=== PATIENT | female | born 1995 | race Two or more races ===

== ENCOUNTER 2023-09-14 15:17 | Outpatient (OUT) | payer OTHER, SELFPAY ==
[2023-09-14 16:24] LABS: HCG Quantitative 949 mIU/mL
== END 2023-09-14 15:18 | disposition home or self-care (01) ==
LOC: LAB 15:21
PROVIDERS: Visit Provider Obstetrics & Gynecology
DX: N92.6 Irregular menstruation, unspecified (principal)
CPT/HCPCS: 36415; 84702

== ENCOUNTER 2023-09-16 13:16 | Outpatient (OUT) | payer OTHER, SELFPAY ==
--- OUTSIDE RECORDS SUMMARY | 2023-09-16 13:39 | XMS_ITS | CCD ---
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 [address] [place] [address] Sodium [Moles/Vol] 136 mmol/L Normal 135-145 [facility] Comment on above: Performed By: #### 2 037779, [id number], [id number] ####[facility] [address] [place] [address] Urea nitrogen [Mass/Vol] 8 mg/dL Normal 5-21 [facility] Comment on above: Performed By: #### 2 238234, [id number], 8558018 ####[facility] [address] [place] [address] BhCG Quanton 09-07-2023 Beta hCG Qnt 311 mIU/mL High 1-3 [facility] Comment on above: Result Comment: 'F N ON < 1 - 3' ' 0.2 - 1 WEEK = 5 TO 50' ' 1 - 2 WEEKS = 50 - 500' ' 2 - 3 WEEKS = 100 - 5000' ' 3 - 4 WEEKS = 500 - 82990' ' 4 - 5 WEEKS = 1000 - 25948' ' 5 - 6 WEEKS = 47123 - 187672' ' 6 - 8 WEEKS = 21488 - 660775' ' 8 - 12 WEEKS = 93606 - 015602' Performed By: #### 2 185417, 3847414, 7000191, 5169155, 29384304, 8315606, 6206996 #### [facility] [address] [place] [address] CBC w/ Auto Diffon 4 Basophil Absolute 0.0 E9/L Normal 0.0-0.2 [facility] Comment on above: Performed By: #### 2 430235, [id number], 8894498 ####[address] [address] Basophils/100 WBC (Bld) 0.5 % Normal 0.0-2.0 [facility] Comment on above: Performed By: #### 2 299826, 66494937, 0561958 ####[address] [address] Eos Absolute 0.0 E9/L Normal 0.0-0.5 [facility] Comment on above: Performed By: #### 2 695689, 02774188, 0114923 ####[address] [address] Eosinophils/100 WBC (Bld) 0.5 % Normal 0.0-8.0 [facility] Comment on above: Performed By: #### 2 231111, 19829358, 4097169 ####[address] [address] Erythrocyte distribution width (RBC) [Ratio] 13.0 % Normal 10.9-14.2 [facility] Comment on above: Performed By: #### 2 202252, 20116275, 4130802 ####[address] [address] Hematocrit (Bld) [Volume fraction] 37.0 % Normal 34.0-46.0 [facility] Comment on above: Performed By: #### 2 006178, [id number], 1038358 ####[address] [address] Hemoglobin (Bld) [Mass/Vol] 12.1 g/dL Normal 12.0-16.0 [facility] Comment on above: Performed By: #### 2 575472, 75435570, 0994227 ####[address] [address] Lymph Absolute 2.1 E9/L Normal 1.0-4.0 [facility] Comment on above: Performed By: #### 2 730766, 80089592, 8178233 ####[address] [address] Lymphocytes/100 WBC (Bld) 24.8 % Normal 14.0-50.0 [facility] Comment on above: Performed By: #### 2 533855, 09723202, 4032406 ####[address] [address] MCH (RBC) [Entitic mass] 29.7 pg Normal 27.0-34.0 [facility] Comment on above: Performed By: #### 2 815778, 14303824, 6738949 ####[address] [address] MCHC (RBC) [Mass/Vol] 32.7 g/dL Normal 31.4-36.0 [facility] Comment on above: Performed By: #### 2 482928, 35500951, 6510860 ####[address] [address] MCV (RBC) [Entitic vol] 90.8 fL Normal 80.0-100.0 [facility] Comment on above: Performed By: #### 2 803349, 96939226, 4660359 ####[address] [address] [place] Absolute 0.5 E9/L Normal 0.2-1.0 [facility] Comment on above: Performed By: #### 2 587371, 67942352, 7178366 ####[address] [address] Monocytes/100 WBC (Bld) 6.0 % Normal 4.0-14.0 [facility] Comment on above: Performed By: #### 2 553364, 99583389, 3199553 ####[address] [place] [address] Neutro Absolute 5.9 E9/L Normal 2.0-7.5 [facility] Comment on above: Performed By: #### 2 993211, 67015696, 3887873 ####[facility] [address] [place] [address] Neutro Auto 68.2 % Normal 36.0-75.0 [facility] Comment on above: Performed By: #### 2 875517, 33363495, 6271212 ####[address] [address] Platelet 313.0 E9/L Normal 150.0-500.0 [facility] Comment on above: Performed By: #### 2 019620, 32303102, 0927005 ####[address] [address] Platelet mean volume (Bld) [Entitic vol] 8.1 fL Normal 6.4-10.8 [facility] Comment on above: Performed By: #### 2 650394, 40740576, 8495911 ####[address] [address] RBC 4.1 E12/L Low 4.3-5.9 [facility] Comment on above: Performed By: #### 2 662691, 80792804, 5743149 ####[address] [address] WBC 8.7 E9/L Normal 4.0-11.0 [facility] Comment on above: Performed By: #### 2 985067, 99888211, 1516477 ####[address] [address] CHEMISTRYOrdered By: SYSTEM SYSTEM on 09-07-2023 Anion gap [Moles/Vol] 9 mmol/L Normal 6 - 16 mEq/L R emisol Chem Calcium [Mass/Vol] 9.5 mg/dL Normal 8.9 - 11. 1 mg/dL Remisol Chem Chloride [Moles/Vol] 104 mmol/L Normal 101 - 1 11 mmol/L Remisol Chem CO2 [Moles/Vol] 27 mmol/L Normal 21 - 31 mmol/L Rem[facility] Chem Creatinine [Mass/Vol] 0.6 mg/dL Normal 0.5 - 1.3 mg/dL Remisol Chem eGFR 126 mL/min/1.73 m2 Normal >=59mL/mi n/1 .73 m2 Rem[facility] Chem Glucose [Mass/Vol] 73 mg/dL Normal 55 - 199 mg/dL Rem[facility] Chem HCG.beta subunit Qn 311 m[IU]/mL High 1 - 3 mIU/mL R emisol Chem Comment on above: Result Comment: 'F N ON < 1 - 3' ' 0.2 - 1 WEEK = 5 TO 50' ' 1 - 2 WEEKS = 50 - 500' ' 2 - 3 WEEKS = 100 - 5000' ' 3 - 4 WEEKS = 500 - [address]' ' 4 - 5 WEEKS = 1000 - [address]' ' 5 - 6 WEEKS = [address] - 655618' ' 6 - 8 WEEKS = [address] - 614571' ' 8 - 12 WEEKS = [address] - 369424' Potassium [Moles/Vol] 3.7 mmol/L Normal 3.5 - 5.3 mmol/L Remisol Chem Sodium [Moles/Vol] 136 mmol/L Normal 135 - 145 mmol/L [facility] Chem Urea nitrogen [Mass/Vol] 8 mg/dL Normal 5 - 21 mg/dL Remisol Chem Urea nitrogen/Creatinine [Mass ratio] 13 mg/mg Normal 10 - 20 Remisol Chem Consent for Treatmenton 08-19 Consent for Treatment [id number] #1.00TIFF Normal [facility] Discharge Instructionson Discharge Instructions [id number]#1.00TIFF Normal [facility] ED Clinical Summaryon 2023 ED Clinical Summary [address] [address] ED Clinical Summary Person Information Name: SHAHIDA [place]/[facility] Age: 28 Years : 1995 Sex: Female Language: Guyanese PCP: Liane IRVIN CNP Marital Status: Single Visit Id: Visit Reason: Abdominal pain - ; ABDOMINAL PAIN - Speciality: Acuity: 3 Enc Type: Emergency Med Service: Emergency Arrival: 09/07/2023 12:48:07 Discharge: 09/07/2023 15:56:27 LOS: 000 03:08 Checkin: 09/07/2023 12:48:07 Checkout: 09/07/2023 15:56:27 Dispo Type: Inpt Rehab Fac EVENTS: Event Name Event Status Request Date/Time Start Date/Time Complete Date/Time Arrive Complete 09/07/2023 12:48:07 09/07/2023 12:48:07 09/07/2023 12:48:07 Document Home Meds Request 09/07/2023 12:48:07 Triage Complete 09/07/2023 12:48:07 09/07/2023 13:01:56 09/07/2023 13:01:56 Pending Labs Complete 09/07/2023 13:04:12 09/07/2023 13:55:58 Blood Collect Request 09/07/2023 13:04:12 Lab Complete 09/07/2023 13:04:12 09/07/2023 13:55:58 Urine Collect Complete 09/07/2023 13:04:12 09/07/2023 13:34:22 Bed Assign Complete 09/07/2023 13:14:36 09/07/2023 13:14:36 09/07/2023 13:14:36 Dr Exam Complete 09/07/2023 13:14:36 09/07/2023 13:22:54 09/07/2023 13:22:54 RN Exam Complete 09/07/2023 13:14:36 09/07/2023 15:55:35 09/07/2023 15:55:35 Registration Complete 09/07/2023 13:22:54 09/07/2023 13:24:25 09/07/2023 13:24:25 Dr Exam Complete 09/07/2023 13:23:44 09/07/2023 13:23:44 09/07/2023 13:23:44 Reg Complete Request 09/07/2023 13:24:25 Reg Bed Request Complete 09/07/2023 13:24:26 09/07/2023 13:24:26 09/07/2023 13:24:26 Pending Labs Inlab 09/07/2023 13:26:15 09/07/2023 13:26:15 Lab Inlab 09/07/2023 13:26:15 09/07/2023 13:26:15 Pending Labs Complete 09/07/2023 13:27:58 09/07/2023 13:27:58 09/07/2023 13:46:49 Lab Complete 09/07/2023 13:27:58 09/07/2023 13:27:58 09/07/2023 13:46:49 Pending Labs Complete 09/07/2023 13:35:25 09/07/2023 13:35:25 09/07/2023 13:35:26 Discharge Complete 09/07/2023 15:33:52 09/07/2023 15:56:56 09/07/2023 15:56:56 Transfer Complete 09/07/2023 15:56:56 09/07/2023 15:56:56 09/07/2023 15:56:56 ADDRESS: [address] [facility] [id number] PHYS DOC NOTES: MEDICAL INFORMATION: Prescriptions Given: Medications to Continue with No Changes Other Medications acetaminophen (acetaminophen 325 mg Tab) 3 Tablets By Mouth every 6 hours. acetaminophen-oxycod one (Percocet 5 mg-325 mg oral tablet) 1 Tablets By Mouth every 6 hours. Refills: 0. PATIENT EDUCATION INFORMATION: Instructions: Abdominal Pain, Adult Follow up: With: Address: When: Liane IRVIN [address], [place] [id number] Business (1) In 3 days 09/10/2023 DIAGNOSIS: Abdominal pain Normal [facility] ED Note-Physicianon 09-07-19 ED Note-Physician Basic Information Time Seen: Wallace Doll PA-C 09/07/2023 13:22 Chief Complaint patient c/o abdominal cramping that started today. denies vaginal bleeding- 3 wks . 1 past . sent over [facility]- been there since tuesday. denies vomiting History of Present Illness 28-year-old female comes to the ED for evaluation of abdominal pain. The patient is earlier today she developed some right-sided abdominal pain. She took Tylenol, and upon arrival here her pain is completely resolved. She states she went to get checked out because recent positive home test. Estimates she is 3 weeks . No fever, chills, nausea, vomiting. No diarrhea constipation. No urinary complaints. No vaginal discharge or bleeding. Review of Systems A 10 point review of systems is negative except as noted above. Medical and Surgical History: Reviewed and noted Social history: Lives at home Tobacco: Denies Physical Exam Vitals & Measurements T: 36.7 ?C(Oral) HR: 79(Monitored) RR: 18 BP: 116/51 SpO2: 97% HT: 155 cm WT: 72.5 kg BMI: 30.18 Nurses notes and vital signs reviewed and patient is not hypoxic. General: The patient appears well, resting comfortably. Skin: Warm, dry. Head: Atraumatic. Neck: No JVD. Eye: Normal conjunctiva. Ears, Nose, Mouth, and Throat: Moist mucous membranes. Cardiovascular: Strong distal pulses. Chest wall: Respiratory: Respirations are nonlabored. Back: Normal range of motion. Musculoskeletal: Normal ROM with no gross deformity. Gastrointestinal: Soft and nontender. Midline scar from previous trauma Urological: Neurological: Awake and alert. No focal deficits. Follows commands. Psychiatric: Cooperative. Medical Decision Making Patient presents abdominal pain. She has been pain-free throughout her ED stay. No fever, chills, nausea or vomiting. Quantitative hCG is only 300. Ultrasound likely be nondiagnostic, given her lack of pain currently, she is safe for discharge home with outpatient follow-up. Patient was encouraged to return to the ED if symptoms worsen or change. [ ] The patient is and presents with abdominal pain or vaginal bleeding. A trans-abdominal or trans-vaginal ultrasound was performed and the location is documented. [SATISFIES MIPS PERFORMANCE] [X ] The patient is pregant and presents with abdominal pain or vaginal bleeding. A trans-abdominal or trans-vaginal ultrasound was NOT performed because the patient has no pain vaginal discharge or bleeding [ ] The patient is pregant and presents with abdominal pain or vaginal bleeding. A trans-abdominal or trans-vaginal ultrasound was NOT performed, no reason documented. [DOES NOT SATISFY MIPS PERFORMANCE] Assessment/Plan Abdominal pain (R10.9: Unspecified abdominal pain) Disposition Plan Patient Discharge Condition Disposition: Discharged home Condition: Improved and stable Counseled: Patient and/or family were counseled to workup, results, treatment plan and follow-up recommendations Discharge Prescription List Prescriptions No active prescription medications Follow-up With When Contact Information Liane IRVIN In 3 days 09/10/2023 EST [address] [place] [address] [facility] (1) Additional Instructions: Patient Education Abdominal Pain, Adult Attestation I performed a substantive part of the MDM during the patient?s E/M visit. I personally made or approved the documented management plan and acknowledge its risk of complications. (Independent Interpretation) My (EKG/X-Ray/US/CT) interpretation as above. (Discussion) Management/test interpretation discussed with APC. This report was transcribed using voice recognition software. Every effort was made to ensure accuracy, however, inadvertently computerized ice seller mistakes may be present. Appropriate healthcare PPE was used in evaluating this patient. Problem List/Past Medical History Ongoing Bipolar 1 disorder, mixed BMI 24.0-24.9, adult Chronic hepatitis C Drug addiction in remission Nicotine addiction Historical feet Seizures Procedure/Surgical History Betamethasone (12/15/2020), Foot repair. 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 Exercise type: Walking., 02/22/2019 Home/Environment Lives with Mother., 11/08/2011 Nutrition/Health - Low Risk, 11/08/2011 Other Caffeine-none, 02/22/2019 Sexual Sexually active: Yes., 11/08/2011 Substance Abuse - Denies Substance Abuse, 10/27/2020 Past, Cocaine, Heroin, Methamphetamines, IV drug use: Yes. Drug use interferes with work/ho (more content not included)... Normal [facility] Comment on above: Result Comment: Elec tronically Signed By: Wallace Doll PA-C\.br\Date and Time Signed: 09/07/23 16:08 EST\.br\Electronically Co-Signed By: Ba Duque DO\.br\Date and Time Co-Signed: 09/07/23 17:48 EST ED Patient Education Noteon 09-07-2023 ED Patient Education Note Gastroenterology Abdominal Pain, Adult Pain in the abdomen (abdominal pain) can be caused by many things. Often, abdominal pain is not serious and it gets better with no treatment or by being treated at home. However, sometimes abdominal pain is serious. Your health care provider will ask questions about your medical history and do a physical exam to try to determine the cause of your abdominal pain. Follow these instructions at home: Medicines ? Take vpfs-vae-jxyeiga and prescription medicines only as told by your health care provider. ? Do not take a laxative unless told by your health care provider. General instructions ? Watch your condition for any changes. ? Drink enough fluid to keep your urine pale yellow. ? Keep all follow-up visits as told by your health care provider. This is important. Contact a health care provider if: ? Your abdominal pain changes or gets worse. ? You are not hungry or you lose weight without trying. ? You are constipated or have diarrhea for more than 2?3 days. ? You have pain when you urinate or have a bowel movement. ? Your abdominal pain wakes you up at night. ? Your pain gets worse with meals, after eating, or with certain foods. ? You are vomiting and cannot keep anything down. ? You have a fever. ? You have blood in your urine. Get help right away if: ? Your pain does not go away as soon as your health care provider told you to expect. ? You cannot stop vomiting. ? Your pain is only in areas of the abdomen, such as the right side or the left lower portion of the abdomen. Pain on the right side could be caused by appendicitis. ? You have bloody or black stools, or stools that look like tar. ? You have severe pain, cramping, or bloating in your abdomen. ? You have signs of dehydration, such as: ? Dark urine, very little urine, or no urine. ? Cracked lips. ? Dry mouth. ? Sunken eyes. ? Sleepiness. ? Weakness. ? You have trouble breathing or chest pain. Summary ? Often, abdominal pain is not serious and it gets better with no treatment or by being treated at home. However, sometimes abdominal pain is serious. ? Watch your condition for any changes. ? Take gula-vzj-kxgntps and prescription medicines only as told by your health care provider. ? Contact a health care provider if your abdominal pain changes or gets worse. ? Get help right away if you have severe pain, cramping, or bloating in your abdomen. This information is not intended to replace advice given to you by your health care provider. Make sure you discuss any questions you have with your health care provider. Document Revised: 08/22/2020 Document Reviewed: 11/12/2019 [employer] Patient Education ? 2022 [place]. [facility] ED Patient Summaryon 024 ED Patient Summary [address] [address] Patient Discharge Instructions Person Information Name: SHAHIDA [place] Age: 28 Years Arrival Date: 09/07/2023 12:48:07 Discharge Diagnosis: Abdominal pain Primary Care Physician: Liane IRVIN CNP Provider Information Primary Provider: Ba Duque DO Advanced Door Clamper:Wallace Doll PA-C The exam and treatment you received in the Emergency Department were for an urgent problem and are not intended as complete care. It is important that you follow up with a doctor, nurse practitioner, or physician?s post production assistant for ongoing care. If your symptoms become worse or you do not improve as expected and you are unable to reach your usual health care provider, you should return to the Emergency Department. We are available 24 hours a day. SHAHIDA [place] has been given the following list of patient education materials, prescriptions and follow-up instructions: Follow-up Instructions: With: Address: When: Liane IRVIN [address] [place] [address] Business (1) In 3 days 09/10/2023 In the event that this physician does not participate in your insurance network, please consult with your insurance company to find a nearby participating provider. Patient Education Materials: Abdominal Pain, Adult A MESSAGE TO ALL PATIENTS REGARDING OPIOIDS PRESCRIPTION OPIOIDS: WHAT YOU NEED TO KNOW Prescription opioids can be used to help relieve iizxjhpg-sg-bvutlh pain and are often prescribed following a surgery or injury, or for certain health conditions. These medications can be an important part of the treatment but also come with serious risks. It is important to work with your healthcare provider to make sure you are getting the safest, most effective care. WHAT ARE THE RISKS AND SIDE EFFECTS OF OPIOID USE? Prescription opioids carry serious risks of addiction and overdose, especially with prolonged use. An opioid overdose, often marked by slowed breathing, can cause sudden . The use of prescription opioids can have a number of side effects as well, even when taken as directed: ? Tolerance?meaning you might need to take more of the medication for the same pain relief ? Physical dependence?meaning you have symptoms of withdrawal when a medication is stopped ? Increased sensitivity to pain ? Constipation ? Nausea, vomiting, and dry mouth ? Sleepiness and dizziness ? Confusion ? Depression ? Low levels of testosterone that can result in lower sex drive, energy, and strength ? Itching and sweating RISKS ARE GREATER WITH: ? History of drug misuse, substance use disorder, or overdose ? Mental health conditions (such as depression or anxiety) ? Sleep apnea ? Older age (65 years and older) ? Avoid alcohol while taking prescription opioids. Also, unless specifically advised by your health care provider, medications to avoid include: ? Benzodiazepines (such as Xanax or Valium) ? Muscle relaxants (such as Soma or Flexeril) ? Hypnotics (such as Ambien or Lunesta) ? Other prescription opioids KNOW YOUR OPTIONS Talk to your health care provider about ways to manage your pain that don?t involve prescription opioids. Some of these options may actually work better and have fewer risks and side effects. Options may include: ? Pain relievers such as acetaminophen, ibuprofen, and naproxen ? Some medication that are also used for depression or seizures ? Physical therapy and exercise ? Cognitive behavioral therapy, a psychological, goal-directed approach, in which patients learn how to modify physical, behavioral, and emotional triggers of pain and stress. IF YOU ARE PRESCRIBED OPIOIDS FOR PAIN: ? Never take opioids in greater amounts or more often than prescribed. ? Follow up with your primary health care provider. o Work together to create a plan on how to manage your pain. o Talk about ways to help manage your pain that don?t involve prescription opioids. o Talk about any and all concerns and side effects. ? Help prevent misuse and abuse o Never sell or share prescription opioids. o Never use another person?s prescription opioids. ? Store prescription opioids in a secure place and out of reach of others (this may include visitors, children, friends, and family). ? Safely dispose of unused prescription opioids: Find your community drug take-back program or your pharmacy mail-back program, or flush them down the toilet, following guidance from the Food and Drug Administration (www.fda.gov/Drugs/R esourcesForYou). ? Visit www.cdc.gov/drugover dose to learn about the risks of opioids abuse and overdose. ? If you believe you may be struggling with addiction, tell your health customer care agent and ask for guidance or call [facility]?S National Helpline at 0-423-427-YGTV. h Source: [place] Department o (more content not included)... Normal [facility] HEMATOLOGYOrdered By: SYSTEM SYSTEM on 09-07-2023 Basophil Absolute 0.0 E9/L Normal 0.0 - 0.2 E9/L Remisol Heme Basophils/100 WBC (Bld) 0.5 % Normal 0.0 - 2.0 % Remisol Heme Eos Absolute 0.0 E9/L Normal 0.0 - 0.5 E9/L Remisol Heme Eosinophils/100 WBC (Bld) 0.5 % Normal 0.0 - 8.0 % Remisol Heme Erythrocyte distribution width (RBC) [Ratio] 13.0 % Normal 10.9 - 14.2 % Remisol Heme Hematocrit (Bld) [Volume fraction] 37.0 % Normal 34.0 - 46.0 % Remisol Heme Hemoglobin (Bld) [Mass/Vol] 12.1 g/dL Normal 12.0 - 16.0 gm/dL Remisol Heme Lymph Absolute 2.1 E9/L Normal 1.0 - 4.0 E9/L Remisol Heme Lymphocytes/100 WBC (Bld) 24.8 % Normal 14.0 - 50.0 % Remisol Heme MCH (RBC) [Entitic mass] 29.7 pg Normal 27.0 - 34.0 pg Remisol Heme MCHC (RBC) [Mass/Vol] 32.7 g/dL Normal 31.4 - 36.0 gm/dL Remisol Heme MCV (RBC) [Entitic vol] 90.8 fL Normal 80.0 - 100.0 fL Remisol Heme [place] Absolute 0.5 E9/L Normal 0.2 - 1.0 E9/L Remisol Heme Monocytes/100 WBC (Bld) 6.0 % Normal 4.0 - 14.0 % Remisol Heme Neutro Absolute 5.9 E9/L Normal 2.0 - 7.5 E9/L Remisol Heme Neutro Auto 68.2 % Normal 36.0 - 75.0 % Remisol Heme Platelet 313.0 E9/L Normal 150.0 - 500.0 E9/L Remisol Heme Platelet mean volume (Bld) [Entitic vol] 8.1 fL Normal 6.4 - 10.8 fL Remisol Heme RBC 4.1 E12/L Low 4.3 - 5.9 E12/L Remisol Heme WBC 8.7 E9/L Normal 4.0 - 11.0 E9/L Remisol Heme Outside Recordson 09-07-2023 Outside Records [id number] 8#1.00TIFF Normal [facility] Pre-Arrival Noteon Pre-Arrival Note Pre-Arrival Summary Name: Adriano, Current Date: 09/07/2023 12:55:08 EST Gender: Female Date of : 1995 Age: 28 years Pre-Arrival Type: EMS ETA: 09/07/2023 12:58:00 EST Primary Care Physician: Presenting Problem: abd pain Pre-Arrival User: Wallace Doll PA-C Referring Source: Location: ID Completion Date/Time: 09/07/2023 12:29:00 [facility] Emergency Department Pre-Hospital Report Form Vital Signs: Pre-Hospital Report: Treatment in Route: Response to Treatment: Misc. Issues: Abd pain with positive preg test Normal [facility] UA With Cult Reflexon 2023 Bacteria LM Ql (Urine sed) TRACE Normal Trace [facility] Comment on above: Performed By: #### 2 [id number], [id number], 9503541, 4542519, 06792464, 4502473, [id number] #### [facility] [address] [place] [address] Bilirubin Ql (U) Negative Normal Negative [facility] Comment on above: Performed By: #### 2 467123, 3462734, 2369365, 4373100, 97735958, 4186642, [id number] #### [facility] [address] [place] [address] Clarity (U) CLEAR Normal Clear [facility] Comment on above: Performed By: #### 2 860730, 4804984, 0638070, 8608684, 05444276, 6745007, [id number] #### [facility] [address], [place] [address] Color (U) STRAW Abnormal Yellow [facility] Comment on above: Performed By: #### 2 907147, 1537315, 0159273, 9931913, 68829109, 5953031, 9366577 #### [facility] [address] [place] [address] Epithelial cells.squamous LM.HPF (Urine sed) [#/Area] 0-2 Normal 0-2 [facility] Comment on above: Performed By: #### 2 387252, 0642344, 0790271, 6160437, 57789896, 8954839, 3374218 #### [facility] [address] [place] [address] Glucose Test strip (U) [Mass/Vol] Negative Normal Negative [facility] Comment on above: Performed By: #### 2 469193, 8675850, 2561033, 9379901, 85367894, 1409255, 5711289 #### [facility] [address] [place] [address] Hemoglobin Ql (U) Negative Normal Negative [facility] Comment on above: Performed By: #### 2 954566, 2791694, 8773590, 0548408, 15106285, 7800733, 3226340 #### [facility] [address] [place] [address] Ketones (U) [Mass/Vol] Negative Normal Negative [facility] Comment on above: Performed By: #### 2 950619, 7780353, 9334811, 5002366, 31032079, 4330300, 1188146 #### [facility] [address] [place]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 Normal [facility] Comment on above: Result Comment: Elec tronically Signed By: MD Bertha, Herminio Pope\.br\Date and Time Signed: 11/15/22 02:22 EDT Progress Note-Physician Patient: SHAHIDA OH Age: 27 years Sex: Female : 1995 Associated Diagnoses: None Author: MD Bertha, Herminio Pope Preoperative Information Anesthesia Preop Information NPO status unclear. Pt confused about when she had oral intake. Anesthesia history: Patient history: No prior anesthesia problems. Re-evaluation prior to induction: Completed, Initial evaluation reviewed. Review of Systems Respiratory: No shortness of breath. Cardiovascular: Pain at stabbing sites.. Hematology/Lymphatic s Health Status Allergies: Allergic Reactions (All) No Known Allergies No Known Medication Allergies Current medications: (Selected) Inpatient Medications Ordered Dilaudid 1 mg/mL injectable solution: 0.5 mg = 0.5 mL, Injection, IV Push, q3hr PRN Breakthrough Pain for 5 day(s), Stop date 11/21/22 14:33:00 EDT, Routine, Start date 11/16/22 14:34:00 EDT Robaxin 500 mg Tab: 500 mg = 1 tab(s), Tab, Oral, QID, Routine, Start date 11/15/22 9:00:00 EDT, 11/15/22 4:39:00 EDT acetaminophen 325 mg Tab: 975 mg = 3 tab(s), Tab, Oral, q6hr, Routine, Start date 11/15/22 5:00:00 EDT, 11/15/22 4:39:00 EDT bisacodyl 10 mg Supp: 10 mg = 1 supp, Supp, Rectal, Daily PRN Constipation, Routine, Start date 11/15/22 4:39:00 EDT, 11/15/22 4:39:00 EDT bisacodyl 5 mg Oral EC Tab: 10 mg = 2 tab(s), Tab-EC, Oral, Daily PRN Constipation, Routine, Start date 11/15/22 4:39:00 EDT, 11/15/22 4:39:00 EDT enoxaparin 30 mg/0.3 mL SC Lucy: 30 mg = 0.3 mL, Injection, SubCutaneous, BID, Routine, Start date 11/15/22 9:00:00 EDT, 11/15/22 4:39:00 EDT gabapentin 300 mg Cap: 300 mg = 1 cap(s), Cap, Oral, TID, Routine, Start date 11/15/22 8:00:00 EDT, 11/15/22 4:39:00 EDT ketorolac 15 mg/mL Inj: 15 mg = 1 mL, Injection, IV Push, q6hr for 5 day(s), Stop date 11/20/22 9:59:00 EDT, Routine, Start date 11/15/22 10:00:00 EDT, 11/15/22 10:00:00 EDT magnesium hydroxide 8% Oral Susp 30 mL: 30 mL, Susp-Oral, Oral, Daily PRN Constipation, STAT, Start date 11/15/22 4:39:00 EDT oxyCODONE 5 mg Tab: 10 mg = 2 tab(s), Tab, Oral, q4hr PRN Pain 8-10 for 5 day(s), Stop date 11/21/22 14:33:00 EDT, Routine, Start date 11/16/22 14:34:00 EDT, Pain score 8-10. oxyCODONE 5 mg Tab: 5 mg = 1 tab(s), Tab, Oral, q4hr PRN Pain 4-7 for 5 day(s), Stop date 11/21/22 14:32:00 EDT, Routine, Start date 11/16/22 14:33:00 EDT, Pain score 4-7. Prescriptions Prescribed Naprosyn 500 mg Tab: 500 mg = 1 tab(s), Oral, BID, with food, X 7 day(s), # 14 tab(s), Refills(s) 0, Pharmacy: [facility] #[id number], 157, cm, 11/14/22 23:32:00 EDT, Height/Length Dosing, 66.5, kg, 11/14/22 23:32:00 EDT, Weight Dosing Robaxin 500 mg Tab: 500 mg = 1 tab(s), Oral, QID, PRN Spasm, X 7 day(s), # 28 tab(s), Refills(s) 0, Pharmacy: [facility] #[id number], 157, cm, 11/14/22 23:32:00 EDT, Height/Length Dosing, 66.5, kg, 11/14/22 23:32:00 EDT, Weight Dosing Documented Medications Documented acetaminophen 325 mg Tab: 975 mg = 3 tab(s), Oral, q6hr, Refills(s) 0 Problem list: All Problems Bipolar 1 disorder, mixed / SNOMED CT 68321745 / Confirmed BMI 24.0-24.9, adult / SNOMED CT 8756236613 / Confirmed Chronic hepatitis C / SNOMED CT 542889112 / Confirmed Drug addiction in remission / SNOMED CT 6890109309 / Confirmed Maternal tobacco use / SNOMED CT 9926572518 / Confirmed Maternal tobacco use / SNOMED CT 4051556240 / Confirmed Nicotine addiction / SNOMED CT 35915164 / Confirmed Resolved: feet / SNOMED CT 841529834 metal implation to tighten tedons Resolved: Impaired skin integrity / SNOMED CT 85595522 Problem added on documentation of skin impairments. Resolved due to patient discharge. Resolved: / SNOMED CT 765896669 Resolved: Seizures / SNOMED CT [id number] Canceled: Anxious depression / SNOMED CT 038932299 Canceled: Depression / SNOMED CT 085445429 Canceled: Diarrhea / SNOMED CT 719979649 Canceled: Fever / SNOMED CT 1287629828 Canceled: HCV infection / SNOMED CT 73700006 Canceled: High urine creatine / SNOMED CT 986041 Canceled: Smoker / IMO 094086 Added secondary to documentation in Social History. Canceled: Suicide / SNOMED CT 25360951 Canceled: Tonsillar cyst / SNOMED CT 030920559 Histories Past Medical History: Resolved (093577465): Onset on 05/18/2020 at 25 years. Resolved. feet (548679301): Resolved. Comments: 11/08/2011 EDT 3:54 Richard Mayes RNah metal implation to tighten tedons Seizures ([id number]): Resolved. Family History: Renal failure syndrome Father Comments: 11/08/2011 3:57 Richard Mayes RNah cancer of the kidneys Bipolar Sister Procedure history: Betamethasone (351356294) on 12/15/2020 at 25 Years. Foot repair (599347456). Social History Social & Psychosocial Habits Alcohol 11/08/2011 Risk Assessment: Denies Alcohol Use 11/15/2022 Use: Current Frequency: 1-2 times per month Employment/School 11/08/2011 Status: Student Exerci (more content not included)... Normal [facility] Comment on above: Result Comment: Elec tronically Signed By: MD Bertha, Herminio F\.br\Date and Time Signed: 11/17/22 15:59 EDT eGFRon 11-17-2022 GFR/1.73 sq M.predicted among non-blacks MDRD (S/P/Bld) [Vol rate/Area] 133 mL/min/1.73 m2 Normal >=59 [facility] Comment on above: Order Comment: Order added by Discern Expert. Result Comment: Almond Huller rosie kidney disease could be indicated at eGFR's of less than 60 mL/min/1.73m2. Kidney failure is indicated at less than 15 mL/min/1.73m2. Performed By: #### 1 3512473, 2903131, 6645934, 5502994, 3851816, 6965145 ####[facility] [address] [place] [address] Auto Diffon 11-16-2022 Basophils/100 WBC (Bld) 0.4 % Normal 0.0-2.0 [facility] Comment on above: Order Comment: Order Added by Discern Expert. Performed By: #### 2 112421, 1255546, 9146390, 9010248, 88726685, 6064976, 0139840 #### [facility] [address] [place] [address] Basophils/Leukocytes Auto (Bld) [Pure # fraction] 0.0 E9/L Normal 0.0-0.2 [facility] Comment on above: Order Comment: Order Added by Discern Expert. Performed By: #### 2 379349, 0713251, 2807629, 6491364, 28212632, 1416661, 5727157 #### [facility] [address] [place] [address] Eosinophils/100 WBC (Bld) 0.5 % Normal 0.0-8.0 [facility] Comment on above: Order Comment: Order Added by Discern Expert. Performed By: #### 2 840855, 3924194, 8616796, 5012815, 30278719, 1592608, 6249306 #### [facility] [address] [place] [address] Eosinophils/Leukocytes Auto (Bld) [Pure # fraction] 0.0 E9/L Normal 0.0-0.5 [facility] Comment on above: Order Comment: Order Added by Discern Expert. Performed By: #### 2 955840, 2847780, 0319606, 5415692, 77907089, 1037128, 7861829 #### [facility] [address] [place] [address] Lymphocytes/100 WBC (Bld) 33.3 % Normal 14.0-50.0 [facility] Comment on above: Order Comment: Order Added by Discern Expert. Performed By: #### 2 744056, 7324339, 8685034, 9830774, 58587108, 1733105, 4765229 #### [facility] [address] [place] [address] Lymphocytes/Leukocytes Auto (Bld) [Pure # fraction] 3.4 E9/L Normal 1.0-4.0 [facility] Comment on above: Order Comment: Order Added by Discern Expert. Performed By: #### 2 480221, 3588695, 0585448, 7785413, 63940649, 3490306, 5606696 #### [facility] [address] [place] [address] Monocytes/100 WBC (Bld) 5.9 % Normal 4.0-14.0 [facility] Comment on above: Order Comment: Order Added by Discern Expert. Performed By: #### 2 953061, 9207134, 9001092, 7969791, 11234373, 6114794, 1401228 #### [facility] [address] [place] [address] Monocytes/Leukocytes Auto (Bld) [Pure # fraction] 0.6 E9/L Normal 0.2-1.0 [facility] Comment on above: Order Comment: Order Added by Esme Expert. Performed By: #### 2 208197, 8517743, 5266101, 7171034, 84760798, 2022810, 6748702 #### [facility] [address] [place] [address] Neutrophils/100 WBC (Bld) 59.9 % Normal 36.0-75.0 [facility] Comment on above: Order Comment: Order Added by Esme Expert. Performed By: #### 2 046274, 7480323, 9795911, 5010300, 67887670, 7904265, 3766595 #### [facility] [address] [place] [address] Neutrophils/Leukocytes Auto (Bld) [Pure # fraction] 6.2 E9/L Normal 2.0-7.5 [facility] Comment on above: Order Comment: Order Added by Esme Expert. Performed By: #### 2 535329, 8885537, 7800146, 1462743, 70812112, 2922413, 5011304 #### [facility] [address] [place] [address] BMPon 11-16-2022 Anion gap [Moles/Vol] 5 mmol/L Low 6-16 [facility] Comment on above: Order Comment: RN Ma dison aware in as RN collect, will correct...[facility] 11/16/2022 03:05:16 EDT Performed By: #### 2 292324, 2755810, 3067987, 9354285, 64375149, 7620853, 0057144 #### [facility] [address] [place] [address] Calcium [Mass/Vol] 8.1 mg/dL Low 8.9-11.1 [facility] Comment on above: Order Comment: DENNIS tamayo aware in as RN collect, will correct...[facility] 11/16/2022 03:05:16 EDT Performed By: #### 2 887049, 0269017, 3302076, 6277390, 63897178, 0830925, 2630268 #### [facility] [address] [place] [address] Chloride [Moles/Vol] 110 mmol/L Normal 101-111 [facility] Comment on above: Order Comment: DENNIS tamayo aware in as RN collect, will correct...[facility] 11/16/2022 03:05:16 EDT Performed By: #### 2 222653, 3155918, 5449034, 2058731, 86727343, 5087214, 0109639 #### [facility] [address] [place] [address] CO2 [Moles/Vol] 25 mmol/L Normal 21-31 [facility] Comment on above: Order Comment: DENNIS henriquez in as RN collect, will correct...[facility] 11/16/2022 03:05:16 EDT Performed By: #### 2 270671, 7971049, 8185873, 1846440, 43877443, 4836950, 5502279 #### [facility] [address] [place] [address] Creatinine [Mass/Vol] 0.5 mg/dL Normal 0.5-1.3 [facility] Comment on above: Order Comment: DENNIS tamayo aware in as RN collect, will correct...[facility] 11/16/2022 03:05:16 EDT Performed By: #### 2 153803, 1995605, 1061088, 5337329, 15755914, 4720858, 3352190 #### [facility] [address] [place] [address] Glucose [Mass/Vol] 90 mg/dL Normal 55-199 [facility] Comment on above: Order Comment: DENNIS tamayo aware in as RN collect, will correct...[facility] 11/16/2022 03:05:16 EDT Result Comment: If t his glucose result represents a fasting glucose, interpretation should refer to the following reference range: 55-99 mg/dL Performed By: #### 2 164973, 3827404, 5867841, 7213699, 12935721, 4875219, 2813445 #### [facility] [address] [place] [address] Potassium [Moles/Vol] 3.9 mmol/L Normal 3.5-5.3 [facility] Comment on above: Order Comment: DENNIS tamayo aware in as RN collect, will correct...[facility] 11/16/2022 03:05:16 EDT Performed By: #### 2 276101, 4608872, 6217912, 1883487, 43982560, 6144484, 6187212 #### [facility] [address] [place] [address] Sodium [Moles/Vol] 136 mmol/L Normal 135-145 [facility] Comment on above: Order Comment: DENNIS tamayo aware in as RN collect, will correct...[facility] 11/16/2022 03:05:16 EDT Performed By: #### 2 161535, 3254638, 6338578, 6578070, 37786398, 2241245, 8258618 #### [facility] [address] [place] [address] Urea nitrogen [Mass/Vol] 11 mg/dL Normal 5-21 [facility] Comment on above: Order Comment: DENNIS tamayo aware in as RN collect, will correct...[facility] 11/16/2022 03:05:16 EDT Performed By: #### 2 600397, 8584996, 2342984, 9790272, 17295479, 9911455, 8270480 #### [facility] [address] [place] [address] Urea nitrogen/Creatinine [Mass ratio] 22 No Units High 10-20 [facility] Comment on above: Order Comment: RN Jose C tamayo aware in as RN collect, will correct...[facility] 11/16/2022 03:05:16 EDT Performed By: #### 2 772194, 6055779, 8077190, 0932198, 85483326, 5010223, 6261849 #### [facility] [address] [place] [address] CBC w/ Auto Diffon 3 Erythrocyte distribution width (RBC) [Ratio] 13.8 % Normal 10.9-14.2 [facility] Comment on above: Performed By: #### 2 680929, 2237094, 8951846, 7491908, 45406519, 8088882, 0569882 #### [facility] [address] [place] [address] Hematocrit (Bld) [Volume fraction] 29.3 % Low 34.0-46.0 [facility] Comment on above: Performed By: #### 2 152278, 1686817, 4576497, 6123072, 69176927, 5394423, 0098819 #### [facility] [address] [place] [address] Hemoglobin (Bld) [Mass/Vol] 9.7 g/dL Low 12.0-16.0 [facility] Comment on above: Performed By: #### 2 929826, 2081877, 5557240, 7909617, 43821775, 0451564, 2443580 #### [facility] [address] [place] [address] MCH (RBC) [Entitic mass] 30.0 pg Normal 27.0-34.0 [facility] Comment on above: Performed By: #### 2 883681, 1068770, 4533594, 0932062, 06454225, 3949798, 3724923 #### [facility] [address] [place] [address] MCHC (RBC) [Mass/Vol] 33.3 g/dL Normal 31.4-36.0 [facility] Comment on above: Performed By: #### 2 787223, 7837160, 6691621, 6521434, 88413533, 7158728, 0201504 #### [facility] [address] [place] [address] MCV (RBC) [Entitic vol] 90.0 fL Normal 80.0-100.0 [facility] Comment on above: Performed By: #### 2 664600, 3593779, 6694996, 8953557, 86582139, 3777946, 7918766 #### [facility] [address] [place] [address] Platelet mean volume (Bld) [Entitic vol] 8.7 fL Normal 6.4-10.8 [facility] Comment on above: Performed By: #### 2 885477, 2573437, 3171109, 1509287, 24167255, 0578774, 7653089 #### [facility] [address] [place] [address] Platelets (Bld) [#/Vol] 172.0 E9/L Normal 150.0-500.0 [facility] Comment on above: Performed By: #### 2 747155, 8454658, 7525383, 2976706, 89994012, 3463096, 3468673 #### [facility] [address] [place] [address] RBC (Bld) [#/Vol] 3.2 E12/L Low 4.3-5.9 [facility] Comment on above: Performed By: #### 2 098762, 5462770, 5198335, 3628780, 30240666, 1205452, 7831146 #### [facility] [address] [place] [address] WBC corrected for nucl RBC Auto (Bld) [#/Vol] 10.3 E9/L Normal 4.0-11.0 [facility] Comment on above: Performed By: #### 2 272276, 6861242, 6194421, 8881708, 37142369, 5846210, 3518757 #### [facility] [address] [place] [address] CHEMISTRYOrdered By: SYSTEM SYSTEM on 11-16-2022 Anion gap [Moles/Vol] 5 mmol/L Low 6 - 16 mEq/L [facility] Chloride [Moles/Vol] 110 mmol/L Normal 101 - 1 11 mmol/L [facility] CO2 [Moles/Vol] 25 mmol/L Normal 21 - 31 mmol/L [facility] Creatinine [Mass/Vol] 0.5 mg/dL Normal 0.5 - 1.3 mg/dL [facility] GFR/1.73 sq M.predicted among non-blacks MDRD (S/P/Bld) [Vol rate/Area] 133 mL/min/1.73 m2 Normal >=59mL/min/1 .73 m2 [facility] Chem S Glucose [Mass/Vol] 90 mg/dL Normal 55 - 199 mg/dL [facility] Magnesium [Mass/Vol] 1.8 mg/dL Normal 1.3 - 2 .4 mg/dL [facility] Phosphate [Mass/Vol] 2.7 mg/dL Normal 1.9 - 4 .6 mg/dL [facility] Potassium [Moles/Vol] 3.9 mmol/L Normal 3.5 - 5.3 mmol/L [facility] Remisol Sodium [Moles/Vol] 136 mmol/L Normal 135 - 145 mmol/L [facility] Remisol Urea nitrogen [Mass/Vol] 11 mg/dL Normal 5 - 21 mg/dL [facility] Urea nitrogen/Creatinine [Mass ratio] 22 mg/mg High 10 - 20 [facility] HEMATOLOGYOrdered By: SYSTEM SYSTEM on 11-16-2022 Basophils/100 WBC (Bld) 0.4 % Normal 0.0 - 2.0 % [facility] Basophils/Leukocytes Auto (Bld) [Pure # fraction] 0.0 E9/L Normal 0.0 - 0.2 E9/L [facility] Eosinophils/100 WBC (Bld) 0.5 % Normal 0.0 - 8.0 % [facility] Eosinophils/Leukocytes Auto (Bld) [Pure # fraction] 0.0 E9/L Normal 0.0 - 0.5 E9/L [facility] Lymphocytes/100 WBC (Bld) 33.3 % Normal 14.0 - 50.0 % [facility] Lymphocytes/Leukocytes Auto (Bld) [Pure # fraction] 3.4 E9/L Normal 1.0 - 4.0 E9/L [facility] Monocytes/100 WBC (Bld) 5.9 % Normal 4.0 - 14.0 % [facility] Monocytes/Leukocytes Auto (Bld) [Pure # fraction] 0.6 E9/L Normal 0.2 - 1.0 E9/L [facility] Neutrophils/100 WBC (Bld) 59.9 % Normal 36.0 - 75.0 % [facility] Neutrophils/Leukocytes Auto (Bld) [Pure # fraction] 6.2 E9/L Normal 2.0 - 7.5 E9/L [facility] HEMATOLOGYOrdered By: Rian Arroyo on 11-16-2022 Erythrocyte distribution width (RBC) [Ratio] 13.8 % Normal 10.9 - 14.2 % [facility] Hematocrit (Bld) [Volume fraction] 29.3 % Low 34.0 - 46.0 % [facility] Hemoglobin (Bld) [Mass/Vol] 9.7 g/dL Low 12.0 - 16.0 gm/dL [facility] MCH (RBC) [Entitic mass] 30.0 pg Normal 27.0 - 34.0 pg [facility] MCHC (RBC) [Mass/Vol] 33.3 g/dL Normal 31.4 - 36.0 gm/dL [facility] MCV (RBC) [Entitic vol] 90.0 fL Normal 80.0 - 100.0 fL [facility] Platelet mean volume (Bld) [Entitic vol] 8.7 fL Normal 6.4 - 10.8 fL [facility] Platelets (Bld) [#/Vol] 172.0 E9/L Normal 150. 0 - 500.0 E9/L [facility]eAutoSS RBC (Bld) [#/Vol] 3.2 E12/L Low 4.3 - 5.9 E12/L [facility] HemeAutoSS WBC corrected for nucl RBC Auto (Bld) [#/Vol] 10.3 E9/L Normal 4.0 - 11.0 E9/L [facility] HemeAutoSS Interdisciplinary Note - Luis e Manageron 11-16-2022 Interdisciplinary Note - Fixed Income Director Pt is awaiting bed to [facility]. ANt dc TBD. CRM to follow. Normal [facility] Comment on above: Result Comment: Elec tronically Signed By: Shanti Reed.br\Date and Time Signed: 11/16/22 11:01 EDT Laboratory - Chemistry and C hemistry - challengeOrdered By: SYSTEM SYSTEM on 11-16-2022 Calcium [Mass/Vol] 8.1 mg/dL Low 8.9 - 11. 1 mg/dL [facility] Remisol Magnesiumon 11-16-2022 Magnesium [Mass/Vol] 1.8 mg/dL Normal 1.3-2.4 [facility] Comment on above: Performed By: #### 2 651663, 4550426, 6169669, 4295543, 92251542, 0582783, 2017153 #### [facility] [address] [place] [address] Phosphoruson 11-16-2022 Phosphate [Mass/Vol] 2.7 mg/dL Normal 1.9-4.6 [facility] Comment on above: Performed By: #### 2 476300, 1320835, 5332585, 0076379, 23621037, 6343521, 9005680 ####[facility] [address] [place] [address] eGFRon 11-16-2022 GFR/1.73 sq M.predicted among non-blacks MDRD (S/P/Bld) [Vol rate/Area] 133 mL/min/1.73 m2 Normal >=59 [facility] Comment on above: Order Comment: Order added by Discern Expert. Result Comment: Almond Huller rosie kidney disease could be indicated at eGFR's of less than 60 mL/min/1.73m2. Kidney failure is indicated at less than 15 mL/min/1.73m2. Performed By: #### 2 085830, 6195291, 7783659, 1007438, [id number], 6035991, 5717812 #### [facility] [address] [place] [address] ABO/Rhon 11-15-2022 ABO/Rh Positive Invalid Interpretation Code [facility] Comment on above: Performed By: #### 1 [id number], 31733434, 53526771, 1099367 ####[facility] [address] [place] [address] ABO/Rh History Checkon 11-15 ABO/Rh History Check Verified Hx Blood Type Normal [facility] Comment on above: Performed By: #### 1 4512709, 60121789, 59556333, 0883231 ####[facility] [address] [place] [address] ABSCon 11-15-2022 ABSC Gel Interp Negative Normal [facility] Comment on above: Performed By: #### 1 9685330, 59891328, 92548160, 6919560 ####[facility] [address] [place] [address] Auto Diffon 11-15-2022 Basophils/100 WBC (Bld) 0.2 % Normal 0.0-2.0 [facility] Comment on above: Order Comment: DENNIS tamayo aware in as RN collect, will correct...mmf 11/16/2022 03:05:16 EDT Performed By: #### 2 740655, 9073570, 1469804, 5762973, 47679410, 4643305, 9405015 #### [facility] [address] [place] [address] Basophils/Leukocytes Auto (Bld) [Pure # fraction] 0.0 E9/L Normal 0.0-0.2 [facility] Comment on above: Order Comment: DENNIS tamayo aware in as RN collect, will correct...mmf 11/16/2022 03:05:16 EDT Performed By: #### 2 617502, 1765655, 2258541, 4714848, 22382648, 2974476, 3264630 #### [facility] [address] [place] [address] Eosinophils/100 WBC (Bld) 0.1 % Normal 0.0-8.0 [facility] Comment on above: Order Comment: DENNIS tamayo aware in as RN collect, will correct...[facility] 11/16/2022 03:05:16 EDT Performed By: #### 2 754157, 2705779, 1310408, 6881996, 32741742, 7946200, 0370631 #### [facility] [address] [place] [address] Eosinophils/Leukocytes Auto (Bld) [Pure # fraction] 0.0 E9/L Normal 0.0-0.5 [facility] Comment on above: Order Comment: DENNIS tamayo aware in as RN collect, will correct...[facility] 11/16/2022 03:05:16 EDT Performed By: #### 2 306034, 3769707, 8013331, 7466543, 76502430, 4577420, 3095253 #### [facility] [address] [place] [address] Lymphocytes/100 WBC (Bld) 22.2 % Normal 14.0-50.0 [facility] Comment on above: Order Comment: DENNIS tamayo aware in as RN collect, will correct...[facility] 11/16/2022 03:05:16 EDT Performed By: #### 2 608740, 5368793, 5959608, 3019594, 24242183, 5488450, 6767927 #### [facility] [address] [place] [address] Lymphocytes/Leukocytes Auto (Bld) [Pure # fraction] 2.7 E9/L Normal 1.0-4.0 [facility] Comment on above: Order Comment: DENNIS tamayo aware in as RN collect, will correct...[facility] 11/16/2022 03:05:16 EDT Performed By: #### 2 393408, 9412168, 7828169, 5305784, 21299231, 8211770, 9254419 #### [facility] [address] [place] [address] Monocytes/100 WBC (Bld) 6.8 % Normal 4.0-14.0 [facility] Comment on above: Order Comment: DENNIS tamayo aware in as RN collect, will correct...[facility] 11/16/2022 03:05:16 EDT Performed By: #### 2 015523, 7628040, 9383257, 8655195, 07130008, 5572839, 8922365 #### [facility] [address] [place] [address] Monocytes/Leukocytes Auto (Bld) [Pure # fraction] 0.8 E9/L Normal 0.2-1.0 [facility] Comment on above: Order Comment: DENNIS tamayo aware in as RN collect, will correct...[facility] 11/16/2022 03:05:16 EDT Performed By: #### 2 235351, 9691458, 7234024, 2991820, 84547314, 4252143, 1685252 #### [facility] [address] [place] [address] Neutrophils/100 WBC (Bld) 70.7 % Normal 36.0-75.0 [facility] Comment on above: Order Comment: DENNIS tamayo aware in as RN collect, will correct...[facility] 11/16/2022 03:05:16 EDT Performed By: #### 2 216323, 8829616, 3442783, 7632249, 77053084, 2383396, 4166302 #### [facility] [address] [place] [address] Neutrophils/Leukocytes Auto (Bld) [Pure # fraction] 8.6 E9/L High 2.0-7.5 [facility] Comment on above: Order Comment: DENNIS tamayo aware in as RN collect, will correct...[facility] 11/16/2022 03:05:16 EDT Performed By: #### 2 661124, 2514390, 7229708, 8012859, 92482122, 7721323, 9600855 #### [facility] [address] [place] [address] Basophils/100 WBC (Bld) 0.5 % Normal 0.0-2.0 [facility] Comment on above: Order Comment: Order Added by Discern Expert. Performed By: #### 2 950189, 9202321, 1012120, 3725117, 14965628, 4349647, 4212918 #### [facility] [address] [place] [address] Basophils/Leukocytes Auto (Bld) [Pure # fraction] 0.0 E9/L Normal 0.0-0.2 [facility] Comment on above: Order Comment: Order Added by Discern Expert. Performed By: #### 2 438067, 6517363, 5325586, 0729106, 15690872, 5492428, 8179939 #### [facility] [address] [place] [address] Eosinophils/100 WBC (Bld) 0.2 % Normal 0.0-8.0 [facility] Comment on above: Order Comment: Order Added by Discern Expert. Performed By: #### 2 246790, 6205079, 2357717, 5715739, 09021534, 5556731, 3014874 #### [facility] [address] [place] [address] Eosinophils/Leukocytes Auto (Bld) [Pure # fraction] 0.0 E9/L Normal 0.0-0.5 [facility] Comment on above: Order Comment: Order Added by Discern Expert. Performed By: #### 2 610551, 7700286, 9461171, 3056835, 42784306, 5913502, 4961625 #### [facility] [address] [place] [address] Lymphocytes/100 WBC (Bld) 30.5 % Normal 14.0-50.0 [facility] Comment on above: Order Comment: Order Added by Discern Expert. Performed By: #### 2 163179, 2795766, 4429617, 3590082, 97965934, 2034545, 9489168 #### [facility] [address] [place] [address] Lymphocytes/Leukocytes Auto (Bld) [Pure # fraction] 2.4 E9/L Normal 1.0-4.0 [facility] Comment on above: Order Comment: Order Added by Discern Expert. Performed By: #### 2 329296, 2751025, 1210394, 0223141, 83567110, 9069848, 0329648 #### [facility] [address] [place] [address] Monocytes/100 WBC (Bld) 4.6 % Normal 4.0-14.0 [facility] Comment on above: Order Comment: Order Added by Discern Expert. Performed By: #### 2 329825, 0238722, 7141390, 0952703, 41967615, 6778671, 0295480 #### [facility] [address] [place] [address] Monocytes/Leukocytes Auto (Bld) [Pure # fraction] 0.4 E9/L Normal 0.2-1.0 [facility] Comment on above: Order Comment: Order Added by Discern Expert. Performed By: #### 2 244755, 5890629, 6644117, 1066417, 87362503, 2233639, 9300831 #### [facility] [address] [place] [address] Neutrophils/100 WBC (Bld) 64.2 % Normal 36.0-75.0 [facility] Comment on above: Order Comment: Order Added by Discern Expert. Performed By: #### 2 034125, 8553771, 6064670, 0968775, 51871948, 6353440, 6880761 #### [facility] [address] [place] [address] Neutrophils/Leukocytes Auto (Bld) [Pure # fraction] 5.0 E9/L Normal 2.0-7.5 [facility] Comment on above: Order Comment: Order Added by Discern Expert. Performed By: #### 2 805445, 0387285, 0372066, 7131375,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 Normal 6 - 46 Int._Unit/L [facility] Remisol AST [Catalytic activity/Vol] 10 [iU]/d Normal 5 - 43 Int._Unit/L [facility] Remisol Bilirubin [Mass/Vol] 0.3 mg/dL Normal 0.0 - 1 .1 mg/dL [facility] Remisol Bilirubin.direct [Mass/Vol] mg/dL Normal 0.1 - 0.4 mg/dL [facility] Remisol Bilirubin.indirect [Mass or moles/Vol] Unable to Calculate mg/dL Invalid Interpretation Code 0.1 - 0.9 mg/dL [facility] Remisol Ethanol [Mass/Vol] 33 mg/dL High <=7mg/dL [facility] R emisol Globulin (S) [Mass/Vol] 1.4 g/dL Normal 1.4 - 4.0 gm/dL [facility] Remisol Lactate [Mass/Vol] 1.8 mmol/L Normal 0.5 - 2.2 mmol/L [facility] Remisol Lipase [Catalytic activity/Vol] 24 U/L Normal 13 - 58 unit/L [facility] Remisol Protein [Mass/Vol] 3.3 g/dL Low 6.0 - 7.8 gm/dL [facility] Remisol Troponin I.cardiac [Mass/Vol] pg/mL Low 10.10 - 27.10 pg/mL [facility] Remisol COAGULATIONOrdered By: Mere Brewer on 11-14-2022 aPTT Coag (PPP) [Time] 28.2 s Normal 25.1 - 36.5 second(s) [facility] Auto Coag INR Coag (PPP) [Relative time] 1.6 {INR} Invalid Interpretation Code [facility] Auto Coag PT Coag (PPP) [Time] 18.1 s High 9.4 - 1 2.5 second(s) [facility] Auto Coag SEROLOGYOrdered By: Mere brown on 11-14-2022 Beta hCG Ql Negative (11/14/22 11:39 PM) Normal [facility] Man Sero CHEMISTRYOrdered By: SYSTEM SYSTEM on 07-06-2022 Anion gap [Moles/Vol] 13 mmol/L Normal 6 - 16 mEq/L [facility] Remisol Calcium [Mass/Vol] 9.9 mg/dL Normal 8.9 - 11. 1 mg/dL [facility] Remisol Chloride [Moles/Vol] 100 mmol/L Low 101 - 1 11 mmol/L [facility] Rem[facility] CO2 [Moles/Vol] 24 mmol/L Normal 21 - 31 mmol/L [facility] Remisol Creatinine [Mass/Vol] 0.7 mg/dL Normal 0.5 - 1.3 mg/dL [facility] Remisol GFR/1.73 sq M.predicted among blacks MDRD (S/P/Bld) [Vol rate/Area] mL/min/1.73 m2 Normal >=59mL/min/1 .73 m2 FT Chem S GFR/1.73 sq M.predicted among non-blacks MDRD (S/P/Bld) [Vol rate/Area] mL/min/1.73 m2 Normal >=59mL/min/1 .73 m2 FT Chem S Glucose [Mass/Vol] 104 mg/dL Normal 55 - 199 mg/dL [facility] Remisol Potassium [Moles/Vol] 3.3 mmol/L Low 3.5 - 5.3 mmol/L [facility] Remisol Sodium [Moles/Vol] 134 mmol/L Low 135 - 145 mmol/L [facility] Remisol Troponin I.cardiac [Mass/Vol] pg/mL Low 10.10 - 27.10 pg/mL [facility] Remisol Urea nitrogen [Mass/Vol] 10 mg/dL Normal 5 - 21 mg/dL [facility] Remisol Urea nitrogen/Creatinine [Mass ratio] 14 mg/mg Normal 10 - 20 [facility] Remisol COAGULATIONOrdered By: Aki Alex on 07-06-2022 aPTT Coag (PPP) [Time] 32.5 s Normal 25.1 - 36.5 second(s) [facility] Auto Coag INR Coag (PPP) [Relative time] 1.1 {INR} Invalid Interpretation Code [facility] Auto Coag PT Coag (PPP) [Time] 12.5 s Normal 9.4 - 1 2.5 second(s) [facility] Auto Coag HEMATOLOGYOrdered By: SYSTEM SYSTEM on 07-06-2022 Basophils/100 WBC (Bld) 0.4 % Normal 0.0 - 2.0 % [facility] HemeAutoSS Basophils/Leukocytes Auto (Bld) [Pure # fraction] 0.0 E9/L Normal 0.0 - 0.2 E9/L [facility] HemeAutoSS Eosinophils/100 WBC (Bld) 0.3 % Normal 0.0 - 8.0 % [facility] HemeAutoSS Eosinophils/Leukocytes Auto (Bld) [Pure # fraction] 0.0 E9/L Normal 0.0 - 0.5 E9/L [facility] HemeAutoSS Lymphocytes/100 WBC (Bld) 27.8 % Normal 14.0 - 50.0 % [facility] HemeAutoSS Lymphocytes/Leukocytes Auto (Bld) [Pure # fraction] 2.3 E9/L Normal 1.0 - 4.0 E9/L [facility] HemeAutoSS Monocytes/100 WBC (Bld) 7.2 % Normal 4.0 - 14.0 % [facility] HemeAutoSS Monocytes/Leukocytes Auto (Bld) [Pure # fraction] 0.6 E9/L Normal 0.2 - 1.0 E9/L [facility] HemeAutoSS Neutrophils/100 WBC (Bld) 64.3 % Normal 36.0 - 75.0 % [facility] HemeAutoSS Neutrophils/Leukocytes Auto (Bld) [Pure # fraction] 5.2 E9/L Normal 2.0 - 7.5 E9/L [facility] HemeAutoSS HEMATOLOGYOrdered By: Jacqueline Harris on 07-06-2022 Erythrocyte distribution width (RBC) [Ratio] 13.1 % Normal 10.9 - 14.2 % [facility] HemeAutoSS Hematocrit (Bld) [Volume fraction] 44.1 % Normal 34.0 - 46.0 % [facility] HemeAutoSS Hemoglobin (Bld) [Mass/Vol] 14.6 g/dL Normal 12.0 - 16.0 gm/dL [facility] HemeAutoSS MCH (RBC) [Entitic mass] 30.6 pg Normal 27.0 - 34.0 pg [facility] HemeAutoSS MCHC (RBC) [Mass/Vol] 33.1 g/dL Normal 31.4 - 36.0 gm/dL [facility] HemeAutoSS MCV (RBC) [Entitic vol] 92.3 fL Normal 80.0 - 100.0 fL [facility]eAutoSS Platelet mean volume (Bld) [Entitic vol] 9.7 fL Normal 6.4 - 10.8 fL [facility] HemeAutoSS Platelets (Bld) [#/Vol] 209.0 E9/L Normal 150. 0 - 500.0 E9/L [facility] HemeAutoSS RBC (Bld) [#/Vol] 4.8 E12/L Normal 4.3 - 5.9 E12/L [facility] HemeAutoSS WBC corrected for nucl RBC Auto (Bld) [#/Vol] 8.2 E9/L Normal 4.0 - 11.0 E9/L [facility] HemeAutoSS CHEMISTRYOrdered By: SYSTEM SYSTEM on 07-05-2022 Albumin [Mass/Vol] 5.4 g/dL High 3.3 - 5.0 gm/dL [facility] Remisol Albumin/Globulin [Mass ratio] 1.4 {ratio} Normal 1.1 - 2.2 [facility] Remisol ALP [Catalytic activity/Vol] 65 [iU]/d Normal 21 - 98 Int._Unit/L [facility] Remisol ALT No additional P-5'-P [Catalytic activity/Vol] 18 [iU]/d Normal 6 - 46 Int._Unit/L [facility] Remisol Anion gap [Moles/Vol] 16 mmol/L Normal 6 - 16 mEq/L F [facility] Remisol AST [Catalytic activity/Vol] 26 [iU]/d Normal 5 - 43 Int._Unit/L [facility] Remisol Bilirubin [Mass/Vol] 1.0 mg/dL Normal 0.0 - 1 .1 mg/dL [facility] Remisol Calcium [Mass/Vol] 10.1 mg/dL Normal 8.9 - 11. 1 mg/dL [facility] Remisol Chloride [Moles/Vol] 99 mmol/L Low 101 - 1 11 mmol/L [facility] Remisol Cholesterol [Mass/Vol] 246 mg/dL High 120 - 200 mg/dL [facility] Remisol Cholesterol in HDL [Mass/Vol] 108 mg/dL Invalid Interpretation Code [facility] Remisol Cholesterol in LDL [Mass/Vol] 116 mg/dL Normal <=129mg/dL [facility] Remisol Cholesterol in VLDL [Mass/Vol] 8 mg/dL Normal 7 - 40 mg/dL [facility] Remisol CO2 [Moles/Vol] 21 mmol/L Normal 21 - 31 mmol/L [facility] Remisol Creatinine [Mass/Vol] 0.7 mg/dL Normal 0.5 - 1.3 mg/dL [facility] Remisol GFR/1.73 sq M.predicted among blacks MDRD (S/P/Bld) [Vol rate/Area] mL/min/1.73 m2 Normal >=59mL/min/1 .73 m2 [facility] Chem S GFR/1.73 sq M.predicted among non-blacks MDRD (S/P/Bld) [Vol rate/Area] mL/min/1.73 m2 Normal >=59mL/min/1 .73 m2 [facility] Chem S Globulin (S) [Mass/Vol] 3.9 g/dL Normal 1.4 - 4.0 gm/dL [facility] Remisol Glucose [Mass/Vol] 96 mg/dL Normal 55 - 199 mg/dL [facility] Remisol Potassium [Moles/Vol] 3.3 mmol/L Low 3.5 - 5.3 mmol/L [facility] Remisol Protein [Mass/Vol] 9.3 g/dL High 6.0 - 7.8 gm/dL [facility] Remisol Sodium [Moles/Vol] 133 mmol/L Low 135 - 145 mmol/L [facility] Remisol Triglyceride [Mass/Vol] 40 mg/dL Normal <=149mg/dL F [facility] Remisol Urea nitrogen [Mass/Vol] 7 mg/dL Normal 5 - 21 mg/dL [facility] Remisol Urea nitrogen/Creatinine [Mass ratio] 10 mg/mg Normal 10 - 20 [facility] Remisol CHEMISTRYOrdered By: Kael Harris on 07-05-2022 HbA1c (Bld) [Mass fraction] 5.2 % Normal <=5.9% [facility] ChemAutoSS URINALYSISOrdered By: Rian Arroyo on 07-05-2022 Bilirubin Ql (U) Negative (07/05/22 5:51 PM) Normal Negative [facility] UA Auto SS Clarity (U) Clear (07/05/22 5:51 PM) Normal Clear [facility] UA Auto SS Color (U) Yellow (07/05/22 5:51 PM) Normal Yellow [facility] UA Auto SS Epithelial cells.squamous LM.HPF (Urine sed) [#/Area] 0-2 /HPF Normal 0-2/HPF [facility] UA Aut o SS Glucose Test strip (U) [Mass/Vol] Negative (07/05/22 5:51 PM) Normal Negative [facility] UA Auto SS Hemoglobin Ql (U) Negative (07/05/22 5:51 PM) Normal Negative [facility] UA Auto SS Ketones (U) [Mass/Vol] Negative (07/05/22 5:51 PM) Normal Negative [facility] UA Auto SS [place].plasma/[place]. RBC (Bld) [Mass ratio] 0-3 /HPF Normal 0-3/HPF [facility] UA A uto SS Nitrite Ql (U) Negative (07/05/22 5:51 PM) Normal Negative [facility] UA Auto SS pH (U) 6.5 *NA* (07/05/22 5:51 PM) Invalid Interpretation Code 5.0 - 9.0 [facility] UA Auto SS Protein (U) [Mass/Vol] Negative (07/05/22 5:51 PM) Normal Negative [facility] UA Auto SS Specific gravity (U) [Rel density] 1.010 *NA* (07/05/22 5:51 PM) Invalid Interpretation Code 1.005 - 1.030 [facility] UA Auto SS UA Spec Desc Clean Catch (07/05/22 5:51 PM) Normal [facility] UA Auto SS Urobilinogen Qn (U) 0.4588744 {Maria Luz'U}/dL Normal 0.0 - 1.0 EU/dL [facility] UA Auto SS WBC Auto Ql (U) Negative (07/05/22 5:51 PM) Normal Negative [facility] UA Auto SS WBC LM.HPF (Urine sed) [#/Area] 0-5 /HPF Normal 0-5/HPF [facility] UA Auto SS CHEMISTRYOrdered By: SYSTEM SYSTEM on 07-04-2022 Albumin [Mass/Vol] 4.7 g/dL Normal 3.3 - 5.0 gm/dL [facility] Remisol Albumin/Globulin [Mass ratio] 1.4 {ratio} Normal 1.1 - 2.2 [facility] Remisol ALP [Catalytic activity/Vol] 58 [iU]/d Normal 21 - 98 Int._Unit/L [facility] Remisol ALT No additional P-5'-P [Catalytic activity/Vol] 19 [iU]/d Normal 6 - 46 Int._Unit/L [facility] Remisol Anion gap [Moles/Vol] 21 mmol/L High 6 - 16 mEq/L F [facility] Remisol AST [Catalytic activity/Vol] 27 [iU]/d Normal 5 - 43 Int._Unit/L [facility] Remisol Bilirubin [Mass/Vol] 0.7 mg/dL Normal 0.0 - 1 .1 mg/dL [facility] Remisol Bilirubin.direct [Mass/Vol] 0.2 mg/dL Normal 0.1 - 0.4 mg/dL [facility] Remisol Bilirubin.indirect [Mass or moles/Vol] 0.6 mg/dL Normal 0.1 - 0.9 mg/dL [facility] Remisol Calcium [Mass/Vol] 9.8 mg/dL Normal 8.9 - 11. 1 mg/dL [facility] Remisol Chloride [Moles/Vol] 95 mmol/L Low 101 - 1 11 mmol/L [facility] Remisol CO2 [Moles/Vol] 23 mmol/L Normal 21 - 31 mmol/L [facility] Remisol Creatinine [Mass/Vol] 0.8 mg/dL Normal 0.5 - 1.3 mg/dL [facility] Remisol GFR/1.73 sq M.predicted among blacks MDRD (S/P/Bld) [Vol rate/Area] mL/min/1.73 m2 Normal >=59mL/min/1 .73 m2 [facility] Chem S GFR/1.73 sq M.predicted among non-blacks MDRD (S/P/Bld) [Vol rate/Area] mL/min/1.73 m2 Normal >=59mL/min/1 .73 m2 FT Chem S Globulin (S) [Mass/Vol] 3.3 g/dL Normal 1.4 - 4.0 gm/dL [facility] Remisol Glucose [Mass/Vol] 162 mg/dL Normal 55 - 199 mg/dL [facility] Remisol Potassium [Moles/Vol] 3.7 mmol/L Normal 3.5 - 5.3 mmol/L [facility] Remisol Protein [Mass/Vol] 8.0 g/dL High 6.0 - 7.8 gm/dL [facility] Remisol Sodium [Moles/Vol] 135 mmol/L Normal 135 - 145 mmol/L [facility] Remisol Troponin I.cardiac [Mass/Vol] 2.40 pg/mL Low 10.10 - 27.10 pg/mL [facility] Remisol Urea nitrogen [Mass/Vol] 13 mg/dL Normal 5 - 21 mg/dL [facility] Remisol Urea nitrogen/Creatinine [Mass ratio] 16 mg/mg Normal 10 - 20 [facility] Remisol COAGULATIONOrdered By: Laura Ellison on 07-04-2022 aPTT Coag (PPP) [Time] 26.8 s Normal 25.1 - 36.5 second(s) [facility] Auto Coag INR Coag (PPP) [Relative time] 1.2 {INR} Invalid Interpretation Code [facility] Auto Coag PT Coag (PPP) [Time] 12.9 s High 9.4 - 1 2.5 second(s) [facility] Auto Coag FT Blood GasesOrdered By: Ra zeynep Solis on 07-04-2022 a/A Ratio Art 78.00 % Normal >=0.80% [facility] Resp Auto SS AaDO2 Art 27.8 mm[Hg] High 5.0 - 15.0 mmHg FT Resp Auto SS Allens Test Positive (07/04/22 2:57 PM) Normal [facility] Resp Auto SS Base Excess Arterial 2.6 mmol/L Low >=2.8mmol/L F[facility] C Resp Auto SS cCa2+ Art 4.52 mg/dL Normal 4.40 - 5.30 mg/dL [facility] Resp Auto SS cCl- Art 101.0 mmol/L Normal 101.0 - 111.0 mmol/L [facility] Resp Auto SS cGlu Art 165 mg/dL High 55 - 99 mg/dL [facility] Resp Auto SS cK+ Art 3.2 mmol/L Low 3.5 - 5.3 mmol/L [facility] Resp Auto SS cLac Art 5.4 mmol/L Invalid Interpretation Code 0.5 - 2.2 mmol/L [facility] Resp Auto SS Comment on above: Result Comment: Resu lts Called To BA DUQUE By MARGARITA SOLIS_ And Read Back For Confirmation On 07/04/2022 15:15:00 EST_. 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 mmol/L Normal 135.0 - 145.0 mmol/L [facility] Resp Auto SS Drawn by RLG Invalid Interpretation Code [facility] Resp Auto SS FCOHb Art 2.1 % Normal 1.5 - 4.9 % [facility] Resp Auto SS FIO2 BG 21 Invalid Interpretation Code [facility] Resp Auto SS FMetHb Art 0.6 % Normal 0.0 - 1.9 % [facility] Resp Auto SS FO2Hb Art 88.9 % Low 92.0 - 100.0 % [facility] Resp Auto SS HCO3 (Bld) [Moles/Vol] 26.6 mmol/L High 22.0 - 26.0 mmol/L [facility] Resp Auto SS Hemoglobin (Bld) [Mass/Vol] 13.2 g/dL Normal 12.0 - 16.0 gm/dL [facility] Resp Auto SS P CO2 Arterial 17.2 mm[Hg] Invalid Interpretation Code 35.0 - 45.0 mmHg [facility] Resp Auto SS Comment on above: Result Comment: Resu lts Called To BA DUQUE By MARGARITA SOLIS_ And Read Back For Confirmation On 07/04/2022 15:15:00 EST_. P O2 Arterial 98.7 mm[Hg] Normal 80.0 - 100.0 mmHg [facility] Resp Auto SS pH Arterial 7.683 Invalid Interpretation Code 7.350 - 7.450 [facility] Resp Auto SS Comment on above: Result Comment: Resu lts Called To BA DU[facility] By MARGARITA SOLIS_ And Read Back For Confirmation On 07/04/2022 15:15:00 EST_. Sample Site R Radial (07/04/22 2:57 PM) Normal [facility] Resp Auto SS Sample Type Arterial Draw (07/04/22 2:57 PM) Normal [facility] Resp Auto SS HEMATOLOGYOrdered By: SYSTEM SYSTEM on 07-04-2022 Basophils/100 WBC (Bld) 0.5 % Normal 0.0 - 2.0 % [facility] HemeAutoSS Basophils/Leukocytes Auto (Bld) [Pure # fraction] 0.1 E9/L Normal 0.0 - 0.2 E9/L [facility] HemeAutoSS Eosinophils/100 WBC (Bld) 0.5 % Normal 0.0 - 8.0 % [facility] HemeAutoSS Eosinophils/Leukocytes Auto (Bld) [Pure # fraction] 0.0 E9/L Normal 0.0 - 0.5 E9/L [facility] Lymphocytes/100 WBC (Bld) 25.8 % Normal 14.0 - 50.0 % [facility] Lymphocytes/Leukocytes Auto (Bld) [Pure # fraction] 2.5 E9/L Normal 1.0 - 4.0 E9/L [facility] Monocytes/100 WBC (Bld) 12.8 % Normal 4.0 - 14.0 % [facility] Monocytes/Leukocytes Auto (Bld) [Pure # fraction] 1.3 E9/L High 0.2 - 1.0 E9/L [facility] Neutrophils/100 WBC (Bld) 60.4 % Normal 36.0 - 75.0 % [facility] Neutrophils/Leukocytes Auto (Bld) [Pure # fraction] 6.0 E9/L Normal 2.0 - 7.5 E9/L [facility] HEMATOLOGYOrdered By: Shanti Parisi on 07-04-2022 Erythrocyte distribution width (RBC) [Ratio] 13.1 % Normal 10.9 - 14.2 % [facility] Hematocrit (Bld) [Volume fraction] 40.9 % Normal 34.0 - 46.0 % [facility] Hemoglobin (Bld) [Mass/Vol] 13.2 g/dL Normal 12.0 - 16.0 gm/dL [facility] MCH (RBC) [Entitic mass] 29.7 pg Normal 27.0 - 34.0 pg [facility] MCHC (RBC) [Mass/Vol] 32.3 g/dL Normal 31.4 - 36.0 gm/dL [facility] MCV (RBC) [Entitic vol] 91.9 fL Normal 80.0 - 100.0 fL [facility] Platelet mean volume (Bld) [Entitic vol] 8.5 fL Normal 6.4 - 10.8 fL [facility] Platelets (Bld) [#/Vol] 280.0 E9/L Normal 150. 0 - 500.0 E9/L [facility] RBC (Bld) [#/Vol] 4.4 E12/L Normal 4.3 - 5.9 E12/L [facility] WBC corrected for nucl RBC Auto (Bld) [#/Vol] 9.9 E9/L Normal 4.0 - 11.0 E9/L [facility] CHEMISTRYOrdered By: SYSTEM SYSTEM on 11-17-2021 Albumin [Mass/Vol] 4.4 g/dL Normal 3.3 - 5.0 gm/dL [facility] Remisol Albumin/Globulin [Mass ratio] 1.6 {ratio} Normal 1.1 - 2.2 [facility] Remisol ALP [Catalytic activity/Vol] 61 [iU]/d Normal 21 - 98 Int._Unit/L [facility] Remisol ALT No additional P-5'-P [Catalytic activity/Vol] 53 [iU]/d High 6 - 46 Int._Unit/L [facility] Anion gap [Moles/Vol] 13 mmol/L Normal 6 - 16 mEq/L [facility] Rem[facility] AST [Catalytic activity/Vol] 40 [iU]/d Normal 5 - 43 Int._Unit/L [facility] Bilirubin [Mass/Vol] 0.8 mg/dL Normal 0.0 - 1 .1 mg/dL [facility] Calcium [Mass/Vol] 9.0 mg/dL Normal 8.9 - 11. 1 mg/dL [facility] Chloride [Moles/Vol] 105 mmol/L Normal 101 - 1 11 mmol/L [facility] CO2 [Moles/Vol] 22 mmol/L Normal 21 - 31 mmol/L [facility] Creatinine [Mass/Vol] 0.7 mg/dL Normal 0.5 - 1.3 mg/dL [facility] GFR/1.73 sq M.predicted among blacks MDRD (S/P/Bld) [Vol rate/Area] mL/min/1.73 m2 Normal >=59mL/min/1 .73 m2 [facility] Chem S GFR/1.73 sq M.predicted among non-blacks MDRD (S/P/Bld) [Vol rate/Area] mL/min/1.73 m2 Normal >=59mL/min/1 .73 m2 [facility] Chem S Globulin (S) [Mass/Vol] 2.7 g/dL Normal 1.4 - 4.0 gm/dL [facility] Remisol Glucose [Mass/Vol] 108 mg/dL Normal 55 - 199 mg/dL [facility] Remisol Potassium [Moles/Vol] 3.5 mmol/L Normal 3.5 - 5.3 mmol/L [facility] Protein [Mass/Vol] 7.1 g/dL Normal 6.0 - 7.8 gm/dL [facility] Sodium [Moles/Vol] 136 mmol/L Normal 135 - 145 mmol/L [facility] Urea nitrogen [Mass/Vol] 28 mg/dL High 5 - 21 mg/dL [facility] Urea nitrogen/Creatinine [Mass ratio] 40 mg/mg High 10 - 20 [facility] CORONAVIRUS 2019 BY PCRon SARS-CoV-2 (COVID-19) RNA ESTELA+probe Ql (Unsp spec) Not detected Normal Not Detected [facility] Comment on above: Result Comment: . This assay is designed to detect the N, ORF1ab and/or S genes of SARS-CoV-2 via nucleic acid amplification. A Negative (NOT DETECTED) result does not preclude 2019-nCoV infection since the adequacy of sample collection and/or low viral burden may result in presence of viral nucleic acids below the clinical sensitivity of this test method. Negative (NOT DETECTED) result should not be used as the sole basis for treatment or other patient management decisions. Rather negative results should be combined with clinical observations, patient history, and epidemiological information to make patient management decisions. Fact sheet for providers: https://www.fda.gov/media/068908/download Fact sheet for patients: https://www.fda.gov/media/319344/download This test has received FDA Emergency Use Authorization (EUA) and has been verified by [facility] ([facility]). This test is only authorized for the duration of time that circumstances exist to justify the authorization of the emergency use of in vitro diagnostic tests for the detection of SARS-CoV-2 virus and/or diagnosis of COVID-19 infection under section 564(b)(1) of the Act, 21 U.S.C. 360bbb-3(b)(1), unless the authorization is terminated or revoked sooner. [facility] is certified under CLIA-88 as qualified to perform high complexity testing. Testing is performed in the [facility] laboratories located at [id number] [place] [address]. Performed By: #### C OV19 #### [facility] [id number] [place] [address]. [place] [address] Covid 19 Resultson 1 SARS-CoV-2 (COVID-19) RNA ESTELA+probe Ql (Unsp spec) NEGATIVE COVID-19 Test Coronaviruses are common world-wide and are the cause of many common colds. SARS-COV2 is a new coronavirus that began circulating worldwide in 2019 so we are calling it COVID-19. It has been estimated that four out of five patients with COVID-19 will recover at home without the need for medical attention. Symptoms of COVID-19 may include cough, fever, shortness of breath, loss of taste or smell and other flu-like symptoms including chills, sore muscles, sore throat, and headache. Severe illness is more common in older people and people with other health problems such as high blood pressure, obesity, and immune system problems. If the test is positive, you have COVID-19. You will be contacted by the ordering physicians office and instructed to remain on home isolation, in accordance with CDC guidelines. You may also be contacted by the [facility] to see if any of your close contacts may have been exposed to the virus and need to quarantine. If the test is negative, you likely do not have COVID-19 at this time, but you still may have a different illness that can spread to other people (like Influenza, or the Flu) and could still be at risk for getting COVID-19. We recommend that you stay away from other people to limit the spread of illness until your symptoms are improving and you are fever-free for 24 hours without the use of fever lowering medications such as acetaminophen or ibuprofen. No test is 100% accurate so if you are still concerned you may have COVID-19, talk to your doctor about the need to continue to stay away from others. Medicines Unless your provider told you not to use the following: Acetaminophen (Tylenol and others) is generally safe. Anti-inflammatory medications, such as Ibuprofen (Advil or Motrin) or Naproxen (Aleve) can also be used. Juso-vdf-pfxczrv cough and cold medicines can be used according to the instructions on the package. Some rspd-qwm-sebjqxw medicines also contain acetaminophen. Make sure you are not taking more than your recommended dose. For those not hospitalized, there is no specific treatment available for this illness. Antibiotics do not treat Coronaviruses. Follow-Up Follow up with your doctor by scheduling a virtual visit or consider follow-up at one of our urgent care fever clinics. If you are having difficulty breathing, or are very weak and having difficulty standing, this is a medical emergency. Call 911 or have someone take you to the nearest emergency room immediately. If possible, wear a facemask. Additional guidance from the CDC for patients who tested POSITIVE for COVID-19 How to isolate: Isolate yourself in a specific room at home and limit your contact with others. Use a separate bathroom from other members of the household, when possible. Leave home only to get essential medical care. Do not go to work, school or public areas. Avoid using public transportation, ride-sharing, or taxis. Restrict contact with pets and other animals. If you must care for your pet or be around animals while you are sick, wash your hands before and after your interaction and wear a facemask. Make sure that shared spaces in the home have good airflow, such as by an air conditioner or an opened window, weather permitting. Personal Hygiene Procedures: Wear a face mask when in the same room as other people or pets. If a face mask interferes with your breathing, others should wear a mask when sharing space with you. Frequent hand-washing: wash your hands with soap and water for at least 20 seconds. If soap and water are not available, use alcohol-based hand casing blower. Avoid touching your eyes, nose, and mouth with unwashed hands. Household Hygiene Procedures: Avoid sharing personal household items such as dishes, glassware, cups, eating utensils, towels or bedding with other people or pets in your home. After use, these items should be washed with soap and hot water. Disinfect all high-touch surfaces every day with antibacterial cleaning solutions such as Lysol wipes, bleach, cleansers, etc. High-touch surfaces include tabletops, doorknobs, bathroom fixtures, toilets, phones, keyboards, tablets and bedside tables. Immediately clean any surfaces that may have blood, poop or body fluids on them, using antibacterial cleaning solutions such as Lysol wipes, bleach, cleansers, etc. If clothing or bedding come into contact with blood, poop or body fluids, they should be washed immediately. Follow the directions on the laundry detergent and clothing labels but hot water is recommended when possible. Stopping home isolation precautions: If possible, consult your doctor before stopping home isolation precautions. According to the CDC, you can discontinue home isolation precautions when you have met both of these criteria: Your fever and respiratory symptoms have been gone for 24 vianca (more content not included)... [facility] CORONAVIRUS 2019 BY PCRon DATE OF SYMPTOM ONSET [YYYYMMDD]? [id number] [facility] Comment on above: Performed By: #### C OV19 #### [facility] [address] [place] [address] Lab Specimen Source Nasal, Nasopharyngeal [facility] Comment on above: Performed By: #### C OV19 #### [facility] [address] [place] [address] Provider Note - ED v3on 08 Provider Note - ED v3 Provider Note: Chart Review ED NOTES ED NOTES: Presents for evaluation of URI. Symptoms including cough, congestion, body aches, malaise, and headache have been present for several days and refractory to OTC meds. No fever, chills, loss of taste/smell, nausea, vomiting, abdominal pain, CP, or SOB. No exacerbating factors. No known COVID 19 exposure. HISTORY OF PRESENTING ILLNESS SHAHIDA is a 26 year old Female and was seen by me at 12-Mar-2021 14:32. Triage Information: Most recent Vital Sign Value Date PAST MEDICAL HISTORY ALLERGIES/INTOLERANC ES: No Known Allergies HEALTH HISTORY: No documented data. OUTPATIENT MEDICATIONS: Home Medications Review Status for Reconciliation: Complete Med Status: Patient Currently Takes Medications Drug Name: albuterol 90 mcg/inh inhalation aerosol Instructions: 2 puff(s) inhaled 2 times a day as needed for cough Drug Name: brompheniramine/pseu doephedrine/dextrome thorphan [id number]/5 mL oral syrup Instructions: 10 milliliter(s) orally every 6 hours Drug Name: azithromycin 250 mg oral tablet Instructions: Take 2 tabs (500mg) x 1 days, then 1 tab (250mg) once daily x 4 days Drug Name: predniSONE 10 mg oral tablet Instructions: Start tomorrow, 3 tab(s) orally once a day x 5 days SIGNIFICANT EVENTS: Other Description:SMOKER Additional Notes:5-6 EACH A DAY Past Medical History Description:HEPATITI S C Additional Notes:10/2020 Past Surgical History Description:NO SURGICAL HISTORY THIS YEAR Additional Notes:10/2020 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 HENMT: Airway patent, ears with erythematous tympanic membranes bilaterally. Nasal mucosa clear. Mouth with normal mucosa. Throat has no vesicles, no oropharyngeal exudates and uvula is midline. Face with anterior cervical lymphadenopathy. EYES: Clear bilaterally, pupils equal, round and reactive to light. CARDIOVASCULAR: Normal rate, regular rhythm. Heart sounds S1, S2. No murmurs, rubs or gallops. PMI non-displaced. RESPIRATORY: Breath sounds clear and equal bilaterally. NEUROLOGICAL: Alert and oriented, no focal deficits, no motor or sensory deficits. SKIN: Skin normal color for race, warm, dry and intact. No evidence of trauma. PSYCHIATRIC: Alert and oriented to person, place, time/situation. normal mood and affect. No apparent risk to self or others. CRITICAL CARE VITAL SIGNS: T PRBP SpO2O2(LPM) %FiO2 Method 12-Mar-2021 14:27:[id number] /86 96 MDM MDM/ED COURSE: Rx Z-brett, prednisone burst, albuterol inhaler and Bromfed DM. Discussed supportive measures, and symptom management. Discussed etiology of a more routine viral infection versus Covid infection. Advised patient Covid result turnaround time is about 24 hours, advised self-isolation until results come back. Discussed signs and symptoms of worsening illness and to seek immediate medical attention if these occur. Patient verbalized understanding and agrees with treatment plan. The patient's clinical presentation is otherwise unremarkable at this time. Based on exam and clinical findings the patient is stable for discharge with instructions to follow-up with primary care or seek immediate medical attention for worsening symptoms or any new concerns. DISPOSITION Diagnosis/Annotation : ED Dx Name:Acute bronchitis Code:J20.9 Disposition: discharged Type: home CONSULT CRITICAL CARE TIME Is this a critically ill patient: no Electronic Signatures for Addendum Section: Lakeisha Pedroza (JOSE C II) (Signed Addendum 13-Mar-2021 09:08) patient contacted with negative results. Electronic Signatures: Ari Isabel (RAILROAD DESIGN CONSULTANT-DATA COLLECTOR) (Signed 12-Mar-2021 14:45) Authored: ED Notes, HPI, PMH, ROS, PE, Results/Vital Signs, MDM/ED Course, Clinical Impression, Attestation, Chart Review, Scores Last Updated: 13-Mar-2021 09:08 by Lakeisha Pedroza (JOSE C II) Normal [facility] CBC AUTO DIFFon 02-16-2021 BASO # 0.0 103/ul Normal 0.0-0.1 [facility] Comment on above: Performed By: #### C BC #### [facility] [address] [place], [place] [id number] Robbie Vi Basophils/100 WBC (Bld) 0.2 % Normal 0.2-2.0 [facility] Comment on above: Performed By: #### C BC #### [facility] [address] [place] [address] Robbie Vi EO # 0.0 103/ul Normal 0.0-0.7 [facility] Comment on above: Performed By: #### C BC #### [facility] [address] [place] [address] Robbie Vi Eosinophils/100 WBC (Bld) 0.2 % Critically low 0.9-7.0 [facility] Comment on above: Performed By: #### C BC #### [facility] [address] [place] [address] Robbie Vi Erythrocyte distribution width (RBC) [Ratio] 12.7 % Normal 11.0-15.0 [facility] Comment on above: Performed By: #### C BC #### [facility] [address] [place] [address] Robbie Lebron Hematocrit (Bld) [Volume fraction] 31.5 % Critically low 36.0-48.0 [facility] Comment on above: Performed By: #### C BC #### [facility] [address] [place] [address] Robbienicky Lebron Hemoglobin (Bld) [Mass/Vol] 10.2 g/dL Critically low 12.0-16.0 [facility] Comment on above: Performed By: #### C BC #### [facility] [address] [place] [address] Robbienicky Lebron IG # 0.05 10e3/ul Critically high 0.00-0.03 [facility] Comment on above: Performed By: #### C BC #### [facility] [address] [place] [address] Robbie Vi IG % 0.4 % Normal 0.0-0.5 [facility] Comment on above: Performed By: #### C BC #### [facility] [address] [place] [address] Robbie Lebron LYMPH # 2.2 103/ul Normal 1.2-3.8 [facility] Comment on above: Performed By: #### C BC #### [facility] [address] [place] [address] Robbie Lebrno Lymphocytes/100 WBC (Bld) 18.3 % Critically low 20.5-60.0 [facility] Comment on above: Performed By: #### C BC #### [facility] [address] [place] [address] Robbie Lebron MANUAL DIFF REQ NO Normal [facility] Comment on above: Performed By: #### C BC #### [facility] [address] [place] [address] Robbie Lebron MCH (RBC) [Entitic mass] 31.4 pg Normal 26.7-34.0 [facility] Comment on above: Performed By: #### C BC #### [facility] [address] [place], [place] [address] Robbie Lebron MCHC (RBC) [Mass/Vol] 32.4 g/dL Normal 29.9-35.2 [facility] Comment on above: Performed By: #### C BC #### [facility] [address] [place] [phone] Robbie Lebron MCV (RBC) [Entitic vol] 96.9 fL Normal 81.0-99.0 [facility] Comment on above: Performed By: #### C BC #### [facility] [address] [id number] Robbie Lebron MONO # 1.1 103/ul Critically high 0.3-0.[address] [facility] Comment on above: Performed By: #### C BC #### [facility] [address] [id number] Robbie Lebron Monocytes/100 WBC (Bld) 9.4 % Normal 1.7-12.0 [facility] Comment on above: Performed By: #### C BC #### [facility] [address] [id number] Robbie Lebron NEUT # 8.6 103/ul Critically high 1.4-6.[address] [facility] Comment on above: Performed By: #### C BC #### [facility] [address] [phone] Robbie Lebron Neutrophils/100 WBC (Bld) 71.5 % Normal 43.0-75.0 [facility] Comment on above: Performed By: #### C BC #### [facility] [address] [phone] Robbie Lebron Platelet mean volume (Bld) [Entitic vol] 10.6 fL Normal 9.5-13.5 [facility] Comment on above: Performed By: #### C BC #### [facility] [address] [phone] Robbie Lebron PLT 201 103/ul Normal 150-450 [facility] Comment on above: Performed By: #### C BC #### [facility] [address] [place] [address] Robbie Lebron RBC 3.25 106/ul Critically low 4.20-5.40 [facility] Comment on above: Performed By: #### C BC #### [facility] [address] [place] [address] Robbie Lebron WBC 12.1 103/ul Critically high 4.0-11.0 [facility] Comment on above: Performed By: #### C BC #### [facility] [address] [place], [place] [id number] Robbie Lebron ASYMPTOMATIC COVID-19 ANTIGE Non 02-15-2021 EUA Statement SEE BELOW Normal [facility] Comment on above: Result Comment: This test has not been FDA cleared or approved, but has been authorized by the FDA under an Emergency Use Authorization (EUA) for use by authorized laboratories certified under CLIA that meet the requirements to perform moderate or high complexity testing. This test has been authorized only for the detection of proteins from SARS-CoV-2, not for any other viruses or pathogens. The emergency use of this test is authorized for the duration of the declaration that circumstances exist justifying the authorization of emergency use of in vitro diagnostic tests for detection and/or diagnosis of Covid-19 under section 564(b)(1) of the Act, 21 U.S.C. 360bbb-3(b)(1), unless the declaration is terminated or authorization is revoked sooner. Performed By: #### C VDAGA #### [facility] [address] [place], [place] [id number] Robbie Lebron SARS-CoV-2 (COVID-19) RNA ESTELA+probe Ql (Unsp spec) Negative Normal NEGATIVE [facility] Comment on above: Result Comment: Nega tive results are presumptive. They do not preclude infection and should not be used as the sole basis for treatment decisions. Additional confirmatory testing by a molecular method should be considered. Performed By: #### C VDAGA #### [facility] [address] [place], [place] [id number] Robbie Lebron CBC AUTO DIFFon 02-15-2021 BASO # 0.0 103/ul Normal 0.0-0.1 [facility] Comment on above: Performed By: #### C BC #### [facility] [address] [place], [place] [id number] Robbie Vi Basophils/100 WBC (Bld) 0.2 % Normal 0.2-2.0 [facility] Comment on above: Performed By: #### C BC #### [facility] [address] [place], [place] [id number] Robbie Vi EO # 0.0 103/ul Normal 0.0-0.7 [facility] Comment on above: Performed By: #### C BC #### [facility] [address] [place], [place] [id number] Robbie Vi Eosinophils/100 WBC (Bld) 0.0 % Critically low 0.9-7.0 [facility] Comment on above: Performed By: #### C BC #### [facility] [address] [place], [place] [id number] Robbie Vi Erythrocyte distribution width (RBC) [Ratio] 12.5 % Normal 11.0-15.0 [facility] Comment on above: Performed By: #### C BC #### [facility] [address] [place], [place] [id number] Robbie Vi Hematocrit (Bld) [Volume fraction] 35.0 % Critically low 36.0-48.0 [facility] Comment on above: Performed By: #### C BC #### [facility] [address] [place], [place] [phone] Robbie Vi Hemoglobin (Bld) [Mass/Vol] 11.5 g/dL Critically low 12.0-16.0 [facility] Comment on above: Performed By: #### C BC #### [facility] [address] [place], [place] [phone] Robbie Vi IG # 0.04 10e3/ul Critically high 0.00-0.03 [facility] Comment on above: Performed By: #### C BC #### [facility] [address] [place], [place] [id number] Robbie Vi IG % 0.4 % Normal 0.0-0.5 [facility] Comment on above: Performed By: #### C BC #### [facility] [address] [phone] Robbie Vi LYMPH # 2.0 103/ul Normal 1.2-3.8 [facility] Comment on above: Performed By: #### C BC #### [facility] [address] [phone] Robbie Vi Lymphocytes/100 WBC (Bld) 18.6 % Critically low 20.5-60.0 [facility] Comment on above: Performed By: #### C BC #### [facility] [address] [place], [place] [phone] Robbie Vi MANUAL DIFF REQ NO Normal [facility] Comment on above: Performed By: #### C BC #### [facility] [address] [place], [place] [id number] Robbie Vi MCH (RBC) [Entitic mass] 31.0 pg Normal 26.7-34.0 [facility] Comment on above: Performed By: #### C BC #### [facility] [address] [place], [place] [id number] Robbienicky Lebron MCHC (RBC) [Mass/Vol] 32.9 g/dL Normal 29.9-35.2 [facility] Comment on above: Performed By: #### C BC #### [facility] [address] [place], [place] [id number] Robbie Vi MCV (RBC) [Entitic vol] 94.3 fL Normal 81.0-99.0 [facility] Comment on above: Performed By: #### C BC #### [facility] [address] [place], [place] [id number] Robbie Vi MONO # 0.8 103/ul Normal 0.3-0.8 [facility] Comment on above: Performed By: #### C BC #### [facility] [address] [place], [place] [id number] Robbie Vi Monocytes/100 WBC (Bld) 7.0 % Normal 1.7-12.0 [facility] Comment on above: Performed By: #### C BC #### [facility] [address] [place], [place] [address] Robbienicky Gonzalezen NEUT # 8.0 103/ul Critically high 1.4-6.5 [facility] [place] [facility] Comment on above: Performed By: #### C BC #### [facility] [address] [place], [place] [address] Robbienicky Lebron Neutrophils/100 WBC (Bld) 73.8 % Normal 43.0-75.0 [facility] Comment on above: Performed By: #### C BC #### [facility] [address] [place], [place] [address] Robbie Vi Platelet mean volume (Bld) [Entitic vol] 10.2 fL Normal 9.5-13.5 [facility] Comment on above: Performed By: #### C BC #### [facility] [address] [place] [address] Robbie Vi PLT 232 103/ul Normal 150-450 [facility] Comment on above: Performed By: #### C BC #### [facility] [address] [place], [place] [id number] Robbie Vi RBC 3.71 106/ul Critically low 4.20-5.40 [facility] [place] [facility] Comment on above: Performed By: #### C BC #### [facility] [address] [place], [place] [id number] Robbie Vi WBC 10.8 103/ul Normal 4.0-11.0 [facility] Comment on above: Performed By: #### C BC #### [facility] [address] [place], [place] [id number] Robbie Vi DRUG SCREEN RAPID (URINE)on 02-15-2021 AMP Negative Normal NEGATIVE [facility] Comment on above: Performed By: #### D RUGRPD #### [facility] [address] [place], [place] [id number] Robbie Vi BAR Negative Normal NEGATIVE [facility] Comment on above: Performed By: #### D RUGRPD #### [facility] [address] [place], [place] [id number] Robbie Vi BUP Negative Normal NEGATIVE [facility] Comment on above: Performed By: #### D RUGRPD #### [facility] [address] [place] [address] Robbie Vi BZO Negative Normal NEGATIVE [facility] Comment on above: Performed By: #### D RUGRPD #### [facility] [address] [place] [address] Robbie Vi SAMANTHA Negative Normal NEGATIVE [facility] Comment on above: Performed By: #### D RUGRPD #### [facility] [address] [place] [address] Robbie Vi CUT-OFFS SEE BELOW Normal [facility] Comment on above: Result Comment: AMP (Amphetamine): 500ng/mL, BAR (Barbituates): 200 ng/mL, BZO (Benzodiazepines): 150 ng/mL, BUP (Buprenorphine): 10 ng/mL, SAMANTHA (Cocaine): 150 ng/mL, mAMP (Methamphetamine): 500 ng/mL, MTD (Methadone): 200 ng/mL, OPI (Opiates): 100 ng/mL, OXY (Oxycodone): 100 ng/mL, PCP (Phencyclidine): 25 ng/mL, PPX (Propoxyphene): 300 ng/mL, THC (Cannabinoids): 50 ng/mL, TCA (Trycyclic Antidepressants): 300 ng/mL Performed By: #### D RUGRPD #### [facility] [address] [place] [address] Robbie Vi DRUG CUT HEADER DRUG CLASS TEST SYSTEM CUT-OFF CONCENTRATIONS ARE FOLLOWS: Normal [facility] Comment on above: Performed By: #### D RUGRPD #### [facility] [address] [place] [address] Robbie Vi mAMP Negative Normal NEGATIVE [facility] Comment on above: Performed By: #### D RUGRPD #### [facility] [address] [place] [address] Robbie Vi MTD Negative Normal NEGATIVE [facility] Comment on above: Performed By: #### D RUGRPD #### [facility] [address] [place] [address] Robbie Vi OPI Negative Normal NEGATIVE [facility] Comment on above: Performed By: #### D RUGRPD #### [facility] [address] [place] [address] Robbie Vi OXY Negative Normal NEGATIVE [facility] Comment on above: Performed By: #### D RUGRPD #### [facility] [address] [place] [address] Robbie Vi PCP Negative Normal NEGATIVE [facility] Comment on above: Performed By: #### D RUGRPD #### [facility] [address] [place] [address] Robbie Vi PPX Negative Normal NEGATIVE [facility] Comment on above: Performed By: #### D RUGRPD #### [facility] [address] [place] [address] Robbie Vi TCA Negative Normal NEGATIVE [facility] Comment on above: Performed By: #### D RUGRPD #### [facility] [address] [place] [address] Robbie Vi THC Negative Normal NEGATIVE [facility] Comment on above: Performed By: #### D RUGRPD #### [facility] [address] [place] [address] Robbie Lebron TYPE AND SCREENon 02-15-2021 TYPE AND SCREEN Antibody Screen NEGATIVE ABO Rh Typing O Rh Positive Blood Bank Notes PERFORMED BY JUAN ANTONIO Normal [facility] Comment on above: Performed By: #### T NS #### [facility] [address] [place] [address] Robbie Lebron CULTURE URINEon 01-31-2021 CULTURE URINE Culture Observations: LIGHT GROWTH OF MIXED GENITAL RONNY. NO POTENTIAL PATHOGENS SEEN. Normal [facility] Comment on above: Performed By: #### G BSCX #### [facility] [address] [place] [address] Robbie Lebron UA (CLEAN/CATCH) BUSINESS SERVICES REPRESENTATIVE/MICRO I F IND.on 01-31-2021 Bilirubin Ql (U) Negative Normal NEGATIVE [facility] Comment on above: Performed By: #### U MICRO, UACSIND #### [facility] [address] [place] [address] Robbie Vi Clarity (U) CLEAR Normal CLEAR [facility] Comment on above: Performed By: #### U MICRO, UACSIND #### [facility] [address] [place] [address] Robbie Vi Color (U) LT. YELLOW Normal YELLOW [facility] Comment on above: Performed By: #### U MICRO, UACSIND #### [facility] [address] [place] [address] Robbie Vi Glucose Ql (U) Negative Normal NEGATIVE [facility] Comment on above: Performed By: #### U MICRO, UACSIND #### [facility] [address] [place] [address] Robbie Vi Hemoglobin Ql (U) Negative Normal NEGATIVE [facility] Comment on above: Performed By: #### U MICRO, UACSIND #### [facility] [address] [place] [address] Robbie Vi Ketones Ql (U) Negative Normal NEGATIVE [facility] Comment on above: Performed By: #### U MICRO, UACSIND #### [facility] [address] [place] [address] Robbie Vi LEUKOCYTES TRACE Abnormal NEGATIVE [facility] Comment on above: Performed By: #### U MICRO, UACSIND #### [facility] [address] [place] [address] Robbie Vi Nitrite Ql (U) Negative Normal NEGATIVE [facility] Comment on above: Performed By: #### U MICRO, UACSIND #### [facility] [address] [place] [address] Robbie Vi pH (U) 6.0 [pH] Normal 5-9 [facility] Comment on above: Performed By: #### U MICRO, UACSIND #### [facility] [address] [place] [address] Robbie Vi SPEC GRAVITY <=1.005 Abnormal 1.005-<=1.02 5 [facility] Comment on above: Performed By: #### U MICRO, UACSIND #### [facility] [address] [place] [address] Robbienicky Lebron UA PROTEIN Negative Normal NEGATIVE/ TRACE [facility] Comment on above: Performed By: #### U MICRO, UACSIND #### [facility] [address] [place] [address] Robbie Lebron UR MICRO IND INDICATED Normal [facility] Comment on above: Performed By: #### U MICRO, UACSIND #### [facility] [address] [place] [address] Robbie Lebron Urobilinogen Qn (U) 0.2 {Maria Luz'U}/dL Normal 0.2 - 1. 0 [facility] Comment on above: Performed By: #### U MICRO, UACSIND #### [facility] [address] [place] [address] Robbienicky Lebron URINE MICROSCOPIC ONLYon BACTERIA SMALL Abnormal NONE SEEN [facility] Comment on above: Performed By: #### U MICRO, UACSIND #### [facility] [address] [place] [address] Robbie Lebron Bacteria identified Cx Nom (U) INDICATED Normal [facility] Comment on above: Performed By: #### U MICRO, UACSIND #### [facility] [address] [place] [address] Robbie Lebron CAST NONE SEEN Normal NONE SEEN [facility] Comment on above: Performed By: #### U MICRO, UACSIND #### [facility] [address] [place] [address] Robbienicky Lebron Crystals LM Nom (Urine sed) NONE SEEN Normal NONE SEEN [facility] Comment on above: Performed By: #### U MICRO, UACSIND #### [facility] [address] [place] [address] Robbie Lebron Epithelial cells LM Ql (Urine sed) FEW Abnormal NONE SEEN /RARE [facility] Comment on above: Performed By: #### U MICRO, UACSIND #### [facility] [address] [place] [address] Robbie Vi MUCOUS NONE SEEN Normal NONE SEEN [facility] Comment on above: Performed By: #### U MICRO, UACSIND #### [facility] [address] [place] [address] Robbie Lebron RBC 0-2 Normal 0-2 [facility] Comment on above: Performed By: #### U MICRO, UACSIND #### [facility] [address] [place] [address] Robbie Lebron WBC 2-5 Abnormal NONE SEEN [facility] Comment on above: Performed By: #### U MICRO, UACSIND #### [facility] [address] [address] Robbie Lebron GROUP B STREP CULTUREon 01-15 S. agalactiae Ag Ql (Unsp spec) Culture Observations: NEGATIVE FOR GROUP B STREPTOCOCCUS. Normal [facility] Comment on above: Performed By: #### G BSCX #### [facility] [address] [place] [address] Robbie Lebron US PREG BIOPHY W NON STRESSo n 01-23-2021 US PREG BIOPHY W NON STRESS EXAMINATION: US PREG BIOPHY W NON STRESS HISTORY: Reduced movement COMPARISON: No relevant comparison available. TECHNIQUE: Ultrasound biophysical profile was performed in the radiology department. non-reactive stress testing was performed by nursing staff in the birthing center. FINDINGS: BREATHING MOVEMENTS: 2.0 GROSS BODY MOVEMENTS: 2.0 TONE: 2.0 QUALITATIVE AMNIOTIC FLUID VOLUME: 2.0 PRESENTATION: CEPHALIC HEART RATE: 143.6 bpm H.B./min AMNIOTIC FLUID VOLUME: 16.4 cm cm GESTATIONAL AGE: 35 weeks 6 days Other: Extensive placental calcifications. CONCLUSION: Total biophysical profile score: 8.0 Electronically authenticated by: AYE SELLERS Date: 2021-01-23 15:23 Normal [facility] GLUCOSE - 1HRon 11-27-2020 Glucose [Mass/Vol] 94 mg/dL Normal 74-106 [facility] Comment on above: Performed By: #### G LU1HR #### [facility] [address] [place] [address] Robbie Lebron HEMOGRAM AND PLATELon 2020 Hematocrit (Bld) [Volume fraction] 34.8 % Critically low 36.0-48.0 [facility] Comment on above: Performed By: #### H H #### [facility] [address] [place], [place] [address] Robbie Lebron Hemoglobin (Bld) [Mass/Vol] 10.9 g/dL Critically low 12.0-16.0 [facility] Comment on above: Performed By: #### H H #### [facility] [address] [id number] Robbie Lebron MCH (RBC) [Entitic mass] 31.3 pg Normal 26.7-34.0 [facility] Comment on above: Performed By: #### H H #### [facility] [address] [address] Robbie Lebron MCHC (RBC) [Mass/Vol] 31.3 g/dL Normal 29.9-35.2 [facility] Comment on above: Performed By: #### H H #### [facility] [address] [place], [place] [id number] Robbie Lebron MCV (RBC) [Entitic vol] 100.0 fL Critically high 81.0-99 .0 [facility] Comment on above: Performed By: #### H H #### [facility] [address] [place], [place] [id number] Robbie Lebron PLT 215 103/ul Normal 150-450 [facility] Comment on above: Performed By: #### H H #### [facility] [address] [place], [place] [id number] Robbienicky Gonzalezen RBC 3.48 106/ul Critically low 4.20-5.[address] [facility] Comment on above: Performed By: #### H H #### [facility] [address] [place], [place] [id number] Robbie Lebron WBC 10.7 103/ul Normal 4.0-11.0 [facility] Comment on above: Performed By: #### H H #### [facility] [address] [place], [place] [id number] Robbie Lebron CORONAVIRUS 2019 BY PCRon SARS-CoV-2 (COVID-19) RNA ESTELA+probe Ql (Unsp spec) Not detected Normal Not Detected [facility] Comment on above: Result Comment: . This assay is designed to detect SARS-CoV-2 based on replication of specific regions of the RNA from the SARS-CoV-2 virus. A Not Detected result does not preclude 2019-nCoV infection since the adequacy of sample collection and/or low viral burden may result in presence of viral nucleic acids below the clinical sensitivity of this test method. Fact sheet for providers: https://www.fda.gov/media/913239/download Fact sheet for patients: https://www.fda.gov/media/399751/download This test has received FDA Emergency Use Authorization [EUA] and has been verified by [facility] ([facility]). This test is only authorized for the duration of time that circumstances exist to justify the authorization of the emergency use of in vitro diagnostic tests for the detection of SARS-CoV-2 virus and/or diagnosis of COVID-19 infection under section 564(b)(1) of the Act, 21 U.S.C. 360bbb-3(b)(1), unless the authorization is terminated or revoked sooner. [facility] is certified under CLIA-88 as qualified to perform high complexity testing. Testing is performed in the [facility] laboratories located at [address] [place] [address]. Performed By: #### C OV19 #### [address] [place] [address] Covid 19 Resultson 1 SARS-CoV-2 (COVID-19) RNA ESTELA+probe Ql (Unsp spec) NEGATIVE COVID-19 Test Coronaviruses are common world-wide and are the cause of many common colds. SARS-COV2 is a new coronavirus that began circulating worldwide in 2019 so we are calling it COVID-19. It has been estimated that four out of five patients with COVID-19 will recover at home without the need for medical attention. Symptoms of COVID-19 may include cough, fever, shortness of breath, loss of taste or smell and other flu-like symptoms including chills, sore muscles, sore throat, and headache. Severe illness is more common in older people and people with other health problems such as high blood pressure, obesity, and immune system problems. If the test is positive, you have COVID-19. You will be contacted by the ordering physicians office and instructed to remain on home isolation, in accordance with CDC guidelines. You may also be contacted by the [facility] to see if any of your close contacts may have been exposed to the virus and need to quarantine. If the test is negative, you likely do not have COVID-19 at this time, but you still may have a different illness that can spread to other people (like Influenza, or the Flu) and could still be at risk for getting COVID-19. We recommend that you stay away from other people to limit the spread of illness until your symptoms are improving and you are fever-free for 24 hours without the use of fever lowering medications such as acetaminophen or ibuprofen. No test is 100% accurate so if you are still concerned you may have COVID-19, talk to your doctor about the need to continue to stay away from others. Medicines Unless your provider told you not to use the following: Acetaminophen (Tylenol and others) is generally safe. Anti-inflammatory medications, such as Ibuprofen (Advil or Motrin) or Naproxen (Aleve) can also be used. Yuoi-vca-qffmymn cough and cold medicines can be used according to the instructions on the package. Some ygsr-iki-wfqebjh medicines also contain acetaminophen. Make sure you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
[2023-09-16 14:26] LABS: HCG Quantitative 1760 mIU/mL
== END 2023-09-16 13:17 | disposition home or self-care (01) ==
PROVIDERS: Visit Provider Obstetrics & Gynecology
DX: N92.6 Irregular menstruation, unspecified (principal)
CPT/HCPCS: 36415; 84702

== ENCOUNTER 2023-09-16 13:46 | Emergency (ER) | payer OTHER, SELFPAY ==
--- OUTSIDE RECORDS SUMMARY | 2023-09-16 14:14 | XMS_ITS | CCD ---
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 XR Elbow 3+ Views Lefton XR Elbow [...] mGy = na DAP = na Normal [facility] XR Forearm 2 Views Lefton XR Forearm [...] mGy = na DAP = na Normal [facility] XR Wrist 3+ Views Lefton XR Wrist [...] mGy = na DAP = na Normal [facility] Addendum Noteon 11-30-2022 Dice Person Authentication Interface Message Text Addended by: DULCE LAUGHLIN on: 11/30/2022 02:37 PM Modules accepted: Orders Normal [facility] Telephone Encounteron 2022 Dice Person Authentication Interface Message Text Situation: Patient calling regarding request for Neurontin Background: States out of medication and would like refills sent to preferred pharmacy Assessment: see above Recommendation: Please send to pharmacy if agree Patient can be reached at [phone] Preferred pharmacies: [id number]; phone number [phone]; fax number [phone] Normal [facility] Dice Person Authentication Interface Message Text This patient is requesting a refill on a medication that was prescribed in an ED, Urgent Care or during a Hospital Discharge. Please approve if appropriate or contact patient if not appropriate. Pharmacy was unable to determine appropriateness or if continued therapy necessary. Normal [facility] Consent for Treatmenton 11-15 Consent for Treatment [phone] [id number] #1.00CD:127 Normal [facility] Progress Noteson 11-25-2022 D[employer] Person Authentication Interface Message Text Patient called nurse [...] Jam Caal DDS, MD Plastic Surgery Rotator [phone] Normal [facility] Telephone Encounteron 2022 Dice Person Authentication Interface Message Text Reason for Disposition [...] other symptoms Protocols used: Post-Op Symptoms and Mvvxprwdk-M-FN Normal [facility] Dice Person Authentication Interface Message Text Situation: Pt calling [...] to call us so we could page iron worker providers. Unsure if surgeon in the OR [...] she does not want to go to [facility] ED as they will not have her records. To prevent a delay in patient care, please forward your response to your responsible PSR/MTA/watcher automat long goods. Normal [facility] Telephone Encounteron 2022 Dice Person Authentication Interface Message Text Pt called back to advise she has had no improvement in post operative arm pain since adding gabapentin 100mg TID. Also still taking PO tylenol, robaxin and oxycodone. She is inquiring about other options? Next f/u 12/08/22. Preferred pharmacy is: [id number] - [address] [phone] Pt can be reached at: Phone numbers Thank you Normal [facility] OP Noteon 11-23-2022 Dice Person Authentication Interface Message Text Name: SHAHIDA OH MR#: [id number] [facility]#: [id number] Date of Procedure: 11/22/2022 ATTENDING SURGEON: Aye [...] upper extremity. She was subsequently discharged from [facility] after repair of her abdomen. She now [...] at 250 mmHg on the upper arm. [place] removed from her complex laceration to the [...] to postanesthesia care in good condition. Aye Vicente MD DR/Augustine/ Dict: 11/22/2022 15:29:57 TRANS: 11/22/2022 23:33:41 JOB: [id number] [employer]#: [id number] [facility] Telephone Encounteron 2022 Dice Person Authentication Interface Message Text Situation: Pt is [...] working at all. Recommendation: Paged plastic surgery iron worker at 12:52 pm. The resident called back at 12:54 pm. Notified him of the pt's message about pain medications. He states he will call the patient and talk to her. 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 The risks, benefits and alternatives were reviewed. Questions regarding anesthesia were answered. Patient and/or legal operations representative knows such anesthetics and procedures may be performed by Resident physicians, Certified Anesthesiologist Assistants, or Certified Nurse Anesthetists under the supervision of a physician. The patient /or the patient's legal operations representative agree with the plan for anesthesia. [...] Oral, EVERY 6 HOURS PRN Normal [facility] Dice Person Authentication Interface Message Text Patient taken to PACU. Patient was awake, comfortable and stable on arrival. 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) 11/19/2022 * Laceration of left arm with complication 11/17/2022 Added automatically from request for surgery [id number] * Nicotine addiction 11/19/2022 * Seizures (HCC) [...] CAA: Nell Sam CAA; Kush Merritt CAA Performance Test Consultant: Raheem Johnson MD REPAIR, NERVE, MAJOR PERIPHERAL [...] was received. Raheem Johnson MD Normal [facility] Blood Attestationon 11-23-19 Dice Person Authentication Interface Message Text Blood Attestation ATTESTATION OF INFORMED CONSENT FOR BLOOD The transfusion of blood and/or blood components were discussed with the patient and/or legal operations representative. The risks, benefits and alternatives were reviewed. Questions regarding blood transfusions were answered. The patient /or the patient's legal operations representative agree with the plan for transfusion of blood and/or blood components. Normal [facility] Brief Operative Noteon 11-22 Dice Person Authentication Interface Message Text Brief Operative Note MAIN OR 04 Shahida Oh 27 year old female Surgical Contact Serial Number: [id number] Preoperative Diagnosis: Laceration of left upper extremity [...] Flores; Graciela Fortune, DENNIS, BSN; Alma Boo Cinder Crusher Operator Nurse: Graciela Fortune, DENNIS, BSN; Ashley Pearl, DENNIS; Sarah Blackwell RN Cra: Ari Rojas MD; Louis Meredith MD Anesthesia: General Anesthesiologist: Radha Bryant MD; Beka Montgomery MD; Damion Posada MD CAA: Nell Sam CAA; Kush Merritt CAA Performance Test Consultant: Raheem Johnson MD Specimen(s): * No specimens [...] [facility] AND Antelmo Dice Person Authentication Interface Message Text Telephone History Shahida [place], [id number] 11/19/2022 Patient was identified by name and [...] entering the hospital at the new entrance- [facility], which is on [address] [facility] Parking Instructions ??? Please plan extra time for parking and shuttle service. We recommend arriving at least 15 minutes prior to the time your care team advises you need to be here. ??? Parking is available in the [facility] accessible from [address]. ??? 07/02 shuttle service from the garage to [facility] is available. ??? Go to the ground floor of the parking garage to reach the shuttle pick-up station located near the elevator and stairs. ??? Shuttle service will drop you off at [facility] Main Entrance. ??? Track Repair Supervisor service will be available at [facility] Main Entrance if you would prefer farmworker diversified crops over parking ([facility] Track Repair Supervisor Service Hours: Tuesday-Tuesday, 5:30 a.m. - 8:00 p.m.). ??? Enter The [facility] Main Entrance and go to the Admitting/Registrati [...] 11/17/2022 Added automatically from request for surgery [id number] Nicotine addiction 11/19/2022 Seizures (HCC) PROBLEM LIST: [...] yea (more content not included)... Normal [facility] Progress Note-Lara Progress Note-Physician Elizabeth Informatio [...] 06:38:00) Lymph Auto: 33.3 % (11/16/22 06:38:00) Emmet Auto: 5.9 % (11/16/22 06:38:00) Eos Auto: 0.5 % (11/16/22 06:38:00) Basophil Auto: 0.4 % (11/16/22 06:38:00) Neutro Absolute: 6.2 E9/L (11/16/22 06:38:00) Lymph Absolute: 3.4 E9/L (11/16/22 06:38:00) Emmet Absolute: 0.6 E9/L (11/16/22 06:38:00) Eos Absolute: [...] No glycemic issues - anticipate transfer to [facility] for plastics/hand consult, await bed - Chacha Ambriz PA-C Trauma Surgery/Surgical Critical Care/Emergency General Surgery *For urgent issues arising after 4PM during the week or on weekends/holiday, please page the trauma/EGS attending iron worker. This patient's plan of care was discussed with Trauma/Emergency General Surgery attending, Dr. Clements Problem List/Past Medical History Ongoing Bipolar 1 disorder, mixed BMI 24.0-24.9, adult Chronic hepatitis C Drug addiction in remission Nicotine addiction Historical feet Seizures Medications Inpatient acetaminophen 325 mg Tab, 975 mg= 3 tab(s), Or (more content not included)... Normal [facility] Comment on above: Result Comment: Elec tronically Signed By: Chacha Ambriz PA-C\.br\Date and Time Signed: 11/16/22 14:29 EDT\.br\Electronically Co-Signed By: Hakan Clements DO\.br\Date and Time Co-Signed: 11/19/22 12:26 EDT CBC W Auto Differential pane l (Bld)on 11-18-2022 Basophils (Bld) [#/Vol] 0.0 10*3/uL 0.0 - 0.2 K/uL [facility] Basophils/100 WBC (Bld) 0.5 % B ON [facility] Eosinophils (Bld) [#/Vol] 0.1 10*3/uL 0.0 - 0.7 K/uL [facility] Eosinophils/100 WBC (Bld) 1 % [facility] Erythrocyte distribution width (RBC) [Ratio] 13.9 % 11.5 - 14.5 % [facility] Hematocrit (Bld) [Volume fraction] 31.8 % Low 37.0 - 47.0 % [facility] Hemoglobin (Bld) [Mass/Vol] 10.5 g/dL Low 12.0 - 16.0 g/dL [facility] Interpretation and review of laboratory results Abnormal [facility] Lymphocytes (Bld) [#/Vol] 1.6 10*3/uL 1.0 - 4.8 K/uL [facility] Lymphocytes/100 WBC (Bld) 20.3 % [facility] MCH (RBC) [Entitic mass] 30.6 pg 27.0 - 31.3 pg [facility] MCHC (RBC) [Mass/Vol] 32.9 % Low 33.0 - 37.0 % [facility] MCV (RBC) [Entitic vol] 93.1 fL 79.4 - 94.8 fL [facility] Monocytes (Bld) [#/Vol] 0.4 10*3/uL 0.2 - 0.8 K/uL [facility] Monocytes/100 WBC (Bld) 5.2 % B ON [facility] Neutrophils (Bld) [#/Vol] 5.6 10*3/uL 1.4 - 6.5 K/uL [facility] Platelets (Bld) [#/Vol] 246 10*3/uL 130 - 400 K/uL [facility] RBC (Bld) [#/Vol] 3.42 10*6/uL Low [facility] Segmented neutrophils/100 WBC (Bld) 73.0 % [facility] WBC (Bld) [#/Vol] 7.6 10*3/uL 4.8 - 10.8 K/uL [facility] CBC With Platelet and Differ entialon 11-18-2022 Basophils (Bld) [#/Vol] 0.0 10*3/uL Normal 0.0-0.2 [facility] Comment on above: Performed By: #### C BCWD #### [facility] [address] [place] [address] Basophils/100 WBC (Bld) 0.5 % Normal [facility] Comment on above: Performed By: #### C BCWD #### [facility] [address] [place] [address] Eosinophils (Bld) [#/Vol] 0.1 10*3/uL Normal 0.0-0.7 [facility] Comment on above: Performed By: #### C BCWD #### [facility] [address] [place] [address] Eosinophils/100 WBC (Bld) 1.0 % Normal [facility] Comment on above: Performed By: #### C BCWD #### [facility] [address] [place] [address] Erythrocyte distribution width (RBC) [Ratio] 13.9 % Normal 11.5-14.5 [facility] Comment on above: Performed By: #### C BCWD #### [facility] [address] [place] [address] Hematocrit (Bld) [Volume fraction] 31.8 % Low 37.0-47.0 [facility] Comment on above: Performed By: #### C BCWD #### [facility] [address] [place] [address] Hemoglobin (Bld) [Mass/Vol] 10.5 g/dL Low 12.0-16.0 [facility] Comment on above: Performed By: #### C BCWD #### [facility] [address] [place] [address] Lymphocytes (Bld) [#/Vol] 1.6 10*3/uL Normal 1.0-4.8 [facility] Comment on above: Performed By: #### C BCWD #### [facility] [address] [place] [address] Lymphocytes/100 WBC (Bld) 20.3 % Normal [facility] Comment on above: Performed By: #### C BCWD #### [facility] [address] [place] [address] MCH (RBC) [Entitic mass] 30.6 pg Normal 27.0-31.3 [facility] Comment on above: Performed By: #### C BCWD #### [facility] [address] [place] [address] MCHC 32.9 % Low 33.0-37.0 [facility] Comment on above: Performed By: #### C BCWD #### [facility] [address] [place] [address] MCV (RBC) [Entitic vol] 93.1 fL Normal 79.4-94.8 [facility] Comment on above: Performed By: #### C BCWD #### [facility] [address] [place] [address] Monocytes (Bld) [#/Vol] 0.4 10*3/uL Normal 0.2-0.8 [facility] Comment on above: Performed By: #### C BCWD #### [facility] [address] [place] [address] Monocytes/100 WBC (Bld) 5.2 % Normal [facility] Comment on above: Performed By: #### C BCWD #### [facility] [address] [place] [address] Neutrophils (Bld) [#/Vol] 5.6 10*3/uL Normal 1.4-6.5 [facility] Comment on above: Performed By: #### C BCWD #### [facility] [address] [place] [address] Neutrophils/100 WBC (Bld) 73.0 % Normal [facility] Comment on above: Performed By: #### C BCWD #### [facility] [address] [place] [address] Platelets (Bld) [#/Vol] 246 10*3/uL Normal 130-400 [facility] Comment on above: Performed By: #### C BCWD #### [facility] [address] [place] [address] RBC (Bld) [#/Vol] 3.42 10*6/uL Low 4.20-5.40 [facility] Comment on above: Performed By: #### C BCWD #### [facility] [address] [place] [address] WBC (Bld) [#/Vol] 7.6 10*3/uL Normal 4.8-10.8 [facility] Comment on above: Performed By: #### C BCWD #### [facility] [address] [place] [address] CTA CHEST ABDOMEN PELVIS W W O [...] Cristel Corrales MD 11/18/22 Final result Normal [facility] 1. Free intraperitoneal air, likely secondary to given history of recent surgery. 2. Supraumbilical midline incision, with minimal fluid/blood products in the underlying subdermal tissues. 3. Suggestion of a 3.7 cm luminal ocular cystic structure likely associated with the left ovary. [facility] CTA DISSECTION CHEST ABDOMEN PELVIS [...] the left ovary Bones/Soft Tissues: No fracture [facility] Cristel Corrales MD - 11/18/2022 EXAMINATION: [...] structure likely associated with the left ovary. [employer] Phone: Radiology Study observation (narrative) [employer] Phone: CTA CHEST ABDOMEN PELVIS W W O CONTRASTOrdered By: Cristel Corrales on 11-18-2022 [employer] Phone: Coding Summary.on 11-18-2022 Coding Summary. CD:[id number] Ww+PGhlYWQ+EI3DCXNpS 77fyCPtdD7aO0DSBCpLK ywgQVBQTElOSyIgbmFtZ L9kcYRoNDNj IC8+BT1mYGYvUayymFGr e9D0hZN5E51lqy5hVEwr hCB3ULFaDqKdtqatp0wj mJf1TVcgMtozTvLf TAWmyS65QHR7lM67Bg78 yDMnhQYfn6fpkBp9LqTv WYFeNYU8rBduKMjob6Rf JCIhI45sjCRvd8V9 IGNvbGxhcHNlOyBlbXB0 hQ2vHCiikvdhw2jegfze Kde0xc32iXVja4B0qHC8 U0BmbsS7ALIvsDYw PqzrfQENpM1zfhoaw1tk yjzmImJjVVCkCHh8FUe7 YBIgaZpaRlYfSD10RKE8 RWEjwvWpZ9ZiGQXg oDeyOmI0e4I3Le3YN9IN JdvmF2SMBOITFPugpVZ+ HA96ql49G1HhFnfeIsw5 ELVyYQI7tSR7oH7b TOCjIRyaq0T6hGD9I1Sd htOyik5ft8qiCWWoVCfz P08gjIUzm3T4RCHsfNL4 SQPsmVrwXzXabZ02 Oyc+QCQbrSujr6JqDzca m1mgs7pwqMf3WchkKYVk gfMxrWyfYQC9b5DlPy9f CGHrsQF3uKG3xV7s HkBtSfQ8JPyxN942QpSy nVVcTykzD75bH2KanPU+ YJVsMai0TTPzpSjuJG9p P8ChIMZldntgoEVs zMnyZI2cJEWjrlpeEFDg jB8pLBShU3g3OsTsIuF2 UTooK9YnXDImraymJj45 cO0qWyHkWrK4RGgf W1UvujT8ARIkdVBdUXjd ZZL3L84hd8X1POYwEGKi IZJ6rGU2kP1ihNqrzesi bGVmdDsgdmVydGlj UTjcDJtkD132HNYylFko PkNvZGluZyBEYXRlOiAg MDUvMDQvMjAyMzwvdGQ+ QHXcEKW2pLrrRUXj tAEzOZezGb2cbBitgDka ZU0uEOQazeelIEGngK6i SKJeqFFulNroTT1uXZXz ojeax414YfVjTGQ6 HNQqhZEzD8QqyW6dKyAp RCSgBLPtG4YvxUVsFXhm O524IPiyUuI8HYDqmyVt F7RgYLOnkZcvVfM8 j9W8Vh4On4KmdqtaL8Hw kFSlWpNuEjedGNk0B4Cg PjwvdHI+MC51DSAmIT36 OAe1QCP3kRfeHLwx QPExT3NniP6zTxBaRJKf ZGRkOyc+PHRhYmxlIHdp ZHRoPScxMDAlJyBzdHls KG0xJn0pOPGcXZAk wNsqbLLeXrTtu5bcYKEt NZmuUO4qzBqnS0BmlQR5 BHIvk0f3Jn62B18dY1Hw dXA+XLHekMC1xYC1 pA1nGeQqRiY3DYwrN671 QuCrqCTlXlypc5gqe1hj gVk1ThC6URBbtjPsgNao HNC9e5AlWy19P76n IHdpZHRoPSIxNSUiIHZh rZvapk2ekF1pNt1+PGNv kAP1sSK6qO4bNhRsBtS7 LZdhZ421XgOepVHg Vigrv3vzi5stjUy0AsQx KYNujpCeuNqcYUD5o0As Wp12R2RqhMmoz5CiGnt7 sk95eHByx0B1sSV4 Z3RvEBGmpkhklFBqyBbv QQ0kZMHydgukJGOmwN2q HOMeD3t3VnBtNpP0TMyq A8VzorQ9FGNidMCy AWCqzVTFdT1annogz8au hqwdWwZzIIAxUZi2GMt1 FPLprIkeOhXiXHC6VsV9 DMV6dGXvpH6mzOtl ycuabH9qWio+OUW2jILk rSSOBT1vRnzrbCU+PHRk JMC4kGwhXCfjYZYozH7i STBcB4p0ZxRqSvD8 RRmeG6WgemL5SADzeQVd DBKuvRBNrK7yjcngn5lz ktqxXfVbHOTtCRd9AUk7 LWFsaWduOiBsZWZ0 AlF6PRB5oAHrrD0mpCwp oanriG0vQpd+QmlydGgg SIY1OIt1X4YdNrp0JXUa nXypHB5lpTAsLQmj Fp0lcQbizQwiEU8xUQQd fllvt363CbOza8zzMQOs eKYwCTrxJBU6X44fn3M9 ZVTyBFMoVOT3xPQ5 mA5ncFcdbryzmNHrsArr jkCnjNakCMjsFAngQ524 RIYupDrsWaWxHIf4D9Ca Sfu8HTJgeBfoNQ6q zPMuHQypMa5cqTafrQvi QE6jFCQnzkeyq156MkAr k6trEKAurOFcSJrsXBX7 U09mq5T3PQCfZWGg MSV6aDX7nQ2skRswbiyh bGVmdDsgdmVydGljYWwt OLjcI135MWMldWosJwIk sYv4U4NgLvi3JFYd lAjdSR3xkILoLYzzWc0d hDozgFafKY2xLATsifat h697IgGew9mbBKPxiRDr PYqkHOX2O73ey8C5 GMPzONBcYRG1eRB7bI0d bGlnbjogbGVmdDsgdmVy kWfeVKfkTVpdR127YJMf cDsnPlBhdGllbnQg LGcbYAq9O3RaKhnxjGX+ AF85ECKlHN49rVSrmFRx g2rkrLs3GaOpVVXoMDD5 nDtoBCmjm9MtLEJr I32edBVcs7F2ELQedJgt oAIaCjUqtZA1wJ3jMMyd gxsod8geamgmDkutu6rm pz78mR10Z01cFKrn ZHRoPSIzMCUiIHZhbGln tw2pbW8jYg2+PGNvbCB3 wMV0pD0qUIUzRzO3HBtj P554WsZggEMlOcqh v5keo1npgAx3LpG0LOCg hiNvaQdrKZU8m8HpDi60 F36yCHvwPOGhINJuBOMp JFSyoStzwh7syX4l Ii8+LJIbyPV9yUZ3fI6v RgNpGwA9TEtwS262EeAb jEGqVblpN30cC2GatJR+ KWBnGdw1VCYjgMzk MP0jeMBiBBhpHa1rOHV9 RnWtMdPiBHgqH0DxLCVp hfaewcjcvDA4BWOgAOCo kM49Nv8flUzvXNUb gKIEkL3qndinx3nbvast GvOwTBDgIAg8LFf3WDLm qOzdEtFeBZH6MpH1AKQ2 oIHnzZ2mdTnkwlpx nG4jP3QwTAPtqtagKc29 oT8fPmKwZmY5OYrpNqh+ MAKRT29TQWYPDSjLDQLK UWv5U5EwXzm0NWZz pUfhBU2qhUCbGUqtJu4j iTmieEojUM3nPMWykmdt CRRutE7qAYQejEGrzLvu ML5qNVAmrsbgi128 OdTvEBV6FYJkjWNlU8Gx oP1nDuGxVETjDMObI6Bn vLAxSXakU779PBeoOwL3 LYFzmyQkD8NaYZLg vGieRmF4q7L3Tm2eOx0h Lf4iKYb5WS70VX58pWMn d4Y7rSE0G5KqBUJcwngi xuslrUN8MEGyXGVt hJ95hSBkHGaiBr8mu1Y5 b660XHJbHCGtkO08Hu5i oXbyHTAqbMKYkU7dwtgg i8lhvpwyAfYpJSWy GQf6ZDc7FBXbzWbzCiNf EAG2XeC3VTK1iINnnD9u aJukrhrhtG7yZwi+MjUg QYYvqnA6F3JxEif5 SINerSdlLP4yxVBfDFev Sn4xrWfjjOezQS4bKWPa trleHFVziP0rPSOksGFm sFdgUI4kOOOfrqha r097NySjOLY5IUWenYNa Y2NtmK0hKiCsWNLfAVDw F6UbvICwYJypK715HXst InU3FIQsbfLyZ3Cz JISjlTueFnA2o5T3Sb7S FH3joYY2Z1OlGer4VEIj rHfgJL4zyCXhPToaFz0z eInenYflRK7hEKUe yqujPRRbgZ8pMTCluKKa cShhOJ0cIGQbogwfu856 XcMuEYD5DDCplRLeS2Ta jH6dTnMuEKRbNIHg K4XioWDiYCiyI939UEpt VzS1NFByxbQmI6QpFDOw dHmhObI4r4S7Ve7PfwNg kTyumcO4V6XpVdak dHI+XM63AAShQX39gYHi cSKwo6eliMa4ElXeGCUd LQA4lJdkDJlho8OjBAOh Q87gqAOyp2S0PRPw pIjgkPRnHbAbbBK3zW6d SCkgpnyjv2llyzphNxir u0ctcy75tQ76T85iHZfr ZHRoPSIzMCUiIHZh fZcfma3jnF3sEk4+PGNv xPM5tRV5nS2jCcKyNeA8 EHndE464HeUnqATwYcvo r3flk8wfpKz2OiUw GRMxgzFgtVulPAC4m0Fi Cu31X85fOKopVHBrPFQv MCVrGSSezAvina4enS2w Ii8+UN4rk2msvx85 aW24bVF+ORLiJWZ1jDug EAipBTSrgU5lUHglDbM0 GOSpRmResB33kMUbXQmg Qy3mbDobsEvdHD9d UMMjnawwg281DyYkx4tt CUZmoHSiUEkiYPK0J24u m5V5OLGsNCLpUVM8kPY3 nU8jcMjqparjlBHs dDsgdmVydGljYWwtYWxp M130QFSwoAgsGaOfpRVi O9kmdxCLUG0zHgeekCW+ EKNnTJV1cUojEDdo LQUlfX8dHWKhE4q7FdJu MbP4SGwwE1WdfzO4GEEx lMYxHICikJUQiW2kbmbb n4vrnjwzLiZrUFAg YKv8TFc1AKZnjMeaBjQb FIU2NnB9MUO3zTHrwH3c wUshxvsdwK1mJpq+RklO OjwvdGQ+PHRkIHN0 bBxxJVniXAOspB6wDKMp O3m4FsAlYdB7KFtlS8Tl kqP1RTMbcSZhEOCmgSMA xG0tkalfr3xqvxih RmDpBAEdGDp4MJh0VZRq dGmxJvIeEDM7OeY3TLX2 mVFftX1tzRqdonvrcG8n Oyc+TVJOOjwvdGQ+ CRYiFCB0jVuqWNfaFKKq wM6eGUZrM9x7ZjDmYsT3 KNhbB9NoejX9LJQpcOSk PERjwGPVvP1mumyk m0bfodnmLsAnAQBlPOd9 YKp7QJYhjOgsGwHfGLB7 JqF8MLD5rIVioQ2mdJql pxlufA1sWid+UGF5 YWB5SB69OJ02G9ZcQavh dGFibGU+PHRhYmxlIHdp ZHRoPScxMDAlJyBzdHls RJ2sIv6lZMOqIOVx bGxhcHNl (more content not included)... Normal [facility] Comprehensive Metabolic Pane angel 11-18-2022 Albumin [Mass/Vol] 4.1 g/dL Normal 3.5-4.6 [facility] Comment on above: Performed By: #### C MP #### [facility] [address] [place] [address] ALP [Catalytic activity/Vol] 57 U/L Normal 40-130 [facility] Comment on above: Performed By: #### C MP #### [facility] [address] [place] [address] ALT [Catalytic activity/Vol] 19 U/L Normal 0-33 [facility] Comment on above: Performed By: #### C MP #### [facility] [address] [place] [address] Anion gap [Moles/Vol] 12 mmol/L Normal 9-15 [facility] Comment on above: Performed By: #### C MP #### [facility] [address] [place] [address] AST [Catalytic activity/Vol] 26 U/L Normal 0-35 [facility] Comment on above: Performed By: #### C MP #### [facility] [address] [place] [address] Bilirubin [Mass/Vol] mg/dL Normal 0.2-0.7 [facility] Comment on above: Performed By: #### C MP #### [facility] [address] [place] [address] Calcium [Mass/Vol] 9.2 mg/dL Normal 8.5-9.9 [facility] Comment on above: Performed By: #### C MP #### [facility] [address] [place] [address] Chloride [Moles/Vol] 105 mmol/L Normal 95-107 [facility] Comment on above: Performed By: #### C MP #### [facility] [address] [place] [address] CO2 [Moles/Vol] 28 mmol/L Normal 20-31 [facility] Comment on above: Performed By: #### C MP #### [facility] [address] [place] [address] Creatinine [Mass/Vol] 0.54 mg/dL Normal 0.50-0.90 [facility] Comment on above: Performed By: #### C MP #### [facility] [address] [place] [address] GFR >60.0 Normal >60 [facility] Comment on above: Result Comment: Ari [...] secretion. Performed By: #### C MP #### [facility] [address] [place] [address] Globulin (S) [Mass/Vol] 2.7 g/dL Normal 2.3-3.5 [facility] Comment on above: Performed By: #### C MP #### [facility] [address] [place] [address] Glucose [Mass/Vol] 127 mg/dL Critically high 70-99 M [facility] Comment on above: Performed By: #### C MP #### [facility] [address] [place] [address] Potassium [Moles/Vol] 3.5 mmol/L Normal 3.4-4.9 [facility] Comment on above: Performed By: #### C MP #### [facility] [address] [place] [address] Protein [Mass/Vol] 6.8 g/dL Normal 6.3-8.0 [facility] Comment on above: Performed By: #### C MP #### [facility] [address] [place] [address] Sodium [Moles/Vol] 145 mmol/L Critically high 135-144 [facility] Comment on above: Performed By: #### C MP #### [facility] [address] [place] [address] Urea nitrogen [Mass/Vol] 9 mg/dL Normal 6-20 [facility] Comment on above: Performed By: #### C MP #### [facility] [address] [place] [address] Comprehensive metabolic 2000 panelon 11-18-2022 Albumin [Mass/Vol] 4.1 g/dL 3.5 - 4.6 g/dL [facility] ALP [Catalytic activity/Vol] 57 U/L 40 - 130 U/L [facility] ALT [Catalytic activity/Vol] 19 U/L 0 - 33 U/L [facility] Anion gap [Moles/Vol] 12 mmol/L [facility] AST [Catalytic activity/Vol] 26 U/L 0 - 35 U/L [facility] Bilirubin [Mass/Vol] mg/dL 0.2 - 0 .7 mg/dL [facility] Calcium [Mass/Vol] 9.2 mg/dL 8.5 - 9.9 mg/dL [facility] Chloride [Moles/Vol] 105 mmol/L [facility] CO2 [Moles/Vol] 28 mmol/L [facility] Creatinine [Mass/Vol] 0.54 mg/dL 0.50 - 0.90 mg/dL [facility] GFR/1.73 sq M.predicted among non-blacks MDRD (S/P/Bld) [Vol rate/Area] 60 - PINF [facility] Comment on above: Pediatric calculator link https://www.kidney.org/professionals/kdoqi/gfr_calculatorped [...] [Mass/Vol] 2.7 g/dL 2.3 - 3.5 g/dL [facility] Glucose [Mass/Vol] 127 mg/dL High 70 - 99 mg/dL [facility] Interpretation and review of laboratory results Abnormal [facility] Potassium [Moles/Vol] 3.5 mmol/L [facility] Protein [Mass/Vol] 6.8 g/dL 6.3 - 8.0 g/dL [facility] Sodium [Moles/Vol] 145 mmol/L High [facility] [employer] Urea nitrogen [Mass/Vol] 9 mg/dL 6 - 20 mg/dL [facility] General Message Officeon General Message Office --- --- --- --- - -- --- --- --- --- From: Palm[employer]ter[employer] CastroInbox To: SHAHIDA [place] Sent: 11/18/22 02:30:14 AM EDT Subject: Discharge Summary Ready to View A summary regarding your recent visit is available in the Documents section of your health record. Normal [facility] IntraOperative Documentson 0 11-18-2022 IntraOperative Documents [id number] 6#1.00CD:127 Normal [facility] No Panel InformationOrdered By: Judi Rosas on 11-18-2022 [facility] POC Urine QualOrde red By: Judi Rosas on 11-18-2022 Beta HCG ( test) Ql (U) Negative Negative [facility] Lot Number [id number] [facility] Negative QC Pass/Fail Acceptable [facility] Positive QC Pass/Fail Acceptable [facility] Progress Noteson 11-18-2022 Dice Person Authentication Interface Message Text Documentation: Mode: Telephone Patient Patient Work Phone: Patient Cell Preferred phone: [phone] Consent: I confirmed patient understanding of the [...] placing orders. This note was transcribed using [employer] voice-recognition software. This may result in typographical or malapropism errors. Normal [facility] XR CHEST (2 VW)on 11-18-2022 XR [...] Vamsi Sneed MD 11/18/22 Final result Normal [facility] No acute cardiopulmonary disease. Pneumoperitoneum, presumably postsurgical. Correlation is recommended. [facility] RADIOLOGY EXAMINATION: TWO XRAY VIEWS OF THE [...] finding is most likely postoperative in nature. [facility] RADIOLOGY Vamsi Sneed MD - 11/18/2022 EXAMINATION: [...] disease. Pneumoperitoneum, presumably postsurgical. Correlation is recommended. [facility] Work Phone: Radiology Study observation (narrative) [employer] Phone: XR CHEST (2 VW)Ordered By: Analy Sneed on 11-18-2022 [facility] [employer] Phone: Auto Diffon 11-17-2022 Basophils/100 WBC (Bld) 0.5 % Normal 0.0-2.0 F [facility] Comment on above: Order Comment: Order Added by Discern Expert. Performed By: #### 1 5522699, 7992646, 0222449, 3845574, 9656241, 8489801 ####[facility] [address] [place] [address] Basophils/Leukocytes Auto (Bld) [Pure # fraction] 0.0 E9/L Normal 0.0-0.2 [facility] Comment on above: Order Comment: Order Added by Discern Expert. Performed By: #### 1 0142339, 0685210, 2648700, 3906205, 3671974, 7277443 ####[facility] [address] [place] [address] Eosinophils/100 WBC (Bld) 1.2 % Normal 0.0-8.0 [facility] Comment on above: Order Comment: Order Added by Discern Expert. Performed By: #### 1 1043663, 2077528, 7132731, 6575135, 0304233, 2297758 ####[facility] [address] [place] [address] Eosinophils/Leukocytes Auto (Bld) [Pure # fraction] 0.1 E9/L Normal 0.0-0.5 [facility] Comment on above: Order Comment: Order Added by Esme Expert. Performed By: #### 1 8001477, 7008756, 2311599, 0330804, 4767866, 8127666 ####[facility] [address] [place] [address] Lymphocytes/100 WBC (Bld) 41.8 % Normal 14.0-50.0 [facility] Comment on above: Order Comment: Order Added by Esme Expert. Performed By: #### 1 9870814, 4331125, 4354797, 8262118, 3154756, 0966255 ####[address] [place] [address] Lymphocytes/Leukocytes Auto (Bld) [Pure # fraction] 2.8 E9/L Normal 1.0-4.0 [facility] Comment on above: Order Comment: Order Added by Esme Expert. Performed By: #### 1 7388028, 8213661, 4006891, 1655657, 4664784, 1527974 ####[facility] [address] [place] [address] Monocytes/100 WBC (Bld) 7.2 % Normal 4.0-14.0 [facility] Comment on above: Order Comment: Order Added by Esme Expert. Performed By: #### 1 4021151, 7060062, 4829950, 1212377, 4790458, 0842664 ####[address] [place] [address] Monocytes/Leukocytes Auto (Bld) [Pure # fraction] 0.5 E9/L Normal 0.2-1.0 [facility] Comment on above: Order Comment: Order Added by Esme Expert. Performed By: #### 1 9221947, 8869546, 3583031, 2661943, 6149318, 5534204 ####[facility] [address] [place] [address] Neutrophils/100 WBC (Bld) 49.3 % Normal 36.0-75.0 [facility] Comment on above: Order Comment: Order Added by Discern Expert. Performed By: #### 1 3960719, 4457648, 5399897, 1377987, 7486624, 9554067 ####[facility] [address] [place] [address] Neutrophils/Leukocytes Auto (Bld) [Pure # fraction] 3.2 E9/L Normal 2.0-7.5 [facility] Comment on above: Order Comment: Order Added by Discern Expert. Performed By: #### 1 1178836, 4390811, 0208981, 9692819, 8009240, 6674333 ####[facility] [address] [place] [address] BMPon 11-17-2022 Anion gap [Moles/Vol] 8 mmol/L Normal 6-16 [facility] Comment on above: Performed By: #### 1 9098488, 7988374, 4699949, 7775878, 8580082, 7469717 ####[facility] [address] [place] [address] Calcium [Mass/Vol] 8.5 mg/dL Low 8.9-11.1 [facility] Comment on above: Performed By: #### 1 6714717, 1683349, 9336856, 3384077, 1429843, 2571628 ####[facility] [address] [place] [address] Chloride [Moles/Vol] 107 mmol/L Normal 101-111 [facility] Comment on above: Performed By: #### 1 0380339, 3659283, 6643155, 2798752, 7971931, 9326448 ####[facility] [address] [place] [address] CO2 [Moles/Vol] 25 mmol/L Normal 21-31 [facility] Comment on above: Performed By: #### 1 4803786, 9722673, 1635095, 1906966, 0600771, 4248301 ####[facility] [address] [place] [address] Creatinine [Mass/Vol] 0.5 mg/dL Normal 0.5-1.3 [facility] Comment on above: Performed By: #### 1 2589262, 3079115, 3658754, 7179193, 4676300, 1356623 ####[facility] [address] [place] [address] Glucose [Mass/Vol] 89 mg/dL Normal 55-199 [facility] Comment on above: Result Comment: If t his glucose result represents a fasting glucose, interpretation should refer to the following reference range: 55-99 mg/dL Performed By: #### 1 4858669, 2775643, 8330817, 3633021, 3701547, 6419496 ####[facility] [address] [place] [address] Potassium [Moles/Vol] 3.4 mmol/L Low 3.5-5.3 [facility] Comment on above: Performed By: #### 1 6472979, 4711368, 0068858, 2063034, 2493935, 2610300 ####[facility] [address] [place] [address] Sodium [Moles/Vol] 137 mmol/L Normal 135-145 [facility] Comment on above: Performed By: #### 1 9132117, 6807326, 4013362, 9260520, 4067006, 4987230 ####[facility] [address] [place] [address] Urea nitrogen [Mass/Vol] 9 mg/dL Normal 5-21 [facility] Comment on above: Performed By: #### 1 7599731, 1019412, 4537094, 6356166, 1068769, 8668152 ####[facility] [address] [place] [address] Urea nitrogen/Creatinine [Mass ratio] 18 No Units Normal 10-20 [facility] Comment on above: Performed By: #### 1 1436661, 2290792, 4497676, 1160794, 9579997, 1790922 ####[facility] [address] [place] [address] CBC w/ Auto Diffon 05-03-202 3 Erythrocyte distribution width (RBC) [Ratio] 13.9 % Normal 10.9-14.2 [facility] Comment on above: Performed By: #### 1 2618497, 4110764, 3109460, 1337520, 9194011, 7752329 ####[facility] [address] [place] [address] Hematocrit (Bld) [Volume fraction] 27.5 % Low 34.0-46.0 [facility] Comment on above: Performed By: #### 1 6019308, 9860945, 7941393, 6504468, 0045691, 1473705 ####[address] [place] [address] Hemoglobin (Bld) [Mass/Vol] 9.1 g/dL Low 12.0-16.0 [facility] Comment on above: Performed By: #### 1 0785189, 2416350, 6000328, 4092939, 6767168, 9604187 ####[address] [place] [address] MCH (RBC) [Entitic mass] 30.1 pg Normal 27.0-34.0 [facility] Comment on above: Performed By: #### 1 8769875, 1228823, 7606340, 2333177, 8743324, 4309414 ####[address] [place] [address] MCHC (RBC) [Mass/Vol] 32.9 g/dL Normal 31.4-36.0 [facility] Comment on above: Performed By: #### 1 7649055, 9301700, 2484421, 4447609, 7041587, 8044454 ####[address] [place] [address] MCV (RBC) [Entitic vol] 91.5 fL Normal 80.0-100.0 F [facility] Comment on above: Performed By: #### 1 5720849, 7445386, 7746541, 2927143, 1788742, 1384606 ####[facility] [address] [place] [address] Platelet mean volume (Bld) [Entitic vol] 8.8 fL Normal 6.4-10.8 [facility] Comment on above: Performed By: #### 1 9136376, 2280486, 2882875, 1950620, 8505484, 8153502 ####[facility] [address] [place] [address] Platelets (Bld) [#/Vol] 163.0 E9/L Normal 150.0-500.0 [facility] Comment on above: Performed By: #### 1 4444989, 1475729, 0445183, 0066493, 0657446, 2621188 ####[facility] [address] [place] [address] RBC (Bld) [#/Vol] 3.0 E12/L Low 4.3-5.9 [facility] Comment on above: Performed By: #### 1 9770975, 3193012, 0930378, 4864397, 4990939, 6858868 ####[facility] [address] [place] [address] WBC corrected for nucl RBC Auto (Bld) [#/Vol] 6.6 E9/L Normal 4.0-11.0 [facility] Comment on above: Performed By: #### 1 5639232, 5210321, 2890604, 1511703, 3137248, 5366905 ####[facility] [address] [place] [address] CHEMISTRYOrdered By: SYSTEM SYSTEM on 11-17-2022 Anion [...] 133 mL/min/1.73 m2 Normal >=59mL/min/1 .73 m2 [facility] S Glucose [Mass/Vol] 89 mg/dL Normal [...] , Shae Acute blood loss anemia Normal [facility] Discharge Instructionson Discharge Instructions [id number] [facility] [id number] 5#1.00CD:127 Normal [facility] HEMATOLOGYOrdered By: SYSTEM SYSTEM on 11-17-2022 Basophils/100 [...] Pending Diagnostic Test Results None [facility] Do not lift heavier than 20 pounds for the next 4 to 6 weeks to prevent a hernia. May shower normally. No swimming, soaking, bathing for 4 weeks. Follow-up with the hand surgeon at [facility] regarding outpatient hand surgery. Previously Scheduled Follow-Up Appointments Tuesday. 2022 10:00 AM EDT Where: [facility] New Follow Up Appointments after Discharge Follow Up with trauma clinic When: 11/26/2022 10:00 AM EDT Comments: Postop follow-up and staple removal. Where: [address] [place] [address] 3, second floor, [address] [place] [address]- [phone] Follow Up with AYE VICENTE MD When: [...] with TRAUMA. Thank you! Where: [address] [place] [address]- Business (1) Medications What How Much When Instructions Next Dose New acetaminophen (acetaminophen 325 mg Tab) 3 Tablets By Mouth Every 6 hours 11/17 5pm New methocarbamol (Robaxin 500 mg Tab) 1 Tablets By Mouth 4 times a day as needed for Spasm Duration: 7 Days Pickup at [id number] As needed (last dose 11/17 9am)_ New naproxen (Naprosyn 500 mg Tab) 1 Tablets By Mouth 2 times a day Duration: 7 Days with food Pickup [id number] May take as needed Pharmacy Information [id number]: [address] [place], [place] [id number] [phone] What When Comments Stop Taking sofosbuvir-velpatasv ir [...] what dressing supp (more content not included)... [facility] Insurance Correspondence Off ice11-17-2022 Insurance Correspondence Office [id number] 8#1.00CD:127 [facility] Interdisciplinary Note - Luis e Manageron 11-17-2022 Interdisciplinary Note - Children'S Author CRM spoke with patient in room. Patient [...] girlfriends daughter will transport her home. . [facility] Comment on above: Result Comment: Elec tronically Signed By: Mario COLLINS, Joanne\.br\Date and Time Signed: 11/17/22 12:05 EDT Magnesiumon 11-17-2022 Magnesium [Mass/Vol] 1.8 mg/dL Normal 1.3-2.4 Fish elodia [facility] Comment on above: Performed By: #### 1 3032577, 1642069, 8552778, 9567053, 0459531, 8891571 ####[facility] [address] [place] [address] Main OR Intraoperative Recor don 11-17-2022 Main OR Intraoperative Record IntraOp Document Type FT Summary Primary Physician: Christiano Marion MD Finalized Date/Time: 11/17/22 10:36:38 Pt. Name: ADRIANOSHAHIDA./Sex: 1995 Female Med Rec #: [id number] Physician: Christiano Marion MD Financial #: [id number] Pt. Type: I Room/Bed: [place] [address] Admit/Disch: 11/14/22 23:26:23 - Institution: Case Times [...] Role Performed Surgeon - Primary Anesthesiologist of Cinder Crusher Operator - Primary Record Time In 11/15/22 01:08:00 11/15/22 01:08:00 11/15/22 01:08:00 Time Out 11/15/22 04:02:00 11/15/22 04:02:00 11/15/22 04:02:00 Procedure LAPAROTOMY EXPLORATORY LAPAROTOMY EXPLORATORY LAPAROTOMY EXPLORATORY Comments Last Modified By: Ashu COLLINS, Darling Wakefield RN, Darling Tuttle RN 11/15/22 04:07:58 11/15/22 04:07:58 11/15/22 04:07:58 Entry 4 Entry 5 Case Attendee Zoya Del Valle CST, Benjamin Role Performed Scrub - Primary HOSPITALITY HOUSE SUPERVISOR/SA Time In 11/15/22 01:08:00 11/15/22 01:08:00 Time [...] WOUND OF ABDOMINAL WALL Last Modified By: Rdaha Ovalles CST 11/17/22 10:36:36 Post-Care Text: The [...] for sign (more content not included)... Normal [facility] Phosphoruson 11-17-2022 Phosphate [Mass/Vol] 3.4 mg/dL Normal 1.9-4.6 [facility] Comment on above: Performed By: #### 1 6049679, 0631495, 2238543, 1822024, 9028831, 9982939 ####[facility] [address] [place] [address] Progress Note-Physicianon Progress Note-Physician Patient: SHAHIDA [place] Age: 27 years Sex: Female : 1995 Associated Diagnoses: None Author: MD BerthaHemrinio Postoperative Information Postoperative disposition: Postoperative disposition: To PACU. Optimetrix number: Optimetrix number [id number]. Anesthetic utilized: General. Health Status Allergies: Allergic [...] meets criteria ( To home ). Normal [facility] Comment on above: Result Comment: Elec tronically [...] 1 po bid days 4-7, [id number], Supply, 170, cm, 08/26/22 14:06:00 EST, Height/Length Dosing, 67.4, kg, 08/26/22 14:06:00 EST, Weight Dosing APO-Varenicline 1mg: APO-Varenicline 1mg, See Instructions, 60 tab(s), 3, Take 1 po BID day 8 and after, [facility] #[id number], Supply, 170, cm, 08/26/22 14:06:00 EST, Height/Length Dosing, 67.4, kg, 08/26/22 14:06:00 EST, Weight Dosing Documented Medications Documented sofosbuvir-velpatasv ir 400 mg-100 mg oral tablet: Refills(s) 0 Problem list: All Problems Bipolar 1 disorder, mixed / SNOMED CT 91724023 / Confirmed BMI 24.0-24.9, adult / SNOMED CT 6149080158 / Confirmed Chronic hepatitis C / SNOMED CT 151152178 / Confirmed Drug addiction in remission / SNOMED CT 6765671810 / Confirmed Maternal tobacco use / SNOMED CT 1569149979 / Confirmed Maternal tobacco use / SNOMED CT 1038914025 / Confirmed Nicotine addiction / SNOMED CT 73278870 / Confirmed Resolved: feet / SNOMED CT 733008855 metal implation to tighten tedons Resolved: / SNOMED CT 736567963 Resolved: Seizures / SNOMED CT [id number]-Y [id number] Canceled: Anxious depression / SNOMED CT 647085481 Canceled: Depression / SNOMED CT 834471434 Canceled: Diarrhea / SNOMED CT 368939958 Canceled: Fever / SNOMED CT 1734156343 Canceled: HCV infection / SNOMED CT 10806990 Canceled: High urine creatine / SNOMED CT 996279 Canceled: Smoker / IMO 025185 Added secondary to documentation in Social History. Canceled: Suicide / SNOMED CT 12163618 Canceled: Tonsillar cyst / SNOMED CT 032292815 Histories Past Medical History: Resolved (717274804): Onset on 05/18/2020 at 25 years. Resolved. feet (550949904): Resolved. Comments: 11/08/2011 EDT 3:54 Elsa Mayes RN metal implation to tighten tedons Seizures ([id number]): Resolved. Family History: Renal failure syndrome Father Comments: 11/08/2011 3:57 Elsa Mayes RN cancer of the kidneys Bipolar Sister Procedure history: Betamethasone (296754209) on 12/15/2020 at 25 Years. Foot repair (487572632). Social History Social & Psychosocial Habits Alcohol [...] Methamphetamines Comment: (more content not included)... Normal [facility] Comment on above: Result Comment: Elec tronically [...] 14 tab(s), Refills(s) 0, Pharmacy: [facility] #[id number], 157, cm, 11/14/22 23:32:00 EDT, Height/Length Dosing, 66.5, kg, 11/14/22 23:32:00 EDT, Weight Dosing Robaxin 500 mg Tab: 500 mg = 1 tab(s), Oral, QID, PRN Spasm, X 7 day(s), # 28 tab(s), Refills(s) 0, Pharmacy: [facility] #[id number], 157, cm, 11/14/22 23:32:00 EDT, Height/Length Dosing, 66.5, kg, 11/14/22 23:32:00 EDT, Weight Dosing Documented Medications Documented acetaminophen 325 mg Tab: 975 mg = 3 tab(s), Oral, q6hr, Refills(s) 0 Problem list: All Problems Bipolar 1 disorder, mixed / SNOMED CT 05302054 / Confirmed BMI 24.0-24.9, adult / SNOMED CT 1090477091 / Confirmed Chronic hepatitis C / SNOMED CT 802160531 / Confirmed Drug addiction in remission / SNOMED CT 2420867068 / Confirmed Maternal tobacco use / SNOMED CT 2846888893 / Confirmed Maternal tobacco use / SNOMED CT 1759165767 / Confirmed Nicotine addiction / SNOMED CT 01556785 / Confirmed Resolved: feet / SNOMED CT 337084492 metal implation to tighten tedons Resolved: Impaired skin integrity / SNOMED CT 54176918 Problem added on documentation of skin impairments. Resolved due to patient discharge. Resolved: / SNOMED CT 763708626 Resolved: Seizures / SNOMED CT 6A52Q1C5-7276-0FDI-O 8BC-67H664685204 Canceled: Anxious depression / SNOMED CT 670019605 Canceled: Depression / SNOMED CT 819057826 Canceled: Diarrhea / SNOMED CT 092773415 Canceled: Fever / SNOMED CT 8728091501 Canceled: HCV infection / SNOMED CT 48365002 Canceled: High urine creatine / SNOMED CT 854578 Canceled: Smoker / IMO 243477 Added secondary to documentation in Social History. Canceled: Suicide / SNOMED CT 04051474 Canceled: Tonsillar cyst / SNOMED CT 891486610 Histories Past Medical History: Resolved (146533410): Onset on 05/18/2020 at 25 years. Resolved. feet (479369417): Resolved. Comments: 11/08/2011 EDT 3:54 Richard Mayes RNah metal implation to tighten tedons Seizures ([id number]): Resolved. Family History: Renal failure syndrome Father Comments: 11/08/2011 3:57 Richard Mayes RNah cancer of the kidneys Bipolar Sister Procedure history: Betamethasone (851223647) on 12/15/2020 at 25 Years. Foot repair (917152520). Social History Social & Psychosocial Habits Alcohol 11/08/2011 Risk Assessment: Denies Alcohol Use 11/15/2022 Use: Current Frequency: 1-2 times per month Employment/School 11/08/2011 Status: Student Exerci (more content not included)... Normal [facility] Comment on above: Result Comment: Elec tronically Signed By: MD Bertha, Herminio F\.br\Date and Time Signed: 11/17/22 15:59 EDT eGFRon 11-17-2022 GFR/1.73 sq M.predicted among non-blacks MDRD (S/P/Bld) [Vol rate/Area] 133 mL/min/1.73 m2 Normal >=59 [facility] Comment on above: Order Comment: Order added by Discern Expert. Result Comment: Machine Records Units Supervisor rosie kidney disease could be indicated at eGFR's of less than 60 mL/min/1.73m2. Kidney failure is indicated at less than 15 mL/min/1.73m2. Performed By: #### 1 4017195, 8231099, 3142913, 7817841, 1044438, 1981998 ####[facility] [address] [place] [address] Auto Diffon 11-16-2022 Basophils/100 WBC (Bld) 0.4 % Normal 0.0-2.0 F [facility] Comment on above: Order Comment: Order Added by Discern Expert. Performed By: #### 2 081125, 0070946, 2971188, 7211606, 06201471, 4062099, 0072170 #### [facility] [address] [place] [address] Basophils/Leukocytes Auto (Bld) [Pure # fraction] 0.0 E9/L Normal 0.0-0.2 [facility] Comment on above: Order Comment: Order Added by Discern Expert. Performed By: #### 2 745260, 1022131, 1742481, 4209567, 62452362, 1673587, 0968804 #### [facility] [address] [place] [address] Eosinophils/100 WBC (Bld) 0.5 % Normal 0.0-8.0 [facility] Comment on above: Order Comment: Order Added by Discern Expert. Performed By: #### 2 722293, 4558936, 4781038, 7312473, 56133138, 6617811, 9278426 #### [facility] [address] [place] [address] Eosinophils/Leukocytes Auto (Bld) [Pure # fraction] 0.0 E9/L Normal 0.0-0.5 [facility] Comment on above: Order Comment: Order Added by Discern Expert. Performed By: #### 2 530609, 2800280, 8977974, 6820313, 47955525, 3883023, 5690846 #### [facility] [address] [place] [address] Lymphocytes/100 WBC (Bld) 33.3 % Normal 14.0-50.0 [facility] Comment on above: Order Comment: Order Added by Discern Expert. Performed By: #### 2 150284, 1364470, 5802997, 5504114, 33558624, 0103391, 3353622 #### [facility] [address] [place] [address] Lymphocytes/Leukocytes Auto (Bld) [Pure # fraction] 3.4 E9/L Normal 1.0-4.0 [facility] Comment on above: Order Comment: Order Added by Discern Expert. Performed By: #### 2 327903, 6043082, 3633483, 2573811, 57357496, 8988018, 8171888 #### [facility] [address] [place] [address] Monocytes/100 WBC (Bld) 5.9 % Normal 4.0-14.0 [facility] Comment on above: Order Comment: Order Added by Discern Expert. Performed By: #### 2 889626, 3100904, 1760231, 0750447, 87313833, 7256577, 7237162 #### [facility] [address] [place] [address] Monocytes/Leukocytes Auto (Bld) [Pure # fraction] 0.6 E9/L Normal 0.2-1.0 [facility] Comment on above: Order Comment: Order Added by Esme Expert. Performed By: #### 2 155271, 6359431, 5572667, 0143207, 06456770, 7619203, 9968597 #### [facility] [address] [place] [address] Neutrophils/100 WBC (Bld) 59.9 % Normal 36.0-75.0 [facility] Comment on above: Order Comment: Order Added by Esme Expert. Performed By: #### 2 970289, 8430703, 4858276, 0083394, 34590218, 5122555, 5533907 #### [facility] [address] [place] [address] Neutrophils/Leukocytes Auto (Bld) [Pure # fraction] 6.2 E9/L Normal 2.0-7.5 [facility] Comment on above: Order Comment: Order Added by Esme Expert. Performed By: #### 2 319365, 5361716, 7190455, 6841003, 74500836, 7033773, 9423692 #### [facility] [address] [place] [address] BMPon 11-16-2022 Anion gap [Moles/Vol] 5 mmol/L Low 6-16 [facility] Comment on above: Order Comment: RN Ma dison aware in as RN collect, will correct...[facility] 11/16/2022 03:05:16 EDT Performed By: #### 2 904638, 7187894, 9435268, 8898366, 38530348, 8510707, 0763389 #### [facility] [address] [place] [address] Calcium [Mass/Vol] 8.1 mg/dL Low 8.9-11.1 [facility] Comment on above: Order Comment: DENNIS tamaoy aware in as RN collect, will correct...[facility] 11/16/2022 03:05:16 EDT Performed By: #### 2 953461, 1639021, 7890131, 6907058, 64550775, 1522228, 9927938 #### [facility] [address] [place] [address] Chloride [Moles/Vol] 110 mmol/L Normal 101-111 [facility] Comment on above: Order Comment: DENNIS tamayo aware in as RN collect, will correct...[facility] 11/16/2022 03:05:16 EDT Performed By: #### 2 888118, 4018366, 0155294, 6967245, 89792890, 4719827, 9314198 #### [facility] [address] [place] [address] CO2 [Moles/Vol] 25 mmol/L Normal 21-31 [facility] Comment on above: Order Comment: DENNIS henriquez in as RN collect, will correct...[facility] 11/16/2022 03:05:16 EDT Performed By: #### 2 153178, 5294907, 2631392, 5959143, 32806900, 4459537, 1635015 #### [facility] [address] [place] [address] Creatinine [Mass/Vol] 0.5 mg/dL Normal 0.5-1.3 [facility] Comment on above: Order Comment: DENNIS tamayo aware in as RN collect, will correct...[facility] 11/16/2022 03:05:16 EDT Performed By: #### 2 476159, 8910230, 9032781, 1712379, 95749483, 5596030, 0607794 #### [facility] [address] [place] [address] Glucose [Mass/Vol] 90 mg/dL Normal 55-199 [facility] Comment on above: Order Comment: DENNIS tamayo aware in as RN collect, will correct...[facility] 11/16/2022 03:05:16 EDT Result Comment: If t his glucose result represents a fasting glucose, interpretation should refer to the following reference range: 55-99 mg/dL Performed By: #### 2 993425, 0015038, 4015904, 4400946, 96798697, 4731076, 6604166 #### [facility] [address] [place] [address] Potassium [Moles/Vol] 3.9 mmol/L Normal 3.5-5.3 [facility] Comment on above: Order Comment: DENNIS tamayo aware in as RN collect, will correct...[facility] 11/16/2022 03:05:16 EDT Performed By: #### 2 533025, 8923489, 3876564, 9909868, 89419427, 3253518, 2422981 #### [facility] [address] [place] [address] Sodium [Moles/Vol] 136 mmol/L Normal 135-145 [facility] Comment on above: Order Comment: DENNIS tamayo aware in as RN collect, will correct...[facility] 11/16/2022 03:05:16 EDT Performed By: #### 2 398125, 5194514, 6547330, 1270406, 86029039, 1123099, 7536826 #### [facility] [address] [place] [address] Urea nitrogen [Mass/Vol] 11 mg/dL Normal 5-21 [facility] Comment on above: Order Comment: DENNIS tamayo aware in as RN collect, will correct...[facility] 11/16/2022 03:05:16 EDT Performed By: #### 2 528991, 3196498, 0429049, 5128824, 23007882, 6306456, 7916943 #### [facility] [address] [place] [address] Urea nitrogen/Creatinine [Mass ratio] 22 No Units High 10-20 [facility] Comment on above: Order Comment: RN Jose C tamayo aware in as RN collect, will correct...[facility] 11/16/2022 03:05:16 EDT Performed By: #### 2 710366, 2020930, 2859705, 5669661, 90409944, 7571668, 0762464 #### [facility] [address] [place] [address] CBC w/ Auto Diffon 3 Erythrocyte distribution width (RBC) [Ratio] 13.8 % Normal 10.9-14.2 [facility] Comment on above: Performed By: #### 2 853821, 0904047, 0231472, 1159209, 05953885, 8528160, 7883877 #### [facility] [address] [place] [address] Hematocrit (Bld) [Volume fraction] 29.3 % Low 34.0-46.0 [facility] Comment on above: Performed By: #### 2 430762, 5019584, 1333558, 7894317, 90754426, 2103543, 7500915 #### [facility] [address] [place] [address] Hemoglobin (Bld) [Mass/Vol] 9.7 g/dL Low 12.0-16.0 [facility] Comment on above: Performed By: #### 2 101010, 2099164, 0835953, 1911082, 50686934, 5171344, 0591443 #### [facility] [address] [place] [address] MCH (RBC) [Entitic mass] 30.0 pg Normal 27.0-34.0 [facility] Comment on above: Performed By: #### 2 375481, 4039632, 8420927, 5449062, 76598492, 2771258, 9717830 #### [facility] [address] [place] [address] MCHC (RBC) [Mass/Vol] 33.3 g/dL Normal 31.4-36.0 [facility] Comment on above: Performed By: #### 2 002114, 1103503, 9785753, 9534051, 82599071, 4034621, 3904998 #### [facility] [address] [place] [address] MCV (RBC) [Entitic vol] 90.0 fL Normal 80.0-100.0 [facility] Comment on above: Performed By: #### 2 664470, 0621803, 4473979, 4907022, 89903271, 1172987, 9400600 #### [facility] [address] [place] [address] Platelet mean volume (Bld) [Entitic vol] 8.7 fL Normal 6.4-10.8 [facility] Comment on above: Performed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 ICAgICAgICAgICAgICAg ICAgICAgICAgICAgICAg ICAgICAgICAgICAgICAg ICAgICAgICAgICAg ICAgICAgICAgICAgICAg ICAgICAgICAgICAgICAg ICAgICAgICAgICAgICAg ICAgICAgICAgICAg ICAgICAgICAgICAgICAg ICAgICAgICAgICAgICAg ICAgICAgICAgICAgICAg ICAgICAgICAgICAg ICAgICAgICAgICAgICAg ICAgICAgICAgICAgICAg ICAgICAgICAgICAgICAg ICAgICAgICAgICAg TC1Fr0KaraP2dyTgSXbe WYclNILZYt7MKFpqSuUv VZ9czp9HSIhLJ68shFFv QMIwYOM2RAUpYbyl R0XdytDtmMnevwBsQuot OSFWAb9RgRIMYQaiR3M0 zSynJOTmPyFrETNCLj1W HHsbCU5hHUXwVJDq Ao4mRGlvPKVmOZAgQeFs OQIVEl1ZxLYkPF2PXNGf tW1hBc1+DQplbmRvYmoN Al9YUlsgTRXgXlvI Nya6Zg8EkGk7ROGaX4Dj SPYhCFDte3PrVk3NAH9b nFjaQPW9Ua7QZWUrESf+ Nk6Cd9VuVLAfEBo7 nGNgYGBhYGAzZlBgYODI NvTcpDKTSLE6SIFqCHk2 Qez2ILGyA2BQADK3BNgz uLGdSoU6TPYEhcWV TQBWCenXMUfA9GtabpA1 eIfF3gYsUSS+XWM3QasY XQ3AkGdR/SkXot3o+Fwe Lndr6goAadwLXnaP /JBsbnV7tSlNzDaKKSrt DEt1B8LAK1JtEv4IUD3B B4dEWjSeSCV1tnQxbR6T ZX5tx1GrQFnIKhO5 MEZzj9KnUIs8KYbaO42k aBJfcEJjMrM8XZMnBh8N T45zYKyeJm89EAmoHOXk EaLlYRk3Uh3IK6Br paZwyRKcDEWbEKOAL0Pb a222hlIryrO0IOppGH8x qgYfiMP6GYizPHLnBgUs MzAgMCBSCj4+Cj4+ Lo4PrVIkTQ8WFBnlTa4+ DMvftnKqUuzWBn2GMsYn ZAFkPffPYsb1Es1UTr32 IFswIDAgNjEyIDc5 Ej3ZN4HqcZRtrgBhXlbw lALLYGPzTRMMY2rkcye7 dET5FbfkSwOxi9GgJ8Iu RAy8Uc4QZ4LyQGT4 GQp7Mz5LXRUrIeY6VaQr OETIFe7JLe2QG7T2YvG7 fHNaT6Vpnm2VU4J2pDCn A6sGGlrlD1BAIi1N FpI1yoUlzM0JhRefyrTy KuTlMjRQMFUwtTRSMLcw LalG1jNXD3qh0PHNg5Md RlXNSESBCMna1QaH gEG8o5uV4yFeFarZxBTq jwtNc0jDuR0SE6pE4V9K DW2ht3GfJFVpBQcudoAc FsyRVb2UBpCnNNDv XddBUlt0Gv2SRABgBd8h yUXqQt4OHMTwDy9HWbKy Xb3LDzOeIx3TRmOgNd2C YQX9Qk6QIXC0aiSt Ji3zNMUiLb2+DQplbmRv XuoXQg6AUsCuHQEhTkgE Idq3Hb4HPAKdLm1cmPEg Pf7cCSYzSr8+DQpl nkYsNivKQn3PItLbRELd HydBIea5Xl4GPDZxJs3j mZAvFd1KXDCmEj7HSfHk Dx8WKvQgTo5KIlBb Yc7IDVI9Zt5CRJQ2kwKb Kc1uDINbBx0+DQplbmRv XedUSr0XAvKvUHKjVsdW Slj1Uv3DNAXuZm6y kIAxOZTKG7yYM5VquBLv IZKBHZxCWl3Hz8xrJDTS V8Sfd8BsqvFjwbAXp345 cyBbMzUgMCBSXQov QK8fn5QpbgyzL9pwZQ13 fWE3PGvKY5Z5QdK3cDFh P9O9yFPkLu1Dc6SjaNFo MPWxGaixPFMETd0P qMEpWP5Il157Sq9+DQpl epIqVjmTBj5PJxOvWMVc IipZCzb8Da8APTCcCx7w cSWsQIJJP1iWX5Gr rEYdQXHWOTeFVs6Zk2uz QFNIQ4CCVXH8o6IpkBqb Uk2tCEcEQ91eQUPncD9c VOkGMRKziIs6mWaU A6LeL7filOS3CNaRKC5c PVpJP5O2oZHrYD9pmbOa MAo+OtrcX8nKCB9RUCDZ LYEkM3pbXK40rAY5 Vj5BHxPlWr8Is201DYMp V5FkfDCjtfLvRmAhJGVC G8F6OoV2iQOiJ3JUPFGv bnRUeXBlMgovVHlw HQPcVr7wyGvmInQpGNQ7 FkV4ZPGqMHt2ZbIkUs4+ XNnrfwVoOlrTAc9BDbOz RWXcDzoUSve0Kp0W c9ItdvWkYDKaSiHsTJEw El7CUVNHVTzunNPrKMiw Csd8Qlj6Rx1AMKRtIL04 CDOnDU2pZFC1Tuaa RcubI8AdEeUKD7OtkrQA Fz91VNmnXUvfNrv9YBXr XV33DJNjRIU5KsIuVwVl ZiX6LTD4SPKuTtMx QYsjYBWwNa8Jm556Erdh KHJdBQiqJSQNBm5Jp502 ZvVbXFIvFQQVX5kOE5Wt uTLdUXYWVTnNSo9P e6kaSRBLI8y9RWemA1Oq I8ptHZQKE3U3UZ9AWOk2 OuB8PWv5Cc2QmWVyZL7Q b760KEEfL9XdfZXf cgo+Hz7GYM6og3WrPAnM SjQ3TVPas6TaAJm0QJeu ZeoxpGIqSX8SmNR0SYJk M58eGBpdWMUpK5Ca QBJ4DFe+Xc5Pu4GaHJFt BJg7gP2KTE+DMAyG7/kV AgzHhqTkqteX6SXouTUy GdwWfBX1bHqPYgtd 3y/Y/NTJObZb46Cn6ZlE J1adH3DeEkFAUdrkZuTs 9YK4Vwfp86QjgNtsk2Ul KiEjAZf3yvtCY+36 NBNzXNvQ2IdIENT2R3n8 SYW1GMUCu5mE51NJ4Eg5 /5CYYYUxhedQ5wbEt+vf 3xOoy4O7jWDj69uY OQ/H1+dQLDDJ5wjP1YAl pbQ5XfSnXBnJ3zLLWbTA f/qWs7pe/9AS3VGkL4as GfCcIcrgX0RkK4RS 7FDLzPqf6t0Zpwvjb4Lh sPzYwD39mwOPYESXSt+5 2jGW8Kq24Rhw4AJXC4Rz 5tqNaj5rflkoH8y8 n2PkPmsnaX1PDQftNBe0 SvgVA3eU9stkqypTXDee vmViyAXlWO3MEoGeJL0t uz2GZOjxJCCvTP1v ha1JSKnEI1Eov3WWz426 VN3APeOOBeFbT800bxdp ya7bu0CTROSIH8Ixa1Qf fuMzcoPFp022lrEu UgywLIZDYChxMI6zv3Vy fkdgS6jnDQ75gTW3MHhU F4W9SuI0aAVeW8F4 (more content not included)... Normal [facility] EMS Documentation Please click on link to see report [id number] NCiX5+prnDQolQUJDcGR mIDExMjAxDQoxNyAwIG9 tyc1QTMlZN0KjAphxLzn KL0gg DiV3LEFoVNe4ZJddSSH9 JCV5KdjcFSywOYHskAiw JWXuBk8DMQIKP87lPoHE O5WgNtO6EsKAQn8w ICAgICAgICAgICAgICAg ICAgICAgICAgICAgICAg ICAgICAgICAgICAgICAg ICAgICAgICAgICAg ICAgICAgICAgICAgICAg ICAgICAgDQplbmRvYmoN Zg9JxGNdRt8FRMxgBeXW CjAwMDAwMDAwMzIg LMLlSHQlkg4PBCQwRCCi MTQxMSAwMDAwMCBuDQow SIKpIMSiFDV5FGErNZUd PY9OSyCoRBEgBHE1 BwJnEVWaBFZked9AEWUi FBNnNeP7TXEiSIUxOAZy LKbfQAFaJGVfAWH8CBSt VNGhKI0MLsPpOVAx UJFlFUZuCMZzTUGnmi2Z MDAwMDAwMjQyMyAwMDAw MCBuDQowMDAwMDAyNTg5 WERuNVMeOS9RKvIl QAThYAZ0GWIbQCMwEMNd vu9CEPWwOQCfFgt0ULEr MDAwMCBuDQowMDAwMDAy GIc0YFFlDQFjIB0A CjAwMDAwMDMxMzcgMDAw MJWrqg4SAAGvZDJiGzS7 MCAwMDAwMCBuDQowMDAw ORQoCLV4SSKdFPRi MA9NFgJkTWXpQYV6Agis HEXsSBCbug0ZQVZeGUGk GgP0IZVyJNDiLGVgBHrs MDAwMDAzODAxIDAw PXMcOR3XOjGnTKBeJLe9 NoFhYUOzNGHpfd1EGGWr OXQjIMJ4PqOgHMJbSUBi DQvhDQDvSOW6SBp1 THQuXWXyIO1TSuDtXXIo NcJpDmczDEJlNFMurb7S JBXyUFItRLf8ASYuIIDh PZGjUMi0beXxrGXw BFe8TVbkBLKrQiwMHnmX RVFKPAvOHLqBCrv4GIT1 ASM5MHCKDBJRFND8Yu9V GESMKFF2WFZ3GFB6 CjdDBKEqKOK2RJzoGFL8 QZU1L4G7Fs9QN1BdWKRa MlQ9ViWTN9Loa8AoJDmn WNPONj5MrWnqFBFw Aw0Wo1QgG8SrUSqrJgnS qB4LAHSZRJQ0IO3jeHAc INjtd2EAVbVKXd71X9N0 ADf4kzjDFiseDIvP MnuUriXfmJRwM5e1WO1C XjAOYBnuD304LkZGFm61 IYwsMVL6V4bCCfRSebNt R5mSEYGyRIWRML5P KSs3PaAcRehgUiy0P5fA GTWqY3YOK4boCSUFT1EX ZmdUWvN1cOHpM7BsLCfV Yg0lWGStXLFoBTKf ICAgICAgICAgICAgICAg ICAgICAgICAgICAgICAg ICAgICAgICAgICAgICAg ICAgICAgICAgICAg ICAgICAgICAgICAgICAg ICAgICAgICAgICAgICAg ICAgICAgICAgICAgICAg ICAgICAgICAgICAg ICAgICAgICAgICAgICAg ICAgICAgICAgICAgICAg ICAgICAgICAgICAgICAg ICAgICAgICAgICAg ICAgICAgICAgICAgICAg ICAgICAgICAgICAgICAg ICAgICAgICAgICAgICAg ICAgICAgICAgICAg ICAgICAgICAgICAgICAg ICAgICAgICAgICAgICAg ICAgICAgICAgICAgICAg ICAgICAgICAgICAg ICAgICAgICAgICAgICAg ICAgICAgICAgICAgICAg ICAgICAgICAgICAgICAg ICAgICAgICAgICAg ICAgICAgICAgICAgICAg ICAgICAgICAgICAgICAg ICAgICAgICAgICAgICAg ICAgICAgICAgICAg ICAgICAgICAgICAgICAg ICAgDQpzdGFydHhyZWYN FaVKRyInFH5LCYbGXlN5 GSFzt6YvCRb4RCqd JSG9PJZozTLvEMDyAOKA Ob5KcJIuEDM0nA9tJXby YQJhRRCXT3ShpH1FE041 bEobreFgHLF2VUHg HpfjPNFlLY6rVGTyZ8Nh AN0vgpORJ8XlD1BmXHS0 VYKyBrrvEXmgBLHrT3E9 YWxvZwo+Mj7TWY0k x1GkEKuBYiC4SYZiq6Hj QPs1WVyzMrasuLTmFY4J hLH9FTUgE06ePDgtYSSw D0IeQYivVm0QFDN3 Cj4+JMiozYKrTA4EMezv I0Tq7LWiVUNmNTToxMvM kRZgXQLaOUM2NQvwEvUQ QOazcQIJEShmYMgE j5ZTNnfARfTTrInnBNKQ iVTHnQPRyX7FuT0ZBBgP TVqaB4DtIWJxWUnULH1c XFDFFtTlEHG2raPi lA6TVY9sn7DeFQwBAgTv UTKun9FlHKc3HWsuE70c dGVudHMgWzIyIDAgUiAy MyAwIFIgMjQgMCBS ASD3HXIaDsscVrScOYKb RmclNGIYFHO6BCYlJhSe OSAwIFIKMzAgMCBSIDMx IDAgUiAzMiAwIFIg MzMgMCBSXQovTWVkaWFC f1zsOmOaMDO4BCQtSkpb XYiiQXUvWB09JSE9WOEo FtecKaTwy8GmR5Ou QYi4Om9Uq502TAk6Ep0S RLHaHWSpJSNnNGXYWd5Q T5bOLyxqU2YmJHiPY0tf YmMxMSAzNSAwIFIK I1gaHmFgQSAtQwWiWVSH H2axIyByZATzAgNpUJCT A3gwBgPnWtHdALHmDCFS O3ktCvTuEsHqKSMs NLKWL0upGsX6SOR2RVBe Aiden+Pgo+PgovVHlwZSAv UGFnZQo+Mt8VMX3uz5Ym QBkSQjJfDVQpu3Pv INg4ILkmWyDlNYBpyyIw B8CpwSNyJSLfrQTlRq2F myUkZRznTzScR9mpQQ0v nTEqN26kpB7bKp4V oMA7kLDlBW3BhGMfDKst SKtrQUDlZw5caKi+Pg0K MD1cc3KrPKxWTpRvVJEz e9YgKJk0XWqsGVRy N0VvBSOhEzn+Or9Xz1Xy IJFmJObbNTgHRW3UUNXe JZJzyjiJXh1TRUAnKQBl TONQFe0YVRUrDFNm NBRkJMP4WKBzNxUKuC5D HgZnOFN7VHJeVEDcBW46 S5V7wbmqDjPmLVNnUU7T mB8zEuExIO7bWAyL CkVUDQpRDQoNCmVuZHN0 ndGmvS5BCF5uc5AxQIdJ AyLrMAOfw2KuKBj4QAzj HEHcO3NkAHPtKw8+ CAycyHYyYS9QTpGMXVyp TCu4JQMoAVVzALmkQNVa ARC8IC0hQuIuXuIwsD3U Z7xpPmX3DZJlEOrP IUvFVQ9XSSfygdVhtDQo QP1FWyNfJC2mnr8RAKex EHZdTI0pxc6KIUtQC2id qmr4jXHeKYYDBp4W RzB4hfBezU0BaO6WLnWP CjAgMCAwIHJnDQovRmFi YzUgMTEgVGYNCjEgMCAw IDEgMjAgNjIyLjUz MzMzIFRtDQpbICggRXYp FQG5ZXrsrdUcW7QkfPAx VAJuIES8B6JjzcYvHwhs PWZDTs6COKSPBwHC Ws6SEZ5vf7UiAPUqEDrs ehOmUjlKJn4VIlBtTRMb MhbBHir0Gg3XXI7ycFas BJSDRb2RBvQ7qiFu oQ9PPetZFgBTJtY0CcSb IDAgODMgMjAgNTMwLjY2 HpC7EHCpGBwiFHToHcHk IDPxWTrUKJjRXR6O BThywtCohGJzRG8OFmNb BO5ykz4ZUUsoUwUiFU5p dl9ZXWlVF7ponjz1uHIy XQTAMo0WIfH4uxNo uL2YtB3IRqRDGbWhXDRp IHJnDQovRmFiYzUgMTEg VGYNCjEgMCAwIDEgMjAg JWHvKyd8KlY2OGZx WVwxAZarLMAxJMZ8TXxk psAnZ9DerECiRWUhTAe9 H3MdgcMbCyvpVPYNJx1C VKFJSaZKJx7UNB1m s5BgZUUdIAwpkgJyGezC Bu7GMjmuHKOvHgzHAne4 Fu3NHA0axNmrHLnESo6Q GbV9auOryE3NTtdK CsDDYwM6XcBdBCHtBTId MjAgNDEwIGNtDQovSWFi ZpV6EVWwCOzQYLdMIZ2W LRtdspTjgBYuCI6J XcAfHW1xrv2RRJroJOTi EF9pgc9PWBtPS3uvxuu0 zEVqAUOGZz8FFjF5uoJc uR3JfC4KZkMCCkWw MCAwIHJnDQovRmFiYzUg MTEgVGYNCjEgMCAwIDEg GcAkXkdqSyQxHL7EMveh KCBFdikgMTUgKGVu yW7VwGHswK7sXKHoGAGq J1ZkZw35JCBpEOPYFCyO BG6FMR7ICIdfbmLanWBy FH0TKaJfFL3emy1G TAgcOGIjEQ4wxe8HHImI B5ivhgd2wUU8DKc+Pg0K v9UzIDNmYFsYQO8KeR5P JANnYJWvZVI0BwJs JYMoFNkgFfAbTdWtC92U Le2CKOGkGFurDM6HChOP TqHJTRoDIoWwFDN3krNm fW4JMY8sw3WyCKrX ClAeLHLwn3BdAXk9PBlo OYFsU5ZjKDFeEuv+Pg0K z4XjMTPePDswQHpFEB1V PLZhCHMgukoHRo4C NPLtAWQvKIRHQh0BHGDp IDAgMSAyMCAyNjAuNTMz KdUySQ3ZHcvpNZQHtafe ROQjRFKasQ4SoWEz cV2gXHOhHKCdG9OfKv34 TBNrQSBDZQaMLB6OUZ3V YQvrdcGfyGUvIS6EQsZw XQ4wdu0UCLbxHVGs JW7stq2UTXqGY4vpgsh5 xLM9EEu+Hf1Tl0ZuTXKb RUhZUI3SiV6JLFWqBTLe REB3SsPyUEBwWons TpF4XeiiJ74QWe5QBKFy AgSjZT6OKfKWQsNRVHeS CmHuWQA1rqMioX2WVW3e b9RiIEpFTgMsQSXm p0OlQMe4JAvsZCIqI1Oi IDEwNgo+Ru1Xj8VjNJOk NBrrHIqOOE6JNHKn (more content not included)... Normal [facility] Emergency Release Uncrossmat missael Bloodon 05-01-2023 Physician Notification Not Required; Compatible Normal [facility] Comment on above: Performed By: #### 1 [id number] ####[facility] [id number] [place] [address] # of Units 1 Invalid Interpretation Code [facility] Comment on above: Performed By: #### 1 [id number] ####[facility] [address] [place] [address] Ethanolon 11-15-2022 Ethanol [Mass/Vol] 33 mg/dL High <=7 [facility] Comment on above: Performed By: #### 2 [id number] ####[facility] [address] [place] [address] Formson 11-15-2022 Forms [id number] 4#1.00CD:127 Normal [facility] HEMATOLOGYOrdered By: SYSTEM SYSTEM on 11-15-2022 Basophils/100 [...] Bilirubin.indirect [Mass or moles/Vol] UTC Abnormal 0.1-0.9 [facility] Comment on above: Result Comment: Resu lt verified by Discern Rule. Performed result UTC (Unable to Calculate) was sent as an Alpha code due the inability to calculate a valid numeric value. Performed By: #### 2 [id number], [id number], 6738271, 8365955, 73625880, 9499007, 8073911 #### [facility] [address] [place] [address] Albumin [Mass/Vol] 1.9 g/dL Low 3.3-5.0 [facility] Comment on above: Performed By: #### 2 846109, 4500109, 1568926, 8979489, 84484511, 2358654, 0370750 #### [facility] [address] [place] [address] Albumin/Globulin (S) [Mass conc ratio] 1.4 Normal 1.1-2.2 [facility] Comment on above: Performed By: #### 2 434346, 0168009, 0027358, 3308406, 10282928, 1593596, 6231339 #### [facility] [address] [place] [address] ALP [Catalytic activity/Vol] 29 Int._Unit/L Normal 21-98 [facility] Comment on above: Performed By: #### 2 590793, 5489753, 9012233, 4592291, 52336208, 7227358, 6755116 #### [facility] [address] [place], [place] [id number] ALT No additional P-5'-P [Catalytic activity/Vol] 10 Int._Unit/L Normal 6-46 [facility] Comment on above: Performed By: #### 2 721536, 3583546, 6144668, 3867054, 38021240, 4329312, 9563050 #### [facility] [address] [place] [address] AST [Catalytic activity/Vol] 10 Int._Unit/L Normal 5-43 [facility] Comment on above: Performed By: #### 2 515518, 1898512, 5597042, 5740073, 72671540, 3901863, 9711833 #### [facility] [address] [place] [address] Bilirubin [Mass/Vol] 0.3 mg/dL Normal 0.0-1.1 [facility] Comment on above: Performed By: #### 2 764896, 0583186, 6212874, 7184381, 64440238, 8504630, 0447093 #### [facility] [address] [place] [address] Globulin (S) [Mass/Vol] 1.4 g/dL Normal 1.4-4.0 F [facility] Comment on above: Performed By: #### 2 405163, 5346359, 1002156, 6585413, 56001296, 6730830, 8544340 #### [facility] [address] [place] [address] Protein [Mass/Vol] 3.3 g/dL Low 6.0-7.8 [facility] Comment on above: Performed By: #### 2 293644, 7727403, 2627439, 2879253, 76807492, 9614368, 4176347 #### [facility] [address] [place] [address] Bilirubin.direct [Mass/Vol] mg/dL Normal 0.1-0.4 [facility] Comment on above: Performed By: #### 2 613823, 6425934, 6987279, 5798537, 46334143, 2421827, 2028329 #### [facility] [address] [place] [address] Insurance Correspondence Off ice11-15-2022 Insurance Correspondence Office [id number] 3#1.00CD:127 Normal [facility] Insurance Correspondence Office [id number] 0#1.00CD:127 Normal [facility] Insurance Correspondence Office [id number] 8#1.00CD:127 Normal [facility] Interdisciplinary Note - Soc ial Workeron 11-15-2022 Interdisciplinary Note - File Clerk This SW met with patient today to [...] the fact she will be transferred to [facility] for surgery before she gets to go home. SW explained that staff at [facility] will speak to her as well, and that this SW just wanted to make sure that she felt safe and would have a safe place to go when she was ready to return home. She voiced that her soon-to-be ex- is in fdc. The incident did not happen at patient's [...] her to speak to SW here at [facility] or at [facility] if any further needs arise. SW will remain available. Normal [facility] IntraOperative Documentson 0 11-15-2022 IntraOperative Documents [id number] #1.00CD:127 Normal [facility] Lactic Acidon 11-15-2022 Lactate [Mass/Vol] 1.8 mmol/L Normal 0.5-2.2 [facility] Comment on above: Performed By: #### 2 742119, 1232827, 9354866, 1465874, 04532694, 6405768, 2988354 #### [facility] Laboratory [address] [place] [address] Lipase Levelon 11-15-2022 Lipase [Catalytic activity/Vol] 24 U/L Normal 13-58 [facility] Comment on above: Performed By: #### 2 815775, 6507722, 1730862, 5917144, 06261903, 3185423, 3946720 #### [facility] [address] [place] [address] Main OR PACU I Recordon 050 Main OR PACU I Record PACU Phase I Document Type FT Summary Primary Physician: Christiano Marion MD Finalized Date/Time: 11/15/22 06:28:37 Pt. Name: SHAHIDA [place] /Sex: 1995 Female Med Rec #: [id number] Physician: Financial #: [id number] Pt. Type: E Room/Bed: Admit/Disch: 11/14/22 23:26:23 [...] By: Gala Burns RN 11/15/22 06:28 Normal [facility] Main OR Preoperative Recordo n 11-15-2022 Main OR Preoperative Record Holding Area Document Type FT Summary Primary Physician: Christiano Marion MD Finalized Date/Time: 11/15/22 02:21:59 Pt. Name: ADRIANOSHAHIDA /Sex: 1995 Female Med Rec #: [id number] Physician: Financial #: [id number] Pt. Type: E Room/Bed: Admit/Disch: 11/14/22 23:26:23 [...] By: Darling Wakefield RN 11/15/22 02:21 Normal [facility] Monitor Recordon 11-15-2022 Monitor Record [id number] 5#1.00CD:127 Normal [facility] Monitor Record [id number] 8#1.00CD:127 Normal [facility] Monitor Record [id number] 4#1.00CD:127 Normal [facility] Operative Reporton 3 Operative Report [facility] Acute Care Surgery Operative Report Date of [...] superficial and deep lacerations Surgeon:Christiano Marion MD Alumni Relations Manager: Lester Perdue HOSPITALITY HOUSE SUPERVISOR/SA Anesthesia: General endotracheal EBL: 150 mL IVF: [...] a d (more content not included)... Normal [facility] Comment on above: Result Comment: Elec tronically Signed By: Doni GIRALDO, Christiano Marie\.br\Date and Time Signed: 11/15/22 05:33 EDT PT & PTTon 11-15-2022 aPTT Coag (PPP) [Time] 28.2 second(s) Normal 25.1-36.5 [facility] Comment on above: Result Comment: Para meter [...] the same coagulation reagent and instrumentation as [facility]. Currently there are no coagulation studies available worldwide for children to 14 days, and no normal ranges. Heparin therapeutic range (represented by Anti-Factor Xa activity of 0.2 - 0.4 U/mL) corresponds to PTT of 56.6 - 109.0 sec. Performed By: #### 2 887584, 1104389, 3585678, 8225865, 13886289, 9902291, 0967388 #### [facility] [address] [place] [address] INR Coag (PPP) [Relative time] 1.6 {INR} Invalid Interpretation Code [facility] Comment on above: Result Comment: INR results are specifically intended to assess patients stabilized on long-term Anticoagulation therapy suggested INR?s ?Less Intensive Anticoagulation? 2.0 ? 3.0 Conventional Range 3.0 ? 4.5 Performed By: #### 2 758512, 5703301, 2019904, 7528011, 97170126, 5442241, 1950209 #### [facility] [address] [place] [address] PT Coag (PPP) [Time] 18.1 second(s) High 9.4-12.5 [facility] Comment on above: Result Comment: 15 d [...] the same coagulation reagent and instrumentation as [facility]. Currently there are no coagulation studies available worldwide for children to 14 days, and no normal ranges. Performed By: #### 2 246374, 6038964, 9512395, 2390507, 89521407, 3464025, 7923045 #### [facility] [address] [place] [address] RAD - Preliminary Cat Scan R eporton 11-15-2022 RAD - Preliminary Cat Scan Report [id number] 4#1.00CD:127 Normal [facility] RAD - Preliminary Cat Scan Report [id number] 3#1.00CD:127 Normal [facility] RCOon 11-15-2022 # of Units 1 Invalid Interpretation Code [facility] Comment on above: Performed By: #### 1 [id number] ####[facility] [id number] [place] [address] Date Required 11/14/2022 Invalid Interpretation Code [facility] Comment on above: Performed By: #### 1 [id number] ####[facility] [id number] [place] [address] Product Type None Required Invalid Interpretation Code [facility] Comment on above: Performed By: #### 1 [id number] ####[facility] [id number] [place] [address] Troponinon 11-15-2022 Troponin I.cardiac [Mass/Vol] ng/mL Low 10.10-27.10 [facility] Comment on above: Result Comment: The 95% CI (Confidence Interval) PPV (Positive Predictive Value) for myocardial infarction in females is 38 pg/mL, in males 51 pg/mL. The results should be used in conjunction with clinical conditions of myocardial infarction. (Access High Sensitivity Troponin I Instructions For Use, Flavia Silke, February 2018) Performed By: #### 2 951399, 8086154, 5041243, 2492222, 31683220, 8346955, 1339773 #### [facility] [address] [place] [address] U Drug Screenon 11-15-2022 Amphetamines Screen method >1000 ng/mL Ql (U) Negative Normal Negative [facility] Comment on above: Result Comment: Nega tive Cutoff: <1000 ng/mL Performed By: #### 2 174292, 1641303, 5262786, 9007165, 10344015, 6528805, 0113472 #### [facility] [address] [place] [address] Barbiturates Screen Ql (U) Negative Normal Negative [facility] Comment on above: Result Comment: Nega tive Cutoff: <200 ng/mL Performed By: #### 2 602729, 9181147, 3459393, 3422433, 61706218, 8592728, 5642435 #### [facility] [address] [place] [address] Benzodiazepines Ql (U) Negative Normal Negative [facility] Comment on above: Result Comment: Nega tive Cutoff: <200 ng/mL Performed By: #### 2 207312, 2683016, 4316611, 7527418, 73706164, 3428841, 3482440 #### [facility] [address] [place] [address] Cocaine Ql (U) Negative Normal Negative [facility] Comment on above: Result Comment: Nega tive Cutoff: <300 ng/mL Performed By: #### 2 029348, 4934719, 6840432, 9027337, 23020252, 2603638, 8319477 #### [facility] [address] [place] [address] Opiates Screen Ql (U) Negative Normal Negative [facility] Comment on above: Result Comment: Nega tive Cutoff: <300 ng/mL Performed By: #### 2 443172, 5131014, 0380352, 3984092, 09511668, 4627824, 7590816 #### [facility] [address] [place] [address] Phencyclidine Screen method >25 ng/mL Ql (U) Negative Normal Negative [facility] Comment on above: Result Comment: Nega tive Cutoff: <25 ng/mL These drug screen results are to be used for medical (i.e., treatment) purposes only. Unconfirmed drug screening results must not be used for non-medical purposes (e.g., employment testing, legal testing). Performed By: #### 2 790785, 2233061, 7045922, 6384280, 90544789, 0213469, 3068080 #### [facility] [address] [place] [address] Tetrahydrocannabinol Screen method >50 ng/mL Ql (U) Negative Normal Negative [facility] Comment on above: Result Comment: Nega tive Cutoff: <50 ng/mL Performed By: #### 2 566882, 6495276, 4097679, 1534425, 02350757, 5820181, 3432978 #### [facility] [address] [place] [address] UA With Cult Reflexon 2022 Bilirubin Ql (U) Negative Normal Negative [facility] Comment on above: Performed By: #### 2 763368, 5288270, 3551067, 9687146, 72669876, 5660252, 5313100 #### [facility] [address] [place] [address] Clarity (U) CLEAR Normal Clear [facility] Comment on above: Performed By: #### 2 819970, 1995038, 2469484, 2147103, 49215119, 5262028, 1704915 #### [facility] [address] [place] [address] Color (U) YELLOW Normal Yellow [facility] Comment on above: Performed By: #### 2 753707, 4518561, 4155032, 6989831, 98370551, 7693852, 1551806 #### [facility] [address] [place] [address] Epithelial cells.squamous LM.HPF (Urine sed) [#/Area] 0-2 Normal 0-2 [facility] Comment on above: Performed By: #### 2 700675, 5084787, 1167035, 5612304, 17761763, 2085337, 5652545 #### [facility] [address] [place] [address] Glucose Test strip (U) [Mass/Vol] Negative Normal Negative [facility] Comment on above: Performed By: #### 2 691701, 4459855, 2118041, 9552912, 70078342, 6385160, 4187041 #### [facility] [address] [place] [address] Hemoglobin Ql (U) Negative Normal Negative [facility] Comment on above: Performed By: #### 2 690993, 2558021, 1272027, 1806859, 98939959, 2966558, 8718594 #### [facility] [address] [place] [address] Ketones (U) [Mass/Vol] Negative Normal Negative [facility] Comment on above: Performed By: #### 2 753067, 4274822, 6913672, 2649794, 28413676, 2410740, 8159196 #### [facility] [address] [place] [address] [place].plasma/[place]. RBC (Bld) [Mass ratio] 0-3 Normal 0-3 [facility] Comment on above: Performed By: #### 2 882928, 1658788, 4037393, 8048464, 16001700, 9561820, 6586621 #### [facility] [address] [place] [address] Nitrite Ql (U) Negative Normal Negative [facility] Comment on above: Performed By: #### 2 408589, 8193531, 7655063, 8245309, 43683794, 0907966, 4424968 #### [facility] [address] [place] [address] pH (U) 6.0 [pH] Invalid Interpretation Code 5.0-9.0 [facility] Comment on above: Performed By: #### 2 473222, 2698590, 3214575, 6677266, 49036224, 8273497, 0883147 #### [facility] [address] [place] [address] Protein (U) [Mass/Vol] Negative Normal Negative [facility] Comment on above: Performed By: #### 2 295346, 4110394, 4673644, 8747861, 17902205, 0668227, 1634398 #### [facility] [address] [place] [address] Specific gravity (U) [Rel density] <=1.005 Invalid Interpretation Code 1.005-1.030 [facility] Comment on above: Performed By: #### 2 562700, 4321689, 3138470, 2544071, 33707009, 8766902, 6075629 #### [facility] [address] [place] [address] Type of Urine collection method Hugehs Normal [facility] Comment on above: Performed By: #### 2 488276, 3528674, 7372103, 9713378, 06659530, 5191508, 6733531 #### [facility] [address] [place] [address] Urobilinogen Qn (U) 0.2 {Maria Luz'U}/dL Normal 0.0-1.0 [facility] Comment on above: Performed By: #### 2 638296, 3879041, 7218975, 3780991, 89205778, 2827186, 4461031 #### [facility] [address] [place] [address] WBC Auto Ql (U) Negative Normal Negative [facility] Comment on above: Performed By: #### 2 443946, 5943627, 8416697, 4046855, 60489773, 3033285, 4460908 #### [facility] [address] [place] [address] WBC LM.HPF (Urine sed) [#/Area] 0-5 Normal 0-5 [facility] Comment on above: Performed By: #### 2 603261, 0157170, 5275074, 1612506, 24411169, 6067337, 1584692 #### [facility] [address] [place] [address] URINALYSISOrdered By: Mere Brewer on 11-15-2022 Bilirubin [...] AM) Normal Negative [facility] UA Auto SS [place].plasma/[place]. RBC (Bld) [Mass ratio] 0-3 /HPF Normal [...] [facility] UA Auto SS Urobilinogen Qn (U) 0.1671415 {Maria Luz'U}/dL Normal 0.0 - 1.0 EU/dL [facility] UA Auto SS WBC Auto Ql (U) Negative (11/15/22 1:30 AM) Normal Negative [facility] UA Auto SS WBC LM.HPF (Urine sed) [#/Area] 0-5 /HPF Normal 0-5/HPF [facility] UA Auto SS XR Chest Single Viewon [...] mGy = na DAP = na Normal [facility] eGFRon 11-15-2022 GFR/1.73 sq M.predicted among non-blacks MDRD (S/P/Bld) [Vol rate/Area] 128 mL/min/1.73 m2 Normal >=59 [facility] Comment on above: Order Comment: RN Jose C tamayo aware in as RN collect, will correct...mmf 11/16/2022 03:05:16 EDT Result Comment: Machine Records Units Supervisor rosie kidney disease could be indicated at eGFR's of less than 60 mL/min/1.73m2. Kidney failure is indicated at less than 15 mL/min/1.73m2. Performed By: #### 2 992594, 9941675, 7708018, 2402504, 94561835, 0356056, 2451642 #### [facility] [address] [place] [address] GFR/1.73 sq M.predicted among non-blacks MDRD (S/P/Bld) [Vol rate/Area] 151 mL/min/1.73 m2 Normal >=59 [facility] Comment on above: Order Comment: Order Added by Discern Expert. Result Comment: Machine Records Units Supervisor rosie kidney disease could be indicated at eGFR's of less than 60 mL/min/1.73m2. Kidney failure is indicated at less than 15 mL/min/1.73m2. Performed By: #### 2 987810, 4709609, 1638588, 5117331, 33702669, 3702501, 2876428 #### [facility] [address] [place] [address] BLOOD BANKOrdered By: Mere Brewer on 11-14-2022 [...] hCG Ql Negative (11/14/22 11:39 PM) Normal [facility] Man Sero CHEMISTRYOrdered By: SYSTEM SYSTEM on 07-06-2022 Anion gap [Moles/Vol] 13 mmol/L Normal 6 - 16 mEq/L F [facility] Remisol Calcium [Mass/Vol] 9.9 mg/dL Normal 8.9 [...] rate/Area] mL/min/1.73 m2 Normal >=59mL/min/1 .73 m2 [facility] Chem S GFR/1.73 sq M.predicted among non-blacks MDRD (S/P/Bld) [Vol rate/Area] mL/min/1.73 m2 Normal >=59mL/min/1 .73 m2 [facility] Chem S Globulin (S) [Mass/Vol] 3.9 g/dL [...] (Bld) [Mass fraction] 5.2 % Normal <=5.9% [facility] ChemAutoSS URINALYSISOrdered By: Rian Arroyo on 07-05-2022 [...] PM) Normal Negative [facility] UA Auto SS [place].plasma/[place]. RBC (Bld) [Mass ratio] 0-3 /HPF Normal 0-3/HPF [facility] UA A uto SS Nitrite Ql (U) [...] [facility] UA Auto SS Urobilinogen Qn (U) 0.4858201 {Maria Luz'U}/dL Normal 0.0 - 1.0 EU/dL [...] Back For Confirmation On 07/04/2022 15:15:00 EST_. finger cobbler+ Art 138.0 mmol/L Normal 135.0 - 145.0 [...] (Unsp spec) Not detected Normal Not Detected [facility] Comment on above: Result Comment: . This [...] patient management decisions. Fact sheet for providers: https://www.fda.gov/media/404658/download Fact sheet for patients: https://www.fda.gov/media/412262/download This test has received FDA Emergency Use Authorization (EUA) and has been verified by [facility] ([facility]). This test is only authorized for the duration of time that circumstances exist to justify the authorization of the emergency use of in vitro diagnostic tests for the detection of SARS-CoV-2 virus and/or diagnosis of COVID-19 infection under section 564(b)(1) of the Act, 21 U.S.C. 360bbb-3(b)(1), unless the authorization is terminated or revoked sooner. [facility] is certified under CLIA-88 as qualified to perform high complexity testing. Testing is performed in the [facility] laboratories located at [id number] [place] [address]. Performed By: #### C OV19 #### [facility] [id number] [place] [address]. [place] [address] Covid 19 Resultson 1 SARS-CoV-2 (COVID-19) RNA [...] You may also be contacted by the [facility] to see if any of [...] or Naproxen (Aleve) can also be used. Wkfe-vuz-xdcgdqw cough and cold medicines can be used according to the instructions on the package. Some bkau-rfi-vdfndlr medicines also contain acetaminophen. Make sure you [...] water are not available, use alcohol-based hand generator rebuilder. Avoid touching your eyes, nose, and mouth [...] for 24 vianca (more content not included)... [facility] CORONAVIRUS 2019 BY PCRon DATE OF SYMPTOM ONSET [YYYYMMDD]? [id number] [facility] Comment on above: Performed By: #### C OV19 #### [facility] [address] [place] [address] Lab Specimen Source Nasal, Nasopharyngeal [facility] Comment on above: Performed By: #### C OV19 #### [facility] [address] [place] [address] Provider Note - ED v3on 08 Provider [...] for cough Drug Name: brompheniramine/pseu doephedrine/dextrome thorphan 4st-44vx-35xx/5 mL oral syrup Instructions: 10 milliliter(s) orally [...] Description:NO SURGICAL HISTORY THIS YEAR Additional Notes:10/2020 AREA COUNSELOR: Is : no Is : no REVIEW [...] SIGNS: T PRBP SpO2O2(LPM) %FiO2 Method 12-Mar-2021 14:27:[id number] /86 96 MDM MDM/ED COURSE: Rx Z-brett, [...] with negative results. Electronic Signatures: Ari Isabel (SURTASS ANALYST-CANDLE WRAPPING MACHINE OPERATOR) (Signed 12-Mar-2021 14:45) Authored: ED Notes, HPI, PMH, ROS, PE, Results/Vital Signs, MDM/ED Course, Clinical Impression, Attestation, Chart Review, Scores Last Updated: 13-Mar-2021 09:08 by Lakeisha Pedroza (JOSE C II) Normal [facility] CBC AUTO DIFFon 02-16-2021 BASO # 0.0 103/ul Normal 0.0-0.1 [facility] Comment on above: Performed By: #### C BC #### [facility] [address] [place], [place] [address] Robbie Vi Basophils/100 WBC (Bld) 0.2 % Normal 0.2-2.0 [facility] Comment on above: Performed By: #### C BC #### [facility] [address] [place] [address] Robbie Vi EO # 0.0 103/ul Normal 0.0-0.7 [facility] Comment on above: Performed By: #### C BC #### [facility] [address] [place] [address] Robbie Vi Eosinophils/100 WBC (Bld) 0.2 % Critically low 0.9-7.0 [facility] Comment on above: Performed By: #### C BC #### [facility] [address] [place] [address] Robbie Vi Erythrocyte distribution width (RBC) [Ratio] 12.7 % Normal 11.0-15.0 [facility] Comment on above: Performed By: #### C BC #### [facility] [address] [place] [address] Robbie Lebron Hematocrit (Bld) [Volume fraction] 31.5 % Critically low 36.0-48.0 [facility] Comment on above: Performed By: #### C BC #### [facility] [address] [place] [address] Robbienicky Lebron Hemoglobin (Bld) [Mass/Vol] 10.2 g/dL Critically low 12.0-16.0 [facility] Comment on above: Performed By: #### C BC #### [facility] [address] [place] [address] Robbienicky Lebron IG # 0.05 10e3/ul Critically high 0.00-0.03 [facility] Comment on above: Performed By: #### C BC #### [facility] [address] [place] [address] Robbie Vi IG % 0.4 % Normal 0.0-0.5 [facility] Comment on above: Performed By: #### C BC #### [facility] [address] [place] [address] Robbie Lebron LYMPH # 2.2 103/ul Normal 1.2-3.8 [facility] Comment on above: Performed By: #### C BC #### [facility] [address] [place] [address] Robbie Lebron Lymphocytes/100 WBC (Bld) 18.3 % Critically low 20.5-60.0 [facility] Comment on above: Performed By: #### C BC #### [facility] [address] [place] [address] Robbie Lebron MANUAL DIFF REQ NO Normal [facility] Comment on above: Performed By: #### C BC #### [facility] [address] [place] [address] Robbie Lebron MCH (RBC) [Entitic mass] 31.4 pg Normal 26.7-34.0 [facility] Comment on above: Performed By: #### C BC #### [facility] [address], [place] [address] Robbie Lebron MCHC (RBC) [Mass/Vol] 32.4 g/dL Normal 29.9-35.2 [facility] Comment on above: Performed By: #### C BC #### [facility] [address] [place] [address] Robbie Lebron MCV (RBC) [Entitic vol] 96.9 fL Normal 81.0-99.0 [facility] Comment on above: Performed By: #### C BC #### [facility] [address] [place] [address] Robbie Lebron MONO # 1.1 103/ul Critically high 0.3-0.8 [facility] Comment on above: Performed By: #### C BC #### [facility] [address] [place] [address] Robbie Lebron Monocytes/100 WBC (Bld) 9.4 % Normal 1.7-12.0 [facility] Comment on above: Performed By: #### C BC #### [facility] [address] [place] [address] Robbie Lebron NEUT # 8.6 103/ul Critically high 1.4-6.5 [facility] Comment on above: Performed By: #### C BC #### [facility] [address] [place] [address] Robbie Lebron Neutrophils/100 WBC (Bld) 71.5 % Normal 43.0-75.0 [facility] Comment on above: Performed By: #### C BC #### [facility] [address] [place] [address] Robbie Lebron Platelet mean volume (Bld) [Entitic vol] 10.6 fL Normal 9.5-13.5 [facility] Comment on above: Performed By: #### C BC #### [facility] [address] [place] [address] Robbie Lebron PLT 201 103/ul Normal 150-450 [facility] Comment on above: Performed By: #### C BC #### [facility] [address] [place] [address] Robbie Lebron RBC 3.25 106/ul Critically low 4.20-5.40 [facility] Comment on above: Performed By: #### C BC #### [facility] [address] [place] [address] Robbie Lebron WBC 12.1 103/ul Critically high 4.0-11.0 [facility] Comment on above: Performed By: #### C BC #### [facility] [address] [place], [place] [address] Robbie Lebron ASYMPTOMATIC COVID-19 ANTIGE Non 02-15-2021 EUA Statement SEE BELOW Normal [facility] Comment on above: Result Comment: This test [...] sooner. Performed By: #### C VDAGA #### [facility] [address] [place], [place] [address] Robbie Lebron SARS-CoV-2 (COVID-19) RNA ESTELA+probe Ql (Unsp spec) Negative Normal NEGATIVE [facility] Comment on above: Result Comment: Nega tive results are presumptive. They do not preclude infection and should not be used as the sole basis for treatment decisions. Additional confirmatory testing by a molecular method should be considered. Performed By: #### C VDAGA #### [facility] [address] [place], [place] [address] Robbie Lebron CBC AUTO DIFFon 02-15-2021 BASO # 0.0 103/ul Normal 0.0-0.1 [facility] Comment on above: Performed By: #### C BC #### [facility] [address] [place], [place] [address] Robbie Vi Basophils/100 WBC (Bld) 0.2 % Normal 0.2-2.0 [facility] Comment on above: Performed By: #### C BC #### [facility] [address] [place], [place] [address] Robbie Vi EO # 0.0 103/ul Normal 0.0-0.7 [facility] [facility] Comment [facility] above: Performed By: #### C BC #### [facility] [address] [place], [place] [id number] Robbie Vi Eosinophils/100 WBC (Bld) 0.0 % Critically low 0.9-7.0 [facility] Comment on above: Performed By: #### C BC #### [facility] [address] [place], [place] [id number] Robbie Vi Erythrocyte distribution width (RBC) [Ratio] 12.5 % Normal 11.0-15.0 [facility] Comment on above: Performed By: #### C BC #### [facility] [address] [place], [place] [id number] Robbie Vi Hematocrit (Bld) [Volume fraction] 35.0 % Critically low 36.0-48.0 [facility] Comment on above: Performed By: #### C BC #### [facility] [address] [place], [place] [address] Robbie Vi Hemoglobin (Bld) [Mass/Vol] 11.5 g/dL Critically low 12.0-16.0 [facility] Comment on above: Performed By: #### C BC #### [facility] [address] [place], [place] [address] Robbie Vi IG # 0.04 10e3/ul Critically high 0.00-0.03 [facility] Comment on above: Performed By: #### C BC #### [facility] [address] [place], [place] [address] Robbie Vi IG % 0.4 % Normal 0.0-0.5 [facility] Comment on above: Performed By: #### C BC #### [facility] [address] [id number] Robbie Vi LYMPH # 2.0 103/ul Normal 1.2-3.8 [facility] Comment on above: Performed By: #### C BC #### [facility] [address] [id number] Robbie Vi Lymphocytes/100 WBC (Bld) 18.6 % Critically low 20.5-60.0 [facility] Comment on above: Performed By: #### C BC #### [facility] [address] [place], [place] [address] Robbie Vi MANUAL DIFF REQ NO Normal [facility] Comment on above: Performed By: #### C BC #### [facility] [address] [place], [place] [address] Robbie Vi MCH (RBC) [Entitic mass] 31.0 pg Normal 26.7-34.0 [facility] Comment on above: Performed By: #### C BC #### [facility] [address] [place], [place] [address] Robbienicky Lebron MCHC (RBC) [Mass/Vol] 32.9 g/dL Normal 29.9-35.2 [facility] Comment on above: Performed By: #### C BC #### [facility] [address] [place], [place] [address] Robbie Vi MCV (RBC) [Entitic vol] 94.3 fL Normal 81.0-99.0 [facility] Comment on above: Performed By: #### C BC #### [facility] [address] [place], [place] [address] Robbie Vi MONO # 0.8 103/ul Normal 0.3-0.8 [facility] Comment on above: Performed By: #### C BC #### [facility] [address] [place], [place] [address] Robbie Vi Monocytes/100 WBC (Bld) 7.0 % Normal 1.7-12.0 [facility] Comment on above: Performed By: #### C BC #### [facility] [address], [place] [address] Robbienicky Gonzalezen NEUT # 8.0 103/ul Critically high 1.4-6.5 [facility] Comment on above: Performed By: #### C BC #### [facility] [address], [place] [address] Robbienicky Lebron Neutrophils/100 WBC (Bld) 73.8 % Normal 43.0-75.0 [facility] Comment on above: Performed By: #### C BC #### [facility] [address], [place] [address] Robbie Vi Platelet mean volume (Bld) [Entitic vol] 10.2 fL Normal 9.5-13.5 [facility] Comment on above: Performed By: #### C BC #### [facility] [address] [place] [address] Robbie Vi PLT 232 103/ul Normal 150-450 [facility] Comment on above: Performed By: #### C BC #### [facility] [address] [place], [place] [address] Robbie Vi RBC 3.71 106/ul Critically low 4.20-5.40 [facility] Comment on above: Performed By: #### C BC #### [facility] [address] [place], [place] [address] Robbie Vi WBC 10.8 103/ul Normal 4.0-11.0 [facility] Comment on above: Performed By: #### C BC #### [facility] [address] [place], [place] [address] Robbie Vi DRUG SCREEN RAPID (URINE)on 02-15-2021 AMP Negative Normal NEGATIVE [facility] Comment on above: Performed By: #### D RUGRPD #### [facility] [address] [place], [place] [address] Robbie Vi BAR Negative Normal NEGATIVE [facility] Comment on above: Performed By: #### D RUGRPD #### [facility] [address] [place], [place] [address] Robbie Vi BUP Negative Normal NEGATIVE [facility] Comment on above: Performed By: #### D RUGRPD #### [facility] [address] [place] [address] Robbie Vi BZO Negative Normal NEGATIVE [facility] Comment on above: Performed By: #### D RUGRPD #### [facility] [address] [place] [address] Robbie Vi SAMANTHA Negative Normal NEGATIVE [facility] Comment on above: Performed By: #### D RUGRPD #### [facility] [address] [place] [address] Robbie Vi CUT-OFFS SEE BELOW Normal [facility] Comment on above: Result Comment: AMP [...] ng/mL Performed By: #### D RUGRPD #### [facility] [address] [place] [address] Robbie Vi DRUG CUT HEADER DRUG CLASS TEST SYSTEM CUT-OFF CONCENTRATIONS ARE FOLLOWS: Normal [facility] Comment on above: Performed By: #### D RUGRPD #### [facility] [address] [place] [address] Robbie Vi mAMP Negative Normal NEGATIVE [facility] Comment on above: Performed By: #### D RUGRPD #### [facility] [address] [place] [address] Robbie Vi MTD Negative Normal NEGATIVE [facility] Comment on above: Performed By: #### D RUGRPD #### [facility] [address] [place] [address] Robbie Vi OPI Negative Normal NEGATIVE [facility] Comment on above: Performed By: #### D RUGRPD #### [facility] [address] [place] [address] Robbie Vi OXY Negative Normal NEGATIVE [facility] Comment on above: Performed By: #### D RUGRPD #### [facility] [address] [place] [address] Robbie Vi PCP Negative Normal NEGATIVE [facility] Comment on above: Performed By: #### D RUGRPD #### [facility] [address] [place] [address] Robbie Vi PPX Negative Normal NEGATIVE [facility] Comment on above: Performed By: #### D RUGRPD #### [facility] [address] [place] [address] Robbie Vi TCA Negative Normal NEGATIVE [facility] Comment on above: Performed By: #### D RUGRPD #### [facility] [address] [place] [address] Robbie Vi THC Negative Normal NEGATIVE [facility] Comment on above: Performed By: #### D RUGRPD #### [facility] [address] [place] [address] Robbie Lebron TYPE AND SCREENon 02-15-2021 TYPE AND SCREEN Antibody Screen NEGATIVE ABO Rh Typing O Rh Positive Blood Bank Notes PERFORMED BY JUAN ANTONIO Normal [facility] Comment on above: Performed By: #### T NS #### [facility] [address] [place] [address] Robbie Lebron CULTURE URINEon 01-31-2021 CULTURE URINE Culture Observations: LIGHT GROWTH OF MIXED GENITAL RONNY. NO POTENTIAL PATHOGENS SEEN. Normal [facility] Comment on above: Performed By: #### G BSCX #### [facility] [address] [place] [address] Robbie Lebron UA (CLEAN/CATCH) MANAGER UTILIZATION/MICRO I F IND.on 01-31-2021 Bilirubin Ql (U) Negative Normal NEGATIVE [facility] Comment on above: Performed By: #### U MICRO, UACSIND #### [facility] [address] [place] [address] Robbie Vi Clarity (U) CLEAR Normal CLEAR [facility] Comment on above: Performed By: #### U MICRO, UACSIND #### [facility] [address] [place] [address] Robbie Vi Color (U) LT. YELLOW Normal YELLOW [facility] Comment on above: Performed By: #### U MICRO, UACSIND #### [facility] [address] [place] [address] Robbie Vi Glucose Ql (U) Negative Normal NEGATIVE [facility] Comment on above: Performed By: #### U MICRO, UACSIND #### [facility] [address] [place] [address] Robbie Vi Hemoglobin Ql (U) Negative Normal NEGATIVE [facility] Comment on above: Performed By: #### U MICRO, UACSIND #### [facility] [address] [place] [address] Robbie Vi Ketones Ql (U) Negative Normal NEGATIVE [facility] Comment on above: Performed By: #### U MICRO, UACSIND #### [facility] [address] [place] [address] Robbie Vi LEUKOCYTES TRACE Abnormal NEGATIVE [facility] Comment on above: Performed By: #### U MICRO, UACSIND #### [facility] [address] [place] [address] Robbie Vi Nitrite Ql (U) Negative Normal NEGATIVE [facility] Comment on above: Performed By: #### U MICRO, UACSIND #### [facility] [address] [place] [address] Robbie Vi pH (U) 6.0 [pH] Normal 5-9 [facility] Comment on above: Performed By: #### U MICRO, UACSIND #### [facility] [address] [place] [address] Robbie Vi SPEC GRAVITY <=1.005 Abnormal 1.005-<=1.02 5 [facility] Comment on above: Performed By: #### U MICRO, UACSIND #### [facility] [address] [place] [address] Robbienicky Lebron UA PROTEIN Negative Normal NEGATIVE/ TRACE [facility] Comment on above: Performed By: #### U MICRO, UACSIND #### [facility] [address] [place] [address] Robbie Lebron UR MICRO IND INDICATED Normal [facility] Comment on above: Performed By: #### U MICRO, UACSIND #### [facility] [address] [place] [address] Robbie Lebron Urobilinogen Qn (U) 0.2 {Maria Luz'U}/dL Normal 0.2 - 1. 0 [facility] Comment on above: Performed By: #### U MICRO, UACSIND #### [facility] [address] [place] [address] Robbienicky Lebron URINE MICROSCOPIC ONLYon BACTERIA SMALL Abnormal NONE SEEN [facility] Comment on above: Performed By: #### U MICRO, UACSIND #### [facility] [address] [place] [address] Robbie Lebron Bacteria identified Cx Nom (U) INDICATED Normal [facility] Comment on above: Performed By: #### U MICRO, UACSIND #### [facility] [address] [place] [address] Robbie Lebron CAST NONE SEEN Normal NONE SEEN [facility] Comment on above: Performed By: #### U MICRO, UACSIND #### [facility] [address] [place] [address] Robbienicky Lebron Crystals LM Nom (Urine sed) NONE SEEN Normal NONE SEEN [facility] Comment on above: Performed By: #### U MICRO, UACSIND #### [facility] [address] [place] [address] Robbie Lebron Epithelial cells LM Ql (Urine sed) FEW Abnormal NONE SEEN /RARE [facility] Comment on above: Performed By: #### U MICRO, UACSIND #### [facility] [address] [place] [address] Robbie Vi MUCOUS NONE SEEN Normal NONE SEEN [facility] Comment on above: Performed By: #### U MICRO, UACSIND #### [facility] [address] [place] [address] Robbie Lebron RBC 0-2 Normal 0-2 [facility] Comment on above: Performed By: #### U MICRO, UACSIND #### [facility] [address] [place] [address] Robbie Lebron WBC 2-5 Abnormal NONE SEEN [facility] Comment on above: Performed By: #### U MICRO, UACSIND #### [facility] [address] [address] Robbie Lebron GROUP B STREP CULTUREon 01-15 S. agalactiae Ag Ql (Unsp spec) Culture Observations: NEGATIVE FOR GROUP B STREPTOCOCCUS. Normal [facility] Comment on above: Performed By: #### G BSCX #### [facility] [address] [place] [address] Robbie Lebron US PREG BIOPHY W NON [...] by: AYE SELLERS Date: 2021-01-23 15:23 Normal [facility] GLUCOSE - 1HRon 11-27-2020 Glucose [Mass/Vol] 94 mg/dL Normal 74-106 [facility] Comment on above: Performed By: #### G LU1HR #### [facility] [address] [place] [address] Robbie Lebron HEMOGRAM AND PLATELon 2020 Hematocrit (Bld) [Volume fraction] 34.8 % Critically low 36.0-48.0 [facility] Comment on above: Performed By: #### H H #### [facility] [address], [place] [address] Robbie Lebron Hemoglobin (Bld) [Mass/Vol] 10.9 g/dL Critically low 12.0-16.0 [facility] Comment on above: Performed By: #### H H #### [facility] [address] [id number] Robbie Lebron MCH (RBC) [Entitic mass] 31.3 pg Normal 26.7-34.0 [facility] Comment on above: Performed By: #### H H #### [facility] [address] [address] Robbie Lebron MCHC (RBC) [Mass/Vol] 31.3 g/dL Normal 29.9-35.2 [facility] Comment on above: Performed By: #### H H #### [facility] [address] [place], [place] [address] Robbie Lebron MCV (RBC) [Entitic vol] 100.0 fL Critically high 81.0-99 .0 [facility] Comment on above: Performed By: #### H H #### [facility] [address] [place], [place] [address] Robbie Lebron PLT 215 103/ul Normal 150-450 [facility] Comment on above: Performed By: #### H H #### [facility] [address] [place], [place] [address] Robbienicky Gonzalezen RBC 3.48 106/ul Critically low 4.20-5.40 [facility] Comment on above: Performed By: #### H H #### [facility] [address] [place], [place] [address] Robbie Lebron WBC 10.7 103/ul Normal 4.0-11.0 [facility] Comment on above: Performed By: #### H H #### [facility] [address] [place], [place] [address] Robbie Lebron CORONAVIRUS 2019 BY PCRon SARS-CoV-2 (COVID-19) RNA ESTELA+probe Ql (Unsp spec) Not detected Normal Not Detected [facility] Comment on above: Result Comment: . This [...] this test method. Fact sheet for providers: https://www.fda.gov/media/295105/download Fact sheet for patients: https://www.fda.gov/media/625136/download This test has received FDA Emergency Use Authorization [EUA] and has been verified by [facility] ([facility]). This test is only authorized for the duration of time that circumstances exist to justify the authorization of the emergency use of in vitro diagnostic tests for the detection of SARS-CoV-2 virus and/or diagnosis of COVID-19 infection under section 564(b)(1) of the Act, 21 U.S.C. 360bbb-3(b)(1), unless the authorization is terminated or revoked sooner. [facility] is certified under CLIA-88 as qualified to perform high complexity testing. Testing is performed in the [facility] laboratories located at [address] [place] [address]. Performed By: #### C OV19 #### [address] [place] [address] Covid 19 Resultson 1 SARS-CoV-2 (COVID-19) RNA [...] You may also be contacted by the [facility] to see if any of [...] or Naproxen (Aleve) can also be used. Oxmg-czo-tkknyzd cough and cold medicines can be used according to the instructions on the package. Some zwvm-vlg-dnxortz medicines also contain acetaminophen. Make sure you [...] water are not available, use alcohol-based hand generator rebuilder. Avoid touching your eyes, nose, and mouth [...] for 24 vianca (more content not included)... [facility] CORONAVIRUS 2019 BY PCRon DATE OF SYMPTOM ONSET [YYYYMMDD]? [id number] [facility] Comment on above: Performed By: #### C OV19 #### [facility] [address] [place] [address] Lab Specimen Source Nasal, Nasopharyngeal [facility] Comment on above: Performed By: #### C OV19 #### [facility] [address] [place] [address] Provider Note - ED v2on 10-16 Provider [...] Description:NO SURGICAL HISTORY THIS YEAR Additional Notes:10/2020 AREA COUNSELOR: Is : no Is : no REVIEW [...] SIGNS: T PRBP SpO2O2(LPM) %FiO2 Method 29-Oct-2020 14:27:[id number] /68 100 PHYSICAL EXAM CONSTITUTIONAL: Well appearing, [...] ill patient: no Electronic Signatures: Ari Isabel (SURTASS ANALYST-CANDLE WRAPPING MACHINE OPERATOR) (Signed 29-Oct-2020 14:53) Authored: HPI, PMH, ROS, PE, Results/Vital Signs, MDM/ED Course, Clinical Impression, Attestation, Chart Review, Scores Last Updated: 29-Oct-2020 14:53 by Ari Isabel (SURTASS ANALYST-CANDLE WRAPPING MACHINE OPERATOR) Normal [facility] ED Noteon 01-24-2018 HIM IP Note OR Dice Person Normal [facility] HIM IP Note OR Dice Person Normal [facility] ED Provider Noteon 8 HIM IP Note OR Dice Person Normal [facility] Vital Signs Date Time Vital Sign Value Performing Clinician Facility 09-07-2023 15:30-0500 Diastolic blood pressure 51 mm[Hg] Ba Duque [facility] 09-07-2023 15:30-0500 Heart rate 79 /min Ba Neto [facility] 09-07-2023 15:30-0500 Mean blood pressure 73 mm[Hg] Ba Neto [facility] 09-07-2023 15:30-0500 Respiratory rate 18 /min Ba Duque [facility] 09-07-2023 15:30-0500 SaO2% (BldA) [Mass fraction] 97 % Ba Neto [facility] 09-07-2023 15:30-0500 Systolic blood pressure 116 mm[Hg] Ba Neto [facility] 09-07-2023 12:58-0500 Body temperature 98.06 [degF] Ba Duque [facility] 09-07-2023 12:58-0500 Diastolic blood pressure 70 mm[Hg] Ba Neto [facility] 09-07-2023 12:58-0500 Heart rate 94 /min Ba Neto [facility] 09-07-2023 12:58-0500 Respiratory rate 18 /min Ba Neto [facility] 09-07-2023 12:58-0500 SaO2% (BldA) [Mass fraction] 97 % Ba Duque [facility] 09-07-2023 12:58-0500 Systolic blood pressure 116 mm[Hg] Ba Duque [facility] 09-03-2023 15:37-0500 Body height 157.48 cm SURTASS ANALYST Liane Robuck Work Phone: [facility] 09-03-2023 15:37-0500 Body temperature 98.3 [degF] SURTASS ANALYST Liane Robuck Work Phone: [facility] 09-03-2023 15:37-0500 Body weight 68.1 kg SURTASS ANALYST Liane Robuck Work Phone: [facility] 09-03-2023 15:37-0500 Diastolic blood pressure 69 mm[Hg] SURTASS ANALYST Liane Robuck Work Phone: [facility] 09-03-2023 15:37-0500 Heart rate 115 /min SURTASS ANALYST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 Relationship Specialty Start Date End Date Kirill Gleason, OTR/L [address] [place] [place] [address] Occupational Therapist Occupational Therapy 12/18/22 Aye Vicente MD [address] [place] [address] Physician Plastic Surgery 12/18/22 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 Relationship Specialty Start Date End Date Kirill Gleason, OTR/L [address] [place] [address] [place] [address] Occupational Therapist Occupational Therapy 12/18/22 Aye Vicente MD [address] [place] [address] Physician Plastic Surgery 12/18/22 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 Relationship Specialty Start Date End Date Kirill Gleason OTR/L [address] [place] [address] [place] [address] Occupational Therapist Occupational Therapy 12/18/22 Aye Vicente MD [address] [place] [address] Physician Plastic Surgery 12/18/22 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 Relationship Specialty Start Date End Date Kirill Gleason, OTR/L [address] [place] [address] Occupational Therapist Occupational Therapy 12/18/22 Aye Vicente MD [address] [place] [address] Physician Plastic Surgery 12/18/22 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 Relationship Specialty Start Date End Date Kirill Gleason OTR/L [address] [place] [address] [place] [address] Occupational Therapist Occupational Therapy 12/18/22 Aye Vicente MD [address] [place], [place] [phone] Physician Plastic Surgery 12/18/22 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-C Primary Care Provider Active Team Status: Inactive Member Role Status Dates Liane Irvin APRN [employer]-C Primary Care Provider Active Start: September 03, [...] PERIPHERAL REPAIR, TENDON, FLEXOR Aye Vicente MD [address] [place] [address] [facility] [address] [place] [phone] Phone: [phone] Referral ID Status Reason Start Date Expiration Date Visits Re quested Visits Authorized [id number] 3 Reason Onset Date Comments Post-op Symptoms 11/23/2022 Reason Onset Date Comments Refill 11/23/2022 Reason Onset Date Comments Post-op Symptoms 11/23/2022 Request for script 11/23/2022 Reason Comments OT Treatment Clinic 2 Specialty Diagnoses / Procedures Referred By Contact Referred To Contact Occupational Therapy Diagnoses Laceration of left upper extremity with complication, initial encounter Dulce Luaghlin PA-C [address] [place] [address] Occ Therapy [address] [place] [address] Referral ID Status Reason Start Date Expiration Date Visits Requested Visits Authorized [id number] Pending Review [facility] 12/08/2022 12/09/2023 10 10 Reason Comments Arm [...] BE BASED ON THE PRIMARY CLINICAL RECORDS. [employer] [facility]. provides no warranty or guarantee of the accuracy or completeness of information in this document.
[2023-09-16 14:21] VITALS: BP 111/60; PULSE 85; RESP 15; TEMP 36.9; O2SAT 98; BMI 29.3
--- NOTE | 2023-09-16 16:01 | ED.FEMALEGU1 ---
Documented by User: Darling Mike 09/16/23 16:59 HPI - Female Genitourinary General Chief complaint: Vaginal Bleeding Stated complaint: BLOATING Time Seen by Provider: 09/16/23 14:53 Source: patient Mode of arrival: walk-in Limitations: no limitations History of Present Illness HPI Narrative: feMale presents here with chief complaint of some vaginal discharge earlier today. She is approximately 4 weeks . She states she noticed brown discharge earlier today. Prior to coming here to the emergency room she had a repeat quant level from 2 days ago repeated today. She denies any cramping or bleeding. She states she just wanted to be seen because she was scared with discharge. No further discharge or bleeding Related Data Home Medications Medication Instructions Recorded Confirmed diphenhydramine HCl 25 mg tablet mg 09/16/23 (Banophen) Allergies Allergy/AdvReac Type Severity Reaction Status Date / Time No Known Drug Allergies Allergy Verified 09/16/23 14:21 Review of Systems ROS Narrative All Systems are negative except as noted/marked. PFSH PFSH Social History Smoking status: Current every day smoker Exam Narrative Exam Narrative: Nurses note and vital signs reviewed and patient is not hypoxic. General: The patient appears well and in no apparent distress. Patient is resting comfortably on cart. Skin: Warm, dry, no pallor noted. There is no rash noted. Head: Normocephalic, atraumatic Eye: Normal conjunctiva, no drainage, EOMI. PERRL GI: Normal bowel sounds, no tenderness to palpation, no masses appreciated. No rebound, guarding, or rigidity noted. Musculoskeletal: The patient has no evidence of calf tenderness, no pitting edema, symmetrical pulses noted bilaterally Neurological: A&O x4, normal speech Psychiatric: Cooperative Constitutional Vital Signs, click to edit/add: Last Vital Signs Temp 98.4 F 09/16/23 14:21 Pulse 85 09/16/23 14:21 Resp 15 09/16/23 14:21 BP 111/60 09/16/23 14:21 Pulse Ox 98 09/16/23 14:21 O2 Del Method Room Air 09/16/23 14:21 Course Vital Signs Vital signs: Vital Signs Temperature 98.4 F 09/16/23 14:21 Pulse Rate 85 09/16/23 14:21 Respiratory Rate 15 09/16/23 14:21 Blood Pressure 111/60 09/16/23 14:21 Pulse Oximetry 98 09/16/23 14:21 Oxygen Delivery Method Room Air 09/16/23 14:21 Temperature 98.4 F 09/16/23 14:21 Pulse Rate 85 09/16/23 14:21 Respiratory Rate 15 09/16/23 14:21 Blood Pressure 111/60 09/16/23 14:21 Pulse Oximetry 98 09/16/23 14:21 Oxygen Delivery Method Room Air 09/16/23 14:21 MDM - Female Genitourinary MDM Narrative Medical decision making narrative: Small amount of brown discharge earlier today. She had a quant drawn before she came into the emergency room compared to previous quant. Her quant went from 900 to over 1702 days. Patient is had no bleeding here in the emergency room. She has a follow-up appointment in our office with Dr. Austin in the next week. Patient is to return to the emergency room or follow-up with Dr. Austin's office with any changes. She is approximately 4 weeks . Patient is going to continue with her repeat quant.ua today shows no infection. pt did not wish to have further testing. She just wanted reassured that her hcg quant went up today. Her quant did go up specifically from 949 on September 14, to 1760 today. She will follow-up as scheduled Differential Diagnosis Differential diagnosis: Likely urinary tract infection, vaginitis and other Medical Records Attestation: I reviewed the patient's medical records. Lab Data Attestation: I reviewed the patient's lab results. Labs: Lab Results 09/16/23 Range/Units 16:03 Urine Color Lt. yellow (YELLOW) Urine Clarity Clear (CLEAR) Urine pH 6.0 (5.0-9.0) Ur Specific [place] 1.015 (1.005-1.025) Urine Protein Negative (NEG/TRACE) mg/dL Urine Glucose (UA) Negative (NEGATIVE) mg/dL Urine Ketones Negative (NEGATIVE) mg/dL Urine Occult Blood Small A (NEGATIVE) Urine Nitrite Negative (NEGATIVE) Urine Bilirubin Negative (NEGATIVE) Urine Urobilinogen 0.2 (0.2-1.0) EU/dL Ur Leukocyte Esterase Small A (NEGATIVE) Urine RBC 2-5 A (0-2) #/HPF Urine WBC 2-5 A (NONE SEEN) #/HPF Ur Squamous Epith Cells Few A (NONE/RARE) #/LPF Urine Crystals None seen (None Seen) #/HPF Urine Bacteria Trace A (NONE SEEN) #/HPF Urine Casts None seen (NONE SEEN) #/LPF Urine Mucus None seen (NONE SEEN) Urine HCG, Qual Positive A (NEGATIVE) Discharge Plan Discharge Chief Complaint: Vaginal Bleeding Clinical Impression: Vaginal discharge Patient Disposition: Home, Self-Care Time of Disposition Decision: 16:16 Condition: Good Prescriptions / Home Meds: No Action diphenhydramine HCl [Banophen] 25 mg tablet Instructions: Vaginal Discharge (ED) Referrals: Oliverio Austin DO [Physician] - 10/07/23 (as scheduled) Physician,Non-Staff, [Primary Care Provider] - 1 week Discharge Date/Time: 09/16/23 16:20 Stand Alone Forms: Portal Instructions Documented by User: Kamlesh Lopez MD 09/16/23 20:46 HPI - Female Genitourinary General Chief complaint: Vaginal Bleeding Stated complaint: BLOATING Time Seen by Provider: 09/16/23 14:53 Related Data Home Medications Medication Instructions Recorded Confirmed diphenhydramine HCl 25 mg tablet mg 09/16/23 (Banophen) Allergies Allergy/AdvReac Type Severity Reaction Status Date / Time No Known Drug Allergies Allergy Verified 09/16/23 14:21 PFSH PFSH Social History Smoking status: Current every day smoker Exam Constitutional Vital Signs, click to edit/add: Last Vital Signs Temp 98.4 F 09/16/23 14:21 Pulse 85 09/16/23 14:21 Resp 15 09/16/23 14:21 BP 111/60 09/16/23 14:21 Pulse Ox 98 09/16/23 14:21 O2 Del Method Room Air 09/16/23 14:21 Course Vital Signs Vital signs: Vital Signs Temperature 98.4 F 09/16/23 14:21 Pulse Rate 85 09/16/23 14:21 Respiratory Rate 15 09/16/23 14:21 Blood Pressure 111/60 09/16/23 14:21 Pulse Oximetry 98 09/16/23 14:21 Oxygen Delivery Method Room Air 09/16/23 14:21 Temperature 98.4 F 09/16/23 14:21 Pulse Rate 85 09/16/23 14:21 Respiratory Rate 15 09/16/23 14:21 Blood Pressure 111/60 09/16/23 14:21 Pulse Oximetry 98 09/16/23 14:21 Oxygen Delivery Method Room Air 09/16/23 14:21 MDM - Female Genitourinary MDM Narrative Medical decision making narrative: Small amount of brown discharge earlier today. She had a quant drawn before she came into the emergency room compared to previous quant. Her quant went from 900 to over 1702 days. Patient is had no bleeding here in the emergency room. She has a follow-up appointment in our office with Dr. Austin in the next week. Patient is to return to the emergency room or follow-up with Dr. Austin's office with any changes. She is approximately 4 weeks . Patient is going to continue with her repeat quant.ua today shows no infection. pt did not wish to have further testing. She just wanted reassured that her hcg quant went up today. Her quant did go up specifically from 949 on September 14, to 1760 today. She will follow-up as scheduled I, Dr Lpoez, have reviewed the above progress note and course of action in the ER; agree with the above. I have gone over history and physical, and discussed disposition and treatment plan with the patient. Lab Data Labs: Lab Results 09/16/23 Range/Units 16:03 Urine Color Lt. yellow (YELLOW) Urine Clarity Clear (CLEAR) Urine pH 6.0 (5.0-9.0) Ur Specific [place] 1.015 (1.005-1.025) Urine Protein Negative (NEG/TRACE) mg/dL Urine Glucose (UA) Negative (NEGATIVE) mg/dL Urine Ketones Negative (NEGATIVE) mg/dL Urine Occult Blood Small A (NEGATIVE) Urine Nitrite Negative (NEGATIVE) Urine Bilirubin Negative (NEGATIVE) Urine Urobilinogen 0.2 (0.2-1.0) EU/dL Ur Leukocyte Esterase Small A (NEGATIVE) Urine RBC 2-5 A (0-2) #/HPF Urine WBC 2-5 A (NONE SEEN) #/HPF Ur Squamous Epith Cells Few A (NONE/RARE) #/LPF Urine Crystals None seen (None Seen) #/HPF Urine Bacteria Trace A (NONE SEEN) #/HPF Urine Casts None seen (NONE SEEN) #/LPF Urine Mucus None seen (NONE SEEN) Urine HCG, Qual Positive A (NEGATIVE) Discharge Plan Discharge Chief Complaint: Vaginal Bleeding Clinical Impression: Vaginal discharge Patient Disposition: Home, Self-Care Time of Disposition Decision: 16:16 Condition: Good Prescriptions / Home Meds: No Action diphenhydramine HCl [Banophen] 25 mg tablet Instructions: Vaginal Discharge (ED) Referrals: Oliverio Austin DO [Physician] - 10/07/23 (as scheduled) Physician,Non-Staff, MD [Primary Care Provider] - 1 week Discharge Date/Time: 09/16/23 16:20 Stand Alone Forms: Portal Instructions
[2023-09-16 16:13] LABS: Bilirubin Urine NEGATIVE (NEGATIVE); Blood Urine SMALL (NEGATIVE); Clarity Urine CLEAR (CLEAR); Color Urine LT. YELLOW (YELLOW); Glucose Urine UA NEGATIVE (NEGATIVE); HCG Qualitative Urine* POSITIVE (NEGATIVE); Ketones Urine NEGATIVE (NEGATIVE); Leukocyte Esterase Urine SMALL (NEGATIVE); Nitrite Urine NEGATIVE (NEGATIVE); Protein Urine NEGATIVE (NEG/TRACE); Specific Gravity Urine 1.015 (1.005-1.025); Urobilinogen Urine 0.2 EU/dL (0.2-1.0)
[2023-09-16 16:52] LABS: Bacteria Urine TRACE #/HPF (NONE SEEN); Mucus Urine NONE SEEN (NONE SEEN)
[2023-09-16 16:53] LABS: Cast Seen? NONE SEEN #/LPF (NONE SEEN); Crystals Seen? None Seen #/HPF (None Seen); Squamous Epithelial Cell Urine FEW #/LPF (NONE/RARE)
== END 2023-09-16 16:20 | disposition home or self-care (01) ==
PROVIDERS: Physician Assistant; Emergency Provider Emergency Medicine
DX: O26.891 Other specified pregnancy related conditions, first trimester (principal); Z3A.01 Less than 8 weeks gestation of pregnancy; O99.331 Smoking (tobacco) complicating pregnancy, first trimester; N89.8 Other specified noninflammatory disorders of vagina; F17.210 Nicotine dependence, cigarettes, uncomplicated; N92.6 Irregular menstruation, unspecified
CPT/HCPCS: 36415; 81001; 84702; 84703; 99283

== ENCOUNTER 2023-09-26 11:18 | Outpatient (OUT) | payer OTHER, SELFPAY ==
--- NOTE | 2023-09-26 11:19 | US_ITS ---
[address] [address] Patient Name: ARTI LOPEZ MRN: [id number] date: 1995 Sex: F Assigned Patient Location: [facility] Current Patient Location: [facility] Accession/Order Number: [id number] Exam Date: 09/26/2023 11:20 Report Date: 09/26/2023 12:10 At the request of: REID JOHNSON Procedure: US OB transvaginal EXAMINATION: US OB transvaginal HISTORY: Bleeding in early COMPARISON: No relevant comparison available. FINDINGS: Transvaginal images Anechoic echogenicity identified within the endometrial cavity with a mean sac diameter 1.0 cm, 5 weeks 0 days pole: Not visualized Yolk sac: Not Visualized Heart rate: Not visualized Cervix: Closed, 4.9 cm The uterus is normal, anteverted The right ovary is normal measuring 2.2 x 1.3 x 1.2 cm. The left ovary is normal measuring 3.1 x 2.2 x 1.5 cm. 2.1 cm area of hypoechogenicity possibly corpus luteal cyst favored Clinical age: 7 weeks 5 days Clinical DEAN: 05/09/2024 Ultrasound age: 5 weeks 0 days Ultrasound DEAN: 05/28/2020 fourth US/US OB transvaginal IMPRESSION: Absent yolk sac and pole with a mean sac diameter of 1.0 cm. Early intrauterine gestation versus anembryonic . Follow-up recommended Electronically authenticated by: AYE SELLERS Date: 09/26/2023 12:10
--- OUTSIDE RECORDS SUMMARY | 2023-09-26 11:30 | XMS_ITS | CCD ---
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 visits. This is important. This information is not intended to replace advice given to you by your health care provider. Make sure you discuss any questions you have with your health care provider. Document Revised: 01/02/2021 Document Reviewed: 01/02/2021 Elsevier Patient Education ? 2022 [employer]. Normal [facility] ED Patient Summaryon 024 ED Patient Summary [address] [address] Patient Discharge Instructions Person Information Name: SHAHIDA OH Age: 28 Years Arrival Date: 09/17/2023 22:35:01 Discharge Diagnosis: Threatened miscarriage Primary Care Physician: Liane IRVIN CNP Provider Information Primary Provider: Donte Parker DO Advanced Referral Clerk:None The exam and treatment you received in the Emergency Department were for an urgent problem and are not intended as complete care. It is important that you follow up with a doctor, nurse practitioner, or physician?s education administrative assistant for ongoing care. If your symptoms become worse or you do not improve as expected and you are unable to reach your usual health care provider, you should return to the Emergency Department. We are available 24 hours a day. SHAHIDA OH has been given the following list of patient education materials, prescriptions and follow-up instructions: Follow-up Instructions: With: Address: When: [facility], [address] [place] [address] [place] [id number] Business (1) In 3 days 09/21/2023 With: Address: When: Liane IRVIN [address] [place], [place] [id number] Business (1) In 3 days In the event that this physician does not participate in your insurance network, please consult with your insurance company to find a nearby participating provider. Patient Education Materials: Threatened Miscarriage A MESSAGE TO ALL PATIENTS REGARDING OPIOIDS PRESCRIPTION OPIOIDS: WHAT YOU NEED TO KNOW Prescription opioids can be used to help relieve ofvbltbe-ym-xjbluc pain and are often prescribed following a [...] believe you may be struggling with addiction, (more content not included)... Normal [facility] Hep Func Panelon 09-18-2023 Albumin [Mass/Vol] 4.8 g/dL Normal 3.3-5.0 [facility] Comment on above: Performed By: #### 2 981838, 0374525, 87436868, 0223934 #### [facility] [address] [place] [address] Albumin/Globulin (S) [Mass conc ratio] 2.0 Normal 1.1-2.2 [facility] Comment on above: Performed By: #### 2 239799, 8818803, 21643490, 4293276 #### [facility] [address] [place] [address] ALP [Catalytic activity/Vol] 71 Int._Unit/L Normal 21-98 [facility] Comment on above: Performed By: #### 2 549656, 1493424, 04716064, 9954789 #### [facility] [address] [place] [address] ALT No additional P-5'-P [Catalytic activity/Vol] 9 Int._Unit/L Normal 6-46 [facility] Comment on above: Performed By: #### 2 697135, 3525722, 36214250, 8154879 #### [facility] [address] [place] [address] AST [Catalytic activity/Vol] 12 Int._Unit/L Normal 5-43 [facility] Comment on above: Performed By: #### 2 809095, 3552685, 19207871, 4341919 #### [facility] [address] [place] [address] Bilirubin [Mass/Vol] 0.3 mg/dL Normal 0.0-1.1 [facility] Comment on above: Performed By: #### 2 652114, 5513023, 68442823, 1805044 #### [facility] [address] [place] [address] Bilirubin.direct [Mass/Vol] 0.1 mg/dL Normal 0.0-0.4 [facility] Comment on above: Performed By: #### 2 409411, 0973808, 07502435, 4404709 #### [facility] [address] [place] [address] Bilirubin.indirect [Mass or moles/Vol] 0.2 mg/dL Normal 0.1-0.9 [facility] Comment on above: Performed By: #### 2 678299, 2446648, 25001270, 2971674 #### [facility] [address] [place] [address] Globulin (S) [Mass/Vol] 2.4 g/dL Normal 1.4-4.0 [facility] Comment on above: Performed By: #### 2 800588, 3347533, 23758078, 6636744 #### [facility] [address] [place] [address] Protein [Mass/Vol] 7.2 g/dL Normal 6.0-7.8 [facility] Comment on above: Performed By: #### 2 042909, 9816646, 63508644, 6900398 #### [facility] [address] [place] [address] Lipase Levelon 09-18-2023 Lipase [Catalytic activity/Vol] 13 U/L Normal 13-58 [facility] Comment on above: Performed By: #### 2 969928, 5206624, 99683673, 0469246 #### [facility] [address] [place] [address] UA With Cult Reflexon 2023 Bilirubin Ql (U) Negative Normal Negative [facility] Comment on above: Order Comment: Order Added by Discern Expert. Performed By: #### 2 955762, 0829648, 35564901, 2686573 #### [facility] [address] [place] [address] Clarity (U) CLEAR Normal Clear [facility] Comment on above: Order Comment: Order Added by Discern Expert. Performed By: #### 2 587820, 0265444, 37663266, 7378587 #### [facility] [address] [place] [address] Color (U) YELLOW Normal Yellow [facility] Comment on above: Order Comment: Order Added by Discern Expert. Performed By: #### 2 151069, 9487660, 55512510, 8028974 #### [facility] [address] [place] [address] Epithelial cells.squamous LM.HPF (Urine sed) [#/Area] 0-2 Normal 0-2 [facility] Comment on above: Order Comment: Order Added by Discern Expert. Performed By: #### 2 688782, 4111974, 18961516, 4261481 #### [facility] [address] [place] [address] Glucose Test strip (U) [Mass/Vol] Negative Normal Negative [facility] Comment on above: Order Comment: Order Added by Discern Expert. Performed By: #### 2 039583, 0803141, 51405443, 7367679 #### [facility] [address] [place] [address] Hemoglobin Ql (U) Negative Normal Negative [facility] Comment on above: Order Comment: Order Added by Discern Expert. Performed By: #### 2 015744, 8300120, 00243576, 8852171 #### [facility] [address] [place] [address] Ketones (U) [Mass/Vol] Negative Normal Negative [facility] Comment on above: Order Comment: Order Added by Discern Expert. Performed By: #### 2 622940, 5549729, 17618676, 1018757 #### [facility] [address] [place] [address] [place].plasma/[place]. RBC (Bld) [Mass ratio] 0-3 Normal 0-3 [facility] Comment on above: Order Comment: Order Added by Discern Expert. Performed By: #### 2 243798, 1765978, 11456286, 5994593 #### [facility] [address] [place] [address] Nitrite Ql (U) Negative Normal Negative [facility] Comment on above: Order Comment: Order Added by Esme Expert. Performed By: #### 2 070462, 5494416, 51544156, 4196257 #### [facility] [address] [place] [address] pH (U) 6.0 [pH] Invalid Interpretation Code 5.0-9.0 [facility] Comment on above: Order Comment: Order Added by Discern Expert. Performed By: #### 2 202761, 7035086, 51611562, 7996502 #### [facility] [address] [place] [address] Protein (U) [Mass/Vol] Negative Normal Negative [facility] Comment on above: Order Comment: Order Added by Esme Expert. Performed By: #### 2 617557, 6828350, 50204766, 8152961 #### [facility] [address] [place] [address] Specific gravity (U) [Rel density] 1.015 Invalid Interpretation Code 1.005-1.030 [facility] Comment on above: Order Comment: Order Added by Esme Expert. Performed By: #### 2 331023, 9426349, 28779682, 8994917 #### [facility] [address] [place] [address] Type of Urine collection method Catheter Normal [facility] Comment on above: Order Comment: Order Added by Esme Expert. Performed By: #### 2 543479, 0278600, 26086392, 6740194 #### [facility] [address] [place] [address] Urobilinogen Qn (U) 0.2 {Maria Luz'U}/dL Normal 0.0-1.0 [facility] Comment on above: Order Comment: Order Added by Discern Expert. Performed By: #### 2 310103, 8292707, 49289136, 6801101 #### [facility] [address] [place] [address] WBC Auto Ql (U) Negative Normal Negative [facility] Comment on above: Order Comment: Order Added by Discern Expert. Performed By: #### 2 587282, 4841399, 32968975, 6979827 #### [facility] [address] [place] [address] WBC LM.HPF (Urine sed) [#/Area] 0-5 Normal 0-5 [facility] Comment on above: Order Comment: Order Added by Discern Expert. Performed By: #### 2 489760, 4894586, 46567257, 1748579 #### [facility] [address] [place] [address] Bilirubin Ql (U) Negative Normal Negative [facility] Comment on above: Performed By: #### 2 961212, 7996195, 12110795, 8667634 #### [facility] [address] [place] [address] Clarity (U) CLEAR Normal Clear [facility] Comment on above: Performed By: #### 2 483031, 4207192, 73805893, 0026237 #### [facility] [address] [place] [address] Color (U) YELLOW Normal Yellow [facility] Comment on above: Performed By: #### 2 973575, 6574496, 08599606, 4215355 #### [facility] [address] [place] [address] Epithelial cells.squamous LM.HPF (Urine sed) [#/Area] 0-2 Normal 0-2 [facility] Comment on above: Performed By: #### 2 715068, 7336479, 82173386, 4849890 #### [facility] [address] [place] [address] Glucose Test strip (U) [Mass/Vol] Negative Normal Negative [facility] Comment on above: Performed By: #### 2 877301, 6593328, 14629517, 5848617 #### [facility] [address] [place] [address] Hemoglobin Ql (U) 3+ Abnormal Negative [facility] Comment on above: Performed By: #### 2 642659, 2936080, 85222298, 4330243 #### [facility] [address] [place] [address] Ketones (U) [Mass/Vol] Negative Normal Negative [facility] Comment on above: Performed By: #### 2 660203, 8602223, 26034710, 3715305 #### [facility] [address] [place] [address] [place].plasma/[place]. RBC (Bld) [Mass ratio] >30 Abnormal 0-3 [facility] Comment on above: Performed By: #### 2 191636, 8683222, 71037778, 0585164 #### [facility] [address] [place] [address] Nitrite Ql (U) Negative Normal Negative [facility] Comment on above: Performed By: #### 2 157246, 3727014, 88312222, 8065149 #### [facility] [address] [place] [address] pH (U) 6.0 [pH] Invalid Interpretation Code 5.0-9.0 [facility] Comment on above: Performed By: #### 2 539700, 5161930, 16390191, 2311455 #### [facility] [address] [place] [address] Protein (U) [Mass/Vol] Negative Normal Negative [facility] Comment on above: Performed By: #### 2 046048, 1902983, 71980381, 2070457 #### [facility] [address] [place] [address] Specific gravity (U) [Rel density] 1.020 Invalid Interpretation Code 1.005-1.030 [facility] Comment on above: Performed By: #### 2 510098, 9311033, 36186699, 9077357 #### [facility] [address] [place] [address] Type of Urine collection method Clean Catch Normal [facility] Comment on above: Performed By: #### 2 286570, 8011750, 18935751, 5029703 #### [facility] [address] [place] [address] Urobilinogen Qn (U) 0.2 {Maria Luz'U}/dL Normal 0.0-1.0 [facility] Comment on above: Performed By: #### 2 639356, 0054491, 47364218, 6515721 #### [facility] [address] [place] [address] WBC Auto Ql (U) Negative Normal Negative [facility] Comment on above: Performed By: #### 2 168985, 6479436, 95910184, 9796398 #### [facility] [address] [place] [address] WBC LM.HPF (Urine sed) [#/Area] 0-5 Normal 0-5 [facility] Comment on above: Performed By: #### 2 985675, 8309486, 64406955, 4451944 #### [facility] [address] [place] [address] URINALYSISOrdered By: Sander Newby on 09-18-2023 Bilirubin Ql (U) Negative (09/18/23 12:08 AM) Normal Negative [facility] UA Auto SS Clarity (U) Clear (09/18/23 12:08 AM) Normal Clear [facility] UA Auto SS Color (U) Yellow (09/18/23 12:08 AM) Normal Yellow [facility] UA Auto SS Epithelial cells.squamous LM.HPF (Urine sed) [#/Area] 0-2 /HPF Normal 0-2/HPF [facility] UA Aut o SS Glucose Test strip (U) [Mass/Vol] Negative (09/18/23 12:08 AM) Normal Negative [facility] UA Auto SS Hemoglobin Ql (U) Negative (09/18/23 12:08 AM) Normal Negative [facility] UA Auto SS Ketones (U) [Mass/Vol] Negative (09/18/23 12:08 AM) Normal Negative [facility] UA Auto SS [place].plasma/[place]. RBC (Bld) [Mass ratio] 0-3 /HPF Normal 0-3/HPF [facility] UA A uto SS Nitrite Ql (U) Negative (09/18/23 12:08 AM) Normal Negative [facility] UA Auto SS pH (U) 6.0 *NA* (09/18/23 12:08 AM) Invalid Interpretation Code 5.0 - 9.0 [facility] UA Auto SS Protein (U) [Mass/Vol] Negative (09/18/23 12:08 AM) Normal Negative [facility] UA Auto SS Specific gravity (U) [Rel density] 1.015 *NA* (09/18/23 12:08 AM) Invalid Interpretation Code 1.005 - 1.030 [facility] UA Auto SS UA Spec Desc Catheter (09/18/23 12:08 AM) Normal [facility] UA Auto SS Urobilinogen Qn (U) 0.4198393 {Maria Luz'U}/dL Normal 0.0 - 1.0 EU/dL [facility] UA Auto SS WBC Auto Ql (U) Negative (09/18/23 12:08 AM) Normal Negative [facility] UA Auto SS WBC LM.HPF (Urine sed) [#/Area] 0-5 /HPF Normal 0-5/HPF [facility] UA Auto SS US 1st Trimesteron 09-18-2023 US 1st Trimester Exam Date/Time: 09/18/2023 01:02 EST Reason for Exam: Vaginal bleeding Report [facility] [phone] IMPRESSION: Gestational sac identified with mean sac diameter with estimated sonographic gestational age 5 weeks, 1 day. No pole identified. Early intrauterine primary diagnostic consideration. Short-term follow-up ultrasound with beta hCG correlation recommended. CLINICAL HISTORY: Vaginal bleeding. Beta hCG 2046. FINDINGS: Transabdominal and transvaginal sonography was performed with transvaginal imaging obtained to better assess pelvic anatomy. The uterus measurements and an estimated volume are: Uterus Length: 8.2 cm Uterus Width: 6.1 cm Uterus Height: 5.3 cm Uterus Volume: 140.4 cm3 Within the uterus is a gestational sac, surrounded by decidual reaction, having mean sac diameter of 5.4 mm. This yields an estimated sonographic gestational age 5 weeks, 1 day. No pole, and no yolk sac is identified. Right ovary not utilized secondary to overlying bowel gas. The left ovary measurements and estimated volume are: Left Ovary Length: 2.3 cm Left Ovary Width: 2.1 cm Left Ovary Height: 1.6 cm Left Ovary Volume: 4.2 cm3 Report Ordering Provider: Donte Parker FINAL REPORT Dictated: 09/18/2023 11:46 am Lester Jeff MD Signed (Electronic Signature): 09/18/2023 11:46 am Signed by: Lester Jeff MD Transcribed by: LARRY Technologist: ANA Technical Comments LMP : unknown but thinks she's a little over 4 weeks Unknown History 2 Para 1 Normal [facility] US Transvaginalon 09-18-2023 US Transvaginal Exam Date/Time: 09/18/2023 01:00 EST Reason for Exam: vaginal bleeding Report [facility] [phone] Please review ultrasound pelvis, first trimester for report of transvaginal. Ordering Provider: Donte Parker FINAL REPORT Dictated: 09/18/2023 11:46 am Lester Jeff MD Signed (Electronic Signature): 09/18/2023 11:46 am Signed by: Lester Jeff MD Transcribed by: LARRY Technologist: ANA Normal [facility] eGFRon 09-18-2023 eGFR 126 mL/min/1.73 m2 Normal >=59 [facility] Comment on above: Order Comment: Order added by Discern Expert. Performed By: #### 2 931963, 9759322, 63918283, 1690719 #### [facility] [address] [place] [address] CHEMISTRYOrdered By: SYSTEM SYSTEM on 09-17-2023 Albumin [Mass/Vol] 4.8 g/dL Normal 3.3 - 5.0 gm/dL [facility] Albumin/Globulin [Mass ratio] 2.0 {ratio} Normal 1.1 - 2.2 [facility] ALP [Catalytic activity/Vol] 71 [iU]/d Normal 21 - 98 Int._Unit/L [facility] ALT No additional P-5'-P [Catalytic activity/Vol] 9 [iU]/d Normal 6 - 46 Int._Unit/L [facility] Anion gap [Moles/Vol] 10 mmol/L Normal 6 - 16 mEq/L R [facility] AST [Catalytic activity/Vol] 12 [iU]/d Normal 5 - 43 Int._Unit/L [facility] Bilirubin [Mass/Vol] 0.3 mg/dL Normal 0.0 - 1 .1 mg/dL [facility] Bilirubin.direct [Mass/Vol] 0.1 mg/dL Normal 0.0 - 0.4 mg/dL [facility] Bilirubin.indirect [Mass or moles/Vol] 0.2 mg/dL Normal 0.1 - 0.9 mg/dL [facility] Calcium [Mass/Vol] 9.3 mg/dL Normal 8.9 - 11. 1 mg/dL [facility] Chloride [Moles/Vol] 105 mmol/L Normal 101 - 1 11 mmol/L [facility] CO2 [Moles/Vol] 26 mmol/L Normal 21 - 31 mmol/L [facility] Creatinine [Mass/Vol] 0.6 mg/dL Normal 0.5 - 1.3 mg/dL [facility] eGFR 126 mL/min/1.73 m2 Normal >=59mL/mi n/1 .73 m2 [facility] Globulin (S) [Mass/Vol] 2.4 g/dL Normal 1.4 - 4.0 gm/dL [facility] Glucose [Mass/Vol] 77 mg/dL Normal 55 - 199 mg/dL [facility] HCG.beta subunit Qn 2046 m[IU]/mL High 1 - 3 mIU/mL [facility] Comment on above: Result Comment: 'F N ON < 1 - 3' ' 0.2 - 1 WEEK = 5 TO 50' ' 1 - 2 WEEKS = 50 - 500' ' 2 - 3 WEEKS = 100 - 5000' ' 3 - 4 WEEKS = 500 - 58042' ' 4 - 5 WEEKS = 1000 - 74773' ' 5 - 6 WEEKS = 21187 - 415673' ' 6 - 8 WEEKS = 11076 - ' ' 8 - 12 WEEKS = 47463 - 884838' Lipase [Catalytic activity/Vol] 13 U/L Normal 13 - 58 unit/L [facility] Potassium [Moles/Vol] 3.7 mmol/L Normal 3.5 - 5.3 mmol/L [facility] Protein [Mass/Vol] 7.2 g/dL Normal 6.0 - 7.8 gm/dL [facility] Sodium [Moles/Vol] 137 mmol/L Normal 135 - 145 mmol/L [facility] Urea nitrogen [Mass/Vol] 15 mg/dL Normal 5 - 21 mg/dL [facility] Urea nitrogen/Creatinine [Mass ratio] 25 mg/mg High 10 - 20 [facility] HEMATOLOGYOrdered By: SYSTEM SYSTEM on 09-17-2023 Basophils/100 WBC (Bld) 0.7 % Normal 0.0 - 2.0 % [facility] Basophils/Leukocytes Auto (Bld) [Pure # fraction] 0.1 E9/L Normal 0.0 - 0.2 E9/L [facility] Eosinophils (Bld) [#/Vol] 0.1 E9/L Normal 0.0 - 0.5 E9/L [facility] Eosinophils/100 WBC (Bld) 0.8 % Normal 0.0 - 8.0 % [facility] Erythrocyte distribution width (RBC) [Ratio] 12.7 % Normal 10.9 - 14.2 % [facility] Hematocrit (Bld) [Volume fraction] 35.8 % Normal 34.0 - 46.0 % [facility] Hemoglobin (Bld) [Mass/Vol] 11.9 g/dL Low 12.0 - 16.0 gm/dL [facility] Lymphocytes (Bld) [#/Vol] 2.7 E9/L Normal 1.0 - 4.0 E9/L [facility] Lymphocytes/100 WBC (Bld) 35.3 % Normal 14.0 - 50.0 % [facility] MCH (RBC) [Entitic mass] 29.9 pg Normal 27.0 - 34.0 pg [facility] MCHC (RBC) [Mass/Vol] 33.2 g/dL Normal 31.4 - 36.0 gm/dL [facility] MCV (RBC) [Entitic vol] 90.3 fL Normal 80.0 - 100.0 fL [facility] Monocytes (Bld) [#/Vol] 0.4 E9/L Normal 0.2 - 1.0 E9/L [facility] Monocytes/100 WBC (Bld) 5.7 % Normal 4.0 - 14.0 % [facility] Neutrophils (Bld) [#/Vol] 4.4 E9/L Normal 2.0 - 7.5 E9/L [facility] Neutrophils/100 WBC (Bld) 57.5 % Normal 36.0 - 75.0 % [facility] Platelet 303.0 E9/L Normal 150.0 - 500.0 E9/L [facility] Platelet mean volume (Bld) [Entitic vol] 7.4 fL Normal 6.4 - 10.8 fL [facility] RBC (Bld) [#/Vol] 4.0 E12/L Low 4.3 - 5.9 E12/L [facility] WBC corrected for nucl RBC Auto (Bld) [#/Vol] 7.6 E9/L Normal 4.0 - 11.0 E9/L [facility] URINALYSISOrdered By: Sander Newby on 09-17-2023 Bilirubin Ql (U) Negative (09/17/23 10:55 PM) Normal Negative [facility] UA Auto SS Clarity (U) Clear (09/17/23 10:55 PM) Normal Clear [facility] UA Auto SS Color (U) Yellow (09/17/23 10:55 PM) Normal Yellow [facility] UA Auto SS Epithelial cells.squamous LM.HPF (Urine sed) [#/Area] 0-2 /HPF Normal 0-2/HPF [facility] UA Aut o SS Glucose Test strip (U) [Mass/Vol] Negative (09/17/23 10:55 PM) Normal Negative [facility] UA Auto SS Hemoglobin Ql (U) 3+ *ABN* (09/17/23 10:55 PM) Invalid Interpretation Code Negative [facility] UA Auto SS Ketones (U) [Mass/Vol] Negative (09/17/23 10:55 PM) Normal Negative [facility] UA Auto SS [place].plasma/[place]. RBC (Bld) [Mass ratio] >30 /HPF Invalid Interpretation Code 0-3/HPF [facility] UA Auto SS Nitrite Ql (U) Negative (09/17/23 10:55 PM) Normal Negative [facility] UA Auto SS pH (U) 6.0 *NA* (09/17/23 10:55 PM) Invalid Interpretation Code 5.0 - 9.0 [facility] UA Auto SS Protein (U) [Mass/Vol] Negative (09/17/23 10:55 PM) Normal Negative [facility] UA Auto SS Specific gravity (U) [Rel density] 1.020 *NA* (09/17/23 10:55 PM) Invalid Interpretation Code 1.005 - 1.030 [facility] UA Auto SS UA Spec Desc Clean Catch (09/17/23 10:55 PM) Normal [facility] UA Auto SS Urobilinogen Qn (U) 0.2304204 {Maria Luz'U}/dL Normal 0.0 - 1.0 EU/dL [facility] UA Auto SS WBC Auto Ql (U) Negative (09/17/23 10:55 PM) Normal Negative [facility] UA Auto SS WBC LM.HPF (Urine sed) [#/Area] 0-5 /HPF Normal 0-5/HPF [facility] UA Auto SS C Urineon 09-09-2023 Bacteria identified Cx Nom (U) Microbiology PROCEDURE: Urine Culture [R1] SOURCE: U CleanCatch BODY SITE: COLLECTED DATE/TIME: 09/07/2023 13:19 EST RECEIVED DATE/TIME: 09/07/2023 14:35 EST START DATE/TIME: 09/07/2023 14:35 EST FREE TEXT SOURCE: Ba Duque DO, DO, Ba Magana FINAL REPORTS Final Report [] Verified Date/Time: 09/09/2023 10:45 EST 1,000 cfu/ml Mixed skin contaminants Performing Locations R1: This test was performed at: [facility], [address] [place] [address], [address] , , [facility] Comment on above: Performed By: #### 1 [id number], [id number] ####[facility] [address] [place] [address] ABO/Rhon 09-07-2023 ABO/Rh Positive Invalid Interpretation Code [facility] Comment on above: Performed By: #### 2 [id number] ####[facility] [address] [place] [address] BLOOD BANKOrdered By: Scott Casper on 09-07-2023 ABO/Rh Interp Positive Invalid Interpretation Code [facility] BB Subsection BMPon 09-07-2023 Anion gap [Moles/Vol] 9 mmol/L Normal 6-16 [facility] Comment on above: Performed By: #### 2 365600, 2165644, 67927929, 6404641 #### [facility] [address] [facility] [address] BUN/Creat Ratio 13 No Units Normal 10-20 [facility] Comment on above: Performed By: #### 2 987712, 5029212, 20414582, 4020324 #### [facility] [address] [place] [address] Calcium [Mass/Vol] 9.5 mg/dL Normal 8.9-11.1 [facility] Comment on above: Performed By: #### 2 287062, 7179151, 74543692, 8469050 #### [facility] [address] [place] [address] Chloride [Moles/Vol] 104 mmol/L Normal 101-111 [facility] Comment on above: Performed By: #### 2 420795, 0609245, 62829063, 0085150 #### [facility] Laboratory [address] [place] [address] CO2 [Moles/Vol] 27 mmol/L Normal 21-31 [facility] Comment on above: Performed By: #### 2 500712, 4262656, 43825460, 6295825 #### [facility] [address] [place] [address] Creatinine [Mass/Vol] 0.6 mg/dL Normal 0.5-1.3 [facility] Comment on above: Performed By: #### 2 289243, 9370385, 25723862, 9855747 #### [facility] [address] [place] [address] Glucose [Mass/Vol] 73 mg/dL Normal 55-199 [facility] Comment on above: Performed By: #### 2 065567, 5177759, 06390459, 1175881 #### [facility] [address] [place] [address] Potassium [Moles/Vol] 3.7 mmol/L Normal 3.5-5.3 [facility] Comment on above: Performed By: #### 2 922986, 1194753, 39050306, 4883032 #### [facility] [address] [place] [address] Sodium [Moles/Vol] 136 mmol/L Normal 135-145 [facility] Comment on above: Performed By: #### 2 015122, 1184274, 97126918, 0909777 #### [facility] [address] [place] [address] Urea nitrogen [Mass/Vol] 8 mg/dL Normal 5-21 [facility] Comment on above: Performed By: #### 2 475108, 6896296, 77066131, 7343895 #### [facility] [address] [place] [address] BhCG Quanton 09-07-2023 Beta hCG Qnt 311 mIU/mL High 1-3 [facility] Comment on above: Result Comment: 'F N ON < 1 - 3' ' 0.2 - 1 WEEK = 5 TO 50' ' 1 - 2 WEEKS = 50 - 500' ' 2 - 3 WEEKS = 100 - 5000' ' 3 - 4 WEEKS = 500 - 96088' ' 4 - 5 WEEKS = 1000 - 50410' ' 5 - 6 WEEKS = 48024 - 038569' ' 6 - 8 WEEKS = 91261 - 086681' ' 8 - 12 WEEKS = 96444 - 100130' Performed By: #### 2 682223, 7394462, 34519277, 3375462 #### [facility] [address] [place] [address] CBC w/ Auto Diffon 4 Basophil Absolute 0.0 E9/L Normal 0.0-0.2 [facility] Comment on above: Performed By: #### 2 172199, 2070710, 26336444, 3171779 #### [facility] [address] [place] [address] Basophils/100 WBC (Bld) 0.5 % Normal 0.0-2.0 [facility] Comment on above: Performed By: #### 2 538218, 7258734, 64694975, 2032902 #### [facility] [address] [place] [address] Eos Absolute 0.0 E9/L Normal 0.0-0.5 [facility] Comment on above: Performed By: #### 2 226338, 0918420, 23066226, 0276559 #### [facility] [address] [place] [address] Eosinophils/100 WBC (Bld) 0.5 % Normal 0.0-8.0 [facility] Comment on above: Performed By: #### 2 032114, 6563666, 47270097, 2899300 #### [facility] [address] [place] [address] Erythrocyte distribution width (RBC) [Ratio] 13.0 % Normal 10.9-14.2 [facility] Comment on above: Performed By: #### 2 127676, 3900020, 36224939, 7047974 #### [facility] [address] [place] [address] Hematocrit (Bld) [Volume fraction] 37.0 % Normal 34.0-46.0 [facility] Comment on above: Performed By: #### 2 598749, 9215303, 56960198, 3560220 #### [facility] [address] [place] [address] Hemoglobin (Bld) [Mass/Vol] 12.1 g/dL Normal 12.0-16.0 [facility] Comment on above: Performed By: #### 2 371028, 4998412, 84160173, 1929807 #### [facility] [address] [place] [address] Lymph Absolute 2.1 E9/L Normal 1.0-4.0 [facility] Comment on above: Performed By: #### 2 236609, 2120956, 31236345, 8659201 #### [facility] [address] [place] [address] Lymphocytes/100 WBC (Bld) 24.8 % Normal 14.0-50.0 [facility] Comment on above: Performed By: #### 2 043952, 1170996, 98089473, 2126422 #### [facility] [address] [place] [address] MCH (RBC) [Entitic mass] 29.7 pg Normal 27.0-34.0 [facility] Comment on above: Performed By: #### 2 243525, 3370451, 67749286, 8569059 #### [facility] [address] [place]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 Graciela Fortune, DENNIS, BSN; Ashley Pearl RN; Sarah Blackwell RN Online Publisher: Ari Rojas MD; Louis Meredith MD Anesthesia: General Anesthesiologist: Radha Bryant MD; Beka Montgomery MD; Damion Posada MD CAA: Nell Sam CAA; Kush Merritt CAA Paralegal: Raheem Johnson MD Specimen(s): * No specimens in log * Estimated Blood Loss: 5-10 cc Lines/Drains: Peripheral IV Access: 11/22/22 114 20 gauge Right Antecubital (Active) Site Assessment WNL;Dressing intact 11/22/22 114 Infusion Status Port #1 Infusing;Patent 11/22/221144 Temporarily [...] [facility] Director Of Event Sales Authentication Interface Message Text Telephone History Shahida Oh, [id number] 11/19/2022 Patient was identified by name and [...] will be entering the hospital at the [facility], which is on [facility]. [facility] Parking Instructions ??? Please plan extra time for parking and shuttle service. We recommend arriving at least 15 minutes prior to the time your care team advises you need to be here. ??? Parking is available in the [employer] [facility] accessible from [address]. ??? 07/02 shuttle service from the garage to The [facility] is available. ??? Go to the ground floor of the parking garage to reach the shuttle pick-up station located near the elevator and stairs. ??? Shuttle service will drop you off at The [facility] Main Entrance. ??? Desk Reporter service will be available at The [facility] Main Entrance if you would prefer prism inspector over parking ([facility] Desk Reporter Service Hours: Tuesday-Tuesday, 5:30 a.m. - 8:00 p.m.). ??? Enter The [facility] Main Entrance and go to the Admitting/Registrati on Desk to check in for your procedure. ED Visit - 11/14/22 - Partial Note- [facility] - [facility] ED Course: Arrival to ED the patient [...] 11/17/2022 Added automatically from request for surgery [id number] Nicotine addiction 11/19/2022 Seizures (HCC) PROBLEM LIST: [...] yea (more content not included)... Normal [facility] Progress Note-Physicianon Progress Note-Physician Basic Informatio n 27 yo F admitted after [...] 06:38:00) Lymph Auto: 33.3 % (11/16/22 06:38:00) Bay Auto: 5.9 % (11/16/22 06:38:00) Eos Auto: 0.5 % (11/16/22 06:38:00) Basophil Auto: 0.4 % (11/16/22 06:38:00) Neutro Absolute: 6.2 E9/L (11/16/22 06:38:00) Lymph Absolute: 3.4 E9/L (11/16/22 06:38:00) Bay Absolute: 0.6 E9/L (11/16/22 06:38:00) Eos Absolute: [...] No glycemic issues - anticipate transfer to [facility] for plastics/hand consult, await bed - Chacha Ambriz PA-C Trauma Surgery/Surgical Critical Care/Emergency General Surgery *For urgent issues arising after 4PM during the week or on weekends/holiday, please page the trauma/EGS attending monkey breeder. This patient's plan of care was discussed with Trauma/Emergency General Surgery attending, Dr. Clements Problem List/Past Medical History Ongoing Bipolar 1 disorder, mixed BMI 24.0-24.9, adult Chronic hepatitis C Drug addiction in remission Nicotine addiction Historical feet Seizures Medications Inpatient acetaminophen 325 mg Tab, 975 mg= 3 tab(s), Or (more content not included)... Normal [facility] Comment on above: Result Comment: Elec tronically Signed By: Chacha Ambriz PA-C\.br\Date and Time Signed: 11/16/22 14:29 EDT\.br\Electronically Co-Signed By: Hakan Clements DO\.br\Date and Time Co-Signed: 11/19/22 12:26 EDT CBC W Auto Differential pane l (Bld)on 11-18-2022 Basophils (Bld) [#/Vol] 0.0 10*3/uL 0.0 - 0.2 K/uL [facility] Basophils/100 WBC (Bld) 0.5 % B [facility] Eosinophils (Bld) [#/Vol] 0.1 10*3/uL 0.0 - 0.7 K/uL [facility] Eosinophils/100 WBC (Bld) 1 % [facility] Erythrocyte distribution width (RBC) [Ratio] 13.9 % 11.5 - 14.5 % [facility] Hematocrit (Bld) [Volume fraction] 31.8 % Low 37.0 - 47.0 % [facility] Hemoglobin (Bld) [Mass/Vol] 10.5 g/dL Low 12.0 - 16.0 g/dL [facility] Interpretation and review of laboratory results Abnormal [facility] Lymphocytes (Bld) [#/Vol] 1.6 10*3/uL 1.0 - 4.8 K/uL [facility] Lymphocytes/100 WBC (Bld) 20.3 % [facility] MCH (RBC) [Entitic mass] 30.6 pg 27.0 - 31.3 pg [facility] MCHC (RBC) [Mass/Vol] 32.9 % Low 33.0 - 37.0 % [facility] MCV (RBC) [Entitic vol] 93.1 fL 79.4 - 94.8 fL [facility] Monocytes (Bld) [#/Vol] 0.4 10*3/uL 0.2 - 0.8 K/uL [facility] Monocytes/100 WBC (Bld) 5.2 % [facility] Neutrophils (Bld) [#/Vol] 5.6 10*3/uL 1.4 - 6.5 K/uL [facility] Platelets (Bld) [#/Vol] 246 10*3/uL 130 - 400 K/uL [facility] RBC (Bld) [#/Vol] 3.42 10*6/uL Low [facility] Segmented neutrophils/100 WBC (Bld) 73.0 % [facility] WBC (Bld) [#/Vol] 7.6 10*3/uL 4.8 - 10.8 K/uL [facility] CBC With Platelet and Differ entialon 11-18-2022 Basophils (Bld) [#/Vol] 0.0 10*3/uL Normal 0.0-0.2 [facility] Comment on above: Performed By: #### C BCWD #### [facility] [address] [place] [address] Basophils/100 WBC (Bld) 0.5 % Normal [facility] Comment on above: Performed By: #### C BCWD #### [facility] [address] [place] [address] Eosinophils (Bld) [#/Vol] 0.1 10*3/uL Normal 0.0-0.7 [facility] Comment on above: Performed By: #### C BCWD #### [facility] [address] [place] [address] Eosinophils/100 WBC (Bld) 1.0 % Normal [facility] Comment on above: Performed By: #### C BCWD #### [facility] [address] [place] [address] Erythrocyte distribution width (RBC) [Ratio] 13.9 % Normal 11.5-14.5 [facility] Comment on above: Performed By: #### C BCWD #### [facility] [address] [place] [address] Hematocrit (Bld) [Volume fraction] 31.8 % Low 37.0-47.0 [facility] Comment on above: Performed By: #### C BCWD #### [facility] [address] [place] [address] Hemoglobin (Bld) [Mass/Vol] 10.5 g/dL Low 12.0-16.0 [facility] Comment on above: Performed By: #### C BCWD #### [facility] [address] [place] [address] Lymphocytes (Bld) [#/Vol] 1.6 10*3/uL Normal 1.0-4.8 [facility] Comment on above: Performed By: #### C BCWD #### [facility] [address] [place] [address] Lymphocytes/100 WBC (Bld) 20.3 % Normal [facility] Comment on above: Performed By: #### C BCWD #### [facility] [address] [place] [address] MCH (RBC) [Entitic mass] 30.6 pg Normal 27.0-31.3 [facility] Comment on above: Performed By: #### C BCWD #### [facility] [address] [place] [address] MCHC 32.9 % Low 33.0-37.0 [facility] Comment on above: Performed By: #### C BCWD #### [facility] [address] [place] [address] MCV (RBC) [Entitic vol] 93.1 fL Normal 79.4-94.8 [facility] Comment on above: Performed By: #### C BCWD #### [facility] [address] [place] [address] Monocytes (Bld) [#/Vol] 0.4 10*3/uL Normal 0.2-0.8 [facility] Comment on above: Performed By: #### C BCWD #### [facility] [address] [place] [address] Monocytes/100 WBC (Bld) 5.2 % Normal [facility] Comment on above: Performed By: #### C BCWD #### [facility] [address] [place] [address] Neutrophils (Bld) [#/Vol] 5.6 10*3/uL Normal 1.4-6.5 [facility] Comment on above: Performed By: #### C BCWD #### [facility] [address] [place] [address] Neutrophils/100 WBC (Bld) 73.0 % Normal [facility] Comment on above: Performed By: #### C BCWD #### [facility] [address] [place] [address] Platelets (Bld) [#/Vol] 246 10*3/uL Normal 130-400 [facility] Comment on above: Performed By: #### C BCWD #### [facility] [address] [place] [address] RBC (Bld) [#/Vol] 3.42 10*6/uL Low 4.20-5.40 [facility] Comment on above: Performed By: #### C BCWD #### [facility] [address] [place] [address] WBC (Bld) [#/Vol] 7.6 10*3/uL Normal 4.8-10.8 [facility] Comment on above: Performed By: #### C BCWD #### [facility] [address] [place] [address] CTA CHEST ABDOMEN PELVIS W W O [...] Corrales MD 11/18/[address] [facility] 1. Free intraperitoneal air, likely secondary to given history of recent surgery. 2. Supraumbilical midline incision, with minimal fluid/blood products in the underlying subdermal tissues. 3. Suggestion of a 3.7 cm luminal ocular cystic structure likely associated with the left ovary. [facility] EXAMINATION: CTA DISSECTION CHEST ABDOMEN PELVIS [...] the left ovary Bones/Soft Tissues: No fracture [facility] Cristel Corrales MD - 11/18/2022 EXAMINATION: [...] structure likely associated with the left ovary. [employer] Phone: Radiology Study observation (narrative) [employer] Phone: CTA CHEST ABDOMEN PELVIS W W O CONTRASTOrdered By: Cristel Corrales on 11-18-2022 [employer] Phone: Coding Summary.on 11-18-2022 Coding Summary. CD:[id number] Ww+PGhlYWQ+MK2PCNEfF 58poGPixN0oL1GGHItRB ywgQVBQTElOSyIgbmFtZ N6cjDReYBDg IC8+RI7zKTJhMyamsJPy v0A3qPX7C47elu6oIEku yZT7HADkUsJzuooed5ap sKl6BZgeVlucToAx BGJrmP49QNJ8zI41Gb47 iKHptPHnz1smaLj3EsIr RBUjSUS4lDxaYVrmu6Iu HJIwF16ccDDey7S8 IGNvbGxhcHNlOyBlbXB0 oQ8pJHadmyztr3fqivkj Mrh5yk82hOGgj4P9yMD4 C8HaurM0BMIqwOMx SqsosPOVcO0xmzysg5ma ijgtYnOaNPBwMEk7YXd4 HJHnrYjpNvBbSP41RLI7 SSVmstYqW5ZfETMa jDsiLaG0e9X2Dh6WF4DJ IuwcG9PDMKEGSBcwdGC+ MB81kv31I3LcEfcyZaj6 PINgXZV7tPK9kV3w LEAhGRcrb0K4kTS2W9Np jtFevf6yb5ssTWIaWXxf F21cvMZzq7W8NPVomJY9 YWGtxSztCnJanQ10 Oyc+ZIDvcZitg6VpOwdp e7eov6ngkGu4SavhXBTi foMlfPevIYT6g0WvSb6k PLSinGY8kKI4pZ0d LlYgUjI9YEmzU268PcEh xZEjItrdD24cH3WywAD+ WDKqNrs2EZXcxDxrAQ8q U2WdSNIfekrrjFKt pLrbFT4wREMiftcmWDKx yA4cSDXqU6b4WrUhAiJ2 QIkfW7ZmONZonmihHh99 oC4zRpRgMaX8ISha C1KfdfN6ZBQecVHhJTqm YIM1V14fa1W4PDGiZKJm DSY7hDN3rI1vlOxpsztr bGVmdDsgdmVydGlj DBvnHWclJ876KTIjcKgd PkNvZGluZyBEYXRlOiAg MDUvMDQvMjAyMzwvdGQ+ TLStDRJ1sRxtMYXy cLAhNFvcMc7zeXovbDwo WA6pRJKrlsejIZTjlD6h YLWlyMGezEhwOZ1uHWDj imdgi440NiGuCFE7 LQMymGYjD9JhaT0aLcPt TOLgEUUvK0QxjGWzRNdh Q494GKpqGaM1EOMcokQm O2OmEQKgsZdqObQ2 p3L0Jt4Da8RnrmvcU7Jb lIKyFtKlAazyLCx0U9Kk PjwvdHI+EF97WTDdTX36 ACv4XAX6aRsgAAby GNCtU7CfwM8cYyBxVOHr ZGRkOyc+PHRhYmxlIHdp ZHRoPScxMDAlJyBzdHls LU4nLn4yNWHiQXTi yIruhXFwXyMmk8ixNHHp OJsnVF7ttNneW4QndCN6 RCRby4m6Uq82T11tE6Fn dXA+TXGzeDA4wAW2 eC4zTxKmAzV0IVqoF958 XbUxoEQfJbene3bvw7ei pZg2XvB5WNRrsgMusXxi FJU5x2HtBw79R79l IHdpZHRoPSIxNSUiIHZh xIjgql4pxP0qQt7+PGNv mLW2pHV3kN5ePlTgHfU0 OBkmA503DhSyuVCj Ajvkg9dum3govFs4WhJb HDKuqdEdeRsdUSX2g0Hh Kf48W0XrqCwud9OtSuj3 dt32iIGwp7B8sEZ4 W2EgHEQhvyyeqDQdyTds HF5cRZJymjddXNIijP4m NITfT1v3QaKrAmF2MFdg W4JygqG0XMJqaGAd MJAotOMXxE0eryyul1dx uqttUpDjAGNsHVi0ZUn7 HHKbzJdpMoWjUPQ8HsG2 QIP7bZTugU3jtSyf iyhtrX5nQqr+BTK0rYAw rGZCXF0uBrjziEK+PHRk QVU2eLrcGWkyUUDliH5k NBOrQ3x6TkRoFzJ9 NGvgO0HzuqY4FTVrxGAn ASKcqFYRhR0eijagj4fp cemlWjTjEWRvVXz5CIu6 LWFsaWduOiBsZWZ0 OzQ3UXI4lFJemW7vpClw tntxtV5yXgm+QmlydGgg BNW6TGz1B5GhZrj9AWWo qDhzSB0hhSAdJTsb Bp3fnMjylYisFB7qITKk csauw868MuNoz0wkAXLf cWGjDTnxHTV5G94np0G0 NCSxIZKpJRE2iVW4 hV0bhCvwbdbkoZMmzNgf mfLqyUosODgaZRtaO856 GTOkqEmiHlSpVYl0D8Wn Hbr0TAOkoHelLW5i tHNbUXujYe4wgOtsoRgz HU4fYQDnkhudy647AyQw o9itHUOwaAVsCCpoPDG3 O52gc5O2OXGuJPKu XWM6oKN0xH5ujHpnrqmi bGVmdDsgdmVydGljYWwt GOxzQ843SYKqhXhfFzCc kEq2I2AxLdt2PAFo dDepMG6qyLPnGIylYa7a xYyuiMqbVA1oMONekpns h031KrKgx1elLQNafSRq YPgyJNS9H56iu3N0 YIMrYEQaKTW6uXT9rE0q bGlnbjogbGVmdDsgdmVy oNedVRprMAibK012CVCb cDsnPlBhdGllbnQg QPuzZKb8Y0UfMscydKR+ SB04AFVfJO66zWEbpKBn d3hqoVb1KfKgIKWiQAI8 fCxyVJdui8SxOFXn V20ziBUvl4A2YIUzoWoz iTVkVsZxtFJ2pO3aAVfr kckjy0evpcyeRsxwj0om cs92uU28A73wFPtt ZHRoPSIzMCUiIHZhbGln jv6uhE0nYq4+PGNvbCB3 fOC4vR3yIQLpLaM6ECez F547NzIrjXAqJpfn n8dqx1veqFz3LuY0ONGl whIvhZyfIKB9t5AbDs40 M49cPYewUKXnEUSfQTIf MRGowLgbdw1cvQ3z Ii8+MVEalYE7kIU9gG0w OyDdPhX0VJflY693FfBu cTBsPhxdI53lR3WxoYI+ RFJvZyx3MPLyhBlj NB7qyJAvGFisMr2gBXD0 HnKbBxVuGDfyB1LfVKFv lgjudsfkzJA3UOBxDTHj lS93Vm4qtNnfTMFc bBPIuE3jrotfk6nlajjo EiNqIAKaLQd8WUr7MKQb iFxnBvYtIKW0TjL1DKE7 eSJdnP3vaTozhvro wD0kM2AbMHDtwiupUg40 aD7fPsNpNsF4RDlgIgs+ NMSWB50QQQZUUXnLXCOC SQg0I4FlHvw5RERi rLeoQS5znKBvIEglHj3p kVhhlFhaTG8rWOFxxtbl AZTfoW7mHYXypIPqgLfe TE7rGDCraybcv302 PaDiXAI4NWHojRXyM0Uv cG3rIvOlULAwTYFuD1Qn xYRfNXfhH708TBopIjV7 GIDpniLgX8GwKAWk tGmrXyO2x3K8Ha6nGe6k Dg9xWXe7DI45NQ07rIMa l7V4jHF7T1XzMLJozkvl exhyuOD0PIFoIXDz hV16xKEeUItiAz6fe4E2 k520QEVeXKDlvM19Jw8s tLxvLSNscCRDcV6sfcsq y8phnlrdIkNzWUVe ZFo6VLc7DHTcfWpbDiIu OJD8SdP0UGM0dXZlzS4z mMcfccnvwS7oXgr+MjUg NTBhkjF9M0IpNkl3 JKGiiYzkEK6doEBdMGrk Ev4ujDlylFqwCY2tZYUg wwvmNOEbpY2sLSJdaETb aKhhIY3gZKWuqayn q378QjXtXCB5UIMjdGYl G7ZziF5eEgJlBCDlAIYn Y7WibPCpVLwtU784ZTuv DaQ8LPMfgeTaC1Su XDFsaIgkRtO9e9T4Ms9D TP9xvDU9R9DyByy7KSQf oZouFO1coFVyFFdbKk9l uNbdjTskRR4wSNJm vkklREScvQ4xREVkpSCb kElzAN8lJTKmvpjjv739 BwHoSMV8BKTwtAOeL5Oz hR4kDpApWWQxVFGb Q3PwwXPyWFygP643GYoo MjR7ORMerdArC7PbEYMz bPfwEmS8z8V7Jf8HcsAn jGdqdhK6V3WsAwhp dHI+WQ28EWDsPW40mIBa bQQpe6tdhWg8PbZhQXXf MHL6xMibRBryq3BcZOIp M15faXRyw8D8UYNv mHqeuDKsXfUxeTE2xG9k KYicdfjfj3flvvzbBaix k9scau65hH55E56xFMey ZHRoPSIzMCUiIHZh eIogjt6erG3aHq1+PGNv qRN4bNC0wY8oJeBhYhH6 RPlsA393HoJmmFZoRieq s4ieg4rfwQd0NoVy QKHeylHeuZktUJT8a8Rl Ss67Z69dQUijKRHkHLRc ELNlMEYjiMmpyz2kcP6w Ii8+RV9ec7pxyu47 jY33xBS+UOHlJNZ1qJpe XYhsBNSszJ2zWKomWrU9 GFVhJpYhlW27sGGqMOdj If5wpAtoxMzfOF4v FNKmeotlp856LhRvf2oo UDVccETfVOymEWV9Q92u q2L8XCYnIOYbGFB4rBN2 mQ0oqOzwbvkgaMMr dDsgdmVydGljYWwtYWxp W353GOJwcFhoWdUcmDFw T2ezofSTRX6uUmplaZB+ QTUoSZA9fPgrPVrt HNTjkG6yCSPrS3n1PiAz CvH7VPwfB3PwqsW6SCPf nXSqIXUbtKKYmN2fzymm j9qixxjhRcMrYXUf RCs3CNb8ABSepUbuJpDq GMG8LpM5WJW8oJNaiT0e xKjalglxyZ6jRvf+RklO OjwvdGQ+PHRkIHN0 jWwbEZgvIENzgV0cUUMl X7q0NmBvWhY1NRmfQ9Mb koZ4DAOfqFPbFEMxuUOK sV4ybgcta2yhhiuw GgHqPVHuPUp6QJj8NIAw eImoAcPpIJB3CvJ6EIG6 pKUknH7igJjlcslmeT9n Oyc+TVJOOjwvdGQ+ GZWkDKE6tRjtDVnnJIXm tM7dBNIfQ1u3KtLbOlT1 UGgaX9JdqmU9TEGffMLq PRWhmPGWxY9yeyde r6siedyrJoUjFLNhDCg1 QPn6WLLuuCmiEgXwPBG4 YfQ4YLZ2eXQgiL3buNqd lcccqZ9wVej+UGF5 AVV9LD22LH37T3EvArcg dGFibGU+PHRhYmxlIHdp ZHRoPScxMDAlJyBzdHls GF8qLo2kEDRwYYVr bGxhcHNl (more content not included)... Normal [facility] Comprehensive Metabolic Pane angel 11-18-2022 Albumin [Mass/Vol] 4.1 g/dL Normal 3.5-4.6 [facility] Comment on above: Performed By: #### C MP #### [facility] [address] [place] [address] ALP [Catalytic activity/Vol] 57 U/L Normal 40-130 [facility] Comment on above: Performed By: #### C MP #### [facility] [address] [place] [address] ALT [Catalytic activity/Vol] 19 U/L Normal 0-33 [facility] Comment on above: Performed By: #### C MP #### [facility] [address] [place] [address] Anion gap [Moles/Vol] 12 mmol/L Normal 9-15 [facility] Comment on above: Performed By: #### C MP #### [facility] [address] [place] [address] AST [Catalytic activity/Vol] 26 U/L Normal 0-35 [facility] Comment on above: Performed By: #### C MP #### [facility] [address] [place] [address] Bilirubin [Mass/Vol] mg/dL Normal 0.2-0.7 [facility] Comment on above: Performed By: #### C MP #### [facility] [address] [place] [address] Calcium [Mass/Vol] 9.2 mg/dL Normal 8.5-9.9 [facility] Comment on above: Performed By: #### C MP #### [facility] [address] [place] [address] Chloride [Moles/Vol] 105 mmol/L Normal 95-107 [facility] Comment on above: Performed By: #### C MP #### [facility] [address] [place] [address] CO2 [Moles/Vol] 28 mmol/L Normal 20-31 [facility] Comment on above: Performed By: #### C MP #### [facility] [address] [place] [address] Creatinine [Mass/Vol] 0.54 mg/dL Normal 0.50-0.90 [facility] Comment on above: Performed By: #### C MP #### [facility] [address] [place] [address] GFR >60.0 Normal >60 [facility] Comment on above: Result Comment: Pedi atric calculator link [email or web address]://www.[email or web address].org/professionals/kdoqi/gfr_[email or web address] Effective Apr 19, [...] Performed By: #### C MP #### [facility] [address] [place] [address] Globulin (S) [Mass/Vol] 2.7 g/dL Normal 2.3-3.5 [facility] Comment on above: Performed By: #### C MP #### [facility] [address] [place] [address] Glucose [Mass/Vol] 127 mg/dL Critically high 70-99 M [facility] Comment on above: Performed By: #### C MP #### [facility] [address] [place] [address] Potassium [Moles/Vol] 3.5 mmol/L Normal 3.4-4.9 [facility] Comment on above: Performed By: #### C MP #### [facility] [address] [place] [address] Protein [Mass/Vol] 6.8 g/dL Normal 6.3-8.0 [facility] Comment on above: Performed By: #### C MP #### [facility] [address] [place] [address] Sodium [Moles/Vol] 145 mmol/L Critically high 135-144 M [facility] Comment on above: Performed By: #### C MP #### [facility] [address] [place] [address] Urea nitrogen [Mass/Vol] 9 mg/dL Normal 6-20 [facility] Comment on above: Performed By: #### C MP #### [facility] [address] [place] [address] Comprehensive metabolic 2000 panelon 11-18-2022 Albumin [Mass/Vol] 4.1 g/dL 3.5 - 4.6 g/dL [facility] ALP [Catalytic activity/Vol] 57 U/L 40 - 130 U/L [facility] ALT [Catalytic activity/Vol] 19 U/L 0 - 33 U/L [facility] [facility] Anion gap [Moles/Vol] 12 mmol/L [facility] AST [Catalytic activity/Vol] 26 U/L 0 - 35 U/L [facility] Bilirubin [Mass/Vol] mg/dL 0.2 - 0 .7 mg/dL [facility] Calcium [Mass/Vol] 9.2 mg/dL 8.5 - 9.9 mg/dL [facility] Chloride [Moles/Vol] 105 mmol/L [facility] CO2 [Moles/Vol] 28 mmol/L [facility] Creatinine [Mass/Vol] 0.54 mg/dL 0.50 - 0.90 mg/dL [facility] GFR/1.73 sq M.predicted among non-blacks MDRD (S/P/Bld) [Vol rate/Area] 60 - [facility] Comment on above: Pediatric calculator link https://www.kidney.org/professionals/kdoqi/gfr_calculatorped [...] [Mass/Vol] 2.7 g/dL 2.3 - 3.5 g/dL [facility] DTT Glucose [Mass/Vol] 127 mg/dL High 70 - 99 mg/dL [facility] Interpretation and review of laboratory results Abnormal [facility] [employer] Potassium [Moles/Vol] 3.5 mmol/L [facility] Protein [Mass/Vol] 6.8 g/dL 6.3 - 8.0 g/dL [facility] Sodium [Moles/Vol] 145 mmol/L High [facility] [employer] Urea nitrogen [Mass/Vol] 9 mg/dL 6 - 20 mg/dL [facility] DTT General Message Officeon General Message Office --- --- --- --- - -- --- --- --- --- From: Brittany Hussein To: SHAHIDA [place] Sent: 11/18/22 02:30:14 AM EDT Subject: Discharge Summary Ready to View A summary regarding your recent visit is available in the Documents section of your health record. Normal [facility] IntraOperative Documentson 0 11-18-2022 IntraOperative Documents [id number] 6#1.00CD:127 Normal [facility] No Panel InformationOrdered By: Judi Rosas on 11-18-2022 [facility] Urine QualOrde red By: Judi Rosas on 11-18-2022 Beta HCG ( test) Ql (U) Negative Negative [facility] Lot Number [id number] BON DTT Negative QC Pass/Fail Acceptable [facility] DTT Positive QC Pass/Fail Acceptable [facility] Progress Noteson 11-18-2022 Director Of Event Sales Authentication Interface Message Text Documentation: Mode: Telephone Patient Patient Work Phone: Patient Cell Preferred phone: [phone] Consent: I confirmed patient understanding of the [...] placing orders. This note was transcribed using [employer] voice-recognition software. This may result in typographical or malapropism errors. Normal [employer] XR CHEST (2 VW)on 11-18-2022 XR [...] Sneed MD 11/18/[address] [facility] No acute cardiopulmonary disease. Pneumoperitoneum, presumably postsurgical. Correlation is recommended. [facility] EXAMINATION: TWO XRAY VIEWS OF THE [...] finding is most likely postoperative in nature. [facility] Vamsi Sneed MD - 11/18/2022 EXAMINATION: [...] disease. Pneumoperitoneum, presumably postsurgical. Correlation is recommended. [employer] Phone: Radiology Study observation (narrative) [employer] Phone: XR CHEST (2 VW)Ordered By: Analy Sneed on 11-18-2022 [employer] Phone: Auto Diffon 11-17-2022 Basophils/100 WBC (Bld) 0.5 % Normal 0.0-2.0 [facility] Comment on above: Order Comment: Order Added by Discern Expert. Performed By: #### 2 561159, 1078778, 76411221, 0293389 #### [facility] [address] [place] [address] Basophils/Leukocytes Auto (Bld) [Pure # fraction] 0.0 E9/L Normal 0.0-0.2 [facility] Comment on above: Order Comment: Order Added by Discern Expert. Performed By: #### 2 988710, 2752702, 63838532, 4208262 #### [facility] [address] [place] [address] 76603 Eosinophils/100 WBC (Bld) 1.2 % Normal 0.0-8.0 [facility] Comment on above: Order Comment: Order Added by Esme Expert. Performed By: #### 2 922566, 0752226, 44924415, 2294865 #### [facility] [address] [place] [address] 00658 Eosinophils/Leukocytes Auto (Bld) [Pure # fraction] 0.1 E9/L Normal 0.0-0.5 [facility] Comment on above: Order Comment: Order Added by Discern Expert. Performed By: #### 2 159651, 2688780, 62081682, 3787111 #### [facility] [address] [place] [address] 30357 Lymphocytes/100 WBC (Bld) 41.8 % Normal 14.0-50.0 [facility] Comment on above: Order Comment: Order Added by Discern Expert. Performed By: #### 2 194389, 5865023, 31994617, 8898772 #### [facility] [address] [place] [address] 95965 Lymphocytes/Leukocytes Auto (Bld) [Pure # fraction] 2.8 E9/L Normal 1.0-4.0 [facility] Comment on above: Order Comment: Order Added by Discern Expert. Performed By: #### 2 805651, 7786202, 70502720, 2744059 #### [facility] [address] [place] [address] Monocytes/100 WBC (Bld) 7.2 % Normal 4.0-14.0 [facility] Comment on above: Order Comment: Order Added by Discern Expert. Performed By: #### 2 855443, 8223969, 05031810, 3508503 #### [facility] [address] [place] [address] 60[address] Monocytes/Leukocytes Auto (Bld) [Pure # fraction] 0.5 E9/L Normal 0.2-1.0 [facility] Comment on above: Order Comment: Order Added by Discern Expert. Performed By: #### 2 029775, 9187365, 36562168, 1475583 #### [facility] [address] [place] [address] 80915 Neutrophils/100 WBC (Bld) 49.3 % Normal 36.0-75.0 [facility] Comment on above: Order Comment: Order Added by Discern Expert. Performed By: #### 2 028667, 9928033, 71676109, 3536201 #### [facility] [address] [place] [address] 51933 Neutrophils/Leukocytes Auto (Bld) [Pure # fraction] 3.2 E9/L Normal 2.0-7.5 [facility] Comment on above: Order Comment: Order Added by Discern Expert. Performed By: #### 2 494371, 3577434, 56103368, 7736700 #### [facility] [address] [place] [address] 30279 BMPon 11-17-2022 Anion gap [Moles/Vol] 8 mmol/L Normal 6-16 [facility] Comment on above: Performed By: #### 2 561962, 8861285, 46536385, 5101484 #### [facility] [address] [place] [address] Calcium [Mass/Vol] 8.5 mg/dL Low 8.9-11.1 [facility] Comment on above: Performed By: #### 2 125803, 4858738, 38731446, 6251486 #### [facility] [address] [place] [address] Chloride [Moles/Vol] 107 mmol/L Normal 101-111 [facility] Comment on above: Performed By: #### 2 883232, 1571482, 76634738, 2053846 #### [facility] [address] [place] [address] CO2 [Moles/Vol] 25 mmol/L Normal 21-31 [facility] Comment on above: Performed By: #### 2 876130, 3274816, 11216611, 9959036 #### [facility] [address] [place] [address] Creatinine [Mass/Vol] 0.5 mg/dL Normal 0.5-1.3 [facility] Comment on above: Performed By: #### 2 618835, 1442304, 13374348, 4642742 #### [facility] [address] [place] [address] Glucose [Mass/Vol] 89 mg/dL Normal 55-199 [facility] Comment on above: Result Comment: If t his glucose result represents a fasting glucose, interpretation should refer to the following reference range: 55-99 mg/dL Performed By: #### 2 815028, 7525064, 68165925, 1267750 #### [facility] [address] [place] [address] Potassium [Moles/Vol] 3.4 mmol/L Low 3.5-5.3 [facility] Comment on above: Performed By: #### 2 075010, 3769886, 83971356, 9142973 #### [facility] [address] [place] [address] Sodium [Moles/Vol] 137 mmol/L Normal 135-145 [facility] Comment on above: Performed By: #### 2 612164, 3060611, 89508797, 9820117 #### [facility] [address] [place] [address] Urea nitrogen [Mass/Vol] 9 mg/dL Normal 5-21 [facility] Comment on above: Performed By: #### 2 995798, 6544709, 62109095, 3468049 #### [facility] [address] [place] [address] Urea nitrogen/Creatinine [Mass ratio] 18 No Units Normal 10-20 [facility] Comment on above: Performed By: #### 2 839888, 3548735, 08920750, 6581740 #### [facility] [address] [place] [address] CBC w/ Auto Diffon 3 Erythrocyte distribution width (RBC) [Ratio] 13.9 % Normal 10.9-14.2 [facility] Comment on above: Performed By: #### 2 549206, 4684442, 07733180, 0778871 #### [facility] [address] 9379857 Hematocrit (Bld) [Volume fraction] 27.5 % Low 34.0-46.0 [facility] Comment on above: Performed By: #### 2 387499, 1608896, 62021860, 4825908 #### [facility] [address] [place] [address] Hemoglobin (Bld) [Mass/Vol] 9.1 g/dL Low 12.0-16.0 [facility] Comment on above: Performed By: #### 2 888060, 7929483, 46422535, 6922545 #### [facility] [address] [place] [address] MCH (RBC) [Entitic mass] 30.1 pg Normal 27.0-34.0 [facility] Comment on above: Performed By: #### 2 613581, 3965119, 53871557, 5283866 #### [facility] [address] [place] [address] MCHC (RBC) [Mass/Vol] 32.9 g/dL Normal 31.4-36.0 [facility] Comment on above: Performed By: #### 2 886996, 3287609, 46118125, 9984917 #### [facility] [address] [place] [address] MCV (RBC) [Entitic vol] 91.5 fL Normal 80.0-100.0 [facility] Comment on above: Performed By: #### 2 895417, 2128031, 79781872, 9188633 #### [facility] [address] [place] [address] Platelet mean volume (Bld) [Entitic vol] 8.8 fL Normal 6.4-10.8 [facility] Comment on above: Performed By: #### 2 880004, 9727111, 09076793, 2635415 #### [facility] [address] [place] [address] Platelets (Bld) [#/Vol] 163.0 E9/L Normal 150.0-500.0 [facility] Comment on above: Performed By: #### 2 840951, 5339614, 65983601, 5857967 #### [facility] [address] [place] [address] RBC (Bld) [#/Vol] 3.0 E12/L Low 4.3-5.9 [facility] Comment on above: Performed By: #### 2 218110, 7276530, 00360034, 5577772 #### [facility] [address] [place] [address] WBC corrected for nucl RBC Auto (Bld) [#/Vol] 6.6 E9/L Normal 4.0-11.0 [facility] Comment on above: Performed By: #### 2 712466, 0045144, 27394424, 7447726 #### [facility] [address] [place] [address] CHEMISTRYOrdered By: SYSTEM SYSTEM on 11-17-2022 Anion gap [Moles/Vol] 8 mmol/L Normal 6 - 16 mEq/L [facility] Calcium [Mass/Vol] 8.5 mg/dL Low 8.9 - 11. 1 mg/dL [facility] Chloride [Moles/Vol] 107 mmol/L Normal 101 - 1 11 mmol/L [facility] CO2 [Moles/Vol] 25 mmol/L Normal 21 - 31 mmol/L [facility] Creatinine [Mass/Vol] 0.5 mg/dL Normal 0.5 - 1.3 mg/dL [facility] GFR/1.73 sq M.predicted among non-blacks MDRD (S/P/Bld) [Vol rate/Area] 133 mL/min/1.73 m2 Normal >=59mL/min/1 .73 m2 [facility] Chem S Glucose [Mass/Vol] 89 mg/dL Normal [...] Due Date/Time: 11/18/2022 13:31:00 EDT Caller Name: FACUNDO OHLIKAPIL Orozco; Caller Number: Goldy , Shae Jessi Burnham but can you answer this query? I see you are doing the discharge. Thanks Mine - From: Chacha Ambriz PA-C To: Mine Taylor RN; Sent: 11/17/2022 15:40:21 EDT Subject: RE: Coding Query Caller Name: SHAHIDA [place]; Caller Number: Goldy , Shae Acute blood loss anemia Normal [facility] Discharge Instructionson Discharge Instructions [id number] [facility] [id number] 5#1.00CD:127 Normal [facility] HEMATOLOGYOrdered By: SYSTEM SYSTEM on 11-17-2022 [...] 6.6 E9/L Normal 4.0 - 11.0 E9/L [facility] HemeAutoSS Inpatient Patient Summaryon 11-17-2022 Inpatient Patient [...] Pending Diagnostic Test Results None Pharmacy Information [facility] Discharge Instructions Do not lift heavier than 20 pounds for the next 4 to 6 weeks to prevent a hernia. May shower normally. No swimming, soaking, bathing for 4 weeks. Follow-up with the hand surgeon at [facility] regarding outpatient hand surgery. Previously Scheduled Follow-Up Appointments Tuesday 10:00 AM EDT Where: [facility] New Follow Up Appointments after Discharge Follow Up with trauma clinic When: 11/26/2022 10:00 AM EDT Comments: Postop follow-up and staple removal. Where: [address] [place] [address] 3, second floor, [address] [place] [address]- [phone] Follow Up with AYE VICENTE MD When: [...] with [facility]. Thank you! Where: [address] [place] [address]- Business (1) Medications What How Much When Instructions Next Dose New acetaminophen (acetaminophen 325 mg Tab) 3 Tablets By Mouth Every 6 hours 11/17 5pm New methocarbamol (Robaxin 500 mg Tab) 1 Tablets By Mouth 4 times a day as needed for Spasm Duration: 7 Days Pickup at [facility] #76098 As needed (last dose 11/17 9am)_ New naproxen (Naprosyn 500 mg Tab) 1 Tablets By Mouth 2 times a day Duration: 7 Days with food Pickup at [facility] #07415 May take as needed Pharmacy Information [facility] #[id number]: [address] [place], [place] [id number] [phone] What When Comments Stop Taking sofosbuvir-velpatasv ir [...] what dressing supp (more content not included)... Normal [facility] Insurance Correspondence Off iceon 11-17-2022 Insurance Correspondence Office [id number] 8#1.00CD:127 [facility] Interdisciplinary Note - Luis e Manageron 11-17-2022 Interdisciplinary Note - Diabetic Educator CRM spoke with patient in room. Patient is alert and oriented and participates in discharge planning. No family in room. Patient white board updated, and CRM contact information provided. Patient states Dr Clements saw patient earlier today and she will be discharged home today and will f/u with [facility] Tuesday for surgery and they will call her Tuesday for pre op instructions. Patient denies any needs at discharge and states her girlfriends daughter will transport her home. . Normal [facility] Comment on above: Result Comment: Elec tronically Signed By: Mario COLLINS, Joanne\.br\Date and Time Signed: 11/17/22 12:05 EDT Magnesiumon 11-17-2022 Magnesium [Mass/Vol] 1.8 mg/dL Normal 1.3-2.4 [facility] Comment on above: Performed By: #### 2 881705, 1305241, 59332679, 5460929 #### [facility] [address] [place] [address] Main OR Intraoperative Recor don 11-17-2022 Main OR Intraoperative Record IntraOp Document Type FT Summary Primary Physician: Christiano Marion MD Finalized Date/Time: 11/17/22 10:36:38 Pt. Name: SHAHIDA [place]./Sex: 1995 Female Med Rec #: [id number] Physician: Christiano Marion MD Financial #: [id number] Pt. Type: I Room/Bed: [place] [address] Admit/Disch: 11/14/22 23:26:23 - Institution: Case Times [...] 3 Case Attendee Christiano Marion MD, MD, Darling Pritchett RN Role Performed Surgeon - Primary Anesthesiologist of Manager Photography - Primary Record Time In 11/15/22 01:08:00 11/15/22 01:08:00 11/15/22 01:08:00 Time Out 11/15/22 04:02:00 11/15/22 04:02:00 11/15/22 04:02:00 Procedure LAPAROTOMY EXPLORATORY LAPAROTOMY EXPLORATORY LAPAROTOMY EXPLORATORY Comments Last Modified By: Ashu COLLINS, Darling Wakefield RN, Darling Tuttle RN 11/15/22 04:07:58 11/15/22 04:07:58 11/15/22 04:07:58 Entry 4 Entry 5 Case Attendee Zoya Del Valle CST, Benjamin Role Performed Scrub - Primary MONITOR AND STORAGE BIN TENDER/SA Time In 11/15/22 01:08:00 11/15/22 01:08:00 Time [...] (If Applicable) PreOp Antibiotic Yes Time Out Doni GIRALDO, Christiano Marie, Given Participants MD Bertha, Iron Agee CST, [...] for sign (more content not included)... Normal [facility] Phosphoruson 11-17-2022 Phosphate [Mass/Vol] 3.4 mg/dL Normal 1.9-4.6 [facility] Comment on above: Performed By: #### 2 983707, 7539183, 89981276, 0925400 #### [facility] [address] [place] [address] Progress Note-Physicianon Progress Note-Physician Patient: ADRIANO, SHAHIDA K Age: 27 years Sex: Female : 1995 Associated Diagnoses: None Author: MD Stone Ahmad F Postoperative Information Postoperative disposition: Postoperative disposition: To PACU. Optimetrix number: Optimetrix number [id number]. Anesthetic utilized: General. Health Status Allergies: Allergic [...] meets criteria ( To home ). Normal [facility] Comment on above: Result Comment: Elec [...] 1 po bid days 4-7, [facility] #[id number], Supply, 170, cm, 08/26/22 14:06:00 EST, Height/Length Dosing, 67.4, kg, 08/26/22 14:06:00 EST, Weight Dosing APO-Varenicline 1mg: APO-Varenicline 1mg, See Instructions, 60 tab(s), 3, Take 1 po BID day 8 and after, [facility] #[id number], Supply, 170, cm, 08/26/22 14:06:00 EST, Height/Length Dosing, 67.4, kg, 08/26/22 14:06:00 EST, Weight Dosing Documented Medications Documented sofosbuvir-velpatasv ir 400 mg-100 mg oral tablet: Refills(s) 0 Problem list: All Problems Bipolar 1 disorder, mixed / SNOMED CT 01175946 / Confirmed BMI 24.0-24.9, adult / SNOMED CT 6467870678 / Confirmed Chronic hepatitis C / SNOMED CT 181607955 / Confirmed Drug addiction in remission / SNOMED CT 2384974538 / Confirmed Maternal tobacco use / SNOMED CT 7832659561 / Confirmed Maternal tobacco use / SNOMED CT 1813913465 / Confirmed Nicotine addiction / SNOMED CT 61953259 / Confirmed Resolved: feet / SNOMED CT 816984141 metal implation to tighten tedons Resolved: / SNOMED CT 589290868 Resolved: Seizures / SNOMED CT [id number]-L [id number] Canceled: Anxious depression / SNOMED CT 234345986 Canceled: Depression / SNOMED CT 646585092 Canceled: Diarrhea / SNOMED CT 377066590 Canceled: Fever / SNOMED CT 7594885433 Canceled: HCV infection / SNOMED CT 82191015 Canceled: High urine creatine / SNOMED CT 393249 Canceled: Smoker / IMO 661530 Added secondary to documentation in Social History. Canceled: Suicide / SNOMED CT 69808601 Canceled: Tonsillar cyst / SNOMED CT 693992493 Histories Past Medical History: Resolved (530856597): Onset on 05/18/2020 at 25 years. Resolved. feet (983646388): Resolved. Comments: 11/08/2011 EDT 3:54 Elsa Mayes RN metal implation to tighten tedons Seizures ([id number]): Resolved. Family History: Renal failure syndrome Father Comments: 11/08/2011 3:57 Elsa Mayes RN cancer of the kidneys Bipolar Sister Procedure history: Betamethasone (902132281) on 12/15/2020 at 25 Years. Foot repair (310930516). Social History Social & Psychosocial Habits Alcohol [...] Methamphetamines Comment: (more content not included)... Normal [facility] Comment on above: Result Comment: Elec tronically Signed By: MD Stone Ahmad F\.br\Date and Time Signed: 11/15/22 02:22 EDT Progress Note-Physician Patient: SHAHIDA [place] Age: 27 years Sex: Female : 1995 Associated Diagnoses: None Author: MD Stone Ahmad F Preoperative Information Anesthesia Preop Information NPO status [...] day(s), # 14 tab(s), Refills(s) 0, [facility]: [id number], 157, cm, 11/14/22 23:32:00 EDT, Height/Length Dosing, 66.5, kg, 11/14/22 23:32:00 EDT, Weight Dosing Robaxin 500 mg Tab: 500 mg = 1 tab(s), Oral, QID, PRN Spasm, X 7 day(s), # 28 tab(s), Refills(s) 0, Pharmacy: [facility] #[id number], 157, cm, 11/14/22 23:32:00 EDT, Height/Length Dosing, 66.5, kg, 11/14/22 23:32:00 EDT, Weight Dosing Documented Medications Documented acetaminophen 325 mg Tab: 975 mg = 3 tab(s), Oral, q6hr, Refills(s) 0 Problem list: All Problems Bipolar 1 disorder, mixed / SNOMED CT 28646425 / Confirmed BMI 24.0-24.9, adult / SNOMED CT 5022504933 / Confirmed Chronic hepatitis C / SNOMED CT 118323537 / Confirmed Drug addiction in remission / SNOMED CT 5415206770 / Confirmed Maternal tobacco use / SNOMED CT 4362360983 / Confirmed Maternal tobacco use / SNOMED CT 1419406610 / Confirmed Nicotine addiction / SNOMED CT 39141717 / Confirmed Resolved: feet / SNOMED CT 565024675 metal implation to tighten tedons Resolved: Impaired skin integrity / SNOMED CT 72851547 Problem added on documentation of skin impairments. Resolved due to patient discharge. Resolved: / SNOMED CT 411499686 Resolved: Seizures / SNOMED CT [id number]-Z [id number] Canceled: Anxious depression / SNOMED CT 367422974 Canceled: Depression / SNOMED CT 298313640 Canceled: Diarrhea / SNOMED CT 778417156 Canceled: Fever / SNOMED CT 2507587810 Canceled: HCV infection / SNOMED CT 85885850 Canceled: High urine creatine / SNOMED CT 824420 Canceled: Smoker / IMO 319995 Added secondary to documentation in Social History. Canceled: Suicide / SNOMED CT 82423883 Canceled: Tonsillar cyst / SNOMED CT 426364884 Histories Past Medical History: Resolved (822615160): Onset on 05/18/2020 at 25 years. Resolved. feet (098045082): Resolved. Comments: 11/08/2011 EDT 3:54 PAMELAT - Lida COLLINS, Elsa metal implation to tighten tedons Seizures ([id number]): Resolved. Family History: Renal failure syndrome Father Comments: 11/08/2011 3:57 Elsa Mayes RN cancer of the kidneys Bipolar Sister Procedure history: Betamethasone (562417830) on 12/15/2020 at 25 Years. Foot repair (500176295). Social History Social & Psychosocial Habits Alcohol 11/08/2011 Risk Assessment: Denies Alcohol Use 11/15/2022 Use: Current Frequency: 1-2 times per month Employment/School 11/08/2011 Status: Student Exerci (more content not included)... Normal [facility] Comment on above: Result Comment: Elec tronically Signed By: MD Bertha, Herminio Pope\.br\Date and Time Signed: 11/17/22 15:59 EDT eGFRon 11-17-2022 GFR/1.73 sq M.predicted among non-blacks MDRD (S/P/Bld) [Vol rate/Area] 133 mL/min/1.73 m2 Normal >=59 [facility] Comment on above: Order Comment: Order added by Discern Expert. Result Comment: Gun Number rosie kidney disease could be indicated at eGFR's of less than 60 mL/min/1.73m2. Kidney failure is indicated at less than 15 mL/min/1.73m2. Performed By: #### 2 613559, 3132668, 22192690, 3913492 #### [facility] [address] [place] [address] Auto Diffon 11-16-2022 Basophils/100 WBC (Bld) 0.4 % Normal 0.0-2.0 [facility] Comment on above: Order Comment: Order Added by Discern Expert. Performed By: #### 2 808152, 8477483, 1738470, 5258516, 8506726, 34175564, 2476107 #### [facility] [address] [place] [address] Basophils/Leukocytes Auto (Bld) [Pure # fraction] 0.0 E9/L Normal 0.0-0.2 [facility] Comment on above: Order Comment: Order Added by Discern Expert. Performed By: #### 2 438235, 5826441, 8168631, 9047956, 4375488, 15276666, 5773933 #### [facility] [address] [place] [address] Eosinophils/100 WBC (Bld) 0.5 % Normal 0.0-8.0 [facility] Comment on above: Order Comment: Order Added by Discern Expert. Performed By: #### 2 133255, 4689864, 4480798, 8412191, 6299759, 70832944, 0232617 #### [facility] [address] [place] [address] Eosinophils/Leukocytes Auto (Bld) [Pure # fraction] 0.0 E9/L Normal 0.0-0.5 [facility] Comment on above: Order Comment: Order Added by Discern Expert. Performed By: #### 2 047105, 0560795, 7139538, 0734168, 3196557, 50045910, 7706253 #### [facility] [address] [place] [address] Lymphocytes/100 WBC (Bld) 33.3 % Normal 14.0-50.0 [facility] Comment on above: Order Comment: Order Added by Esme Expert. Performed By: #### 2 623117, 6259405, 2215966, 9487979, 4402075, 57232313, 4709470 #### [facility] [address] [place] [address]70[address] Lymphocytes/Leukocytes Auto (Bld) [Pure # fraction] 3.4 E9/L Normal 1.0-4.0 [facility] Comment on above: Order Comment: Order Added by Discern Expert. Performed By: #### 2 602463, 9592728, 4778389, 7157829, 0592700, 00957951, 8156739 #### [facility] [address] [place] [address] Monocytes/100 WBC (Bld) 5.9 % Normal 4.0-14.0 [facility] Comment on above: Order Comment: Order Added by Discern Expert. Performed By: #### 2 951864, 7614766, 8573599, 7517506, 5339288, 99072129, 8839450 #### [facility] [address] [place] [address] Monocytes/Leukocytes Auto (Bld) [Pure # fraction] 0.6 E9/L Normal 0.2-1.0 [facility] Comment on above: Order Comment: Order Added by Discern Expert. Performed By: #### 2 937364, 7300260, 3983561, 5996549, 7559251, 36071108, 8601568 #### [facility] [address] [place] [address] Neutrophils/100 WBC (Bld) 59.9 % Normal 36.0-75.0 [facility] Comment on above: Order Comment: Order Added by Discern Expert. Performed By: #### 2 064953, 9641485, 7735676, 1513968, 0187219, 23592948, 1153185 #### [facility] [address] [place] [address] Neutrophils/Leukocytes Auto (Bld) [Pure # fraction] 6.2 E9/L Normal 2.0-7.5 [facility] Comment on above: Order Comment: Order Added by Discern Expert. Performed By: #### 2 601668, 6877075, 8023032, 0860169, 9263341, 17351438, 9456361 #### [facility] [address] [place], [place] [address], [place] [address] BMPon 11-16-2022 Anion gap [Moles/Vol] 5 mmol/L Low 6-16 [facility] Comment on above: Order Comment: DENNIS tamayo aware in as RN collect, will correct...[facility] 11/16/2022 03:05:16 EDT Performed By: #### 2 923935, 7376446, 5015094, 6852575, 0581287, 91830313, 3454436 ####[facility] [address] [place] [address] Calcium [Mass/Vol] 8.1 mg/dL Low 8.9-11.1 [facility] Comment on above: Order Comment: DENNIS tamayo aware in as RN collect, will correct...[facility] 11/16/2022 03:05:16 EDT Performed By: #### 2 803134, 6373232, 0174807, 1766213, 5006478, 14130066, 9827331 ####[facility] [address] [place] [address] Chloride [Moles/Vol] 110 mmol/L Normal 101-111 [facility] Comment on above: Order Comment: DENNIS henriquez in as RN collect, will correct...[facility] 11/16/2022 03:05:16 EDT Performed By: #### 2 946163, 5662965, 7846657, 8413704, 3685406, 46274485, 4621184 ####[facility] [address] [place] [address] CO2 [Moles/Vol] 25 mmol/L Normal 21-31 [facility] Comment on above: Order Comment: DENNIS tamayo aware in as RN collect, will correct...[facility] 11/16/2022 03:05:16 EDT Performed By: #### 2 422721, 8711101, 8351590, 5198228, 3418545, 38505648, 2395436 ####[facility] [address] [place] [address] Creatinine [Mass/Vol] 0.5 mg/dL Normal 0.5-1.3 [facility] Comment on above: Order Comment: DENNIS tamayo aware in as RN collect, will correct...[facility] 11/16/2022 03:05:16 EDT Performed By: #### 2 954378, 5367394, 0592615, 9122132, 8086239, 00532229, 4185714 ####[facility] [address] [place] [address] Glucose [Mass/Vol] 90 mg/dL Normal 55-199 [facility] Comment on above: Order Comment: DENNIS tamayo aware in as RN collect, will correct...[facility] 11/16/2022 03:05:16 EDT Result Comment: If t his glucose result represents a fasting glucose, interpretation should refer to the following reference range: 55-99 mg/dL Performed By: #### 2 930577, 3051914, 8080027, 7399064, 7377233, 75294709, 2199235 ####[facility] [address] [place] [address] Potassium [Moles/Vol] 3.9 mmol/L Normal 3.5-5.3 [facility] Comment on above: Order Comment: DENNIS tamayo aware in as RN collect, will correct...[facility] 11/16/2022 03:05:16 EDT Performed By: #### 2 379320, 4612189, 0114330, 6831313, 3331183, 19860491, 9337299 ####[facility] [address] [place] [address] Sodium [Moles/Vol] 136 mmol/L Normal 135-145 [facility] Comment on above: Order Comment: DENNIS tamayo aware in as RN collect, will correct...[facility] 11/16/2022 03:05:16 EDT Performed By: #### 2 226627, 0057236, 8384369, 6542164, 1015927, 48720832, 1821927 ####[facility] [address] [place] [address] Urea nitrogen [Mass/Vol] 11 mg/dL Normal 5-21 [facility] Comment on above: Order Comment: DENNIS tamayo aware in as RN collect, will correct...[facility] 11/16/2022 03:05:16 EDT Performed By: #### 2 289953, 2097874, 9519479, 4553398, 8622334, 71922756, 0127789 ####[facility] [address] [place] [address] Urea nitrogen/Creatinine [Mass ratio] 22 No Units High 10-20 [facility] Comment on above: Order Comment: DENNIS tamayo aware in as RN collect, will correct...[facility] 11/16/2022 03:05:16 EDT Performed By: #### 2 479428, 9547976, 8602809, 7581275, 5077782, 85651406, 6143155 ####[facility] [address] [place] [address] CBC w/ Auto Diffon 3 Erythrocyte distribution width (RBC) [Ratio] 13.8 % Normal 10.9-14.2 [facility] Comment on above: Performed By: #### 2 767763, 7128655, 4837607, 4351619, 4885046, 64940465, 4253162 #### [facility] [address] [place] [address] Hematocrit (Bld) [Volume fraction] 29.3 % Low 34.0-46.0 [facility] Comment on above: Performed By: #### 2 129920, 4476753, 5126697, 5505132, 1612195, 11235696, 6490486 #### [facility] [address] [place] [address] Hemoglobin (Bld) [Mass/Vol] 9.7 g/dL Low 12.0-16.0 [facility] Comment on above: Performed By: #### 2 844624, 3869492, 4224152, 7928197, 1746581, 22193409, 0697220 #### [facility] [address] [place] [address] MCH (RBC) [Entitic mass] 30.0 pg Normal 27.0-34.0 [facility] Comment on above: Performed By: #### 2 012250, 3935224, 0519946, 9609849, 8853293, 49519595, 2605423 #### [facility] [address] [place] [address] MCHC (RBC) [Mass/Vol] 33.3 g/dL Normal 31.4-36.0 [facility] Comment on above: Performed By: #### 2 601379, 5842073, 0435677, 4194576, 8887380, 76663256, 8487625 #### [facility] [address] [place], [place] [address] MCV (RBC) [Entitic vol] 90.0 fL Normal 80.0-100.0 [facility] Comment on above: Performed By: #### 2 749874, 1894071, 7257623, 5612484, 1678307, 77234631, 8331720 #### [facility] [address] [place] [address] Platelet mean volume (Bld) [Entitic vol] 8.7 fL Normal 6.4-10.8 [facility] Comment on above: Performed By: #### 2 295948, 5637782, 1660781, 6752295, 1145967, 54392856, 4414417 #### [facility] [address] [place] [address] Platelets (Bld) [#/Vol] 172.0 E9/L Normal 150.0-500.0 [facility] Comment on above: Performed By: #### 2 460829, 5514348, 4738499, 5387558, 5950508, 51427040, 0783031 #### [facility] [address] [place] [address] RBC (Bld) [#/Vol] 3.2 E12/L Low 4.3-5.9 [facility] Comment on above: Performed By: #### 2 025616, 9057536, 3570299, 9959756, 4046371, 95735751, 0879543 #### [facility] [address] [place] [address] WBC corrected for nucl RBC Auto (Bld) [#/Vol] 10.3 E9/L Normal 4.0-11.0 [facility] Comment on above: Performed By: #### 2 744438, 5295970, 3127783, 1955315, 8536543, 23145448, 4288461 #### [facility] [address] [place] [address] CHEMISTRYOrdered By: SYSTEM SYSTEM on 11-16-2022 Anion [...] 133 mL/min/1.73 m2 Normal >=59mL/min/1 .73 m2 [facility] Chem S Glucose [Mass/Vol] 90 mg/dL Normal 55 - 199 mg/dL [facility] Magnesium [Mass/Vol] 1.8 mg/dL Normal 1.3 - 2 .4 mg/dL [facility] Phosphate [Mass/Vol] 2.7 mg/dL Normal 1.9 - 4 .6 mg/dL [facility] Potassium [Moles/Vol] 3.9 mmol/L Normal 3.5 - 5.3 mmol/L [facility] Sodium [Moles/Vol] 136 mmol/L Normal 135 - 145 mmol/L [facility] Urea nitrogen [Mass/Vol] 11 mg/dL Normal 5 - 21 mg/dL [facility] Urea nitrogen/Creatinine [Mass ratio] 22 mg/mg High 10 - 20 [facility] HEMATOLOGYOrdered By: SYSTEM SYSTEM on 11-16-2022 [...] 8.7 fL Normal 6.4 - 10.8 fL FT HemeAutoSS Platelets (Bld) [#/Vol] 172.0 E9/L Normal 150. 0 - 500.0 E9/L [facility] HemeAutoSS RBC (Bld) [#/Vol] 3.2 E12/L Low 4.3 - 5.9 E12/L [facility] HemeAutoSS WBC corrected for nucl RBC Auto (Bld) [#/Vol] 10.3 E9/L Normal 4.0 - 11.0 E9/L [facility] HemeAutoSS Interdisciplinary Note - Luis e Manageron 11-16-2022 Interdisciplinary Note - Diabetic Educator Pt is awaiting bed to [facility]. David dc TBD. CRM to follow. Normal [facility] Comment on above: Result Comment: Elec tronically Signed By: Shanti Reed\.br\Date and Time Signed: 11/16/22 11:01 EDT Laboratory - Chemistry and C hemistry - challengeOrdered By: SYSTEM SYSTEM on 11-16-2022 Calcium [Mass/Vol] 8.1 mg/dL Low 8.9 - 11. 1 mg/dL [facility] Remisol Magnesiumon 11-16-2022 Magnesium [Mass/Vol] 1.8 mg/dL Normal 1.3-2.4 [facility] Comment on above: Performed By: #### 2 765094, 4018565, 3846792, 2697534, 3794275, 64361326, 0498439 ####[facility] [address] [place] [address] Phosphoruson 11-16-2022 Phosphate [Mass/Vol] 2.7 mg/dL Normal 1.9-4.6 [facility] Comment on above: Performed By: #### 2 248222, 7877400, 7428132, 0613714, 3110174, 71926032, 7706573 ####[facility] [address] [place] [address] eGFRon 11-16-2022 GFR/1.73 sq M.predicted among non-blacks MDRD (S/P/Bld) [Vol rate/Area] 133 mL/min/1.73 m2 Normal >=59 [facility] Comment on above: Order Comment: Order added by Discern Expert. Result Comment: Gun Number rosie kidney disease could be indicated at eGFR's of less than 60 mL/min/1.73m2. Kidney failure is indicated at less than 15 mL/min/1.73m2. Performed By: #### 2 336337, 4564691, 8934636, 0164485, 9244097, 42009621, 8677678 ####[facility] [address] [place] [address] ABO/Rhon 11-15-2022 ABO/Rh Positive Invalid Interpretation Code [facility] Comment on above: Performed By: #### 1 6373566, 67139141, 22172584, 7032552 ####[facility] [address] [place] [address] ABO/Rh History Checkon 11-15 ABO/Rh History Check Verified Hx Blood Type Normal [facility] Comment on above: Performed By: #### 1 0522085, 44898834, 27263003, 9102306 ####[facility] [address] [place] [address] ABSCon 11-15-2022 ABSC Gel Interp Negative Normal [facility] Comment on above: Performed By: #### 1 3235846, 18372358, 42018602, 7059945 ####[facility] [address] [place] [address] Auto Diffon 11-15-2022 Basophils/100 WBC (Bld) 0.2 % Normal 0.0-2.0 [facility] Comment on above: Order Comment: Order Added by Discern Expert. Performed By: #### 2 549271, 2264563, 84313894, 8238005 #### [facility] [address] [place] [address] Basophils/Leukocytes Auto (Bld) [Pure # fraction] 0.0 E9/L Normal 0.0-0.2 [facility] Comment on above: Order Comment: Order Added by Discern Expert. Performed By: #### 2 594139, 9278252, 05243429, 4159555 #### [facility] [address] [place] [address] Eosinophils/100 WBC (Bld) 0.1 % Normal 0.0-8.0 [facility] Comment on above: Order Comment: Order Added by Discern Expert. Performed By: #### 2 947799, 2503698, 64478483, 5535556 #### [facility] [address] [place] [address] Eosinophils/Leukocytes Auto (Bld) [Pure # fraction] 0.0 E9/L Normal 0.0-0.5 [facility] Comment on above: Order Comment: Order Added by Discern Expert. Performed By: #### 2 973143, 0303835, 72777642, 6850399 #### [facility]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 0.0-0.7 [facility] Comment on above: Performed By: #### C BC #### [facility] [address] [place], [place] [id number] Robbie Vi Eosinophils/100 WBC (Bld) 0.2 % Critically low 0.9-7.0 [facility] Comment on above: Performed By: #### C BC #### [facility] [address] [place] [address] Robbie Vi Erythrocyte distribution width (RBC) [Ratio] 12.7 % Normal 11.0-15.0 [facility] Comment on above: Performed By: #### C BC #### [facility] [address] [place] [address] Robbie Lebron Hematocrit (Bld) [Volume fraction] 31.5 % Critically low 36.0-48.0 [facility] Comment on above: Performed By: #### C BC #### [facility] [address] [place] [address] Robbie Lebron Hemoglobin (Bld) [Mass/Vol] 10.2 g/dL Critically low 12.0-16.0 [facility] Comment on above: Performed By: #### C BC #### [facility] [address] [place] [address] Robbienicky Lebron IG # 0.05 10e3/ul Critically high 0.00-0.03 [facility] Comment on above: Performed By: #### C BC #### [facility] [address] [place] [address] Robbie Lebron IG % 0.4 % Normal 0.0-0.5 [facility] Comment on above: Performed By: #### C BC #### [facility] [address] [place] [address] Robbie Lebron LYMPH # 2.2 103/ul Normal 1.2-3.8 [facility] Comment on above: Performed By: #### C BC #### [facility] [address] [place] [address] Robbie Lebron Lymphocytes/100 WBC (Bld) 18.3 % Critically low 20.5-60.0 [facility] Comment on above: Performed By: #### C BC #### [facility] [address] [place] [address] Robbie Lebron MANUAL DIFF REQ NO Normal [facility] Comment on above: Performed By: #### C BC #### [facility] [address] [place] [address] Robbie Lebron MCH (RBC) [Entitic mass] 31.4 pg Normal 26.7-34.0 [facility] Comment on above: Performed By: #### C BC #### [facility] [address] [id number] Robbie Lebron MCHC (RBC) [Mass/Vol] 32.4 g/dL Normal 29.9-35.2 [facility] Comment on above: Performed By: #### C BC #### [facility] [address] [id number] Robbie Lebron MCV (RBC) [Entitic vol] 96.9 fL Normal 81.0-99.0 [facility] Comment on above: Performed By: #### C BC #### [facility] [address] [place] [id number] Robbie Lebron MONO # 1.1 103/ul Critically high 0.3-0.8 [facility] Comment on above: Performed By: #### C BC #### [facility] [address] [place] [address] Robbie Lebron Monocytes/100 WBC (Bld) 9.4 % Normal 1.7-12.0 [facility] Comment on above: Performed By: #### C BC #### [facility] [address] [place], [place] [address] Robbie Lebron NEUT # 8.6 103/ul Critically high 1.4-6.5 [facility] Comment on above: Performed By: #### C BC #### [facility] [address] [place], [place] [address] Robbie Lebron Neutrophils/100 WBC (Bld) 71.5 % Normal 43.0-75.0 [facility] Comment on above: Performed By: #### C BC #### [facility] [address] [id number] Robbie Lebron Platelet mean volume (Bld) [Entitic vol] 10.6 fL Normal 9.5-13.5 [facility] Comment on above: Performed By: #### C BC #### [facility] [address] [id number] Robbienicky Lebron PLT 201 103/ul Normal 150-450 [facility] Comment on above: Performed By: #### C BC #### [facility] [address] [place], [place] [address] Robbie Lebron RBC 3.25 106/ul Critically low 4.20-5.40 [facility] Comment on above: Performed By: #### C BC #### [facility] [address], [place] [address] Robbie Lebron WBC 12.1 103/ul Critically high 4.0-11.0 [facility] Comment on above: Performed By: #### C BC #### [facility] [address] [place], [place] [id number] Robbie Lebron ASYMPTOMATIC COVID-19 ANTIGE Non 02-15-2021 EUA Statement SEE BELOW Normal [facility] Comment on above: Result Comment: This [...] sooner. Performed By: #### C VDAGA #### [facility] [address] [place], [place] [address] Robbie Lebron SARS-CoV-2 (COVID-19) RNA ESTELA+probe Ql (Unsp spec) Negative Normal NEGATIVE [facility] Comment on above: Result Comment: Nega tive results are presumptive. They do not preclude infection and should not be used as the sole basis for treatment decisions. Additional confirmatory testing by a molecular method should be considered. Performed By: #### C VDAGA #### [facility] [address] [place], [place] [id number] Robbie Lebron CBC AUTO DIFFon 02-15-2021 BASO # 0.0 103/ul Normal 0.0-0.1 [facility] Comment on above: Performed By: #### C BC #### [facility] [address] [place], [place] [address] Robbie Vi Basophils/100 WBC (Bld) 0.2 % Normal 0.2-2.0 [facility] Comment on above: Performed By: #### C BC #### [facility] [address] [place], [place] [address] Robbie Vi EO # 0.0 103/ul Normal 0.0-0.7 [facility] Comment on above: Performed By: #### C BC #### [facility] [address] [place], [place] [address] Robbie Vi Eosinophils/100 WBC (Bld) 0.0 % Critically low 0.9-7.0 [facility] Comment on above: Performed By: #### C BC #### [facility] [address] [place], [place] [id number] Robbie Vi Erythrocyte distribution width (RBC) [Ratio] 12.5 % Normal 11.0-15.0 [facility] Comment on above: Performed By: #### C BC #### [facility] [address] [place], [place] [phone] Robbie Vi Hematocrit (Bld) [Volume fraction] 35.0 % Critically low 36.0-48.0 [facility] Comment on above: Performed By: #### C BC #### [facility] [address] [place], [place] [address] Robbie Vi Hemoglobin (Bld) [Mass/Vol] 11.5 g/dL Critically low 12.0-16.0 [facility] Comment on above: Performed By: #### C BC #### [facility] [address] [place], [place] [address] Robbie Vi IG # 0.04 10e3/ul Critically high 0.00-0.03 [facility] Comment on above: Performed By: #### C BC #### [facility] [address] [place], [place] [address] Robbie Vi IG % 0.4 % Normal 0.0-0.5 [facility] Comment on above: Performed By: #### C BC #### [facility] [address] [place], [place] [address] Robbie Vi LYMPH # 2.0 103/ul Normal 1.2-3.8 [facility] Comment on above: Performed By: #### C BC #### [facility] [address] [place], [place] [address] Robbie Vi Lymphocytes/100 WBC (Bld) 18.6 % Critically low 20.5-60.0 [facility] Comment on above: Performed By: #### C BC #### [facility] [address] [place], [place] [address] Robbie Vi MANUAL DIFF REQ NO Normal [facility] Comment on above: Performed By: #### C BC #### [facility] [address] [place] [address] Robbie Vi MCH (RBC) [Entitic mass] 31.0 pg Normal 26.7-34.0 [facility] Comment on above: Performed By: #### C BC #### [facility] [address] [place], [place] [address] Robbienicky Gonzalezen MCHC (RBC) [Mass/Vol] 32.9 g/dL Normal 29.9-35.2 [facility] Comment on above: Performed By: #### C BC #### [facility] [address] [place], [place] [address] Robbie Vi MCV (RBC) [Entitic vol] 94.3 fL Normal 81.0-99.0 [facility] Comment on above: Performed By: #### C BC #### [facility] [address] [place], [place] [address] Robbie Vi MONO # 0.8 103/ul Normal 0.3-0.8 [facility] Comment on above: Performed By: #### C BC #### [facility] [address] [place], [place] [address] Robbie Vi Monocytes/100 WBC (Bld) 7.0 % Normal 1.7-12.0 [facility] Comment on above: Performed By: #### C BC #### [facility] [address], [place] [address] Robbie Vi NEUT # 8.0 103/ul Critically high 1.4-6.5 [facility] Comment on above: Performed By: #### C BC #### [facility] Laboratory [address], [place] [address] Robbie Vi Neutrophils/100 WBC (Bld) 73.8 % Normal 43.0-75.0 [facility] Comment on above: Performed By: #### C BC #### [facility] [address] [id number] Robbie Vi Platelet mean volume (Bld) [Entitic vol] 10.2 fL Normal 9.5-13.5 [facility] Comment on above: Performed By: #### C BC #### [facility] [address] [place], [place] [id number] Robbie Vi PLT 232 103/ul Normal 150-450 [facility] Comment on above: Performed By: #### C BC #### [facility] [address] [place], [place] [id number] Robbie Vi RBC 3.71 106/ul Critically low 4.20-5.40 [facility] Comment on above: Performed By: #### C BC #### [facility] [address] [place], [place] [id number] Robbie Vi WBC 10.8 103/ul Normal 4.0-11.0 [facility] Comment on above: Performed By: #### C BC #### [facility] [address] [place], [place] [id number] Robbie Vi DRUG SCREEN RAPID (URINE)on 02-15-2021 AMP Negative Normal NEGATIVE [facility] Comment on above: Performed By: #### D RUGRPD #### [facility] [address] [place], [place] [id number] Robbie Vi BAR Negative Normal NEGATIVE [facility] Comment on above: Performed By: #### D RUGRPD #### [facility] [address] [place], [place] [id number] Robbie Vi BUP Negative Normal NEGATIVE [facility] Comment on above: Performed By: #### D RUGRPD #### [facility] [address] [place] [address] Robbie Vi BZO Negative Normal NEGATIVE [facility] Comment on above: Performed By: #### D RUGRPD #### [facility] [address] [place] [address] Robbie Vi SAMANTHA Negative Normal NEGATIVE [facility] Comment on above: Performed By: #### D RUGRPD #### [facility] [address] [place] [address] Robbie Vi CUT-OFFS SEE BELOW Normal [facility] Comment on above: Result Comment: AMP (Amphetamine): 500ng/mL, BAR (Barbituates): 200 ng/mL, BZO (Benzodiazepines): 150 ng/mL, BUP (Buprenorphine): 10 ng/mL, SAMANTHA (Cocaine): 150 ng/mL, mAMP (Methamphetamine): 500 ng/mL, MTD (Methadone): 200 ng/mL, OPI (Opiates): 100 ng/mL, OXY (Oxycodone): 100 ng/mL, PCP (Phencyclidine): 25 ng/mL, PPX (Propoxyphene): 300 ng/mL, THC (Cannabinoids): 50 ng/mL, TCA (Trycyclic Antidepressants): 300 ng/mL Performed By: #### D RUGRPD #### [facility] [address] [place] [address] Robbie Vi DRUG CUT HEADER DRUG CLASS TEST SYSTEM CUT-OFF CONCENTRATIONS ARE FOLLOWS: Normal [facility] Comment on above: Performed By: #### D RUGRPD #### [facility] [address] [place] [address] Robbie Vi mAMP Negative Normal NEGATIVE [facility] Comment on above: Performed By: #### D RUGRPD #### [facility] [address] [place] [address] Robbie Vi MTD Negative Normal NEGATIVE [facility] Comment on above: Performed By: #### D RUGRPD #### [facility] [address] [place] [address] Robbie Vi OPI Negative Normal NEGATIVE [facility] Comment on above: Performed By: #### D RUGRPD #### [facility] [address] [place] [address] Robbie Vi OXY Negative Normal NEGATIVE [facility] Comment on above: Performed By: #### D RUGRPD #### [facility] [address] [place] [address] Robbie Vi PCP Negative Normal NEGATIVE [facility] Comment on above: Performed By: #### D RUGRPD #### [facility] [address] [place] [address] Robbie Vi PPX Negative Normal NEGATIVE [facility] Comment on above: Performed By: #### D RUGRPD #### [facility] [address] [place] [address] Robbie Vi TCA Negative Normal NEGATIVE [facility] Comment on above: Performed By: #### D RUGRPD #### [facility] [address] [place] [address] Robbie Vi THC Negative Normal NEGATIVE [facility] Comment on above: Performed By: #### D RUGRPD #### [facility] [address] [place] [address] Robbie Vi TYPE AND SCREENon 02-15-2021 TYPE AND SCREEN Antibody Screen NEGATIVE ABO Rh Typing O Rh Positive Blood Bank Notes PERFORMED BY JUAN ANTONIO Normal [facility] Comment on above: Performed By: #### T NS #### [facility] [address] [place] [address] Robbie Lebron CULTURE URINEon 01-31-2021 CULTURE URINE Culture Observations: LIGHT GROWTH OF MIXED GENITAL RONNY. NO POTENTIAL PATHOGENS SEEN. Normal [facility] Comment on above: Performed By: #### G BSCX #### [facility] [address] [place] [address] Robbie Lebron UA (CLEAN/CATCH) HOSPITAL CLEANING SPECIALIST/MICRO I F IND.on 01-31-2021 Bilirubin Ql (U) Negative Normal NEGATIVE [facility] Comment on above: Performed By: #### U MICRO, UACSIND #### [facility] [address] [place], [place] [id number] Robbie Vi Clarity (U) CLEAR Normal CLEAR [facility] Comment on above: Performed By: #### U MICRO, UACSIND #### [facility] [address] [place] [address] Robbie Vi Color (U) LT. YELLOW Normal YELLOW [facility] Comment on above: Performed By: #### U MICRO, UACSIND #### [facility] [address] [place] [address] Robbie Vi Glucose Ql (U) Negative Normal NEGATIVE The [facility] Comment on above: Performed By: #### U MICRO, UACSIND #### [facility] [address] [place] [address] Robbie Vi Hemoglobin Ql (U) Negative Normal NEGATIVE [facility] Comment on above: Performed By: #### U MICRO, UACSIND #### [facility] [address] [place] [address] Robbie Vi Ketones Ql (U) Negative Normal NEGATIVE The [facility] Comment on above: Performed By: #### U MICRO, UACSIND #### [facility] [address] [place] [address] Robbie Vi LEUKOCYTES TRACE Abnormal NEGATIVE [facility] Comment on above: Performed By: #### U MICRO, UACSIND #### [facility] [address] [place] [address] Robbie Vi Nitrite Ql (U) Negative Normal NEGATIVE The [facility] Comment on above: Performed By: #### U MICRO, UACSIND #### [facility] [address] [place] [address] Robbie Vi pH (U) 6.0 [pH] Normal 5-9 [facility] Comment on above: Performed By: #### U MICRO, UACSIND #### [facility] [address] [place] [address] Robbie Iv SPEC GRAVITY <=1.005 Abnormal 1.005-<=1.02 5 [facility] Comment on above: Performed By: #### U MICRO, UACSIND #### [facility] [address] [place] [address] Robbie Lebron UA PROTEIN Negative Normal NEGATIVE/ TRACE [facility] Comment on above: Performed By: #### U MICRO, UACSIND #### [facility] [address] [place] [address] Robbie Lebron UR MICRO IND INDICATED Normal [facility] Comment on above: Performed By: #### U MICRO, UACSIND #### [facility] [address] [place] [address] Robbie Lebron Urobilinogen Qn (U) 0.2 {Maria Luz'U}/dL Normal 0.2 - 1. 0 [facility] Comment on above: Performed By: #### U MICRO, UACSIND #### [facility] [address] [place] [address] Robbie Lebron URINE MICROSCOPIC ONLYon BACTERIA SMALL Abnormal NONE SEEN [facility] Comment on above: Performed By: #### U MICRO, UACSIND #### [facility] [address] [place] [address] Robbie Lebron Bacteria identified Cx Nom (U) INDICATED Normal [facility] Comment on above: Performed By: #### U MICRO, UACSIND #### [facility] [address] [place] [address] Robbienicky Lebron CAST NONE SEEN Normal NONE SEEN [facility] Comment on above: Performed By: #### U MICRO, UACSIND #### [facility] [address] [place] [address] Robbienicky Gonzalezen Crystals LM Nom (Urine sed) NONE SEEN Normal NONE SEEN [facility] Comment on above: Performed By: #### U MICRO, UACSIND #### [facility] [address] [place] [address] Robbienicky Lebron Epithelial cells LM Ql (Urine sed) FEW Abnormal NONE SEEN /RARE [facility] Comment on above: Performed By: #### U MICRO, UACSIND #### [facility] [address] [place] [address] Robbie Vi MUCOUS NONE SEEN Normal NONE SEEN [facility] Comment on above: Performed By: #### U MICRO, UACSIND #### [facility] [address] [address] Robbie Lebron RBC 0-2 Normal 0-2 [facility] Comment on above: Performed By: #### U MICRO, UACSIND #### [facility] [address] [place] [address] Robbie Lebron WBC 2-5 Abnormal NONE SEEN [facility] Comment on above: Performed By: #### U MICRO, UACSIND #### [facility] [address] [address] Robbie Lebron GROUP B STREP CULTUREon 01-15 S. agalactiae Ag Ql (Unsp spec) Culture Observations: NEGATIVE FOR GROUP B STREPTOCOCCUS. Normal [facility] Comment on above: Performed By: #### G BSCX #### [facility] [address] [place] [address] Robbie Lebron US PREG BIOPHY W NON [...] by: AYE SELLERS Date: 2021-01-23 15:23 Normal [facility] GLUCOSE - 1HRon 11-27-2020 Glucose [Mass/Vol] 94 mg/dL Normal 74-106 [facility] Comment on above: Performed By: #### G LU1HR #### [facility] [address] [place] [address] Robbie Lebron HEMOGRAM AND PLATELon 2020 Hematocrit (Bld) [Volume fraction] 34.8 % Critically low 36.0-48.0 [facility] Comment on above: Performed By: #### H H #### [facility] [address] [id number] Robbie Lebron Hemoglobin (Bld) [Mass/Vol] 10.9 g/dL Critically low 12.0-16.0 [facility] Comment on above: Performed By: #### H H #### [facility] [address] [place], [place] [id number] Robbie Lebron MCH (RBC) [Entitic mass] 31.3 pg Normal 26.7-34.0 [facility] Comment on above: Performed By: #### H H #### [facility] [address] [place], [place] [id number] Robbie Lebron MCHC (RBC) [Mass/Vol] 31.3 g/dL Normal 29.9-35.2 [facility] Comment on above: Performed By: #### H H #### [facility] [address] [place] [address] Robbie Lebron MCV (RBC) [Entitic vol] 100.0 fL Critically high 81.0-99 .0 [facility] Comment on above: Performed By: #### H H #### [facility] [address] [place], [place] [address] Robbie Lebron PLT 215 103/ul Normal 150-450 [facility] Comment on above: Performed By: #### H H #### [facility] [address] [place], [place] [address] Robbie Lebron RBC 3.48 106/ul Critically low 4.20-5.40 [facility] Comment on above: Performed By: #### H H #### [facility] [address] [place], [place] [address] Robbie Lebron WBC 10.7 103/ul Normal 4.0-11.0 [facility] Comment on above: Performed By: #### H H #### [facility] [address] [place], [place] [address] Robbie Lebron CORONAVIRUS 2019 BY PCRon SARS-CoV-2 (COVID-19) RNA ESTELA+probe Ql (Unsp spec) Not detected Normal Not Detected [facility] Comment on above: Result Comment: . This [...] this test method. Fact sheet for providers: https://www.fda.gov/media/929601/download Fact sheet for patients: https://www.fda.gov/media/996808/download This test has received FDA Emergency Use Authorization [EUA] and has been verified by [facility] ([facility]). This test is only authorized for the duration of time that circumstances exist to justify the authorization of the emergency use of in vitro diagnostic tests for the detection of SARS-CoV-2 virus and/or diagnosis of COVID-19 infection under section 564(b)(1) of the Act, 21 U.S.C. 360bbb-3(b)(1), unless the authorization is terminated or revoked sooner. [facility] is certified under CLIA-88 as qualified to perform high complexity testing. Testing is performed in the [facility] laboratories located at [address] [place] [address]. Performed By: #### C OV19 #### [address] [place] [address] Covid 19 Resultson 1 SARS-CoV-2 (COVID-19) RNA [...] You may also be contacted by the [facility] to see if any of [...] or Naproxen (Aleve) can also be used. Pehm-ruy-bpklrhg cough and cold medicines can be used according to the instructions on the package. Some town-qor-qiaeluh medicines also contain acetaminophen. Make sure you [...] water are not available, use alcohol-based hand cathode ray tube assembler. Avoid touching your eyes, nose, and mouth [...] for 24 vianca (more content not included)... [facility] CORONAVIRUS 2019 BY PCRon DATE OF SYMPTOM ONSET [YYYYMMDD]? [id number] [facility] Comment on above: Performed By: #### C OV19 #### [facility] [address] [place] [address] Lab Specimen Source Nasal, Nasopharyngeal [facility] Comment on above: Performed By: #### C OV19 #### [facility] [address] [place] [address] Provider Note - ED v2on 10-16 Provider [...] Description:NO SURGICAL HISTORY THIS YEAR Additional Notes:10/2020 DIRECTOR BUSINESS DEVELOPMENT: Is : no Is : no REVIEW [...] SIGNS: T PRBP SpO2O2(LPM) %FiO2 Method 29-Oct-2020 14:27:[id number] /68 100 PHYSICAL EXAM CONSTITUTIONAL: Well appearing, [...] ill patient: no Electronic Signatures: Ari Isabel (CURRICULUM FACILITATOR-NURSING SURGICAL SERVICES DIRECTOR) (Signed 29-Oct-2020 14:53) Authored: HPI, PMH, ROS, PE, Results/Vital Signs, MDM/ED Course, Clinical Impression, Attestation, Chart Review, Scores Last Updated: 29-Oct-2020 14:53 by Ari Isabel (CURRICULUM FACILITATOR-NURSING SURGICAL SERVICES DIRECTOR) Normal [facility] ED Noteon 01-24-2018 HIM IP Note OR Director Of Event Sales Normal [facility] HIM IP Note OR Director Of Event Sales Normal [facility] ED Provider Noteon 8 HIM IP Note OR Director Of Event Sales Normal [facility] Vital Signs Date Time Vital Sign Value Performing Clinician Facility 09-18-2023 01:00-0500 Body temperature 98.6 [degF] [facility] 09-18-2023 01:00-0500 Diastolic blood pressure 71 mm[Hg] [facility] 09-18-2023 01:00-0500 Heart rate 80 /min [facility] 09-18-2023 01:00-0500 Mean blood pressure 88 mm[Hg] [facility] 09-18-2023 01:00-0500 Respiratory rate 18 /min [facility] 09-18-2023 01:00-0500 SaO2% (BldA) [Mass fraction] 100 % [facility] 09-18-2023 01:00-0500 Systolic blood pressure 121 mm[Hg] [facility] 09-18-2023 00:00-0500 Diastolic blood pressure 77 mm[Hg] [facility] 09-18-2023 00:00-0500 Heart rate 88 /min [facility] 09-18-2023 00:00-0500 Mean blood pressure 94 mm[Hg] [facility] 09-18-2023 00:00-0500 Respiratory rate 17 /min [facility] 09-18-2023 00:00-0500 Systolic blood pressure 128 mm[Hg] [facility] 09-17-2023 23:00-0500 Diastolic blood pressure 66 mm[Hg] [facility] 09-17-2023 23:00-0500 Heart rate 90 /min [facility] 09-17-2023 23:00-0500 Mean blood pressure 86 mm[Hg] [facility] 09-17-2023 23:00-0500 Systolic blood pressure 126 mm[Hg] [facility] 09-07-2023 15:30-0500 Diastolic blood pressure 51 mm[Hg] [facility] 09-07-2023 15:30-0500 Heart rate 79 /min [facility] 09-07-2023 15:30-0500 Mean blood pressure 73 mm[Hg] [facility] 09-07-2023 15:30-0500 Respiratory rate 18 /min [facility] 09-07-2023 15:30-0500 SaO2% (BldA) [Mass fraction] 97 % [facility] 09-07-2023 15:30-0500 Systolic blood pressure 116 mm[Hg] [facility] 09-07-2023 12:58-0500 Body temperature 98.06 [degF] [facility] 09-07-2023 12:58-0500 Diastolic blood pressure 70 mm[Hg] [facility] 09-07-2023 12:58-0500 Heart rate 94 /min [facility] 09-07-2023 12:58-0500 Respiratory rate 18 /min [facility] 09-07-2023 12:58-0500 SaO2% (BldA) [Mass fraction] 97 % [facility] 09-07-2023 12:58-0500 Systolic blood pressure 116 mm[Hg] [facility] 09-03-2023 15:37-0500 Body height 157.48 cm CURRICULUM FACILITATOR Liane Robuck Work Phone: [facility] 09-03-2023 15:37-0500 Body temperature 98.3 [degF] CURRICULUM FACILITATOR Liane Robuck Work Phone: [facility] 09-03-2023 15:37-0500 Body weight 68.1 kg CURRICULUM FACILITATOR Liane Robuck Work Phone: [facility] 09-03-2023 15:37-0500 Diastolic blood pressure 69 mm[Hg] CURRICULUM FACILITATOR Liane Robuck Work Phone: [facility] 09-03-2023 15:37-0500 Heart rate 115 /min CURRICULUM FACILITATOR Liane Robuck Work Phone: [facility] 09-03-2023 15:37-0500 Respiratory rate 16 /min CURRICULUM FACILITATOR Liane Robuck Work Phone: [facility] 09-03-2023 15:37-0500 SaO2% (BldA) [Mass fraction] 99 % CURRICULUM FACILITATOR Liane Robuck Work Phone: [facility] 09-03-2023 15:37-0500 Systolic blood pressure 137 mm[Hg] EMILY Irvin Work Phone: [facility] 11-26-2022 10:10-0400 Blood Pressure Location [facility] 11-26-2022 10:10-0400 Body temperature 97.16 [degF] [facility] 11-26-2022 10:10-0400 Heart rate 102 /min [facility] 11-26-2022 10:10-0400 Respiratory rate 18 /min [facility] 11-26-2022 10:10-0400 Systolic blood pressure 126 mm[Hg] [facility] 11-22-2022 17:00-0400 Body temperature 98.4 [degF] Aye Vicente MD Work Phone: [facility] 11-22-2022 17:00-0400 Diastolic blood pressure 67 mm[Hg] Aye Vicente MD [facility] Phone: [facility] 11-22-2022 17:00-0400 Heart rate 88 /min Aye Vicente MD Work Phone: [facility] 11-22-2022 17:00-0400 Respiratory rate 16 /min Aye Vicente MD Work Phone: [employer] 11-22-2022 17:00-0400 SaO2% (BldA) [Mass fraction] 100 % Aye Vicente MD Work Phone: [employer] 11-22-2022 17:00-0400 Systolic blood pressure 127 mm[Hg] Aye Vicente MD Work Phone: [facility] 11-22-2022 11:04-0400 Body height 157.5 cm Aye Vicente MD Work Phone: [facility] 11-22-2022 11:04-0400 Body mass index (BMI) [Ratio] 26.16 kg/m2 Aye Vicente MD Work Phone: [facility] 11-22-2022 11:04-0400 Body weight 64.86 kg Aye Vicente MD Work Phone: [facility] 11-19-2022 08:00-0400 Body height 157.5 cm Pse Rn [facility] 11-19-2022 08:00-0400 Body mass index (BMI) [Ratio] 26.16 kg/m2 [facility] 11-19-2022 08:00-0400 Body weight 64.86 kg [facility] 11-18-2022 10:00-0400 Diastolic blood pressure 58 mm[Hg] Liane Irvin APRN - NURSING SURGICAL SERVICES DIRECTOR Work Phone: [employer] 11-18-2022 10:00-0400 Heart rate 96 /min Liane Irvin APRN - NURSING SURGICAL SERVICES DIRECTOR Work Phone: [facility] [employer] 11-18-2022 10:00-0400 Respiratory rate 17 /min Liane Irvin APRN - NURSING SURGICAL SERVICES DIRECTOR Work Phone: [facility] 11-18-2022 10:00-0400 SaO2% (BldA) [Mass fraction] 100 % Liane Irvin APRN - NURSING SURGICAL SERVICES DIRECTOR Work Phone: [facility] 11-18-2022 10:00-0400 Systolic blood pressure 111 mm[Hg] Liane Irvin APRN - NURSING SURGICAL SERVICES DIRECTOR Work Phone: [facility] 11-18-2022 06:44-0400 Body temperature 97.9 [degF] Liane Irvin APRN - NURSING SURGICAL SERVICES DIRECTOR Work Phone: [facility] 11-17-2022 08:28-0400 Heart rate 94 /min [facility] 11-17-2022 08:28-0400 SaO2% (BldA) [Mass fraction] 100 % [facility] 11-17-2022 08:27-0400 Diastolic blood pressure 64 mm[Hg] [facility] 11-17-2022 08:27-0400 Mean blood pressure 78 mm[Hg] [facility] 11-17-2022 08:27-0400 Systolic blood pressure 105 mm[Hg] [facility] 11-17-2022 08:27-0400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
== END 2023-09-26 11:19 | disposition home or self-care (01) ==
LOC: NOMS 11:19
PROVIDERS: Visit Provider Obstetrics & Gynecology
DX: O20.9 Hemorrhage in early pregnancy, unspecified (principal); O36.80X0 Pregnancy with inconclusive fetal viability, not applicable or unspecified; Z3A.01 Less than 8 weeks gestation of pregnancy
CPT/HCPCS: 76817

== ENCOUNTER 2023-09-28 10:51 | Day surgery (SDC) | payer OTHER, SELFPAY ==
[2023-09-28] VITALS (11 sets, daily range): BP systolic 98–123; BP diastolic 43–80; PULSE 71–99; RESP 14–20; TEMP 35.8–36.4; O2SAT 99–100; BMI 28.5
--- OUTSIDE RECORDS SUMMARY | 2023-09-28 10:59 | XMS_ITS | CCD ---
Author Name Unknown Address [address] [place] [address] Organization [facility] Care Team Providers Care [place] Consultant Name Role Phone NANCY HENDRICKS Unavailable UnavailMAYA [...] Unavailable Unavailable Liane IRVIN Primary Care Physician [phone] Vicki Arredondo Unavailable Unavailable Unavailable Primary Care Provider UnavailKarla Girard Unavailable Unavailable Brandee IMPRESSION PRINTER Liane KILPATRICK Primary Care Provider LIANE IRVIN [...] Attending Unavailable LiuEMILY polanco Primary Care Provider [phone] EMILY Robles Emergency Provider Brigido Robles Attending [...] Medication Allergies] Propensity to adverse reactions (disorder) [facility] Medications Current Medications Medication Drug [...] q6hr, 12 tab(s), Refill(s) 0, [facility] #[id number], 155, cm, 12/06/22 15:57:00 EDT, Height/Length Dosing, [...] BID day 8 and after, [facility] #[id number], Supply, 170, cm, 08/26/22 14:06:00 EST, Height/Length [...] oral solution (1 source) alpha-Adrenergic Agonist, Uncompetitive H-xleapq-X-asparta te Receptor Antagonist, Sigma-1 Agonist Start: 03-12-2021 take 10 mL by mouth every six hours brompheniramine/pse udoephedrine/dextro methorphan 8ef-16mx-39zn/5 mL oral syrup ; 10 milliliter(s) orally [...] 30 cap(s), Refills(s) 3, Pharmacy: [facility] #[id number], 157, cm, 05/10/22 11:06:00 EDT, Height/Length Dosing, 66.1, kg, 05/10/22 11:06:00 EDT, Weight Dosing Start Date: 05/10/22 Status: Ordered Start: 03-25-2022 take [address] [facility] once daily Vraylar 3 mg oral capsule 3 mg = 1 cap(s), Oral, Daily, # 30 cap(s), Refills(s) 1, Pharmacy: [facility] #[id number], 157, cm, 03/25/22 15:10:00 EDT, Height/Length Dosing, [...] Drug Class(es) Dates Sig (Normalized) Sig (Original) [id number] 200 actuat albuterol 0.09 mg/actuat metered dose [...] 1 po bid days 4-7, [facility] #[id number], Supply, 170, cm, 08/26/22 14:06:00 EST, Height/Length [...] Results Test Name Value Interpretation Reference Range [facility] 09-18-2023 Anion gap [Moles/Vol] 10 mmol/L Normal 6-16 [facility] Comment on above: Performed By: #### 2 298273, 8775659, 87377946, 3729527 #### [facility] [address] [place] [address] Calcium [Mass/Vol] 9.3 mg/dL Normal 8.9-11.1 [facility] Comment on above: Performed By: #### 2 019392, 2139836, 52604737, 7045931 #### [facility] [address] [place] [address] Chloride [Moles/Vol] 105 mmol/L Normal 101-111 [facility] Comment on above: Performed By: #### 2 247426, 0490725, 16214391, 4123833 #### [facility] [address] [place] [address] CO2 [Moles/Vol] 26 mmol/L Normal 21-31 [facility] Comment on above: Performed By: #### 2 157658, 1952261, 05984818, 5921822 #### [facility] [address] [place] [address] Creatinine [Mass/Vol] 0.6 mg/dL Normal 0.5-1.3 [facility] Comment on above: Performed By: #### 2 209546, 0533459, 28848922, 3505184 #### [facility] [address] [place] [address] Glucose [Mass/Vol] 77 mg/dL Normal 55-199 [facility] Comment on above: Performed By: #### 2 752411, 8585272, 62641628, 1298451 #### [facility] [address] [place] [address] Potassium [Moles/Vol] 3.7 mmol/L Normal 3.5-5.3 [facility] Comment on above: Performed By: #### 2 205162, 5658332, 30835359, 2956461 #### [facility] [address] [place] [address] Sodium [Moles/Vol] 137 mmol/L Normal 135-145 [facility] Comment on above: Performed By: #### 2 749234, 2018156, 25521187, 3453161 #### [facility] [address] [place] [address] Urea nitrogen [Mass/Vol] 15 mg/dL Normal 5-21 [facility] Comment on above: Performed By: #### 2 334055, 6787001, 76404715, 0510126 #### [facility] [address] [place] [address] Urea nitrogen/Creatinine [Mass ratio] 25 No Units High 10-20 [facility] Comment on above: Performed By: #### 2 113213, 1051186, 50781098, 3564441 #### [facility] [address] [place] [address] BhCG Quanton 09-18-2023 HCG.beta subunit Qn 2047 m[IU]/mL High 1-3 Fi [facility] Comment on above: Result Comment: 'F N ON < 1 - 3' ' 0.2 - 1 WEEK = 5 TO 50' ' 1 - 2 WEEKS = 50 - 500' ' 2 - 3 WEEKS = 100 - 5000' ' 3 - 4 WEEKS = 500 - 95716' ' 4 - 5 WEEKS = 1000 - 79331' ' 5 - 6 WEEKS = 74957 - 701201' ' 6 - 8 WEEKS = 77265 - 067740' ' 8 - 12 WEEKS = 47394 - 907508' Performed By: #### 2 523738, 3437924, 82971820, 0505467 #### [facility] [address] [place] [address] 09925 CBC w/ Auto Diffon Basophils/100 WBC (Bld) 0.7 % Normal 0.0-2.0 [facility] Comment on above: Performed By: #### 2 604816, 4067089, 99809905, 4289217 #### [facility] [address] [place] [address] Basophils/Leukocytes Auto (Bld) [Pure # fraction] 0.1 E9/L Normal 0.0-0.2 [facility] Comment on above: Performed By: #### 2 904342, 4281282, 37729612, 7050046 #### [facility] [address] [place] [address]25 Eosinophils (Bld) [#/Vol] 0.1 E9/L Normal 0.0-0.5 [facility] Comment on above: Performed By: #### 2 348226, 2733802, 26314214, 8038227 #### [facility] [address] [place] [address] Eosinophils/100 WBC (Bld) 0.8 % Normal 0.0-8.0 [facility] Comment on above: Performed By: #### 2 298646, 4132164, 87615991, 2760769 #### [facility] [address] [place] [address] Erythrocyte distribution width (RBC) [Ratio] 12.7 % Normal 10.9-14.2 [facility] Comment on above: Performed By: #### 2 408852, 1804000, 45281639, 6713124 #### [facility] [address] [place] [address] Hematocrit (Bld) [Volume fraction] 35.8 % Normal 34.0-46.0 [facility] Comment on above: Performed By: #### 2 787201, 8649987, 22048670, 1840659 #### [facility] [address] [place] [address] Hemoglobin (Bld) [Mass/Vol] 11.9 g/dL Low 12.0-16.0 [facility] Comment on above: Performed By: #### 2 249068, 3307431, 06954254, 6165484 #### [facility] [address] [place] [address] Lymphocytes (Bld) [#/Vol] 2.7 E9/L Normal 1.0-4.0 [facility] Comment on above: Performed By: #### 2 265420, 7173643, 71274058, 2323239 #### [facility] [address] [place] [address] Lymphocytes/100 WBC (Bld) 35.3 % Normal 14.0-50.0 [facility] Comment on above: Performed By: #### 2 803380, 3693287, 63908971, 7696039 #### [facility] [address] [place] [address] 48225 MCH (RBC) [Entitic mass] 29.9 pg Normal 27.0-34.0 [facility] Comment on above: Performed By: #### 2 006304, 7761931, 71275428, 4487500 #### [facility] [address] [place] [address] 01806 MCHC (RBC) [Mass/Vol] 33.2 g/dL Normal 31.4-36.0 [facility] Comment on above: Performed By: #### 2 616102, 1852817, 70814034, 9816706 #### [facility] [address] [place] [address] 18970 MCV (RBC) [Entitic vol] 90.3 fL Normal 80.0-100.0 [facility] Comment on above: Performed By: #### 2 878079, 1167369, 71719119, 5723454 #### [facility] [address] [place] [address] Monocytes (Bld) [#/Vol] 0.4 E9/L Normal 0.2-1.0 [facility] Comment on above: Performed By: #### 2 981073, 5324704, 25970894, 3349952 #### [facility] [address] [place] [address] 72[address] Neutrophils (Bld) [#/Vol] 4.4 E9/L Normal 2.0-7.5 [facility] Comment on above: Performed By: #### 2 041794, 1945654, 11936191, 8845716 #### [facility] [address] [place] [address] 04[address] Neutrophils/100 WBC (Bld) 57.5 % Normal 36.0-75.0 [facility] Comment on above: Performed By: #### 2 611448, 9761954, 50459529, 9492998 #### [facility] [address] [place] [address]40[address] Platelet 303.0 E9/L Normal 150.0-500.0 [facility] Comment on above: Performed By: #### 2 913385, 1246004, 40431141, 5477401 #### [facility] [address] [place] [address] 16068 Platelet mean volume (Bld) [Entitic vol] 7.4 fL Normal 6.4-10.8 [facility] Comment on above: Performed By: #### 2 967002, 5108323, 52798939, 2669653 #### [facility] [address] [place] [address] RBC (Bld) [#/Vol] 4.0 E12/L Low 4.3-5.9 [facility] Comment on above: Performed By: #### 2 314057, 7224663, 78169002, 3284080 #### [facility] [address] [place] [address] WBC corrected for nucl RBC Auto (Bld) [#/Vol] 7.6 E9/L Normal 4.0-11.0 [facility] Comment on above: Performed By: #### 2 430130, 3107762, 73448346, 9434197 #### [facility] [address] [place] [address] 29006 Consent for Treatmenton Consent for Treatment [id number] #1.00TIFF Normal [facility] Discharge Instructionson Discharge Instructions [id number]#1.00TIFF Normal [facility] ED Clinical Summaryon 2023 ED Clinical Summary [address] [address] ED Clinical Summary Person Information Name: SHAHIDA [place] Age: 28 Years : 1995 Sex: Female Language: Nigerian PCP: Liane IRVIN CNP Marital Status: Single [...] 01:13:40 09/18/2023 01:13:40 09/18/2023 01:13:40 ADDRESS: [address] [facility] [id number] PHYS DOC NOTES: MEDICAL INFORMATION: Prescriptions Given: Medications to Continue with No Changes Other Medications acetaminophen (acetaminophen 325 mg Tab) 3 Tablets By Mouth every 6 hours. acetaminophen-oxycod one (Percocet 5 mg-325 mg oral tablet) 1 Tablets By Mouth every 6 hours. Refills: 0. PATIENT EDUCATION INFORMATION: Instructions: Threatened Miscarriage Follow up: With: Address: When: Oliverio AUSTIN [facility], [address] [place] [address] , [place] [id number] Business (1) In 3 days 09/21/2023 With: Address: When: Liane IRVIN [address] [place] [address] Business (1) In 3 days DIAGNOSIS: Threatened miscarriage Normal [facility] ED Note-Physicianon 09-18-19 ED Note-Physician Basic [...] eventually discharged. She followed up with her REGULATORY COMPLIANCE ENGINEER Dr. Austin's office and was told that [...] and Complexity of Problems Differential Diagnosis: [] [facility] Data External documents reviewed: N/A My [...] of 2046. Ultrasound was obtained and the transportation refrigeration technician reports a gestational sac in the uterus commensurate with 5 weeks of gestation. I discussed this with the patient at bedside. We discussed the diagnosis of threatened miscarriage. Discussed the need for close follow-up with her REGULATORY COMPLIANCE ENGINEER on an outpatient basis. Patient states understanding [...] Information Oliverio AUSTIN In 3 days 09/21/[address] [place] [address]- Business (1) Additional Instructions: Liane IRIVN In [address] [place] [address]- Business (1) Additional Instructions: Patient Education Threatened [...] Risk, 04 (more content not included)... Normal [facility] Comment on above: Result Comment: Elec [...] Reviewed: 01/02/2021 Elsevier Patient Education ? 2022 [employer]. Normal [facility] ED Patient Summaryon 024 ED Patient Summary [address] [address] Patient Discharge Instructions Person Information Name: SHAHIDA [place] Age: 28 Years Arrival Date: 09/17/2023 22:35:01 Discharge Diagnosis: Threatened miscarriage Primary Care Physician: Liane IRVIN CNP Provider Information Primary Provider: Donte Parker DO [employer] Operator:None The exam and treatment you received in the Emergency Department were for an urgent problem and are not intended as complete care. It is important that you follow up with a doctor, nurse practitioner, or physician?s dam tender assistant for ongoing care. If your symptoms [...] Follow-up Instructions: With: Address: When: Oliverio AUSTIN [facility], [address] [place] [address] [place] [id number] Business (1) In 3 days 09/21/2023 With: Address: When: Liane IRVIN [address] [place], [place] [address] Business (1) In 3 days In the event that this physician does not participate in your insurance network, please consult with your insurance company to find a nearby participating provider. Patient Education Materials: Threatened Miscarriage A MESSAGE TO ALL PATIENTS REGARDING OPIOIDS PRESCRIPTION OPIOIDS: WHAT YOU NEED TO KNOW Prescription opioids can be used to help relieve cwvbfvpi-os-szwzez pain and are often prescribed following a [...] with addiction, (more content not included)... Normal [facility] Hep Func Panelon 09-18-2023 Albumin [Mass/Vol] 4.8 g/dL Normal 3.3-5.0 [facility] Comment on above: Performed By: #### 2 021905, 6534565, 23000106, 7811136 #### [facility] [address] [place] [address] Albumin/Globulin (S) [Mass conc ratio] 2.0 Normal 1.1-2.2 [facility] Comment on above: Performed By: #### 2 996307, 4685570, 65378929, 1556226 #### [facility] [address] [place] [address] ALP [Catalytic activity/Vol] 71 Int._Unit/L Normal 21-98 [facility] Comment on above: Performed By: #### 2 727274, 9057441, 61427643, 4977287 #### [facility] [address] [place] [address] ALT No additional P-5'-P [Catalytic activity/Vol] 9 Int._Unit/L Normal 6-46 [facility] Comment on above: Performed By: #### 2 445504, 0279062, 44496742, 4495387 #### [facility] [address] [place] [address] AST [Catalytic activity/Vol] 12 Int._Unit/L Normal 5-43 [facility] Comment on above: Performed By: #### 2 973660, 5087111, 98774797, 4145221 #### [facility] [address] [place] [address] Bilirubin [Mass/Vol] 0.3 mg/dL Normal 0.0-1.1 [facility] Comment on above: Performed By: #### 2 894668, 1284281, 13279458, 6008773 #### [facility] [address] [place] [address] Bilirubin.direct [Mass/Vol] 0.1 mg/dL Normal 0.0-0.4 [facility] Comment on above: Performed By: #### 2 777710, 4097593, 59208263, 9554907 #### [facility] [address] [place] [address] Bilirubin.indirect [Mass or moles/Vol] 0.2 mg/dL Normal 0.1-0.9 [facility] Comment on above: Performed By: #### 2 521766, 4821973, 88444771, 8237061 #### [facility] [address] [place] [address] Globulin (S) [Mass/Vol] 2.4 g/dL Normal 1.4-4.0 [facility] Comment on above: Performed By: #### 2 564017, 0399559, 02128084, 5892998 #### [facility] [address] [place] [address] Protein [Mass/Vol] 7.2 g/dL Normal 6.0-7.8 [facility] Comment on above: Performed By: #### 2 196878, 8636101, 51890103, 9498087 #### [facility] [address] [place] [address] Lipase Levelon 09-18-2023 Lipase [Catalytic activity/Vol] 13 U/L Normal 13-58 [facility] Comment on above: Performed By: #### 2 531495, 0407602, 78132522, 4943703 #### [facility] [address] [place] [address] UA With Cult Reflexon 2023 Bilirubin Ql (U) Negative Normal Negative [facility] Comment on above: Order Comment: Order Added by Discern Expert. Performed By: #### 2 360022, 3899119, 80720784, 5264600 #### [facility] [address] [place] [address] Clarity (U) CLEAR Normal Clear [facility] Comment on above: Order Comment: Order Added by Discern Expert. Performed By: #### 2 501946, 3254198, 35683676, 1727534 #### [facility] [address] [place] [address] Color (U) YELLOW Normal Yellow [facility] Comment on above: Order Comment: Order Added by Discern Expert. Performed By: #### 2 909880, 5588931, 08539323, 2510104 #### [facility] [address] [place] [address] Epithelial cells.squamous LM.HPF (Urine sed) [#/Area] 0-2 Normal 0-2 [facility] Comment on above: Order Comment: Order Added by Discern Expert. Performed By: #### 2 862857, 2297447, 38060503, 6221145 #### [facility] [address] [place] [address] Glucose Test strip (U) [Mass/Vol] Negative Normal Negative [facility] Comment on above: Order Comment: Order Added by Discern Expert. Performed By: #### 2 900795, 8256494, 89428839, 5691807 #### [facility] [address] [place] [address] Hemoglobin Ql (U) Negative Normal Negative [facility] Comment on above: Order Comment: Order Added by Discern Expert. Performed By: #### 2 453353, 5461972, 41187221, 6435618 #### [facility] [address] [place] [address] Ketones (U) [Mass/Vol] Negative Normal Negative [facility] Comment on above: Order Comment: Order Added by Discern Expert. Performed By: #### 2 768256, 7207830, 95520062, 7256889 #### [facility] [address] [place] [address] Briggs.plasma/Briggs. RBC (Bld) [Mass ratio] 0-3 Normal 0-3 [facility] Comment on above: Order Comment: Order Added by Discern Expert. Performed By: #### 2 940991, 4799145, 07728558, 9984767 #### [facility] [address] [place] [address] Nitrite Ql (U) Negative Normal Negative [facility] Comment on above: Order Comment: Order Added by Esme Expert. Performed By: #### 2 087009, 4332438, 52122804, 0028760 #### [facility] [address] [place] [address] pH (U) 6.0 [pH] Invalid Interpretation Code 5.0-9.0 [facility] Comment on above: Order Comment: Order Added by Discern Expert. Performed By: #### 2 924365, 0259998, 92102555, 1153263 #### [facility] [address] [place] [address] Protein (U) [Mass/Vol] Negative Normal Negative [facility] Comment on above: Order Comment: Order Added by Esme Expert. Performed By: #### 2 438078, 0324105, 46321935, 3655783 #### [facility] [address] [place] [address] Specific gravity (U) [Rel density] 1.015 Invalid Interpretation Code 1.005-1.030 [facility] Comment on above: Order Comment: Order Added by Esme Expert. Performed By: #### 2 696281, 1727367, 14613230, 4030464 #### [facility] [address] [place] [address] Type of Urine collection method Catheter Normal [facility] Comment on above: Order Comment: Order Added by Esme Expert. Performed By: #### 2 382851, 3068708, 63481925, 1037741 #### [facility] [address] [place] [address] Urobilinogen Qn (U) 0.2 {Maria Luz'U}/dL Normal 0.0-1.0 [facility] Comment on above: Order Comment: Order Added by Discern Expert. Performed By: #### 2 614795, 1628796, 09006335, 2106894 #### [facility] [address] [place] [address] WBC Auto Ql (U) Negative Normal Negative [facility] Comment on above: Order Comment: Order Added by Discern Expert. Performed By: #### 2 518415, 5592557, 87648814, 9011114 #### [facility] [address] [place] [address] WBC LM.HPF (Urine sed) [#/Area] 0-5 Normal 0-5 [facility] Comment on above: Order Comment: Order Added by Discern Expert. Performed By: #### 2 703529, 3936932, 07744020, 3483107 #### [facility] [address] [place] [address] Bilirubin Ql (U) Negative Normal Negative [facility] Comment on above: Performed By: #### 2 647884, 0311778, 61428573, 4579329 #### [facility] [address] [place] [address] Clarity (U) CLEAR Normal Clear [facility] Comment on above: Performed By: #### 2 240723, 1000784, 03766338, 3413259 #### [facility] [address] [place] [address] Color (U) YELLOW Normal Yellow [facility] Comment on above: Performed By: #### 2 238606, 1524988, 32164694, 0831738 #### [facility] [address] [place] [address] Epithelial cells.squamous LM.HPF (Urine sed) [#/Area] 0-2 Normal 0-2 [facility] Comment on above: Performed By: #### 2 274396, 7048114, 73076701, 8202391 #### [facility] [address] [place] [address] Glucose Test strip (U) [Mass/Vol] Negative Normal Negative [facility] Comment on above: Performed By: #### 2 225197, 4041251, 29107053, 3294785 #### [facility] [address] [place] [address] Hemoglobin Ql (U) 3+ Abnormal Negative [facility] Comment on above: Performed By: #### 2 490910, 9116142, 61483489, 9555498 #### [facility] [address] [place] [address] Ketones (U) [Mass/Vol] Negative Normal Negative [facility] Comment on above: Performed By: #### 2 281862, 4374492, 65247998, 5470365 #### [facility] [address] [place] [address] Briggs.plasma/Briggs. RBC (Bld) [Mass ratio] >30 Abnormal 0-3 [facility] Comment on above: Performed By: #### 2 212733, 4963911, 83360047, 9764360 #### [facility] [address] [place] [address] Nitrite Ql (U) Negative Normal Negative [facility] Comment on above: Performed By: #### 2 991160, 8097613, 56976309, 5139222 #### [facility] [address] [place] [address] pH (U) 6.0 [pH] Invalid Interpretation Code 5.0-9.0 [facility] Comment on above: Performed By: #### 2 540968, 0084618, 89541545, 1433422 #### [facility] [address] [place] [address] Protein (U) [Mass/Vol] Negative Normal Negative [facility] Comment on above: Performed By: #### 2 566395, 6509798, 84605395, 5478453 #### [facility] [address] [place] [address] Specific gravity (U) [Rel density] 1.020 Invalid Interpretation Code 1.005-1.030 [facility] Comment on above: Performed By: #### 2 174530, 3462972, 43954386, 4196268 #### [facility] [address] [place] [address] Type of Urine collection method Clean Catch Normal [facility] Comment on above: Performed By: #### 2 845240, 8993983, 97261045, 6081313 #### [facility] [address] [place] [address] Urobilinogen Qn (U) 0.2 {Maria Luz'U}/dL Normal 0.0-1.0 [facility] Comment on above: Performed By: #### 2 243222, 9162407, 48074869, 5991625 #### [facility] [address] [place] [address] WBC Auto Ql (U) Negative Normal Negative [facility] Comment on above: Performed By: #### 2 361509, 1456033, 92395667, 5698834 #### [facility] [address] [place] [address] WBC LM.HPF (Urine sed) [#/Area] 0-5 Normal 0-5 [facility] Comment on above: Performed By: #### 2 975875, 8953281, 38494211, 1942827 #### [facility] [address] [place] [address] URINALYSISOrdered By: Sander Newby on 09-18-2023 Bilirubin Ql (U) Negative (09/18/23 12:08 AM) Normal Negative [facility] [place]A Auto SS Clarity (U) Clear (09/18/23 12:08 AM) Normal Clear [facility] UA Auto SS Color (U) Yellow (09/18/23 12:08 AM) Normal Yellow [facility] UA Auto SS Epithelial cells.squamous LM.HPF (Urine sed) [#/Area] 0-2 /HPF Normal 0-2/HPF [facility] [place]A Aut o SS Glucose Test strip (U) [Mass/Vol] Negative (09/18/23 12:08 AM) Normal Negative [facility] UA Auto SS Hemoglobin Ql (U) Negative (09/18/23 12:08 AM) Normal Negative [facility] UA Auto SS Ketones (U) [Mass/Vol] Negative (09/18/23 12:08 AM) Normal Negative [facility] UA Auto SS Briggs.plasma/Briggs. RBC (Bld) [Mass ratio] 0-3 /HPF Normal 0-3/HPF [facility] [place]A A uto SS Nitrite Ql (U) Negative (09/18/23 12:08 AM) Normal Negative [facility] UA Auto SS pH (U) 6.0 *NA* (09/18/23 12:08 AM) Invalid Interpretation Code 5.0 - 9.0 [facility] [place]A Auto SS Protein (U) [Mass/Vol] Negative (09/18/23 12:08 AM) Normal Negative [facility] UA Auto SS Specific gravity (U) [Rel density] 1.015 *NA* (09/18/23 12:08 AM) Invalid Interpretation Code 1.005 - 1.030 [facility] [facility] [place] Auto SS UA Spec Desc Catheter (09/18/23 12:08 AM) Normal [facility] [place]A Auto SS Urobilinogen Qn (U) 0.1448480 {Maria Luz'U}/dL Normal 0.0 - 1.0 EU/dL [facility] [place] [place]A Auto SS WBC Auto Ql (U) Negative (09/18/23 12:08 AM) Normal Negative [facility] [place] [facility] [place] Auto SS WBC LM.HPF (Urine sed) [#/Area] 0-5 /HPF Normal 0-5/HPF [facility] [place] [facility] [place] Auto SS US 1st Trimesteron 09-18-2023 US 1st Trimester Exam Date/Time: 09/18/2023 01:02 EST Reason for Exam: Vaginal bleeding Report [facility] [phone] IMPRESSION: Gestational sac identified with mean sac [...] weeks Unknown History 2 Para 1 Normal [facility] US Transvaginalon 09-18-2023 US Transvaginal Exam Date/Time: 09/18/2023 01:00 EST Reason for Exam: vaginal bleeding Report [facility] [phone] Please review ultrasound pelvis, first trimester for report of transvaginal. Ordering Provider: Donte Parker FINAL REPORT Dictated: 09/18/2023 11:46 am Lester Jeff MD Signed (Electronic Signature): 09/18/2023 11:46 am Signed by: Lester Jeff MD Transcribed by: LARRY Technologist: ANA Normal [facility] eGFRon 09-18-2023 eGFR 126 mL/min/1.73 m2 Normal >=59 [facility] Comment on above: Order Comment: Order added by Discern Expert. Performed By: #### 2 850532, 1129389, [id number], 6377790 #### [facility] [address] [place] [address] CHEMISTRYOrdered By: SYSTEM SYSTEM on 09-17-2023 Albumin [...] 3 - 4 WEEKS = 500 - 82460' ' 4 - 5 WEEKS = 1000 - 88329' ' 5 - 6 WEEKS = 29276 - 297510' ' 6 - 8 WEEKS = 79453 - ' ' 8 - 12 WEEKS = 55064 - 691024' Lipase [Catalytic activity/Vol] 13 U/L Normal 13 [...] PM) Normal Negative [facility] UA Auto SS Briggs.plasma/Briggs. RBC (Bld) [Mass ratio] >30 /HPF Invalid [...] [facility] UA Auto SS Urobilinogen Qn (U) 0.7626703 {Maria Luz'U}/dL Normal 0.0 - 1.0 EU/dL [...] Locations R1: This test was performed at: [facility], [address] [place] [address], [address] , , [facility] Comment on above: Performed By: #### 1 [id number], [id number] ####[facility] [address] [place] [address] ABO/Rhon 09-07-2023 ABO/Rh Positive Invalid Interpretation Code [facility] Comment on above: Performed By: #### 2 343512 ####[facility] [address] [place] [address] BLOOD BANKOrdered By: Scott Casper on 09-07-2023 ABO/Rh Interp Positive Invalid Interpretation Code [facility] BB Subsection BMPon 09-07-2023 Anion gap [Moles/Vol] 9 mmol/L Normal 6-16 [facility] Comment on above: Performed By: #### 2 960724, 7740396, 84409734, 0502270 #### [facility] [address] [place] [address] BUN/Creat Ratio 13 No Units Normal 10-20 [facility] Comment on above: Performed By: #### 2 914579, 9742809, 71577676, 5393217 #### [facility] [address] [place] [address] Calcium [Mass/Vol] 9.5 mg/dL Normal 8.9-11.1 [facility] Comment on above: Performed By: #### 2 827284, 3485697, 54472201, 1719390 #### [facility] [address]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 Anesthesia Postprocedure Iveth luationon 11-22-2022 Educational Assistant Authentication Interface Message Text Anesthesia Postoperative Assessment: [...] EVENTS: No notable events documented. 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 The risks, benefits and alternatives were reviewed. Questions regarding anesthesia were answered. Patient and/or legal associate financial representative knows such anesthetics and procedures may be performed by Resident physicians, Certified Anesthesiologist Assistants, or Certified Nurse Anesthetists under the supervision of a physician. The patient /or the patient's legal associate financial representative agree with the plan for anesthesia. [...] Oral, EVERY 6 HOURS PRN Normal [facility] Educational Assistant Authentication Interface Message Text Patient taken to PACU. Patient was awake, comfortable and stable on arrival. 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) 11/19/2022 * Laceration of left arm with complication 11/17/2022 Added automatically from request for surgery [id number] * Nicotine addiction 11/19/2022 * Seizures (HCC) [...] CAA: Nell Sam CAA; Kush Merritt CAA Managing Principal: Raheem Johnson MD REPAIR, NERVE, MAJOR PERIPHERAL [...] was received. Raheem Johnson MD Normal [facility] Blood Attestationon 11-23-19 Educational Assistant Authentication Interface Message Text Blood Attestation ATTESTATION OF INFORMED CONSENT FOR BLOOD The transfusion of blood and/or blood components were discussed with the patient and/or legal associate financial representative. The risks, benefits and alternatives were reviewed. Questions regarding blood transfusions were answered. The patient /or the patient's legal associate financial representative agree with the plan for transfusion of blood and/or blood components. Normal [facility] Brief Operative Noteon 11-22 Educational Assistant Authentication Interface Message Text Brief Operative Note MAIN OR 04 Shahida Oh 27 year old female Surgical Contact Serial Number: [id number] Preoperative Diagnosis: Laceration of left upper extremity [...] Flores; Graciela Fortune, DENNIS, BSN; Alma Boo Thread Winder Automatic Nurse: Graciela Fortune, DENNIS, BSN; Ashley Pearl RN; Sarah Blackwell RN Accounts Receivable Assistant: Ari Rojas MD; Louis Meredith MD Anesthesia: General Anesthesiologist: Radha Bryant MD; Beka Montgomery MD; Damion Posada MD CAA: Nell Sam CAA; Kush Merritt CAA Managing Principal: Raheem Johnson MD Specimen(s): * No specimens [...] [facility] Educational Assistant Authentication Interface Message Text Telephone History Shahida [place], [id number] 11/19/2022 Patient was identified by name and [...] will be entering the hospital at the [facility], which is on [address] [facility]. [facility] Parking Instructions ??? Please plan extra time for parking and shuttle service. We recommend arriving at least 15 minutes prior to the time your care team advises you need to be here. ??? Parking is available in the [employer] [facility] accessible from [address]. ??? 07/02 shuttle service from the garage to The [facility] is available. ??? Go to the ground floor of the parking garage to reach the shuttle pick-up station located near the elevator and stairs. ??? Shuttle service will drop you off at [facility] Main Entrance. ??? Power Truck Driver service will be available at [facility] Main Entrance if you would prefer appeals manager over parking ([facility] Power Truck Driver Service Hours: Tuesday-Tuesday, 5:30 a.m. - 8:00 p.m.). ??? Enter The [facility] Main Entrance and go to the Admitting/Registrati [...] 11/17/2022 Added automatically from request for surgery [id number] Nicotine addiction 11/19/2022 Seizures (HCC) PROBLEM LIST: [...] yea (more content not included)... Normal [facility] Progress Note-Physicianon Progress Note-Physician Basic Informatio [...] 06:38:00) Lymph Auto: 33.3 % (11/16/22 06:38:00) Mason Auto: 5.9 % (11/16/22 06:38:00) Eos Auto: 0.5 % (11/16/22 06:38:00) Basophil Auto: 0.4 % (11/16/22 06:38:00) Neutro Absolute: 6.2 E9/L (11/16/22 06:38:00) Lymph Absolute: 3.4 E9/L (11/16/22 06:38:00) Mason Absolute: 0.6 E9/L (11/16/22 06:38:00) Eos Absolute: [...] No glycemic issues - anticipate transfer to [facility] for plastics/hand consult, await bed - Chacha Ambriz PA-C Trauma Surgery/Surgical Critical Care/Emergency General Surgery *For urgent issues arising after 4PM during the week or on weekends/holiday, please page the trauma/EGS attending esl instructional assistant. This patient's plan of care was discussed with Trauma/Emergency General Surgery attending, Dr. Clements Problem List/Past Medical History Ongoing Bipolar 1 disorder, mixed BMI 24.0-24.9, adult Chronic hepatitis C Drug addiction in remission Nicotine addiction Historical feet Seizures Medications Inpatient acetaminophen 325 mg Tab, 975 mg= 3 tab(s), Or (more content not included)... Normal [facility] Comment on above: Result Comment: Elec tronically Signed By: Chacha Ambriz PA-C\.br\Date and Time Signed: 11/16/22 14:29 EDT\.br\Electronically Co-Signed By: Hakan Clements DO\.br\Date and Time Co-Signed: 11/19/22 12:26 EDT CBC W Auto Differential pane l (Bld)on 11-18-2022 Basophils (Bld) [#/Vol] 0.0 10*3/uL 0.0 - 0.2 K/uL [facility] Basophils/100 WBC (Bld) 0.5 % [facility] Eosinophils (Bld) [#/Vol] 0.1 10*3/uL 0.0 - 0.7 K/uL [facility] Eosinophils/100 WBC (Bld) 1 % [facility] Erythrocyte distribution width (RBC) [Ratio] 13.9 % 11.5 - 14.5 % [facility] Hematocrit (Bld) [Volume fraction] 31.8 % Low 37.0 - 47.0 % [facility] Hemoglobin (Bld) [Mass/Vol] 10.5 g/dL Low 12.0 - 16.0 g/dL [facility] Interpretation and review of laboratory results Abnormal [facility] Lymphocytes (Bld) [#/Vol] 1.6 10*3/uL 1.0 - 4.8 K/uL [facility] Lymphocytes/100 WBC (Bld) 20.3 % [facility] MCH (RBC) [Entitic mass] 30.6 pg 27.0 - 31.3 pg [facility] MCHC (RBC) [Mass/Vol] 32.9 % Low 33.0 - 37.0 % [facility] MCV (RBC) [Entitic vol] 93.1 fL 79.4 - 94.8 fL [facility] Monocytes (Bld) [#/Vol] 0.4 10*3/uL 0.2 - 0.8 K/uL [facility] Monocytes/100 WBC (Bld) 5.2 % [facility] Neutrophils (Bld) [#/Vol] 5.6 10*3/uL 1.4 - 6.5 K/uL [facility] Platelets (Bld) [#/Vol] 246 10*3/uL 130 - 400 K/uL [facility] RBC (Bld) [#/Vol] 3.42 10*6/uL Low [facility] Segmented neutrophils/100 WBC (Bld) 73.0 % [facility] WBC (Bld) [#/Vol] 7.6 10*3/uL 4.8 - 10.8 K/uL [facility] CBC With Platelet and Differ entialon 11-18-2022 Basophils (Bld) [#/Vol] 0.0 10*3/uL Normal 0.0-0.2 [facility] Comment on above: Performed By: #### C BCWD #### [facility] [address] [place] [address] Basophils/100 WBC (Bld) 0.5 % Normal [facility] Comment on above: Performed By: #### C BCWD #### [facility] [address] [place] [address] Eosinophils (Bld) [#/Vol] 0.1 10*3/uL Normal 0.0-0.7 [facility] Comment on above: Performed By: #### C BCWD #### [facility] [address] [place] [address] Eosinophils/100 WBC (Bld) 1.0 % Normal [facility] Comment on above: Performed By: #### C BCWD #### [facility] [address] [place] [address] Erythrocyte distribution width (RBC) [Ratio] 13.9 % Normal 11.5-14.5 [facility] Comment on above: Performed By: #### C BCWD #### [facility] [address] [place] [address] Hematocrit (Bld) [Volume fraction] 31.8 % Low 37.0-47.0 [facility] Comment on above: Performed By: #### C BCWD #### [facility] [address] [place] [address] Hemoglobin (Bld) [Mass/Vol] 10.5 g/dL Low 12.0-16.0 [facility] Comment on above: Performed By: #### C BCWD #### [facility] [address] [place] [address] Lymphocytes (Bld) [#/Vol] 1.6 10*3/uL Normal 1.0-4.8 [facility] Comment on above: Performed By: #### C BCWD #### [facility] [address] [place] [address] Lymphocytes/100 WBC (Bld) 20.3 % Normal [facility] Comment on above: Performed By: #### C BCWD #### [facility] [address] [place] [address] MCH (RBC) [Entitic mass] 30.6 pg Normal 27.0-31.3 [facility] Comment on above: Performed By: #### C BCWD #### [facility] [address] [place] [address] MCHC 32.9 % Low 33.0-37.0 [facility] Comment on above: Performed By: #### C BCWD #### [facility] [address] [place] [address] MCV (RBC) [Entitic vol] 93.1 fL Normal 79.4-94.8 [facility] Comment on above: Performed By: #### C BCWD #### [facility] [address] [place] [address] Monocytes (Bld) [#/Vol] 0.4 10*3/uL Normal 0.2-0.8 [facility] Comment on above: Performed By: #### C BCWD #### [facility] [address] [place] [address] Monocytes/100 WBC (Bld) 5.2 % Normal [facility] Comment on above: Performed By: #### C BCWD #### [facility] [address] [place] [address] Neutrophils (Bld) [#/Vol] 5.6 10*3/uL Normal 1.4-6.5 [facility] Comment on above: Performed By: #### C BCWD #### [facility] [address] [place] [address] Neutrophils/100 WBC (Bld) 73.0 % Normal [facility] Comment on above: Performed By: #### C BCWD #### [facility] [address] [place] [address] Platelets (Bld) [#/Vol] 246 10*3/uL Normal 130-400 [facility] Comment on above: Performed By: #### C BCWD #### [facility] [address] [place] [address] RBC (Bld) [#/Vol] 3.42 10*6/uL Low 4.20-5.40 [facility] Comment on above: Performed By: #### C BCWD #### [facility] [address] [place] [address] WBC (Bld) [#/Vol] 7.6 10*3/uL Normal 4.8-10.8 [facility] Comment on above: Performed By: #### C BCWD #### [facility] [address] [place] [address] CTA CHEST ABDOMEN PELVIS W W O [...] Cristel Corrales MD 11/18/22 Final result Normal [facility] 1. Free intraperitoneal air, likely secondary to given history of recent surgery. 2. Supraumbilical midline incision, with minimal fluid/blood products in the underlying subdermal tissues. 3. Suggestion of a 3.7 cm luminal ocular cystic structure likely associated with the left ovary. [facility] EXAMINATION: CTA DISSECTION CHEST ABDOMEN PELVIS [...] the left ovary Bones/Soft Tissues: No fracture [facility] Cristel Corrales MD - 11/18/2022 EXAMINATION: [...] structure likely associated with the left ovary. [employer] Phone: Radiology Study observation (narrative) [employer] Phone: CTA CHEST ABDOMEN PELVIS W W O CONTRASTOrdered By: Cristel Corrales on 11-18-2022 [employer] Phone: Coding Summary.on 11-18-2022 Coding Summary. CD:[id number] Ww+PGhlYWQ+CP6PWKRmX 21boHKgiS7dL0WPKFiMQ ywgQVBQTElOSyIgbmFtZ X6kfTAiGSAp IC8+FG7oSNFzAiaciEEj b7M5bME0D54ogs0zVJka dJS1BXDjHfFxrgycv0xe fDw8SQjaNqtwIbMw TVPwnO81QNT1gH35Dt94 wMWevAGuq4lduHm0ExRa UDIcBBE6gVcgRMrtt9Ee BZQtN83gbLZzw6M9 IGNvbGxhcHNlOyBlbXB0 tY3eOOrgsqafa7xdscyn Igh3fq94nTRtp9F2aUZ1 O4ImuhT6CLCqrTCx QfuooQGRxM9xfhvyr4ns vxxwEkWlCGXhMYl7ZSk7 OYTdvLsmWpHbWO03DWS0 LGElahLgT9HlQYMh iDuzCiP4m7A9Bn7VK7ES KqbaA8TNBQPOIXrktBJ+ FZ95ot65K6WqVofxDjr2 RLQyOUG8zQL5tF9z BBIrMOgil8V7tCV2A6Bd zuLquj6zy9voIHAiYKmg Y35xkTSnf0S0MOJboYJ2 GXMewJjyIlMqnH70 Oyc+MGAvyVbnw4AxMejl f7ncg6bsmQg0FmgcBGVw nwGgoKgaPZD9q1IyWn9r WTSmlWF5yZR2rG0j YyPvBzT9NPsgC468RiPc fHXaYufeB43sK4PhyWL+ LXWuTpg7JEBdgOutXO5r U1RiZBZvcbzxdVUy nOgcTM9dYRTsykziOLEy tL9oMTUjO8c6JhOkPbU5 PLrvJ4SaTOTyslaaDx48 cS9dOdZcLaG0AXul F6FwoyE9ITWmtSNxDMys MUM0G79gq3U7DYHzLNZw XFZ6oBM7rD0wdNqdqoiz bGVmdDsgdmVydGlj MZwlYTrgM768XHDkgBog PkNvZGluZyBEYXRlOiAg MDUvMDQvMjAyMzwvdGQ+ YSXoDCL3pXzdFWPn rQPdJBxoFj8kxGoduVjr IT8cQFJwnjmvALEdnO1f ZDWceBGwiQqfQB5uOCAw dmwmg328SwAvTNM0 QEJmtGTyE3FlkJ0iCaHd QBBrTVQkD4XxyMRjVMnx S790SMogXtO9VRMgteOu U4OeHOQajWhkIfG2 n6M5Ki7Vu1YhbdlkN2Vb hTDsBqEdNxcaUIp5F9Sr PjwvdHI+RY59AHZeBP24 ZJk8EUN3zVwjHZjz IFCeM0LdpB8oUaTdCRHc ZGRkOyc+PHRhYmxlIHdp ZHRoPScxMDAlJyBzdHls ER6tUr1xECVgICWe nHpfhWBvFvYkk1mdPETj PGdcEJ0jaIcjN8OzrAU7 QUNoc8l4Bn48W78hW0Nh dXA+SFBdeUF2sRM6 nR2hBuNwBfP0ZJrcB216 SzTejPObYxkaa3hul3pq aQv3ZfV9ICLapfTipFxy WMC5z9AgUc89G33m IHdpZHRoPSIxNSUiIHZh zRjhhy0tlM5hGd4+PGNv uZP4eRK8sK9rKfBsHsE5 KPuhA931TwUvvCPu Rfnif9eex5caxWi0BiBc ZNCasoFraOxvQJJ6t3Rp Mb81Z5UkkJtiz1EuDop8 mr70vJAwk6U9wTT5 X6DjFUZyykapxRHuaVit GJ6pIZKkoestASDxsE1u WXQwX8f3CrRuXtX0APmx X5NgcpQ3JTTudNBb DVAsnXBQiS6ecanhg8ct vzwrYrBbUPAhMEf1TXa8 YFYatYifYlTrOFM9WqD5 NCQ3sCSoqB0ebHnq dopgsO9yLws+EBT6fUJd iFWDXB5tLoctoMQ+PHRk MPC7pPmnAJwqOGJweS1s ZPEgJ9z0BmIjYuY4 XBzjO8WjfuF6YWRvtGXp DYYhkTISbS8loafey5uu lqisFdPfEPGeDSe5UQa3 LWFsaWduOiBsZWZ0 YkH0SUG3jMQvtV0zbYys vscidX2cFqj+QmlydGgg XPH0TOf7O4ZmQan7CXWp zOpqCO5gfCGeGHhb Rf1mlPumbTtbOE2vPXFb bcxth468PrAky9tkRMVf uCRtLJteNXD3I12so7A0 NCWmRWXbDAT9oOD4 zZ1raLuipkaxjEXuqDee nwBgsYwfKSsdLDfwJ689 RELtwSddIdVfPVm8F9Hp Ezv8DBKacYkvHR7s qIUkHTthSh7rwCnryWcd WB2wEOVsvlhmm735SnSo g6swEXKgfOPwHKcoHAO7 C57ap0P0ZKSpVQRt EGX0eTJ8vX0kjRuvchii bGVmdDsgdmVydGljYWwt ZJlsV096KMIocIghNpIg nAo4E2RrRus4QBTz tPihUO8enAQeITdcJb3j sRfwfZpjJK7dOJPznmhm u975YoZpb0biGYMbdWHl HKqcUTT1J51ub0R1 DUAfKUFxHTS3fOR0oP7s bGlnbjogbGVmdDsgdmVy iZlgUNdkSOmpD029ADRc cDsnPlBhdGllbnQg LJmiRDe2X4UvPluxjBP+ ZI89BDHmRX85cIFarXLy k3wkaHx5OgTzKRDnVPY8 yRhaPBqtj7ByWGNr S81zrOUtp8F3WFPokDxh hZWwTaVadMR7lI9nXXvb ipvwa4otbbaiRqquq5sn bi68uH34J93gVTyq ZHRoPSIzMCUiIHZhbGln lk4snZ9dGn3+PGNvbCB3 cZU2uP1pFIJzJsD2IGlg S407GdDqbJIhZtfa d3wws0wozBm0TtC3OSBb klEgyYbnSJR9d7BpPz28 Z23lQIgzZBPpZJNvVTWu LMHvpNbxvn6wbU2o Ii8+POYnnSD8uJJ6hE3q VkJzFwM7JYmlG068WqXa hACvWmrgX26bL5MpjWG+ HWGbYbv7MMXryNyf NS6ltGEyOQidMu7tQBS7 WvXoAcGqGRfbP9LpIQHo haqjetypnBS3VSYbKIKg aC06Fl7ztTfkBXVd jMOSqH0uypetx6ohinsj WzVvKNFnGQm8OZg7GKMr yBiaCaXmGAX9PdD3JJR8 nYXieC5vnYvvxqxi bC2qL1FrNDWalvzfNg88 vC6zRiHgIbN0ZPmdCaz+ SZNRJ65HYSEODDiGHCIF JIm6X8YiPgi3NEJj zRnyFP2xxNMaNTmbJt1l rKljlQfvJQ2fHQKdugfx LPGkiX5mASOkmFQriShu JY7jAEKqxfhjk651 OqSiLVM4VVQriTOfU9Ic wW6gMwAcQFSxHFXuX9Vc tEQmFAtiF258THgoRfN5 WWUjgwMnE4LeRDOz nPzxVqW2p2Z4In6rRb9g Wv3bWWb0GY46OY03hYXm z6T8uAK1C0GyPCOpdjgm jnksoRO5FTNaEVCx mU53bZYeYDhsMd7bl6B9 c954LGCnTDAaeA44Qc9d wUfyLAXtfVNOmD9iuqjq z0micyoeOcYiZQMj DRi8BQw4HXByzLwpTuSa XEY7XeH0JPY4kVQxeW7w mTiytrvffB8eKam+MjUg QRVuweW7E2KxFxf7 RBUqsXvbGQ0nmYWuDGrm Oq9luVgagOrwTK4bSCOt pbsdTIFrwX0hYNCzyMKl kTobQU1tOABgjojy y124ZyMgZPN6GLIasCNn M1WokA7uYzLfBUEdKXRn P7AwdVXzQSfiD617HDik EzC4ICQylsSaH9Fu HMYpgCphZqD3l2E4Hw7B IQ2iyHS5T7CxTjb4ZQRk nFztBT1naBXhWCxxJz7i fIcvwXzwAQ0zNSPc lcjkKKPshW5qFVPuvDGx fOecGY2rFXQkhvxyl930 NcWoANG3PMNrvGOnS8On vI6dIkLhZTNiQDUt O4RgsDSaISpzG322ZJhl TfV9EQJhotAfW8OdXFDe mOnmZeO9w2P9Cs9ZvqEl rEwiqcR5Q4XrRjnj dHI+WU55DWZbVC40xFFa nHBzf6ftzGh1KtBbDQCu ANV6pApiMUgov6UsXFKq O49teAWxr5Q2SEZr bLwxmTXaXsAegOW5dP2j PIhqvfgrc4kqlrntAoim z2vfbr24bM34X69tFQvh ZHRoPSIzMCUiIHZh fUolar3iiT2qBu5+PGNv tRB2wWF4eZ2jLeGkCtB4 HGgwZ618PhYobFLyPaom a1mrq9uwmJl6RvYz TJKprmZwlVrmRAS8z3Zg Df66U13vCZnuFJYdIIDh EEDmDUVblEmrpc4ptC4v Ii8+QX9dn4vtxg66 gV93bQF+SWOrZSX4lFpd GLpyYSPbkY9jGNoxHnM5 LCNsYnKajB40jZSbSRwp Tv0svQwjjHvtRU7e BBNfoauus856KxHcs0ur SCXtmBQmOMvaNAX5V26v v8P0GOOwWDGgWIK7pQQ1 aN5wvJqllzhhaXZt dDsgdmVydGljYWwtYWxp W462HBDvgXegHmCuyOUa D9oynyVHLT8mLhpakDP+ GVKiOGL1sSfzGRmi TAGshY5hTIOsL9f5KuZa FuG7IHxiY6NtqnQ5IUPj wVXmNKItmISFmC8mdsod t6yxintfJaNmGYWi MBd0UYy8GUEzlYlfSbOg DHD7TpO5YOB1oKNiuT1a mIgqsrlozS2iSja+RklO OjwvdGQ+PHRkIHN0 nVtrCUlhAJRakL1bWBBj K4s4QlClMsC9ZLtlG7Cl iuN5TPDhsRWyJHDxwTIS jK3eyqaaq6arcvxr PhQiFEIdRCb1UWk0OSVf lLxkLtBaOKY7MoD9RIQ4 oLEzlE5yeNhoegvehY1x Oyc+TVJOOjwvdGQ+ WDTzXXJ8hVdhAYzoIQQp uY5mOXZoT5e3VtKsRfC7 GClsP5YvocW3AMVmpMBu YXDjeSCRoV7coxrd s3kdqbirWiGgDSUyEMc7 KPh9FQNwyIviNmPyCAR9 RmE0OVD0wVBdbD0ynMze cijeeI9jFid+UGF5 DVJ4CX38NJ64O9MhIxhg dGFibGU+PHRhYmxlIHdp ZHRoPScxMDAlJyBzdHls UR1uHk8dYQUhGIIu bGxhcHNl (more content not included)... Normal [facility] 11-18-2022 Albumin [Mass/Vol] 4.1 g/dL Normal 3.5-4.6 [facility] Comment on above: Performed By: #### C MP #### [facility] [address] [place] [address] ALP [Catalytic activity/Vol] 57 U/L Normal 40-130 [facility] Comment on above: Performed By: #### C MP #### [facility] [address] [place] [address] ALT [Catalytic activity/Vol] 19 U/L Normal 0-33 [facility] Comment on above: Performed By: #### C MP #### [facility] [address] [place] [address] Anion gap [Moles/Vol] 12 mmol/L Normal 9-15 [facility] Comment on above: Performed By: #### C MP #### [facility] [address] [place] [address] AST [Catalytic activity/Vol] 26 U/L Normal 0-35 [facility] Comment on above: Performed By: #### C MP #### [facility] [address] [place] [address] Bilirubin [Mass/Vol] mg/dL Normal 0.2-0.7 [facility] Comment on above: Performed By: #### C MP #### [facility] [address] [place] [address] Calcium [Mass/Vol] 9.2 mg/dL Normal 8.5-9.9 [facility] Comment on above: Performed By: #### C MP #### [facility] [address] [place] [address] Chloride [Moles/Vol] 105 mmol/L Normal 95-107 [facility] Comment on above: Performed By: #### C MP #### [facility] [address] [place] [address] CO2 [Moles/Vol] 28 mmol/L Normal 20-31 [facility] Comment on above: Performed By: #### C MP #### [facility] [address] [place] [address] Creatinine [Mass/Vol] 0.54 mg/dL Normal 0.50-0.90 [facility] Comment on above: Performed By: #### C MP #### [facility] [address] [place] [address] GFR >60.0 Normal >60 [facility] Comment on above: Result Comment: Pedi [...] secretion. Performed By: #### C MP #### [facility] [address] [place] [address] Globulin (S) [Mass/Vol] 2.7 g/dL Normal 2.3-3.5 [facility] Comment on above: Performed By: #### C MP #### [facility] [address] [place] [address] Glucose [Mass/Vol] 127 mg/dL Critically high 70-99 M [facility] Comment on above: Performed By: #### C MP #### [facility] [address] [place] [address] Potassium [Moles/Vol] 3.5 mmol/L Normal 3.4-4.9 [facility] Comment on above: Performed By: #### C MP #### [facility] [address] [place] [address] Protein [Mass/Vol] 6.8 g/dL Normal 6.3-8.0 [facility] Comment on above: Performed By: #### C MP #### [facility] [address] [place] [address] Sodium [Moles/Vol] 145 mmol/L Critically high 135-144 M [facility] Comment on above: Performed By: #### C MP #### [facility] [address] [place] [address] Urea nitrogen [Mass/Vol] 9 mg/dL Normal 6-20 [facility] Comment on above: Performed By: #### C MP #### [facility] [address] [place] [address] Comprehensive metabolic 2000 panelon 11-18-2022 Albumin [Mass/Vol] 4.1 g/dL 3.5 - 4.6 g/dL [facility] ALP [Catalytic activity/Vol] 57 U/L 40 - 130 U/L [facility] ALT [Catalytic activity/Vol] 19 U/L 0 - 33 U/L [facility] Anion gap [Moles/Vol] 12 mmol/L [facility] AST [Catalytic activity/Vol] 26 U/L 0 - 35 U/L [facility] Bilirubin [Mass/Vol] mg/dL 0.2 - 0 .7 mg/dL [facility] Calcium [Mass/Vol] 9.2 mg/dL 8.5 - 9.9 mg/dL [facility] Chloride [Moles/Vol] 105 mmol/L [facility] CO2 [Moles/Vol] 28 mmol/L [facility] Creatinine [Mass/Vol] 0.54 mg/dL 0.50 - 0.90 mg/dL [facility] GFR/1.73 sq M.predicted among non-blacks MDRD (S/P/Bld) [Vol rate/Area] 60 - [facility] Comment on above: Pediatric calculator link https://www.kidney.org/professionals/kdoqi/gfr_calculatorped [...] [Mass/Vol] 2.7 g/dL 2.3 - 3.5 g/dL [facility] [employer] Glucose [Mass/Vol] 127 mg/dL High 70 - 99 mg/dL [facility] Interpretation and review of laboratory results Abnormal [facility] Potassium [Moles/Vol] 3.5 mmol/L [facility] Protein [Mass/Vol] 6.8 g/dL 6.3 - 8.0 g/dL [facility] Sodium [Moles/Vol] 145 mmol/L High [facility] Urea nitrogen [Mass/Vol] 9 mg/dL 6 - 20 mg/dL [facility] [employer] General Message Officeon General Message Office --- --- --- --- - -- --- --- --- --- From: Brittany Hussein To: SHAHIDA [place] Sent: 11/18/22 02:30:14 AM EDT Subject: Discharge Summary Ready to View A summary regarding your recent visit is available in the Documents section of your health record. Normal [facility] IntraOperative Documentson 0 11-18-2022 IntraOperative Documents [id number] 6#1.00CD:127 Normal [facility] No Panel InformationOrdered By: Judi Rosas on 11-18-2022 [facility] P[facility] Urine QualOrde red By: Judi oRsas on 11-18-2022 Beta HCG ( test) Ql (U) Negative Negative [employer] Lot Number [id number] [employer] Negative QC Pass/Fail Acceptable [employer] Positive QC Pass/Fail Acceptable [employer] Progress Noteson 11-18-2022 Educational Assistant Authentication Interface Message Text Documentation: Mode: Telephone Patient Patient Work Phone: Patient Cell Preferred phone: [phone] Consent: I confirmed patient understanding of the [...] placing orders. This note was transcribed using [employer] voice-recognition software. This may result in typographical or malapropism errors. Normal [employer] XR CHEST (2 VW)on 11-18-2022 XR [...] Vamsi Sneed MD 11/18/22 Final result Normal [facility] No acute cardiopulmonary disease. Pneumoperitoneum, presumably postsurgical. Correlation is recommended. [facility] EXAMINATION: TWO XRAY VIEWS OF THE [...] finding is most likely postoperative in nature. [facility] Vamsi Sneed MD - 11/18/2022 EXAMINATION: [...] disease. Pneumoperitoneum, presumably postsurgical. Correlation is recommended. [employer] Phone: Radiology Study observation (narrative) [employer] Phone: XR CHEST (2 VW)Ordered By: Analy Sneed on 11-18-2022 [employer] Phone: Auto Diffon 11-17-2022 Basophils/100 WBC (Bld) 0.5 % Normal 0.0-2.0 [facility] Comment on above: Order Comment: Order Added by Discern Expert. Performed By: #### 2 680781, 8363583, 76134346, 7817736 #### [facility] [address] [place] [address] Basophils/Leukocytes Auto (Bld) [Pure # fraction] 0.0 E9/L Normal 0.0-0.2 [facility] Comment on above: Order Comment: Order Added by Discern Expert. Performed By: #### 2 381726, 2290967, 07034841, 5027557 #### [facility] [address] [place] [address] Eosinophils/100 WBC (Bld) 1.2 % Normal 0.0-8.0 [facility] Comment on above: Order Comment: Order Added by Esme Expert. Performed By: #### 2 810050, 3816764, 54568375, 9265465 #### [facility] [address] [place] [address] Eosinophils/Leukocytes Auto (Bld) [Pure # fraction] 0.1 E9/L Normal 0.0-0.5 [facility] Comment on above: Order Comment: Order Added by Discern Expert. Performed By: #### 2 161033, 3752381, 51039261, 3808628 #### [facility] [address] [place] [address] Lymphocytes/100 WBC (Bld) 41.8 % Normal 14.0-50.0 [facility] Comment on above: Order Comment: Order Added by Discern Expert. Performed By: #### 2 786533, 3867545, 65895872, 0413740 #### [facility] [address] [place] [address] Lymphocytes/Leukocytes Auto (Bld) [Pure # fraction] 2.8 E9/L Normal 1.0-4.0 [facility] Comment on above: Order Comment: Order Added by Discern Expert. Performed By: #### 2 039558, 3090277, 25118160, 0586934 #### [facility] [address] [place] [address] Monocytes/100 WBC (Bld) 7.2 % Normal 4.0-14.0 [facility] Comment on above: Order Comment: Order Added by Discern Expert. Performed By: #### 2 593737, 9053281, 19668156, 2446859 #### [facility] [address] [place] [address] Monocytes/Leukocytes Auto (Bld) [Pure # fraction] 0.5 E9/L Normal 0.2-1.0 [facility] Comment on above: Order Comment: Order Added by Discern Expert. Performed By: #### 2 543141, 5753447, 21562716, 5485872 #### [facility] [address] [place] [address] Neutrophils/100 WBC (Bld) 49.3 % Normal 36.0-75.0 [facility] Comment on above: Order Comment: Order Added by Discern Expert. Performed By: #### 2 533480, 4607085, 65372113, 4929689 #### [facility] [address] [place] [address] Neutrophils/Leukocytes Auto (Bld) [Pure # fraction] 3.2 E9/L Normal 2.0-7.5 [facility] Comment on above: Order Comment: Order Added by Discern Expert. Performed By: #### 2 691312, 1710442, 74215418, 2786518 #### [facility] [address] [place] [address] BMPon 11-17-2022 Anion gap [Moles/Vol] 8 mmol/L Normal 6-16 [facility] Comment on above: Performed By: #### 2 523994, 8789060, 74885479, 3485611 #### [facility] [address] [place] [address] Calcium [Mass/Vol] 8.5 mg/dL Low 8.9-11.1 [facility] Comment on above: Performed By: #### 2 211373, 6755413, 76440774, 0799180 #### [facility] [address] [place] [address] Chloride [Moles/Vol] 107 mmol/L Normal 101-111 [facility] Comment on above: Performed By: #### 2 791393, 5590393, 77897901, 6393303 #### [facility] [address] [place] [address] CO2 [Moles/Vol] 25 mmol/L Normal 21-31 [facility] Comment on above: Performed By: #### 2 146631, 3637322, 74146570, 7521594 #### [facility] [address] [place] [address] Creatinine [Mass/Vol] 0.5 mg/dL Normal 0.5-1.3 [facility] Comment on above: Performed By: #### 2 443984, 6670218, 95069871, 9775882 #### [facility] [address] [place] [address] Glucose [Mass/Vol] 89 mg/dL Normal 55-199 [facility] Comment on above: Result Comment: If t his glucose result represents a fasting glucose, interpretation should refer to the following reference range: 55-99 mg/dL Performed By: #### 2 107777, 8436381, 72026313, 3037510 #### [facility] [address] [place] [address] Potassium [Moles/Vol] 3.4 mmol/L Low 3.5-5.3 [facility] Comment on above: Performed By: #### 2 982456, 2445454, 66491729, 7212078 #### [facility] [address] [place] [address] Sodium [Moles/Vol] 137 mmol/L Normal 135-145 [facility] Comment on above: Performed By: #### 2 855123, 8014460, 29478621, 4228518 #### [facility] [address] [place] [address] Urea nitrogen [Mass/Vol] 9 mg/dL Normal 5-21 [facility] Comment on above: Performed By: #### 2 101287, 0220351, 48575965, 4906999 #### [facility] [address] [place] [address] Urea nitrogen/Creatinine [Mass ratio] 18 No Units Normal 10-20 [facility] Comment on above: Performed By: #### 2 875210, 1066487, 49480716, 0151975 #### [facility] [address] [place] [address] CBC w/ Auto Diffon 3 Erythrocyte distribution width (RBC) [Ratio] 13.9 % Normal 10.9-14.2 [facility] Comment on above: Performed By: #### 2 674139, 2187171, 03411085, 4084779 #### [facility] [address] [place] [address]57 Hematocrit (Bld) [Volume fraction] 27.5 % Low 34.0-46.0 [facility] Comment on above: Performed By: #### 2 011367, 4026031, 10689733, 3249410 #### [facility] [address] [place] [address] Hemoglobin (Bld) [Mass/Vol] 9.1 g/dL Low 12.0-16.0 [facility] Comment on above: Performed By: #### 2 356195, 7242075, 90561857, 3660309 #### [facility] [address] [place] [address] MCH (RBC) [Entitic mass] 30.1 pg Normal 27.0-34.0 [facility] Comment on above: Performed By: #### 2 518704, 6653342, 09857633, 3907868 #### [facility] [address] [place] [address] MCHC (RBC) [Mass/Vol] 32.9 g/dL Normal 31.4-36.0 [facility] Comment on above: Performed By: #### 2 861386, 3878264, 20648829, 6122990 #### [facility] [address] [place] [address] MCV (RBC) [Entitic vol] 91.5 fL Normal 80.0-100.0 [facility] Comment on above: Performed By: #### 2 263748, 2765487, 14641921, 1370904 #### [facility] [address] [place] [address] Platelet mean volume (Bld) [Entitic vol] 8.8 fL Normal 6.4-10.8 [facility] Comment on above: Performed By: #### 2 260337, 8879946, 89900882, 8915300 #### [facility] [address] [place] [address] Platelets (Bld) [#/Vol] 163.0 E9/L Normal 150.0-500.0 [facility] Comment on above: Performed By: #### 2 565550, 6943426, 16556412, 9890800 #### [facility] [address] [place] [address] RBC (Bld) [#/Vol] 3.0 E12/L Low 4.3-5.9 [facility] Comment on above: Performed By: #### 2 460931, 6355319, 18871950, 4882752 #### [facility] [address] [place] [address] WBC corrected for nucl RBC Auto (Bld) [#/Vol] 6.6 E9/L Normal 4.0-11.0 [facility] Comment on above: Performed By: #### 2 756452, 9293790, 60269538, 0747369 #### [facility] [address] [place] [address] CHEMISTRYOrdered By: SYSTEM SYSTEM on 11-17-2022 Anion [...] , Shae Acute blood loss anemia Normal [facility] Discharge Instructionson Discharge Instructions [id number] [facility] [id number] 5#1.00CD:127 Normal [facility] HEMATOLOGYOrdered By: SYSTEM SYSTEM on 11-17-2022 [...] 6.6 E9/L Normal 4.0 - 11.0 E9/L [facility] [place] [facility]eAuto[facility] Inpatient Patient Summaryon [...] Pending Diagnostic Test Results None Pharmacy Information [facility] Discharge Instructions Do not lift heavier than 20 pounds for the next 4 to 6 weeks to prevent a hernia. May shower normally. No swimming, soaking, bathing for 4 weeks. Follow-up with the hand surgeon at [facility] [place] regarding outpatient hand surgery. Previously Scheduled Follow-Up Appointments Tuesday 10:00 AM EDT Where: [facility] New Follow Up Appointments after Discharge Follow Up with trauma clinic When: 11/26/2022 10:00 AM EDT Comments: Postop follow-up and staple removal. Where: [address] [place] [address] 3, second floor, [address] [place] [address]- [phone] Follow Up with AYE VICENTE MD When: [...] with TRAUMA. Thank you! Where: [address] [place] [address]- Business (1) Medications What How Much When Instructions Next Dose New acetaminophen (acetaminophen 325 mg Tab) 3 Tablets By Mouth Every 6 hours 11/17 5pm New methocarbamol (Robaxin 500 mg Tab) 1 Tablets By Mouth 4 times a day as needed for Spasm Duration: 7 Days Pickup at [facility] #15908 As needed (last dose 11/17 9am)_ New naproxen (Naprosyn 500 mg Tab) 1 Tablets By Mouth 2 times a day Duration: 7 Days with food Pickup at [facility] #47610 May take as needed Pharmacy Information [facility] #[id number]: [address] [place], [place] [id number] [phone] What When Comments Stop Taking sofosbuvir-velpatasv ir [...] dressing supp (more content not included)... Normal [facility] Insurance Correspondence Off iceon 11-17-2022 Insurance Correspondence Office [id number] 8#1.00CD:127 [facility] Interdisciplinary Note - Luis e Manageron 11-17-2022 Interdisciplinary Note - Sheriff'S Officer CRM spoke with patient in room. Patient [...] daughter will transport her home. . Normal [facility] Comment on above: Result Comment: Elec tronically Signed By: Mario COLLINS, Joanne\.br\Date and Time Signed: 11/17/22 12:05 EDT Magnesiumon 11-17-2022 Magnesium [Mass/Vol] 1.8 mg/dL Normal 1.3-2.4 [facility] Comment on above: Performed By: #### 2 903905, 6224839, 37273786, 1086630 #### [facility] [address] [place] [address] Main OR Intraoperative Recor don 11-17-2022 Main OR Intraoperative Record IntraOp Document Type FT Summary Primary Physician: Christiano Marion MD Finalized Date/Time: 11/17/22 10:36:38 Pt. Name: SHAHIDA [place]./Sex: 1995 Female Med Rec #: [id number] Physician: Christiano Marion MD Financial #: [id number] Pt. Type: I Room/Bed: [place] [address] Admit/Disch: 11/14/22 23:26:23 - Institution: Case Times [...] Role Performed Surgeon - Primary Anesthesiologist of Thread Winder Automatic - Primary Record Time In 11/15/22 01:08:00 11/15/22 01:08:00 11/15/22 01:08:00 Time Out 11/15/22 04:02:00 11/15/22 04:02:00 11/15/22 04:02:00 Procedure LAPAROTOMY EXPLORATORY LAPAROTOMY EXPLORATORY LAPAROTOMY EXPLORATORY Comments Last Modified By: Ashu COLLINS, Darling Wakefield RN, Darling Tuttle RN 11/15/22 04:07:58 11/15/22 04:07:58 11/15/22 04:07:58 Entry 4 Entry 5 Case Attendee Zoya Del Valle CST, Benjamin Role Performed Scrub - Primary SPECIAL AGENT [employer] Time In 11/15/22 01:08:00 11/15/22 01:08:00 Time [...] for sign (more content not included)... Normal [facility] Phosphoruson 11-17-2022 Phosphate [Mass/Vol] 3.4 mg/dL Normal 1.9-4.6 [facility] Comment on above: Performed By: #### 2 181210, 3758675, 97269454, 8490720 #### [facility] [address] [place] [address] Progress Note-Physicianon Progress Note-Physician Patient: ADRIANO, SHAHIDA K Age: 27 years Sex: Female : 1995 Associated Diagnoses: None Author: MD Stone Ahmad F Postoperative Information Postoperative disposition: Postoperative disposition: To PACU. Optimetrix number: Optimetrix number [id number]. Anesthetic utilized: General. Health Status Allergies: Allergic [...] meets criteria ( To home ). Normal [facility] Comment on above: Result Comment: Elec [...] 1 po bid days 4-7, [facility] #[id number], Supply, 170, cm, 08/26/22 14:06:00 EST, Height/Length Dosing, 67.4, kg, 08/26/22 14:06:00 EST, Weight Dosing APO-Varenicline 1mg: APO-Varenicline 1mg, See Instructions, 60 tab(s), 3, Take 1 po BID day 8 and after, [facility] #[id number], Supply, 170, cm, 08/26/22 14:06:00 EST, Height/Length Dosing, 67.4, kg, 08/26/22 14:06:00 EST, Weight Dosing Documented Medications Documented sofosbuvir-velpatasv ir 400 mg-100 mg oral tablet: Refills(s) 0 Problem list: All Problems Bipolar 1 disorder, mixed / SNOMED CT 40056433 / Confirmed BMI 24.0-24.9, adult / SNOMED CT 0287796299 / Confirmed Chronic hepatitis C / SNOMED CT 032843302 / Confirmed Drug addiction in remission / SNOMED CT 5428183220 / Confirmed Maternal tobacco use / SNOMED CT 4072942861 / Confirmed Maternal tobacco use / SNOMED CT 4310702009 / Confirmed Nicotine addiction / SNOMED CT 04607582 / Confirmed Resolved: feet / SNOMED CT 597554232 metal implation to tighten tedons Resolved: / SNOMED CT 736136842 Resolved: Seizures / SNOMED CT [id number] Canceled: Anxious depression / SNOMED CT 676675453 Canceled: Depression / SNOMED CT 188222897 Canceled: Diarrhea / SNOMED CT 862912831 Canceled: Fever / SNOMED CT 7951451007 Canceled: HCV infection / SNOMED CT 52602338 Canceled: High urine creatine / SNOMED CT 736120 Canceled: Smoker / IMO 987548 Added secondary to documentation in Social History. Canceled: Suicide / SNOMED CT 07285298 Canceled: Tonsillar cyst / SNOMED CT 585564461 Histories Past Medical History: Resolved (813227474): Onset on 05/18/2020 at 25 years. Resolved. feet (519064404): Resolved. Comments: 11/08/2011 EDT 3:54 Elsa Mayes RN metal implation to tighten tedons Seizures ([id number]): Resolved. Family History: Renal failure syndrome Father Comments: 11/08/2011 3:57 Elsa Mayes RN cancer of the kidneys Bipolar Sister Procedure history: Betamethasone (331148453) on 12/15/2020 at 25 Years. Foot repair (110238805). Social History Social & Psychosocial Habits Alcohol [...] Methamphetamines Comment: (more content not included)... Normal [facility] Comment on above: Result Comment: Elec [...] day(s), # 14 tab(s), Refills(s) 0, Pharmacy: [facility][id number], 157, cm, 11/14/22 23:32:00 EDT, Height/Length Dosing, 66.5, kg, 11/14/22 23:32:00 EDT, Weight Dosing Robaxin 500 mg Tab: 500 mg = 1 tab(s), Oral, QID, PRN Spasm, X 7 day(s), # 28 tab(s), Refills(s) 0, Pharmacy: [facility] #[id number], 157, cm, 11/14/22 23:32:00 EDT, Height/Length Dosing, 66.5, kg, 11/14/22 23:32:00 EDT, Weight Dosing Documented Medications Documented acetaminophen 325 mg Tab: 975 mg = 3 tab(s), Oral, q6hr, Refills(s) 0 Problem list: All Problems Bipolar 1 disorder, mixed / SNOMED CT 72531375 / Confirmed BMI 24.0-24.9, adult / SNOMED CT 1625071460 / Confirmed Chronic hepatitis C / SNOMED CT 211936980 / Confirmed Drug addiction in remission / SNOMED CT 8778243302 / Confirmed Maternal tobacco use / SNOMED CT 0748832368 / Confirmed Maternal tobacco use / SNOMED CT 2608796797 / Confirmed Nicotine addiction / SNOMED CT 56466057 / Confirmed Resolved: feet / SNOMED CT 848162513 metal implation to tighten tedons Resolved: Impaired skin integrity / SNOMED CT 36987563 Problem added on documentation of skin impairments. Resolved due to patient discharge. Resolved: / SNOMED CT 651183907 Resolved: Seizures / SNOMED CT [id number]-G [id number] Canceled: Anxious depression / SNOMED CT 753040701 Canceled: Depression / SNOMED CT 675737387 Canceled: Diarrhea / SNOMED CT 940574802 Canceled: Fever / SNOMED CT 7499238158 Canceled: HCV infection / SNOMED CT 79922498 Canceled: High urine creatine / SNOMED CT 478022 Canceled: Smoker / IMO 841237 Added secondary to documentation in Social History. Canceled: Suicide / SNOMED CT 86846150 Canceled: Tonsillar cyst / SNOMED CT 874447311 Histories Past Medical History: Resolved (850243583): Onset on 05/18/2020 at 25 years. Resolved. feet (046428050): Resolved. Comments: 11/08/2011 EDT 3:54 PAMELAT - Lida COLLINS, Elsa metal implation to tighten tedons Seizures ([id number]): Resolved. Family History: Renal failure syndrome Father Comments: 11/08/2011 3:57 Elsa Mayes RN cancer of the kidneys Bipolar Sister Procedure history: Betamethasone (324576599) on 12/15/2020 at 25 Years. Foot repair (651463144). Social History Social & Psychosocial Habits Alcohol 11/08/2011 Risk Assessment: Denies Alcohol Use 11/15/2022 Use: Current Frequency: 1-2 times per month Employment/School 11/08/2011 Status: Student Exerci (more content not included)... Normal [facility] Comment on above: Result Comment: Elec tronically Signed By: MD Bertha, Herminio Pope\.br\Date and Time Signed: 11/17/22 15:59 EDT eGFRon 11-17-2022 GFR/1.73 sq M.predicted among non-blacks MDRD (S/P/Bld) [Vol rate/Area] 133 mL/min/1.73 m2 Normal >=59 [facility] Comment on above: Order Comment: Order added by Discern Expert. Result Comment: Neon Electrician rosie kidney disease could be indicated at eGFR's of less than 60 mL/min/1.73m2. Kidney failure is indicated at less than 15 mL/min/1.73m2. Performed By: #### 2 301705, 6740086, 40380958, 9340100 #### [facility] [address] [place] [address] Auto Diffon 11-16-2022 Basophils/100 WBC (Bld) 0.4 % Normal 0.0-2.0 [facility] Comment on above: Order Comment: Order Added by Discern Expert. Performed By: #### 2 711200, 2487416, 9944559, 6337718, 9411785, 29691661, 6988439 #### [facility] [address] [place] [address] Basophils/Leukocytes Auto (Bld) [Pure # fraction] 0.0 E9/L Normal 0.0-0.2 [facility] Comment on above: Order Comment: Order Added by Discern Expert. Performed By: #### 2 263416, 9774518, 2865027, 1587770, 0715527, 30169687, 3816569 #### [facility] [address] [place] [address] Eosinophils/100 WBC (Bld) 0.5 % Normal 0.0-8.0 [facility] Comment on above: Order Comment: Order Added by Discern Expert. Performed By: #### 2 697502, 1528533, 7553792, 7985071, 2953711, 78702098, 7208657 #### [facility] [address] [place] [address] Eosinophils/Leukocytes Auto (Bld) [Pure # fraction] 0.0 E9/L Normal 0.0-0.5 [facility] Comment on above: Order Comment: Order Added by Discern Expert. Performed By: #### 2 281569, 1797665, 1914524, 9998167, 4997819, 98217463, 3030155 #### [facility] [address] [place] [address] Lymphocytes/100 WBC (Bld) 33.3 % Normal 14.0-50.0 [facility] Comment on above: Order Comment: Order Added by Esme Expert. Performed By: #### 2 118978, 1268227, 1725123, 1163990, 4930760, 20830492, 4969863 #### [facility] [address] [place] [address] Lymphocytes/Leukocytes Auto (Bld) [Pure # fraction] 3.4 E9/L Normal 1.0-4.0 [facility] Comment on above: Order Comment: Order Added by Discern Expert. Performed By: #### 2 974985, 1859421, 0614189, 0898649, 0519625, 17896180, 8390355 #### [facility] [address] [place] [address] Monocytes/100 WBC (Bld) 5.9 % Normal 4.0-14.0 [facility] Comment on above: Order Comment: Order Added by Discern Expert. Performed By: #### 2 885667, 1052730, 1872277, 4419174, 3069237, 29941969, 9892510 #### [facility] [address] [place] [address] Monocytes/Leukocytes Auto (Bld) [Pure # fraction] 0.6 E9/L Normal 0.2-1.0 [facility] Comment on above: Order Comment: Order Added by Discern Expert. Performed By: #### 2 162620, 3415551, 3390864, 9033959, 4875228, 18137416, 0242539 #### [facility] [address] [place] [address] Neutrophils/100 WBC (Bld) 59.9 % Normal 36.0-75.0 [facility] Comment on above: Order Comment: Order Added by Discern Expert. Performed By: #### 2 369805, 1674329, 4815101, 6228274, 1913410, 19301939, 0357545 #### [facility] [address] [place] [address] Neutrophils/Leukocytes Auto (Bld) [Pure # fraction] 6.2 E9/L Normal 2.0-7.5 [facility] Comment on above: Order Comment: Order Added by Discern Expert. Performed By: #### 2 878062, 5670656, 6769181, 3018917, 3531049, 20643653, 3169724 #### [facility] [address] [place], [place] [address], [place] [address] BMPon 11-16-2022 Anion gap [Moles/Vol] 5 mmol/L Low 6-16 [facility] Comment on above: Order Comment: DENNIS tamayo aware in as RN collect, will correct...[facility] 11/16/2022 03:05:16 EDT Performed By: #### 2 982146, 4881933, 4331399, 9996605, 1478320, 20068336, 4072046 ####[facility] [address] [place] [address] Calcium [Mass/Vol] 8.1 mg/dL Low 8.9-11.1 [facility] Comment on above: Order Comment: DENNIS tamayo aware in as RN collect, will correct...[facility] 11/16/2022 03:05:16 EDT Performed By: #### 2 132698, 0611402, 4975323, 9303025, 4953963, 01868355, 6208125 ####[facility] [address] [place] [address] Chloride [Moles/Vol] 110 mmol/L Normal 101-111 [facility] Comment on above: Order Comment: DENNIS henriquez in as RN collect, will correct...[facility] 11/16/2022 03:05:16 EDT Performed By: #### 2 472377, 9215999, 8530469, 8503642, 7595445, 29284355, 1016244 ####[facility] [address] [place] [address] CO2 [Moles/Vol] 25 mmol/L Normal 21-31 [facility] Comment on above: Order Comment: DENNIS tamayo aware in as RN collect, will correct...[facility] 11/16/2022 03:05:16 EDT Performed By: #### 2 709146, 2847402, 4931250, 1631524, 2543375, 35469354, 3431771 ####[facility] [address] [place] [address] Creatinine [Mass/Vol] 0.5 mg/dL Normal 0.5-1.3 [facility] Comment on above: Order Comment: DENNIS tamayo aware in as RN collect, will correct...[facility] 11/16/2022 03:05:16 EDT Performed By: #### 2 322700, 2759213, 6712865, 7649841, 9337997, 65434794, 7817207 ####[facility] [address] [place] [address] Glucose [Mass/Vol] 90 mg/dL Normal 55-199 [facility] Comment on above: Order Comment: DENNIS tamayo aware in as RN collect, will correct...[facility] 11/16/2022 03:05:16 EDT Result Comment: If t his glucose result represents a fasting glucose, interpretation should refer to the following reference range: 55-99 mg/dL Performed By: #### 2 300759, 2320949, 7692017, 4065435, 6895470, 13142559, 6842026 ####[facility] [address] [place] [address] Potassium [Moles/Vol] 3.9 mmol/L Normal 3.5-5.3 [facility] Comment on above: Order Comment: DENNIS tamayo aware in as RN collect, will correct...[facility] 11/16/2022 03:05:16 EDT Performed By: #### 2 836575, 0891941, 1966514, 0278021, 3381197, 88201881, 6196868 ####[facility] [address] [place] [address] Sodium [Moles/Vol] 136 mmol/L Normal 135-145 [facility] Comment on above: Order Comment: DENNIS tamayo aware in as RN collect, will correct...[facility] 11/16/2022 03:05:16 EDT Performed By: #### 2 569653, 5482284, 2149941, 3755875, 2580768, 84302631, 3290693 ####[facility] [address] [place] [address] Urea nitrogen [Mass/Vol] 11 mg/dL Normal 5-21 [facility] Comment on above: Order Comment: DENNIS tamayo aware in as RN collect, will correct...[facility] 11/16/2022 03:05:16 EDT Performed By: #### 2 381377, 0864519, 1756250, 3375699, 2717440, 40878051, 3522512 ####[facility] [address] [place] [address] Urea nitrogen/Creatinine [Mass ratio] 22 No Units High 10-20 [facility] Comment on above: Order Comment: DENNIS tamayo aware in as RN collect, will correct...[facility] 11/16/2022 03:05:16 EDT Performed By: #### 2 193969, 4010465, 8371388, 5071342, 9091542, 54212642, 9294392 ####[facility] [address] [place] [address] CBC w/ Auto Diffon 3 Erythrocyte distribution width (RBC) [Ratio] 13.8 % Normal 10.9-14.2 [facility] Comment on above: Performed By: #### 2 243072, 7043953, 6852052, 6464485, 2229603, 38818413, 4762861 #### [facility] [address] [place] [address] Hematocrit (Bld) [Volume fraction] 29.3 % Low 34.0-46.0 [facility] Comment on above: Performed By: #### 2 227066, 0900440, 1942315, 1626634, 0022835, 48601060, 2549818 #### [facility] [address] [place] [address] Hemoglobin (Bld) [Mass/Vol] 9.7 g/dL Low 12.0-16.0 [facility] Comment on above: Performed By: #### 2 615073, 1570557, 2086989, 3260506, 2392323, 39018656, 9913323 #### [facility] [address] [place] [address] MCH (RBC) [Entitic mass] 30.0 pg Normal 27.0-34.0 [facility] Comment on above: Performed By: #### 2 394240, 1718038, 9757741, 3168988, 9245904, 30814726, 3377669 #### [facility] [address] [place] [address] MCHC (RBC) [Mass/Vol] 33.3 g/dL Normal 31.4-36.0 [facility] Comment on above: Performed By: #### 2 002546, 1912331, 9225929, 8046203, 3818200, 82921077, 2947958 #### [facility] [address] [place], [place] [address] MCV (RBC) [Entitic vol] 90.0 fL Normal 80.0-100.0 [facility] Comment on above: Performed By: #### 2 607776, 4997232, 2199916, 7723513, 5003310, 16498533, 2221405 #### [facility] [address] [place] [address] Platelet mean volume (Bld) [Entitic vol] 8.7 fL Normal 6.4-10.8 [facility] Comment on above: Performed By: #### 2 935049, 5779848, 2607372, 6927334, 6472898, 73249159, 4164943 #### [facility] [address] [place] [address] Platelets (Bld) [#/Vol] 172.0 E9/L Normal 150.0-500.0 [facility] Comment on above: Performed By: #### 2 475151, 3751712, 4388698, 9734484, 0830143, 42297975, 3195062 #### [facility] [address] [place] [address] RBC (Bld) [#/Vol] 3.2 E12/L Low 4.3-5.9 [facility] Comment on above: Performed By: #### 2 168971, 4649956, 9743517, 0588333, 5502282, 74252462, 3658058 #### [facility] [address] [place] [address] WBC corrected for nucl RBC Auto (Bld) [#/Vol] 10.3 E9/L Normal 4.0-11.0 [facility] Comment on above: Performed By: #### 2 419956, 3746620, 5854551, 9206492, 4876750, 94931022, 6670916 #### [facility] [address] [place] [address] CHEMISTRYOrdered By: SYSTEM SYSTEM on 11-16-2022 Anion [...] 133 mL/min/1.73 m2 Normal >=59mL/min/1 .73 m2 [facility] [place] S Glucose [Mass/Vol] [...] E9/L Normal 150. 0 - 500.0 E9/L [facility] [place] HemeAutoSS RBC (Bld) [#/Vol] 3.2 E12/L Low 4.3 - 5.9 E12/L [facility] [place] HemeAutoSS WBC corrected for nucl RBC Auto (Bld) [#/Vol] 10.3 E9/L Normal 4.0 - 11.0 E9/L [facility] [place] HemeAutoSS Interdisciplinary Note - Luis e Manageron 11-16-2022 Interdisciplinary Note - Sheriff'S Officer Pt is awaiting bed to [facility]. David dc TBD. CRM to follow. Normal [facility] Comment on above: Result Comment: Elec tronically Signed By: Shanti Reed\.br\Date and Time Signed: 11/16/22 11:01 EDT Laboratory - Chemistry and C hemistry - challengeOrdered By: SYSTEM SYSTEM on 11-16-2022 Calcium [Mass/Vol] 8.1 mg/dL Low 8.9 - 11. 1 mg/dL [facility] [place] Remisol Magnesiumon 11-16-2022 Magnesium [Mass/Vol] 1.8 mg/dL Normal 1.3-2.4 [facility] Comment on above: Performed By: #### 2 880939, 8200909, 3987311, 6721106, 7821358, 40741762, 3031024 ####[facility] [address] [place] [address] Phosphoruson 11-16-2022 Phosphate [Mass/Vol] 2.7 mg/dL Normal 1.9-4.6 [facility] Comment on above: Performed By: #### 2 185490, 7000453, 6102591, 4787573, 7149230, 91379306, 2646992 ####[facility] [address] [place] [address] eGFRon 11-16-2022 GFR/1.73 sq M.predicted among non-blacks MDRD (S/P/Bld) [Vol rate/Area] 133 mL/min/1.73 m2 Normal >=59 [facility] Comment on above: Order Comment: Order added by Discern Expert. Result Comment: Neon Electrician rosie kidney disease could be indicated at eGFR's of less than 60 mL/min/1.73m2. Kidney failure is indicated at less than 15 mL/min/1.73m2. Performed By: #### 2 070633, 9082235, 4291453, 3252144, 6687495, 48763517, 5267266 ####[facility] [address] [place] [address] ABO/Rhon 11-15-2022 ABO/Rh Positive Invalid Interpretation Code [facility] Comment on above: Performed By: #### 1 9318360, 67764349, 13515954, 6393964 ####[facility] [address] [place] [address] ABO/Rh History Checkon 11-15 ABO/Rh History Check Verified Hx Blood Type Normal [facility] Comment on above: Performed By: #### 1 9783783, 40713080, 91626421, 4167654 ####[facility] [address] [place] [address] ABSCon 11-15-2022 ABSC Gel Interp Negative Normal [facility] Comment on above: Performed By: #### 1 9109909, 00057664, 07827583, 9039013 ####[facility] [address] [place] [address] Auto Diffon 11-15-2022 Basophils/100 WBC (Bld) 0.2 % Normal 0.0-2.0 [facility] Comment on above: Order Comment: Order Added by Discern Expert. Performed By: #### 2 387845, 9921736, 78220666, 4554096 #### [facility] [address] [place] [address] Basophils/Leukocytes Auto (Bld) [Pure # fraction] 0.0 E9/L Normal 0.0-0.2 [facility] Comment on above: Order Comment: Order Added by Discern Expert. Performed By: #### 2 430343, 7022423, 69007127, 1567930 #### [facility] [address] [place] [address] Eosinophils/100 WBC (Bld) 0.1 % Normal 0.0-8.0 [facility] Comment on above: Order Comment: Order Added by Discern Expert. Performed By: #### 2 898014, 8405216, 75732830, 9414625 #### [facility] [address] [place] [address] Eosinophils/Leukocytes Auto (Bld) [Pure # fraction] 0.0 E9/L Normal 0.0-0.5 [facility] Comment on above: Order Comment: Order Added by Discern Expert. Performed By: #### 2 656258, 7416343, 88470159, 0949357 #### [facility] [address] [place] [address] Lymphocytes/100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 P5wpNfQnZSSdGnNuPGHN N5gfOiNeOWLhRpFgZIAZ C8kgHiBmGkDcGSLsIJTC S4zxNcMxYqTlRDHx BFQSA0zjQuC5XYK9CCTf Aiden+Pgo+PgovVHlwZSAv UGFnZQo+Th1PBD0la6Cf OLuWUsZqEGIpv5Pr OAx2GJksFwNhDIJjrfOj X9GzuOHrQEBrkCShWn5U rxBjOVmiDmUdR6jeIZ1c oWDfN66tgM0zAa7I oMX3gTOqSQ2JtJBcGFms XLgaZZNmKt5taJh+Pg0K WS8ff5IzGYeKWtYkKMKj w5QdHEa8VBgcBQQz W3OpPPYnUwi+Ac9Yi1Yd IOVkQSbjYWsYRS1CCKCr CAJqkqpIHh8KKVFhLHGv GGGUSk3RDUCoXTSm NFRcHQH0VUMjFvTLfE0R ZkRtFVR5ZHTkOLHqSY07 Q4B4nfigFzYvBIQrIH6M tD8aHaQoRW8pAByQ CkVUDQpRDQoNCmVuZHN0 ydTkpM6LML8gs6PqEWdH YiZbEJIas4XdZQy0XBmu EUAxD8AeBSScNf7+ CXhcnGFfHG6OVcFDQNwq EDd9YCHhRUDlWIfaZKDf SQB9PJ0yWpLdTiZpyR3Y O3umUtC9CUZmXDeJ NNhUXS7DVRbvvdNnyCGe YN1HMyNbHZ6fkp5RWZtr UHNiLJ8feu7LOQiKU8km vvn6yWPeHBBNIb2E JmU3kmYrwO7IfJ7YLmNX CjAgMCAwIHJnDQovRmFi YzUgMTEgVGYNCjEgMCAw IDEgMjAgNjIyLjUz MzMzIFRtDQpbICggRXYp ILU4MWdklwRmM2JydTTd FIMiKOG3K5HefbRtXycj KIVWGu3HIAEMFjZX Hi1OMQ2lm1AaMUTqVNpm ojLtWxgJLa6LJfAhTMFn VajPLnd8Ff9CUC2clYqu CENMFm1ENiC1aaCv xQ5ZTaeHTlIFPpK9OhLo IDAgODMgMjAgNTMwLjY2 QiT4ZWDeBMizESIrGnZl ZNHcKGsGUSjUUB2I LPvgywFldULrPP0SXdAl XF0xbb1AUEllBgPnAW4m wz1OYLdRI4peenu9bJTb AECTLr0OZcU3sgFl iQ3ZbF6MQbESPvVtWULi IHJnDQovRmFiYzUgMTEg VGYNCjEgMCAwIDEgMjAg SRMrDdx1RhR8INSg WAaaUPtoXARnKWV9ZPqj reTcR9YjhUHfSRLzKNr7 T6EnylMoMqayCANJJn6R GSTJYaONHt5ZCW7v e0PkLABkCLnkmjIiKyfH Qm7ZFhljUPEaGzwXNsk7 Nx8DCJ3ijBwmCViXTh5O BpV8vqQuvE4FFbxB VoQPOzR3RiGzETFyKJLq MjAgNDEwIGNtDQovSWFi YzG0GQYqPGkUGSsHNB9C QCewgrPhzUFqEZ6F FmIeCV9cdy4XMZtqVJFs CM8cje4PAPcNI7hqhql3 xNCqKQQKMy2CVrW9zaRo wA3EiY3ATrJBObHy MCAwIHJnDQovRmFiYzUg MTEgVGYNCjEgMCAwIDEg NgCmHfshAaGvVF6GMmxs KCBFdikgMTUgKGVu rZ8IfCVpcK4mUVVeTIVr B9VqUq43KVXvNXOSINwG BY1LEO5QJXiiqiRcbQEe QC4SNoDiOW2ywi5B NCuiKPZtMC6feg7RROmO X7zrlsm2cCB8JEw+Pg0K z6AiMAYgSQsPFY5HdV6V RIUmGFVnGWJ1FyXl VSRyWBmkWfGcEmLrC86G Pd5IFHMjRGiwQA5CFwUM ZsNLOHkNWsSdFVX5aaUj sT7NKW6dd4GkBNyE YnUtUFBbg8KxYRz2OCqa RIPsT3TpHFNvHqf+Pg0K z8JfGEWuRLypYWpMVL8M HYWaGSEhzfgERh1T HFGsUTLyATHXKk2DZWCg IDAgMSAyMCAyNjAuNTMz YmLqJO8JKzjuQDSVdjlm DEDzUMNgsY0CnQSd rQ1jFANnAJXaF6GvRn90 VYOiHRMSAXiUWD1BPN3J JFetutChuVZqZB9YZoTu OH8stt8QJLwiVSDf ZS1bzs1YLXyLP8jjvjy0 nKN8IFa+Ac5Li6PfVFUj OIcYFQ2TtJ7HRPGjFGJm ZAL0JiMwMHYdKvsh EtI9RvsbZ89PBd0QDGUf RpZfQT9MWcFNHoVVJWrN TyYnAPZ0wlSrnW2WXD0g m0XaHAxUMkJcWYXr h7UnOPk9OIduECMaP7Sg IDEwNgo+Km3Wv3YqXCMe GRihTKsOPP0OANZu (more content not included)... Normal [facility] Emergency Release Uncrossmat ched Bloodon 11-15-2022 Physician Notification Not Required; Compatible Normal [facility] Comment on above: Performed By: #### 1 [id number] ####[facility] [address] [place] [address] # of Units 1 Invalid Interpretation Code [facility] Comment on above: Performed By: #### 1 [id number] ####[facility] [address] [place] [address] Ethanolon 11-15-2022 Ethanol [Mass/Vol] 33 mg/dL High <=7 [facility] Comment on above: Performed By: #### 2 478766, 8355070, 96535364, [id number] #### [facility] [address] [place] [address] Formson 11-15-2022 Forms [id number] 4#1.00CD:127 Normal [facility] HEMATOLOGYOrdered By: SYSTEM SYSTEM on 11-15-2022 [...] Bilirubin.indirect [Mass or moles/Vol] UTC Abnormal 0.1-0.9 [facility] Comment on above: Result Comment: Resu lt verified by Discern Rule. Performed result UTC (Unable to Calculate) was sent as an Alpha code due the inability to calculate a valid numeric value. Performed By: #### 2 [id number], 8265967, [id number], [id number] #### [facility] [address] [place] [address] Albumin [Mass/Vol] 1.9 g/dL Low 3.3-5.0 [facility] Comment on above: Performed By: #### 2 465428, 9697500, 94470176, 1772035 #### [facility] [address] [place] [address] Albumin/Globulin (S) [Mass conc ratio] 1.4 Normal 1.1-2.2 [facility] Comment on above: Performed By: #### 2 803735, 0830603, 86605602, 2476757 #### [facility] [address] [place] [address] ALP [Catalytic activity/Vol] 29 Int._Unit/L Normal 21-98 [facility] Comment on above: Performed By: #### 2 869946, 2803624, 84508084, 0666413 #### [facility] [address] [place] [address] ALT No additional P-5'-P [Catalytic activity/Vol] 10 Int._Unit/L Normal 6-46 [facility] Comment on above: Performed By: #### 2 056103, 5002985, 91716106, 0194768 #### [facility] [address] [place] [address] AST [Catalytic activity/Vol] 10 Int._Unit/L Normal 5-43 [facility] Comment on above: Performed By: #### 2 784366, 6019469, 06580449, 7023153 #### [facility] [address] [place] [address] Bilirubin [Mass/Vol] 0.3 mg/dL Normal 0.0-1.1 [facility] Comment on above: Performed By: #### 2 349810, 8430554, 70717983, 2388135 #### [facility] [address] [place] [address] Globulin (S) [Mass/Vol] 1.4 g/dL Normal 1.4-4.0 [facility] Comment on above: Performed By: #### 2 602880, 1820849, 73450060, 7864109 #### [facility] [address] [place] [address] Protein [Mass/Vol] 3.3 g/dL Low 6.0-7.8 [facility] Comment on above: Performed By: #### 2 055928, 2216524, 78531879, 6148588 #### [facility] [address] [place] [address] Bilirubin.direct [Mass/Vol] mg/dL Normal 0.1-0.4 [facility] Comment on above: Performed By: #### 2 391303, 3764439, 28046059, 2122097 #### [facility] [address] [place] [address] Insurance Correspondence Off ice11-15-2022 Insurance Correspondence Office [id number] 3#1.00CD:127 Normal [facility] Insurance Correspondence Office [id number] 0#1.00CD:127 Normal [facility] Insurance Correspondence Office [id number] 8#1.00CD:127 Normal [facility] Interdisciplinary Note - Soc ial Workeron 11-15-2022 Interdisciplinary Note - Senior Financial Reporting Accountant This SW met with patient today to [...] the fact she will be transferred to [facility] for surgery before she gets to go home. SW explained that staff at [facility] will speak to her as well, and that this SW just wanted to make sure that she felt safe and would have a safe place to go when she was ready to return home. She voiced that her soon-to-be ex- is in skilled nursing. The incident did not happen at patient's [...] her to speak to SW [place] [facility] [facility] if any further needs arise. SW will remain available. Normal [facility] IntraOperative Documentson 0 11-15-2022 IntraOperative Documents [id number] #1.00CD:127 Normal [facility] Lactic Acidon 11-15-2022 Lactate [Mass/Vol] 1.8 mmol/L Normal 0.5-2.2 [facility] Comment on above: Performed By: #### 2 298284, 9395709, 35455809, 3767610 #### [facility] [address] [place] [address] Lipase Levelon 11-15-2022 Lipase [Catalytic activity/Vol] 24 U/L Normal 13-58 [facility] Comment on above: Performed By: #### 2 039926, 6976447, 77553269, 2969813 #### [facility] [address] [place] [address] Main OR PACU I Recordon Main OR PACU I Record PACU Phase I Document Type FT Summary Primary Physician: Christiano Marion MD Finalized Date/Time: 11/15/22 06:28:37 Pt. Name: SHAHIDA OH Ernesto Maharaj./Sex: 1995 Female Med Rec #: [id number] Physician: Financial #: [id number] Pt. Type: E Room/Bed: 07/18 Admit/Disch: 11/14/22 [...] Gala Burns RN 11/15/22 06:[address] [facility] Main OR Preoperative Recordo n 11-15-2022 Main OR Preoperative Record Holding Area Document Type FT Summary Primary Physician: Christiano Marion MD Finalized Date/Time: 11/15/22 02:21:59 Pt. Name: ADRIANOSHAHIDA./Sex: 1995 Female Med Rec #: [id number] Physician: Financial #: [id number] Pt. Type: E Room/Bed: [facility] Admit/Disch: 11/14/22 23:26:23 - Institution: Case [...] By: Darling Wakefield RN 11/15/22 02:21 Normal [facility] Monitor Recordon 11-15-2022 Monitor Record [id number] 5#1.00CD:127 Normal [facility] Monitor Record [id number] 8#1.00CD:127 Normal [facility] Monitor Record [id number] 4#1.00CD:127 Normal [facility] Operative Reporton 3 Operative Report [facility] [place] Surgery Operative [...] superficial and deep lacerations Surgeon:Christiano Marion MD Scrap Drop Operator: Lester Perdue [employer]ENT [employer] Anesthesia: General endotracheal EBL: 150 mL IVF: [...] a d (more content not included)... Normal [facility] Comment on above: Result Comment: Elec tronically Signed By: Doni GIRALDO, Christiano Marie\.br\Date and Time Signed: 11/15/22 05:33 EDT PT & PTTon 11-15-2022 aPTT Coag (PPP) [Time] 28.2 second(s) Normal 25.1-36.5 [facility] Comment on above: Result Comment: Para [...] the same coagulation reagent and instrumentation as [facility] [place]. Currently there are no coagulation studies available worldwide for children to 14 days, and no normal ranges. Heparin therapeutic range (represented by Anti-Factor Xa activity of 0.2 - 0.4 U/mL) corresponds to PTT of 56.6 - 109.0 sec. Performed By: #### 2 463857, 3285549, 97961006, [id number] #### [facility] [address] [place] [address] INR Coag (PPP) [Relative time] 1.6 {INR} Invalid Interpretation Code [facility] Comment on above: Result Comment: INR results are specifically intended to assess patients stabilized on long-term Anticoagulation therapy suggested INR?s ?Less Intensive Anticoagulation? 2.0 ? 3.0 Conventional Range 3.0 ? 4.5 Performed By: #### 2 053810, 9833419, 08856425, 5997507 #### [facility] [address] [place] [address] PT Coag (PPP) [Time] 18.1 second(s) High 9.4-12.5 [facility] Comment on above: Result Comment: 15 [...] the same coagulation reagent and instrumentation as [facility] [place] Currently there are no coagulation studies available worldwide for children to 14 days, and no normal ranges. Performed By: #### 2 [id number], [id number], [id number], [id number] #### [facility] [address] [place] [address] RAD - Preliminary Cat Scan R eporton 11-15-2022 RAD - Preliminary Cat Scan Report [id number] 4#[id number]:127 Normal [facility] RAD - Preliminary Cat Scan Report [id number] 3#[id number]:127 Normal [facility] RCOon 11-15-2022 # of Units 1 Invalid Interpretation Code [facility] Comment on above: Performed By: #### 1 [id number] ####[facility] [address] [place] [address] Date Required 11/14/2022 Invalid Interpretation Code [facility] Comment on above: Performed By: #### 1 [id number] ####[facility] [address] [place] [address] Product Type None Required Invalid Interpretation Code [facility] Comment on above: Performed By: #### 1 [id number] ####[facility] [address] [place] [address] Troponinon 11-15-2022 Troponin I.cardiac [Mass/Vol] ng/mL Low 10.10-27.10 [facility] Comment on above: Result Comment: The 95% CI (Confidence Interval) PPV (Positive Predictive Value) for myocardial infarction in females is 38 pg/mL, in males 51 pg/mL. The results should be used in conjunction with clinical conditions of myocardial infarction. (Access High Sensitivity Troponin I Instructions For Use, Flavia Assaria, February 2018) Performed By: #### 2 [id number], [id number], [id number], [id number] #### [facility] [address] [place] [address] U Drug Screenon 11-15-2022 Amphetamines Screen method >1000 ng/mL Ql (U) Negative Normal Negative [facility] Comment on above: Result Comment: Nega tive Cutoff: <1000 ng/mL Performed By: #### 2 [id number] ####[facility] [address] [place] [address] Barbiturates Screen Ql (U) Negative Normal Negative [facility] Comment on above: Result Comment: Nega tive Cutoff: <200 ng/mL Performed By: #### 2 028870 ####[facility] [address] [place] [address] Benzodiazepines Ql (U) Negative Normal Negative [facility] Comment on above: Result Comment: Nega tive Cutoff: <200 ng/mL Performed By: #### 2 [id number] ####[address] [place] [address] Cocaine Ql (U) Negative Normal Negative [facility] Comment on above: Result Comment: Nega tive Cutoff: <300 ng/mL Performed By: #### 2 [id number] ####[address] [address] Opiates Screen Ql (U) Negative Normal Negative [facility] Comment on above: Result Comment: Nega tive Cutoff: <300 ng/mL Performed By: #### 2 904000 ####[address] [address] Phencyclidine Screen method >25 ng/mL Ql (U) Negative Normal Negative [facility] Comment on above: Result Comment: Nega tive Cutoff: <25 ng/mL These drug screen results are to be used for medical (i.e., treatment) purposes only. Unconfirmed drug screening results must not be used for non-medical purposes (e.g., employment testing, legal testing). Performed By: #### 2 [id number] ####[address] [place] [address] Tetrahydrocannabinol Screen method >50 ng/mL Ql (U) Negative Normal Negative [facility] Comment on above: Result Comment: Nega tive Cutoff: <50 ng/mL Performed By: #### 2 764985 ####[address] [place] [address] UA With Cult Reflexon 2022 Bilirubin Ql (U) Negative Normal Negative [facility] Comment on above: Performed By: #### 2 229408, 9324289, [id number], [id number] #### [facility] [address] [place] [address] Clarity (U) CLEAR Normal Clear [facility] Comment on above: Performed By: #### 2 560772, 9667575, 30396856, 1952830 #### [facility] [address] [place] [address] Color (U) YELLOW Normal Yellow [facility] Comment on above: Performed By: #### 2 107806, 6149758, [id number], 5769724 #### [facility] [address] [place] [address] Epithelial cells.squamous LM.HPF (Urine sed) [#/Area] 0-2 Normal 0-2 [facility] [place] Comment on above: Performed By: #### 2 745785, 0721100, [id number], 3576426 #### [facility] [address] [place] [address] Glucose Test strip (U) [Mass/Vol] Negative Normal Negative [facility] Comment on above: Performed By: #### 2 773050, 0583695, 79958345, 9101250 #### [facility] [address] [place] [address] Hemoglobin Ql (U) Negative Normal Negative [facility] Comment on above: Performed By: #### 2 019120, 8931133, [id number], 1098827 #### [facility] [address] [place] [address] Ketones (U) [Mass/Vol] Negative Normal Negative [facility] Comment on above: Performed By: #### 2 081798, 5544969, 92259199, 7499140 #### [facility] [address] [place] [address] Briggs.plasma/Briggs. RBC (Bld) [Mass ratio] 0-3 Normal 0-3 [facility] Comment on above: Performed By: #### 2 960596, 6616517, [id number], 8964632 #### [facility] [address] [place] [address] Nitrite Ql (U) Negative Normal Negative [facility] Comment on above: Performed By: #### 2 434014, 1129522, 07584820, 0438215 #### [facility] [address] [place] [address] pH (U) 6.0 [pH] Invalid Interpretation Code 5.0-9.0 [facility] Comment on above: Performed By: #### 2 051471, 8801564, 02727143, 0892878 #### [facility] [address] [place] [address] Protein (U) [Mass/Vol] Negative Normal Negative [facility] Comment on above: Performed By: #### 2 804284, 4967646, 22580555, 3607152 #### [facility] [address] [place] [address] Specific gravity (U) [Rel density] <=1.005 Invalid Interpretation Code 1.005-1.030 [facility] Comment on above: Performed By: #### 2 979680, 1873802, 42910080, 6810902 #### [facility] [address] [place] [address] Type of Urine collection method Hughes Normal [facility] Comment on above: Performed By: #### 2 845966, 6109661, 28975422, 7504989 #### [facility] [address] [place] [address] Urobilinogen Qn (U) 0.2 {Maria Luz'U}/dL Normal 0.0-1.0 [facility] Comment on above: Performed By: #### 2 333571, 1563335, 07419640, 2130675 #### [facility] [address] [place] [address] WBC Auto Ql (U) Negative Normal Negative [facility] Comment on above: Performed By: #### 2 785320, 9613581, 18884657, 4371020 #### [facility] [address] [place] [address] WBC LM.HPF (Urine sed) [#/Area] 0-5 Normal 0-5 [facility] Comment on above: Performed By: #### 2 726987, 0782384, 07082855, 9240893 #### [facility] [address] [place] [address] URINALYSISOrdered By: Mere Brewer on 11-15-2022 Bilirubin [...] AM) Normal Negative [facility] UA Auto SS Briggs.plasma/Briggs. RBC (Bld) [Mass ratio] 0-3 /HPF Normal [...] [facility] UA Auto SS Urobilinogen Qn (U) 0.1995651 {Maria Luz'U}/dL Normal 0.0 - 1.0 EU/dL [facility] [place] [facility] [place] UA Auto SS WBC Auto Ql (U) Negative (11/15/22 1:30 AM) Normal Negative [facility] [place] [facility] [place] UA Auto SS WBC LM.HPF (Urine sed) [#/Area] 0-5 /HPF Normal 0-5/HPF [facility] [place] [facility] [place] UA Auto SS XR [...] mGy = na DAP = na Normal [facility] eGFRon 11-15-2022 GFR/1.73 sq M.predicted among non-blacks MDRD (S/P/Bld) [Vol rate/Area] 128 mL/min/1.73 m2 Normal >=59 [facility] Comment on above: Order Comment: Order added by Discern Expert. Result Comment: Neon Electrician rosie kidney disease could be indicated at eGFR's of less than 60 mL/min/1.73m2. Kidney failure is indicated at less than 15 mL/min/1.73m2. Performed By: #### 2 657462, 0149975, 70070641, 6788298 #### [facility] [address] [place] [address] GFR/1.73 sq M.predicted among non-blacks MDRD (S/P/Bld) [Vol rate/Area] 151 mL/min/1.73 m2 Normal >=59 [facility] Comment on above: Order Comment: Order added by Discern Expert. Result Comment: Neon Electrician rosie kidney disease could be indicated at eGFR's of less than 60 mL/min/1.73m2. Kidney failure is indicated at less than 15 mL/min/1.73m2. Performed By: #### 2 458931, 4999377, 44915721, 6002484 #### [facility] [address] [place] [address] BLOOD BANKOrdered By: Mere Brewer on 11-14-2022 [...] hCG Ql Negative (11/14/22 11:39 PM) Normal [facility] [place] [facility] [place] Man Sero CHEMISTRYOrdered By: [...] rate/Area] mL/min/1.73 m2 Normal >=59mL/min/1 .73 m2 [facility] [place] [facility] [place] Chem S Glucose [Mass/Vol] [...] rate/Area] mL/min/1.73 m2 Normal >=59mL/min/1 .73 m2 [facility] [place] [facility] [place] Chem S GFR/1.73 sq M.predicted among non-blacks MDRD (S/P/Bld) [Vol rate/Area] mL/min/1.73 m2 Normal >=59mL/min/1 .73 m2 [facility] [place] [facility] [place] Chem S Globulin (S) [...] ratio] 10 mg/mg Normal 10 - 20 [facility] [place] [facility] [place] Remisol CHEMISTRYOrdered By: Kael Harris on 07-05-2022 HbA1c (Bld) [Mass fraction] 5.2 % Normal <=5.9% [facility] [place] [facility] [place] ChemAutoSS URINALYSISOrdered By: Rian Arroyo on 07-05-2022 Bilirubin Ql (U) Negative (07/05/22 5:51 PM) Normal Negative [facility] UA Auto SS Clarity (U) Clear (07/05/22 5:51 PM) Normal Clear [facility] UA Auto SS Color (U) Yellow (07/05/22 5:51 PM) Normal Yellow [facility] UA Auto SS Epithelial cells.squamous LM.HPF (Urine sed) [#/Area] 0-2 /HPF Normal 0-2/HPF [facility] [place] [facility] [place] UA Aut o SS Glucose Test strip (U) [Mass/Vol] Negative (07/05/22 5:51 PM) Normal Negative [facility] UA Auto SS Hemoglobin Ql (U) Negative (07/05/22 5:51 PM) Normal Negative [facility] UA Auto SS Ketones (U) [Mass/Vol] Negative (07/05/22 5:51 PM) Normal Negative [facility] UA Auto SS Briggs.plasma/Briggs. RBC (Bld) [Mass ratio] 0-3 /HPF Normal 0-3/HPF [facility] [place] [facility] [place]A A uto SS [...] FT UA Auto SS Urobilinogen Qn (U) 0.1243141 {Maria Luz'U}/dL Normal 0.0 - 1.0 EU/dL [...] Back For Confirmation On 07/04/2022 15:15:00 EST_. press set up person+ Art 138.0 mmol/L Normal 135.0 - 145.0 [...] (Unsp spec) Not detected Normal Not Detected [facility] Comment on above: Result Comment: . This [...] patient management decisions. Fact sheet for providers: https://www.fda.gov/media/170550/download Fact sheet for patients: https://www.fda.gov/media/146655/download This test has received FDA Emergency Use Authorization (EUA) and has been verified by [facility] ([facility]). This test is only authorized for the duration of time that circumstances exist to justify the authorization of the emergency use of in vitro diagnostic tests for the detection of SARS-CoV-2 virus and/or diagnosis of COVID-19 infection under section 564(b)(1) of the Act, 21 U.S.C. 360bbb-3(b)(1), unless the authorization is terminated or revoked sooner. [facility] is certified under CLIA-88 as qualified to perform high complexity testing. Testing is performed in the [facility] laboratories located at [id number] [place] [address]. Performed By: #### C OV19 #### [facility] [id number] [place] [address]. [place] [address] Covid 19 Resultson 1 SARS-CoV-2 (COVID-19) RNA [...] You may also be contacted by the [facility] to see if any of your close [...] or Naproxen (Aleve) can also be used. Xlrk-dhj-fhxzztl cough and cold medicines can be used according to the instructions on the package. Some qxdq-lmv-lwzztfa medicines also contain acetaminophen. Make sure you [...] water are not available, use alcohol-based hand printing table worker. Avoid touching your eyes, nose, and mouth [...] for 24 vianca (more content not included)... [facility] CORONAVIRUS 2019 BY PCRon DATE OF SYMPTOM ONSET [YYYYMMDD]? [id number] [facility] Comment on above: Performed By: #### C OV19 #### [facility] [address] [place] [id number] Lab Specimen Source Nasal, Nasopharyngeal [facility] Comment on above: Performed By: #### C OV19 #### [facility] [address] [place] [address] Provider Note - ED v3on 08-2 Provider [...] for cough Drug Name: brompheniramine/pseu doephedrine/dextrome thorphan [id number]/5 mL oral syrup Instructions: 10 milliliter(s) orally [...] Description:NO SURGICAL HISTORY THIS YEAR Additional Notes:10/2020 REGULATORY COMPLIANCE ENGINEER: Is : no Is : no REVIEW [...] SIGNS: T PRBP SpO2O2(LPM) %FiO2 Method 12-Mar-2021 14:27:[id number] /86 96 MDM MDM/ED COURSE: Rx Z-brett, [...] with negative results. Electronic Signatures: Ari Isabel (IMPRESSION PRINTER-TECHNOLOGY SALES SPECIALIST) (Signed 12-Mar-2021 14:45) Authored: ED Notes, HPI, PMH, ROS, PE, Results/Vital Signs, MDM/ED Course, Clinical Impression, Attestation, Chart Review, Scores Last Updated: 13-Mar-2021 09:08 by Lakeisha Pedroza (JOSE C II) Normal [facility] CBC AUTO DIFFon 02-16-2021 BASO # 0.0 103/ul Normal 0.0-0.1 [facility] Comment on above: Performed By: #### C BC #### [facility] [address] [place] [address] Robbie Vi Basophils/100 WBC (Bld) 0.2 % Normal 0.2-2.0 [facility] Comment on above: Performed By: #### C BC #### [facility] [address] [place] [address] Robbie Vi EO # 0.0 103/ul Normal 0.0-0.7 [facility] Comment on above: Performed By: #### C BC #### [facility] [address] [place], [place] [address] Robbie Vi Eosinophils/100 WBC (Bld) 0.2 % Critically low 0.9-7.0 [facility] Comment on above: Performed By: #### C BC #### [facility] [address] [place] [address] Robbie Vi Erythrocyte distribution width (RBC) [Ratio] 12.7 % Normal 11.0-15.0 [facility] Comment on above: Performed By: #### C BC #### [facility] [address] [place] [address] Robbie Lebron Hematocrit (Bld) [Volume fraction] 31.5 % Critically low 36.0-48.0 [facility] Comment on above: Performed By: #### C BC #### [facility] [address] [place] [address] Robbie Lebron Hemoglobin (Bld) [Mass/Vol] 10.2 g/dL Critically low 12.0-16.0 [facility] Comment on above: Performed By: #### C BC #### [facility] [address] [place] [address] Robbienicky Lebron IG # 0.05 10e3/ul Critically high 0.00-0.03 [facility] Comment on above: Performed By: #### C BC #### [facility] [address] [place] [address] Robbie Lebron IG % 0.4 % Normal 0.0-0.5 [facility] Comment on above: Performed By: #### C BC #### [facility] [address] [place] [address] Robbie Lebron LYMPH # 2.2 103/ul Normal 1.2-3.8 [facility] Comment on above: Performed By: #### C BC #### [facility] [address] [place] [address] Robbie Lebron Lymphocytes/100 WBC (Bld) 18.3 % Critically low 20.5-60.0 [facility] Comment on above: Performed By: #### C BC #### [facility] [address] [place] [address] Robbie Lebron MANUAL DIFF REQ NO Normal [facility] Comment on above: Performed By: #### C BC #### [facility] [address] [place] [address] Robbie Lebron MCH (RBC) [Entitic mass] 31.4 pg Normal 26.7-34.0 [facility] Comment on above: Performed By: #### C BC #### [facility] [address] [id number] Robbie Lebron MCHC (RBC) [Mass/Vol] 32.4 g/dL Normal 29.9-35.2 [facility] Comment on above: Performed By: #### C BC #### [facility] [address] [id number] Robbie Lebron MCV (RBC) [Entitic vol] 96.9 fL Normal 81.0-99.0 [facility] Comment on above: Performed By: #### C BC #### [facility] [address] [id number] Robbie Lebron MONO # 1.1 103/ul Critically high 0.3-0.8 [facility] Comment on above: Performed By: #### C BC #### [facility] [address] [place] [address] Robbie Lebron Monocytes/100 WBC (Bld) 9.4 % Normal 1.7-12.0 [facility] Comment on above: Performed By: #### C BC #### [facility] [address] [place], [place] [address] Robbie Lebron NEUT # 8.6 103/ul Critically high 1.4-6.5 [facility] Comment on above: Performed By: #### C BC #### [facility] [address] [place], [place] [address] Robbie Lebron Neutrophils/100 WBC (Bld) 71.5 % Normal 43.0-75.0 [facility] Comment on above: Performed By: #### C BC #### [facility] [address] [id number] Robbie Lebron Platelet mean volume (Bld) [Entitic vol] 10.6 fL Normal 9.5-13.5 [facility] Comment on above: Performed By: #### C BC #### [facility] [address] [id number] Robbienicky Lebron PLT 201 103/ul Normal 150-450 [facility] Comment on above: Performed By: #### C BC #### [facility] [address] [place], [place] [address] Robbie Lebron RBC 3.25 106/ul Critically low 4.20-5.40 [facility] Comment on above: Performed By: #### C BC #### [facility] [address] [place], [place] [address] Robbie Lebron WBC 12.1 103/ul Critically high 4.0-11.0 [facility] Comment on above: Performed By: #### C BC #### [facility] [address] [place], [place] [address] Robbie Lebron ASYMPTOMATIC COVID-19 ANTIGE Non 02-15-2021 EUA Statement SEE BELOW Normal [facility] Comment on above: Result [...] sooner. Performed By: #### C VDAGA #### [facility] [address] [place], [place] [address] Robbie Lebron SARS-CoV-2 (COVID-19) RNA ESTELA+probe Ql (Unsp spec) Negative Normal NEGATIVE [facility] Comment on above: Result Comment: Nega tive results are presumptive. They do not preclude infection and should not be used as the sole basis for treatment decisions. Additional confirmatory testing by a molecular method should be considered. Performed By: #### C VDAGA #### [facility] [address] [place], [place] [address] Robbie Lebron CBC AUTO DIFFon 02-15-2021 BASO # 0.0 103/ul Normal 0.0-0.1 [facility] Comment on above: Performed By: #### C BC #### [facility] [address] [place], [place] [address] Robbie Vi Basophils/100 WBC (Bld) 0.2 % Normal 0.2-2.0 [facility] Comment on above: Performed By: #### C BC #### [facility] [address] [place], [place] [address] Robbie Vi EO # 0.0 103/ul Normal 0.0-0.7 [facility] Comment on above: Performed By: #### C BC #### [facility] [address] [place], [place] [address] Robbie Vi Eosinophils/100 WBC (Bld) 0.0 % Critically low 0.9-7.0 [facility] Comment on above: Performed By: #### C BC #### [facility] [address] [place], [place] [address] Robbie Vi Erythrocyte distribution width (RBC) [Ratio] 12.5 % Normal 11.0-15.0 [facility] Comment on above: Performed By: #### C BC #### [facility] [address] [place], [place] [address] Robbie Vi Hematocrit (Bld) [Volume fraction] 35.0 % Critically low 36.0-48.0 [facility] Comment on above: Performed By: #### C BC #### [facility] [address] [place], [place] [address] Robbie Vi Hemoglobin (Bld) [Mass/Vol] 11.5 g/dL Critically low 12.0-16.0 [facility] Comment on above: Performed By: #### C BC #### [facility] [address] [place], [place] [address] Robbie Vi IG # 0.04 10e3/ul Critically high 0.00-0.03 [facility] Comment on above: Performed By: #### C BC #### [facility] [address] [place], [place] [address] Robbie Vi IG % 0.4 % Normal 0.0-0.5 [facility] Comment on above: Performed By: #### C BC #### [facility] [address] [place], [place] [address] Robbie Vi LYMPH # 2.0 103/ul Normal 1.2-3.8 [facility] Comment on above: Performed By: #### C BC #### [facility] [address] [place], [place] [address] Robbie Vi Lymphocytes/100 WBC (Bld) 18.6 % Critically low 20.5-60.0 [facility] Comment on above: Performed By: #### C BC #### [facility] [address] [place], [place] [address] Robbie Vi MANUAL DIFF REQ NO Normal [facility] Comment on above: Performed By: #### C BC #### [facility] [address] [place] [address] Robbie Vi MCH (RBC) [Entitic mass] 31.0 pg Normal 26.7-34.0 [facility] Comment on above: Performed By: #### C BC #### [facility] [address] [place], [place] [address] Robbienicky Gonzalezen MCHC (RBC) [Mass/Vol] 32.9 g/dL Normal 29.9-35.2 [facility] Comment on above: Performed By: #### C BC #### [facility] [address] [place], [place] [address] Robbie Vi MCV (RBC) [Entitic vol] 94.3 fL Normal 81.0-99.0 [facility] Comment on above: Performed By: #### C BC #### [facility] [address] [place], [place] [address] Robbie Vi MONO # 0.8 103/ul Normal 0.3-0.8 [facility] Comment on above: Performed By: #### C BC #### [facility] [address] [place], [place] [address] Robbie Vi Monocytes/100 WBC (Bld) 7.0 % Normal 1.7-12.0 [facility] Comment on above: Performed By: #### C BC #### [facility] [address] [place], [place] [address] Robbie Vi NEUT # 8.0 103/ul Critically high 1.4-6.5 [facility] Comment on above: Performed By: #### C BC #### [facility] [address] [place], [place] [address] Robbie Vi Neutrophils/100 WBC (Bld) 73.8 % Normal 43.0-75.0 [facility] Comment on above: Performed By: #### C BC #### [facility] [address] [id number] Robbie Vi Platelet mean volume (Bld) [Entitic vol] 10.2 fL Normal 9.5-13.5 [facility] Comment on above: Performed By: #### C BC #### [facility] [address] [place], [place] [address] Robbie Vi PLT 232 103/ul Normal 150-450 [facility] Comment on above: Performed By: #### C BC #### [facility] [address] [place], [place] [address] Robbie Vi RBC 3.71 106/ul Critically low 4.20-5.40 [facility] Comment on above: Performed By: #### C BC #### [facility] [facility] [address] [place], [place] [id number] Robbie Vi WBC 10.8 103/ul Normal 4.0-11.0 [facility] Comment on above: Performed By: #### C BC #### [facility] [address] [place], [place] [id number] Robbie Vi DRUG SCREEN RAPID (URINE)on 02-15-2021 AMP Negative Normal NEGATIVE [facility] Comment on above: Performed By: #### D RUGRPD #### [facility] [address] [place], [place] [id number] Robbie Vi BAR Negative Normal NEGATIVE [facility] Comment on above: Performed By: #### D RUGRPD #### [facility] [address] [place], [place] [id number] Robbie Vi BUP Negative Normal NEGATIVE [facility] Comment on above: Performed By: #### D RUGRPD #### [facility] [address] [place] [address] Robbie Vi BZO Negative Normal NEGATIVE [facility] Comment on above: Performed By: #### D RUGRPD #### [facility] [address] [place] [address] Robbie Vi SAMANTHA Negative Normal NEGATIVE [facility] Comment on above: Performed By: #### D RUGRPD #### [facility] [address] [place] [address] Robbie Vi CUT-OFFS SEE BELOW Normal [facility] Comment on above: Result Comment: AMP [...] ng/mL Performed By: #### D RUGRPD #### [facility] [address] [place] [address] Robbie Vi DRUG CUT HEADER DRUG CLASS TEST SYSTEM CUT-OFF CONCENTRATIONS ARE FOLLOWS: Normal [facility] Comment on above: Performed By: #### D RUGRPD #### [facility] [address] [place] [address] Robbie Vi mAMP Negative Normal NEGATIVE [facility] Comment on above: Performed By: #### D RUGRPD #### [facility] [address] [place] [address] Robbie Vi MTD Negative Normal NEGATIVE [facility] Comment on above: Performed By: #### D RUGRPD #### [facility] [address] [place] [address] Robbie Vi OPI Negative Normal NEGATIVE [facility] Comment on above: Performed By: #### D RUGRPD #### [facility] [address] [place] [address] Robbie Vi OXY Negative Normal NEGATIVE [facility] Comment on above: Performed By: #### D RUGRPD #### [facility] [address] [place] [address] Robbie Vi PCP Negative Normal NEGATIVE [facility] Comment on above: Performed By: #### D RUGRPD #### [facility] [address] [place] [address] Robbie Vi PPX Negative Normal NEGATIVE [facility] Comment on above: Performed By: #### D RUGRPD #### [facility] [address] [place] [address] Robbie Vi TCA Negative Normal NEGATIVE [facility] Comment on above: Performed By: #### D RUGRPD #### [facility] [address] [place] [address] Robbie Vi THC Negative Normal NEGATIVE [facility] Comment on above: Performed By: #### D RUGRPD #### [facility] [address] [place] [address] Robbie Vi TYPE AND SCREENon 02-15-2021 TYPE AND SCREEN Antibody Screen NEGATIVE ABO Rh Typing O Rh Positive Blood Bank Notes PERFORMED BY JUAN ANTONIO Normal [facility] Comment on above: Performed By: #### T NS #### [facility] [address] [place] [address] Robbie Lebron CULTURE URINEon 01-31-2021 CULTURE URINE Culture Observations: LIGHT GROWTH OF MIXED GENITAL RONNY. NO POTENTIAL PATHOGENS SEEN. Normal [facility] Comment on above: Performed By: #### G BSCX #### [facility] [address] [place] [address] Robbie Lebron UA (CLEAN/CATCH) SUGAR CANE PLANTER MACHINE OPERATOR/MICRO I F IND.on 01-31-2021 Bilirubin Ql (U) Negative Normal NEGATIVE [facility] Comment on above: Performed By: #### U MICRO, UACSIND #### [facility] [address] [place], [place] [id number] Robbie Vi Clarity (U) CLEAR Normal CLEAR [facility] Comment on above: Performed By: #### U MICRO, UACSIND #### [facility] [address] [place] [address] Robbie Vi Color (U) LT. YELLOW Normal YELLOW [facility] Comment on above: Performed By: #### U MICRO, UACSIND #### [facility] [address] [place] [address] Robbie Vi Glucose Ql (U) Negative Normal NEGATIVE [facility] Comment on above: Performed By: #### U MICRO, UACSIND #### [facility] [address] [place] [address] Robbie Vi Hemoglobin Ql (U) Negative Normal NEGATIVE [facility] Comment on above: Performed By: #### U MICRO, UACSIND #### [facility] [address] [place] [address] Robbie Vi Ketones Ql (U) Negative Normal NEGATIVE [facility] Comment on above: Performed By: #### U MICRO, UACSIND #### [facility] [address] [place] [address] Robbie Vi LEUKOCYTES TRACE Abnormal NEGATIVE [facility] Comment on above: Performed By: #### U MICRO, UACSIND #### [facility] [address] [place] [address] Robbie Vi Nitrite Ql (U) Negative Normal NEGATIVE [facility] Comment on above: Performed By: #### U MICRO, UACSIND #### [facility] [address] [place] [address] Robbie Vi pH (U) 6.0 [pH] Normal 5-9 [facility] Comment on above: Performed By: #### U MICRO, UACSIND #### [facility] [address] [place] [address] Robbie Vi SPEC GRAVITY <=1.005 Abnormal 1.005-<=1.02 5 [facility] Comment on above: Performed By: #### U MICRO, UACSIND #### [facility] [address] [place] [address] Robbie Lebron UA PROTEIN Negative Normal NEGATIVE/ TRACE [facility] Comment on above: Performed By: #### U MICRO, UACSIND #### [facility] [address] [place] [address] Robbie Lebron UR MICRO IND INDICATED Normal [facility] Comment on above: Performed By: #### U MICRO, UACSIND #### [facility] [address] [place] [address] Robbie Lebron Urobilinogen Qn (U) 0.2 {Maria Luz'U}/dL Normal 0.2 - 1. 0 [facility] Comment on above: Performed By: #### U MICRO, UACSIND #### [facility] [address] [place] [address] Robbie Lebron URINE MICROSCOPIC ONLYon BACTERIA SMALL Abnormal NONE SEEN [facility] Comment on above: Performed By: #### U MICRO, UACSIND #### [facility] [address] [place] [address] Robbie Lebron Bacteria identified Cx Nom (U) INDICATED Normal [facility] Comment on above: Performed By: #### U MICRO, UACSIND #### [facility] [address] [place] [address] Robbienicky Lebron CAST NONE SEEN Normal NONE SEEN [facility] Comment on above: Performed By: #### U MICRO, UACSIND #### [facility] [address] [place] [address] Robbienicky Gonzalezen Crystals LM Nom (Urine sed) NONE SEEN Normal NONE SEEN [facility] Comment on above: Performed By: #### U MICRO, UACSIND #### [facility] [address] [place] [address] Robbienicky Lebron Epithelial cells LM Ql (Urine sed) FEW Abnormal NONE SEEN /RARE [facility] Comment on above: Performed By: #### U MICRO, UACSIND #### [facility] [address] [place] [address] Robbie Vi MUCOUS NONE SEEN Normal NONE SEEN [facility] Comment on above: Performed By: #### U MICRO, UACSIND #### [facility] [address] [address] Robbie Lebron RBC 0-2 Normal 0-2 [facility] Comment on above: Performed By: #### U MICRO, UACSIND #### [facility] [address] [place] [address] Robbie Lebron WBC 2-5 Abnormal NONE SEEN [facility] Comment on above: Performed By: #### U MICRO, UACSIND #### [facility] [address] [address] Robbie Lebron GROUP B STREP CULTUREon 01-15 S. agalactiae Ag Ql (Unsp spec) Culture Observations: NEGATIVE FOR GROUP B STREPTOCOCCUS. Normal [facility] Comment on above: Performed By: #### G BSCX #### [facility] [address] [place] [address] Robbie Lebron US PREG BIOPHY W NON [...] AYE SELLERS Date: 2021-01-23 15:23 Normal [facility] GLUCOSE - 1HRon 11-27-2020 Glucose [Mass/Vol] 94 mg/dL Normal 74-106 [facility] Comment on above: Performed By: #### G LU1HR #### [facility] [address] [place] [address] Robbie Lebron HEMOGRAM AND PLATELon 2020 Hematocrit (Bld) [Volume fraction] 34.8 % Critically low 36.0-48.0 [facility] Comment on above: Performed By: #### H H #### [facility] [address] [id number] Robbie Lebron Hemoglobin (Bld) [Mass/Vol] 10.9 g/dL Critically low 12.0-16.0 [facility] Comment on above: Performed By: #### H H #### [facility] [address] [place], [place] [id number] Robbie Lebron MCH (RBC) [Entitic mass] 31.3 pg Normal 26.7-34.0 [facility] Comment on above: Performed By: #### H H #### [facility] [address] [place], [place] [address] Robbie Lebron MCHC (RBC) [Mass/Vol] 31.3 g/dL Normal 29.9-35.2 [facility] Comment on above: Performed By: #### H H #### [facility] [address] [place] [address] Robbie Lebron MCV (RBC) [Entitic vol] 100.0 fL Critically high 81.0-99 .0 [facility] Comment on above: Performed By: #### H H #### [facility] [address] [place], [place] [address] Robbie Lebron PLT 215 103/ul Normal 150-450 [facility] Comment on above: Performed By: #### H H #### [facility] [address] [place], [place] [address] Robbie Lebron RBC 3.48 106/ul Critically low 4.20-5.40 [facility] Comment on above: Performed By: #### H H #### [facility] [address] [place], [place] [address] Robbie Lebron WBC 10.7 103/ul Normal 4.0-11.0 [facility] Comment on above: Performed By: #### H H #### [facility] [address] [place], [place] [address] Robbie Lebron CORONAVIRUS 2019 BY PCRon SARS-CoV-2 (COVID-19) RNA ESTELA+probe Ql (Unsp spec) Not detected Normal Not Detected [facility] Comment on above: Result Comment: . This [...] this test method. Fact sheet for providers: https://www.fda.gov/media/210959/download Fact sheet for patients: https://www.fda.gov/media/173619/download This test has received FDA Emergency Use Authorization [EUA] and has been verified by [facility] ([facility]). This test is only authorized for the duration of time that circumstances exist to justify the authorization of the emergency use of in vitro diagnostic tests for the detection of SARS-CoV-2 virus and/or diagnosis of COVID-19 infection under section 564(b)(1) of the Act, 21 U.S.C. 360bbb-3(b)(1), unless the authorization is terminated or revoked sooner. [facility] is certified under CLIA-88 as qualified to perform high complexity testing. Testing is performed in the [facility] laboratories located at [address] [place] [address]. Performed By: #### C OV19 #### [address] [place] [address] Covid 19 Resultson 1 SARS-CoV-2 (COVID-19) RNA [...] You may also be contacted by the [facility] to see if any of [...] or Naproxen (Aleve) can also be used. Ijma-mnl-tutlmvy cough and cold medicines can be used according to the instructions on the package. Some etbs-llv-leryfgu medicines also contain acetaminophen. Make sure you [...] water are not available, use alcohol-based hand printing table worker. Avoid touching your eyes, nose, and mouth [...] for 24 vianca (more content not included)... [facility] CORONAVIRUS 2019 BY PCRon DATE OF SYMPTOM ONSET [YYYYMMDD]? [id number] [facility] Comment on above: Performed By: #### C OV19 #### [facility] [address] [place] [address] Lab Specimen Source Nasal, Nasopharyngeal [facility] Comment on above: Performed By: #### C OV19 #### [facility] [address] [place] [address] Provider Note - ED v2on 10-16 Provider [...] Description:NO SURGICAL HISTORY THIS YEAR Additional Notes:10/2020 REGULATORY COMPLIANCE ENGINEER: Is : no Is : no REVIEW [...] SIGNS: T PRBP SpO2O2(LPM) %FiO2 Method 29-Oct-2020 14:27:[id number] /68 100 PHYSICAL EXAM CONSTITUTIONAL: Well appearing, [...] ill patient: no Electronic Signatures: Ari Isabel (IMPRESSION PRINTER-TECHNOLOGY SALES SPECIALIST) (Signed 29-Oct-2020 14:53) Authored: HPI, PMH, ROS, PE, Results/Vital Signs, MDM/ED Course, Clinical Impression, Attestation, Chart Review, Scores Last Updated: 29-Oct-2020 14:53 by Ari Isabel (IMPRESSION PRINTER-TECHNOLOGY SALES SPECIALIST) Normal [facility] ED Noteon 01-24-2018 HIM IP Note OR Educational Assistant Normal [facility] HIM IP Note OR Educational Assistant Normal [facility] ED Provider Noteon 8 HIM IP Note OR Educational Assistant Normal [facility] Vital Signs Date Time Vital Sign Value Performing Clinician Facility 09-18-2023 01:00-0500 Body temperature 98.6 [degF] Donte Elena [facility] 09-18-2023 01:00-0500 Diastolic blood pressure 71 mm[Hg] Donte Elena [facility] 09-18-2023 01:00-0500 Heart rate 80 /min Donte Elena [facility] 09-18-2023 01:00-0500 Mean blood pressure 88 mm[Hg] Donte Elena [facility] 09-18-2023 01:00-0500 Respiratory rate 18 /min Donte Elena [facility] 09-18-2023 01:00-0500 SaO2% (BldA) [Mass fraction] 100 % Donte Elena [facility] 09-18-2023 01:00-0500 Systolic blood pressure 121 mm[Hg] Donte Elena [facility] 09-18-2023 00:00-0500 Diastolic blood pressure 77 mm[Hg] Donte Elena [facility] 09-18-2023 00:00-0500 Heart rate 88 /min Donte Elena [facility] 09-18-2023 00:00-0500 Mean blood pressure 94 mm[Hg] Donte Elena [facility] 09-18-2023 00:00-0500 Respiratory rate 17 /min Donte Elena [facility] 09-18-2023 00:00-0500 Systolic blood pressure 128 mm[Hg] Donte Elena [facility] 09-17-2023 23:00-0500 Diastolic blood pressure 66 mm[Hg] Donte Elena [facility] 09-17-2023 23:00-0500 Heart rate 90 /min Donte Elena [facility] 09-17-2023 23:00-0500 Mean blood pressure 86 mm[Hg] Donte Elena [facility] 09-17-2023 23:00-0500 Systolic blood pressure 126 mm[Hg] Donte Elena [facility] 09-07-2023 15:30-0500 Diastolic blood pressure 51 mm[Hg] Ba Neto [facility] 09-07-2023 15:30-0500 Heart rate 79 /min Ba Neto [facility] 09-07-2023 15:30-0500 Mean blood pressure 73 mm[Hg] Ba Duque [facility] 09-07-2023 15:30-0500 Respiratory rate 18 /min Ba Neto [facility] 09-07-2023 15:30-0500 SaO2% (BldA) [Mass fraction] 97 % Ba Duque [facility] 09-07-2023 15:30-0500 Systolic blood pressure 116 mm[Hg] Ba Duque [facility] 09-07-2023 12:58-0500 Body temperature 98.06 [degF] Ba Duque [facility] 09-07-2023 12:58-0500 Diastolic blood pressure 70 mm[Hg] Ba Duque [facility] 09-07-2023 12:58-0500 Heart rate 94 /min Ba Duque [facility] 09-07-2023 12:58-0500 Respiratory rate 18 /min Ba Duque [facility] 09-07-2023 12:58-0500 SaO2% (BldA) [Mass fraction] 97 % Ba Duque [facility] 09-07-2023 12:58-0500 Systolic blood pressure 116 mm[Hg] Ba Duque [facility] 09-03-2023 15:37-0500 Body height 157.48 cm IMPRESSION PRINTER Liane Robuck Work Phone: [facility] 09-03-2023 15:37-0500 Body temperature 98.3 [degF] IMPRESSION PRINTER Liane Robuck Work Phone: [facility] 09-03-2023 15:37-0500 Body weight 68.1 kg IMPRESSION PRINTER Liane Robuck Work Phone: [facility] 09-03-2023 15:37-0500 Diastolic blood pressure 69 mm[Hg] IMPRESSION PRINTER Liane Robuck Work Phone: [facility] 09-03-2023 15:37-0500 Heart rate 115 /min IMPRESSION PRINTER Liane Robuck Work Phone: [facility] 09-03-2023 15:37-0500 Respiratory rate 16 /min IMPRESSION PRINTER Liane Robuck Work Phone: [facility] 09-03-2023 15:37-0500 SaO2% (BldA) [Mass fraction] 99 % IMPRESSION PRINTER Liane Robuck Work Phone: [facility] 09-03-2023 15:37-0500 Systolic blood pressure 137 mm[Hg] EMILY Irvin Work Phone: [facility] 11-26-2022 10:10-0400 Blood Pressure Location Christiano Marion [facility] 11-26-2022 10:10-0400 Body temperature 97.16 [degF] Christiano Marion [facility] 11-26-2022 10:10-0400 Heart rate 102 /min Christiano Marion [facility] 11-26-2022 10:10-0400 Respiratory rate 18 /min Chrisitano Marion [facility] 11-26-2022 10:10-0400 Systolic blood pressure 126 mm[Hg] Christiano Marion [facility] 11-22-2022 17:00-0400 Body temperature 98.4 [degF] Aye Vicente MD [facility] Phone: [facility] 11-22-2022 17:00-0400 Diastolic blood pressure 67 mm[Hg] Aye Vicente MD [facility] Phone[facility] 11-22-2022 17:00-0400 Heart rate 88 /min Aye Vicente MD [facility] Phone[facility] 11-22-2022 17:00-0400 Respiratory rate 16 /min Aye Vicente MD Work Phone: [employer] 11-22-2022 17:00-0400 SaO2% (BldA) [Mass fraction] 100 % Aye Vicente MD Work Phone: [employer] 11-22-2022 17:00-0400 Systolic blood pressure 127 mm[Hg] Aye Vicente MD Work Phone: [facility] 11-22-2022 11:04-0400 Body height 157.5 cm Aye Vicente MD Work Phone: [facility] 11-22-2022 11:04-0400 Body mass index (BMI) [Ratio] 26.16 kg/m2 Aye Vicente MD Work Phone: [facility] 11-22-2022 11:04-0400 Body weight 64.86 kg Aye Vicente MD Work Phone: [facility] 11-19-2022 08:00-0400 Body height 157.5 cm Pse Rn [facility] 11-19-2022 08:00-0400 Body mass index (BMI) [Ratio] 26.16 kg/m2 [facility] 11-19-2022 08:00-0400 Body weight 64.86 kg [facility] 11-18-2022 10:00-0400 Diastolic blood pressure 58 mm[Hg] Liane Irvin APRN - TECHNOLOGY SALES SPECIALIST Work Phone: [facility] [employer] 11-18-2022 10:00-0400 Heart rate 96 /min Liane Irvin APRN - TECHNOLOGY SALES SPECIALIST Work Phone: [facility] [employer] 11-18-2022 10:00-0400 Respiratory rate 17 /min Liane Irvin APRN - TECHNOLOGY SALES SPECIALIST Work Phone: [facility] [employer] 11-18-2022 10:00-0400 SaO2% (BldA) [Mass fraction] 100 % Liane Irvin APRN - TECHNOLOGY SALES SPECIALIST Work Phone: [facility] [employer] 11-18-2022 10:00-0400 Systolic blood pressure 111 mm[Hg] Liane Irvin APRN - TECHNOLOGY SALES SPECIALIST Work Phone: [facility] [employer] 11-18-2022 06:44-0400 Body temperature 97.9 [degF] Liane Irvin APRN - TECHNOLOGY SALES SPECIALIST Work Phone: [facility] [employer] 11-17-2022 08:28-0400 Heart rate 94 /min Christiano Marion [facility] 11-17-2022 08:28-0400 SaO2% (BldA) [Mass fraction] 100 % Christiano Marion [facility] 11-17-2022 08:27-0400 Diastolic blood pressure 64 mm[Hg] Christiano Marion [facility] 11-17-2022 08:27-0400 Mean blood pressure 78 mm[Hg] Christiano Marion [facility] 11-17-2022 08:27-0400 Systolic blood pressure 105 mm[Hg] Christiano Marion [facility] 11-17-2022 08:27-0400 Body temperature 97.88 [degF] Christiano Marion [facility] 11-17-2022 06:00-0400 Hourly Rounding Christiano Marion [facility] 11-17-2022 06:00-0400 Promise to Return Christiano Marion [facility] 11-17-2022 05:45-0400 Hourly Rounding Christiano Marion [facility] 11-17-2022 05:45-0400 Promise to Return Christiano Marion [facility] 11-17-2022 04:05-0400 Hourly Rounding Christiano Marion [facility] 11-17-2022 04:05-0400 Promise to Return Christiano Marion [facility] 11-16-2022 23:40-0400 Body temperature 97.7 [degF] Christiano Marion [facility] 11-16-2022 23:40-0400 Diastolic blood pressure 71 mm[Hg] Christiano Marion [facility] 11-16-2022 23:40-0400 Heart rate 95 /min Christiano Marion [facility] 11-16-2022 23:40-0400 Mean blood pressure 89 mm[Hg] Christiano Marion [facility] 11-16-2022 23:40-0400 SaO2% (BldA) [Mass fraction] 100 % Christiano Marion [facility] 11-16-2022 23:40-0400 Systolic blood pressure 126 mm[Hg] Christiano Marion [facility] 11-16-2022 20:16-0400 Heart rate 95 /min Christiano Marion [facility] 11-16-2022 20:16-0400 SaO2% (BldA) [Mass fraction] 100 % Christiano Marion [facility] 11-16-2022 20:10-0400 Body temperature 98.06 [degF] Christiano Marion [facility] 11-16-2022 20:10-0400 Diastolic blood pressure 65 mm[Hg] Christiano Marion [facility] 11-16-2022 20:10-0400 Mean blood pressure 79 mm[Hg] Christiano Marion [facility] 11-16-2022 20:10-0400 Systolic blood pressure 107 mm[Hg] Christiano Marion [facility] 11-16-2022 16:57-0400 Mean blood pressure 77 mm[Hg] Christiano Marion [facility] 11-16-2022 01:15-0400 Blood Pressure Location Christiano Marion [facility] 11-16-2022 01:15-0400 Mean blood pressure 78 mm[Hg] Christiano Marion [facility] 11-16-2022 01:15-0400 Respiratory rate 18 /min Christiano Marion [facility] 11-15-2022 19:00-0400 Mean blood pressure 88 mm[Hg] Christiano Marion [facility] 11-15-2022 06:05-0400 Blood Pressure Location Christiano Marion [facility] 11-15-2022 06:05-0400 Heart rate 104 /min Christiano Marion [facility] 11-15-2022 06:05-0400 Respiratory rate 20 /min Christiano Marion [facility] 11-15-2022 05:50-0400 Body temperature 98.42 [degF] Christiano Marion [facility] 11-15-2022 05:50-0400 Respiratory rate 15 /min Christiano Marion [facility] 11-15-2022 05:45-0400 Respiratory rate 21 /min Christiano Marion [facility] 11-15-2022 05:30-0400 Respiratory rate 18 /min Christiano Marion [facility] 11-15-2022 04:05-0400 Body temperature 97.34 [degF] Christiano Marion [facility] 11-15-2022 00:44-0400 Heart rate 87 /min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
[2023-09-28] MEDS: LACTATED RINGER'S SOLUTION 1,000 ML 50 ML IV (11:49)
--- NOTE | 2023-09-28 12:51 | P.ON_ITS ---
Brief Operative Note Date of procedure: 09/28/23 Pre-op diagnosis: missed first trimester Post-op diagnosis: same as pre-op Procedure: NAME OF PROCEDURE: [D&C suction ] PROCEDURE: The patient was taken back to the OR where she was given general anesthesia without difficulty. She was then placed in dorsal lithotomy position, prepped and draped in the normal sterile fashion. A weighted speculum was placed in the patient's vagina and the anterior lip of the cervix was identified and grasped with a single-tooth tenaculum. The patient was then gently dilated using Hegar dilators after we had sounded roughly to 8cm. The suction curette was then tested. The suction curette was then placed in the patient's uterus and products of conception were removed using an 7-Albanian suction curette. ?Excellent hemostasis was noted. The patient tolerated the procedure well. Sponge, lap, and needle counts were correct x 2. All instruments were then removed from the patient's vagina. The patient was taken to the Recovery Room in stable con dition. ?? Anesthesia: MAC Surgeon: Oliverio Austin Estimated blood loss (mL): 5 Pathology: other (poc) Condition: stable Disposition: PACU
--- NOTE | 2023-09-28 14:08 | PC.NURSE ---
1400: pt ambulated to bathroom with SBA,pt voids without difficulty.
== END 2023-09-28 14:55 | disposition home or self-care (01) ==
PROVIDERS: Visit Provider Obstetrics & Gynecology
PROC: (CPT 1965; principal; 2023-09-28 12:30)
DX: O02.1 Missed abortion (principal); B18.2 Chronic viral hepatitis C; F17.210 Nicotine dependence, cigarettes, uncomplicated
CPT/HCPCS: 59820; 36415; 86900; 86901; 88305; 99999; J1094; J2704

== ENCOUNTER 2024-02-04 19:42 | Emergency (ER) | payer OTHER, SELFPAY ==
--- OUTSIDE RECORDS SUMMARY | 2024-02-04 19:51 | XMS_ITS | CCD ---
Author Organization [facility] Care Team Providers Care Locomotive Oiler Name Role Phone NANCY HENDRICKS Unavailable MAYA Frey Unavailable Unavailable KARASIK, DR ORELLANA Admitting Unavailable KARASIK, DR ORELLANA Procedure Practitioner Unava ilable REQUEST, DR NONE LISTED Primary Care Unavaila ble KARASIK, DR ORELLANA Attending Unavailable KARASIK, DR ORELLANA Consulting Unavailable GEOVANNA, DR MATHEWS Consulting Unavailable AGUBOSIM, KATELIN Consulting Unavailable GEOVANNA, DR MATHEWS Procedure Practitioner [...] Unavailable Unavailable Liane IRVIN Primary Care Physician [phone] Vicki Arredondo Unavailable Unavailable Unavailable Primary Care Provider UnavailKarla Girard Unavailable Unavailable Brandee [facility] Provider LIANE IRVIN Primary Care [...] UNKNOWN Admitting Unavailable PROVIDER, UNKNOWN Attending Unavailable EMILY Irvin Primary Care Provider Margaret, EMILY Fofana Emergency Provider OLIVERIO AUSTIN Attending Unavailable EMILY Irvin Primary Care Provider Margaret, TEXTILE CONVERTER Brigido Emergency Provider Oliverio Austin Attending Provider [phone] MargaretBrigido queen Admitting Unavailable Brigido Robles Attending Unavailable Liane Irvin [facility] Care Unavailable GeovannaOliverio almaraz Admitting Unavailable Oliverio Austin Attending Unavailable Liane Irvin [facility] Unavailable Darlene Mccall Attending Unavailable Ba Duque Attending Unavailable Donte Parker Attending Unavailable Darlene Mccall Attending Unavailable Wood Smith Attending Unavailable Lavern, Ayan Attending Unavailable Lavern, Ayan Attending Unavailable Lavern, Ayan Attending Unavailable Lavern, Ayan Attending Unavailable Wood Smith Attending Unavailable Allergies Allergy Classification Reported Allergen(s) Allergy Type Date of Onset Reaction(s) Facility (2 sources) No Known Medication Allergies; Translations: [No Known Medication Allergies] Propensity to adverse reactions (disorder) [facility] Repository Medications Current Medications Medication Drug [...] Start: 11-17-2022 take 3 tablets by [facility] every six hours acetaminophen 325 mg Tab [...] q6hr, 12 tab(s), Refill(s) 0, [facility] #[id number], 155, cm, 12/06/22 15:57:00 EDT, Height/Length Dosing, [...] hours as needed for Pain. 0 Active amoxicillin 875 mg / clavulanate 125 mg oral tablet (2 sources) Penicillin-class Antibacterial Start: 12-28-2023 End: 01-07-2024 Augmentin 875 mg-125 mg Tab 1 tab(s), Oral, q12hr for 10 day(s), 20 tab(s), Refill(s) 0, [facility] #[id number], 157, cm, 12/28/23 10:58:00 EDT, Height/Length Dosing, 68.3, kg, 12/28/23 10:58:00 EDT, Weight Dosing Start Date: 12/28/23 Stop Date: 01/07/24 Status: Ordered APO-Varenicline 1mg (1 source) Start: 08-26-2022 APO-Varenicline 1mg APO-Varenicline 1mg, See Instructions, 60 tab(s), 3, Take 1 po BID day 8 and after, [facility] #[id number], Supply, 170, cm, 08/26/22 14:06:00 EST, Height/Length [...] oral solution (1 source) alpha-Adrenergic Agonist, Uncompetitive F-wbhhbw-Q-aspartate Receptor Antagonist, Sigma-1 Agonist Start: 03-12-2021 take 10 mL by mouth every six hours brompheniramine/p seudoephedrine/de xtromethorphan 2ty-10sy-73cj/5 mL oral syrup ; 10 milliliter(s) orally [...] 30 cap(s), Refills(s) 3, [facility]: [facility] #[id number], 157, cm, 05/10/22 11:06:00 EDT, Height/Length Dosing, 66.1, kg, 05/10/22 11:06:00 EDT, Weight Dosing Start Date: 05/10/22 Status: Ordered Start: 09-08-2022 take 1 capsule by [facility] once daily Vraylar 3 mg oral capsule 3 mg = 1 cap(s), Oral, Daily, # 30 cap(s), Refills(s) 1, Pharm[facility]: [facility] #[id number], 157, cm, 03/25/22 15:10:00 EDT, Height/Length Dosing, [...] 0.2 mg lamoTRIgine 25 mg oral tablet (2 sources) Mood Stabilizer, Anti-epileptic Agent Start: 09-03-2023 Lamotrigine Active MG TABLET September 03, 2023 1:00am naloxone hydrochloride 40 mg/ml nasal spray (20 [...] MG/ML injection OLANZapine 5 mg oral tablet (2 sources) Atypical Antipsychotic Start: 09-03-2023 Olanzapine Active MG TABLET September 03, 2023 1:00am omeprazole 20 mg delayed release oral tablet [...] Drug Class(es) Dates Sig (Normalized) Sig (Original) [id number] 200 actuat albuterol 0.09 mg/actuat metered dose [...] 1 po bid days 4-7, [facility] #[id number], Supply, 170, cm, 08/26/22 14:06:00 EST, Height/Length [...] Translations: [Anxiety disorder] Onset: 07-04-2022 05-18-2020 Chronic Crushing injury or internal injury (1 source) Laceration of ulnar artery; Translations: [Laceration of ulnar artery at forearm level, left arm, initial encounter] Onset: 11-15-2022 Episodic Early or threatened labor (4 sources) False labor before 37 completed weeks of gestation, third trimester; Translations: [FALSE LABR BEFOR 37 WK GEST 3RD TRI] Onset: 01-31-2021 Episodic Epilepsy; convulsions (19 sources) Seizure; Translations: [Unspecified convulsions] Onset: 12-28-2023 03-04-2016 Episodic Genitourinary symptoms and ill-defined conditions [...] Onset: 05-10-2022 03-25-2022 Chronic Nonspecific chest pain (3 sources) Chest pain; Translations: [Chest pain, unspecified] Onset: [...] specified surgical aftercare] Onset: 12-08-2022 Episodic Other aftercare (1 source) Follow-up status; Translations: [Encounter for follow-up examination after completed treatment for conditions other than malignant neoplasm] Onset: 01-05-2024 Episodic Other aftercare (2 sources) Post-discharge follow-up 01-05-2024 Episodic Other bone disease and musculoskeletal deformities (1 source) Tietze's disease; Translations: [Chondrocostal junction syndrome [Tietze]] Onset: 01-05-2024 Episodic Other bone disease and musculoskeletal deformities (2 sources) Costal chondritis 01-05-2024 Episodic Other complications of ; puerperium affecting [...] [Pain in left hand] 12-15-2022 Episodic Other connective tissue disease (2 sources) Neurological finding 01-05-2024 Episodic Other gastrointestinal disorders (1 source) Disorder [...] hand, not elsewhere classified] 12-15-2022 Episodic Other nutritional; endocrine; and metabolic disorders (1 source) Overweight in adulthood with body mass index of 25 or more but less than 30; Translations: [Body mass index (BMI) 25.0-25.9, adult] Onset: 01-05-2024 Episodic Other nutritional; endocrine; and metabolic disorders (3 sources) Overweight; Translations: [Overweight] Onset: 01-05-2024 Episodic Other and delivery including normal (3 sources) Single live ; Translations: [] Onset: 02-19-2021 09-03-2023 Episodic Other screening for suspected conditions (not mental disorders or infectious disease) (15 sources) Encounter for screening for Streptococcus B; Translations: [Encounter for screening for diabetes mellitus] Onset: 11-27-2020 Episodic Otitis media and related conditions (1 source) Otitis media; Translations: [Otitis media, unspecified, left ear] Onset: 12-28-2023 Episodic Residual codes; unclassified (1 source) 39 [...] secondary to d ocumentation in Social History. Substance-related disorders (4 sources) Cocaine misuse; Translations: [Cocaine use, unspecified, uncomplicated] Onset: 12-28-2023 Episodic Unclassified (1 source) CONTACT W/AND (SUSP) EXPOS COVID-19; Translations: [CONTACT W/AND (SUSP) EXPOS COVID-19] Onset: 02-19-2021 Unclassified (2 sources) SORE THROAT, COUGH 03-12-2021 Comment on above: SORE THROAT, COUGH Unclassified (15 sources) Body mass index 20-24 - normal 07-09-2020 Past or Other Problems Problem Classification Problem Date Documented Da te Episodic/Chronic Unclassified (17 sources) ft (qualifier value) 11-08-2011 Comment on above: metal implation to t ighten tedons Unclassified (17 sources) Onset: 05-18-2020 Resolved: 05-18-2021 05-29-2021 Results Test Name Value Interpretation Reference Range Facility ED Note-Physicianon 01-13-20 ED Note-Physician ED Note-Physician Basic Information Time Seen: Libby oLtt PA-C 01/10/2024 14:14 Chief Complaint pt. states she woke up approx. 1 hour ago with heart palpitations. states she has had a new onset of seizures that started last week, none today. History of Present Illness Patient is a 28-year-old female who presents with heart palpitations and chest pressure that began approximately 1 hour prior to arrival. Patient states her chest feels heavy and notes numbness and tingling in her left hand. She denies experiencing symptoms like this before. She states she had her first seizure 2 weeks ago, and experienced another 1 last night. She notes this was witnessed by her girlfriend, but does not know how long it lasted. Patient denies any seizures today. She states she has been playing phone tag with a neurologist through [employer] and has been unable to schedule appointment. Patient states she also woke up with a headache, but took Tylenol which has relieved the pain. She denies nausea/vomiting, fever, cough, diaphoresis, back pain, jaw pain, abdominal pain, or changes in urination or bowel movements. Review of Systems A 10 point review of systems is negative except as noted above. Medical and Surgical History: Reviewed and noted Social history: Lives at home Family History: Reviewed. Tobacco: Current use Physical Exam Vitals & Measurements T: 36.8 ?C(Oral) HR: 121(Peripheral) RR: 18 BP: 171/102 SpO2: 99% HT: 157 cm WT: 63.5 kg BMI: 25.76 General: The patient appears well and in no apparent distress. Patient is resting comfortably on cart. Skin: Warm, dry, no pallor noted. Head: Normocephalic, atraumatic Neck: No JVD Eye: PERRLA, EOMI ENT: Moist mucus membranes Cardiovascular: Regular rate normal peripheral perfusion Respiratory: Lungs clear to auscultation bilaterally, no respiratory distress no accessory muscle use no obvious audible wheezing Chest Wall: no deformity, pain is not reproducible to palpation Musculoskeletal: normal ROM, no deformity, no swelling, 5/5 strength to the upper and lower extremities bilaterally, neurovascularly intact GI: Soft no obvious distention. No rebound or rigidity. No guarding. No tenderness. Neurological: A&O x4 Psychiatric: Cooperative and appropriate Procedure Heart Score for Major Cardiac Event History: Example factors for history - pattern of chest pain, onset, duration, relation with exercise, stress or cold, localization, concomitant symptoms. reaction to sublingual nitrates, [] Highly suspicious +2 [] Moderately suspicious +1 [x] slightly suspicious 0 EKG: [] Significant ST-Depression +2 [x] nonspecific repolarization disturbance +1 [] Normal 0 Age: [] >= 65 +2 [] 45-65 + 1 [x]<45 0 Risk Factors: (HLD, HTN, DM, Cigarette Smoking, Pos Family Hx, Obesity) [] >3 risk factors or hx of atherosclerotic disease + 2 [x]1-2 risk factors + 1 [] No risk factors known 0 Troponin: [] >= 3X normal + 2 [] 1-3X normal + 1 [x] <= Normal 0 [x] 0-3 Points 0.9 - 1.7% risk of major adverse cardiac event in 6 weeks [] 4-6 Points 12-16.6% risk of major adverse cardiac event in 6 weeks [] 7-10 Points 50-65% risk of major adverse cardiac event in 6 weeks [x] 0-3 Points with 2 sets of negative cardiac markers <1% risk of major adverse cardiac event in 30 days. Medical Decision Making Patient is a 28-year-old female who presents with heart palpitations and chest pressure that began approximately 1 hour prior to arrival. On arrival patient was tachycardic and hypertensive. EKG shows sinus tachycardia with a rate of 112 bpm and short NC interval. Lab results are unremarkable. Patient's troponin is less than 2.3. Chest x-ray shows no acute findings. Patient refused a second troponin due to difficulties drawing blood. I discussed the clinical importance of troponin with the patient. She still refused to have a second one drawn. On reevaluation patient noticed improvement in symptoms. Her heart rate and blood pressure are now within normal limits. Today's results were discussed with the patient. She will follow-up with her primary care provider for further management of care. She was advised to return to the ED with any worsening symptoms. Patient was agreeable with the plan and all questions were answered. Assessment/Plan Chest pain, rule out acute myocardial infarction (R07.9: Chest pain, unspecified) Orders: Basic Metabolic Panel CBC w/ Auto Diff ED Cardiac Monitoring eGFR Extra M[place]y Tube Extra SST Tube PT & PTT Troponin 0 Hr. XR Chest Single View Disposition Plan Patient Discharge Condition stable, improved Discharge Disposition home Discharge Prescription List Prescriptions No active prescription medications Follow-up With When Contact Information Liane Beckford (more content not included)... Normal [facility] Comment on above: Result Comment: Elec tronically Signed By: Libby Lott PA-C\.br\Date and Time Signed: 01/10/24 17:14 EDT\.br\Electronically Co-Signed By: Wood Smith DO\.br\Date and Time Co-Signed: 01/13/24 07:16 EDT BMPon 01-10-2024 Anion gap [Moles/Vol] 13 mmol/L Normal 6-16 [facility] Comment on above: Performed By: #### 2 [id number] #### [facility] [address] [place] [address] Calcium [Mass/Vol] 10.1 mg/dL Normal 8.9-11.1 [facility] Comment on above: Performed By: #### 2 [id number] #### [facility] [address] [place] [address] Chloride [Moles/Vol] 102 mmol/L Normal 101-111 [facility] Comment on above: Performed By: #### 2 [id number] #### [facility] [address] [place] [address] CO2 [Moles/Vol] 25 mmol/L Normal 21-31 [facility] Comment on above: Performed By: #### 2 [id number] #### [facility] [address] [place] [address] Creatinine [Mass/Vol] 0.8 mg/dL Normal 0.5-1.3 [facility] Comment on above: Performed By: #### 2 [id number] #### [facility] [address] [place] [address] Glucose [Mass/Vol] 97 mg/dL Normal 55-199 [facility] Comment on above: Performed By: #### 2 [id number] #### [facility] [address] [place] [address] Potassium [Moles/Vol] 4.3 mmol/L Normal 3.5-5.3 [facility] Comment on above: Performed By: #### 2 [id number] #### [facility] [address] [place] [address] Sodium [Moles/Vol] 136 mmol/L Normal 135-145 [facility] Comment on above: Performed By: #### 2 [id number] #### [facility] [address] [place] [address] Urea nitrogen [Mass/Vol] 15 mg/dL Normal 5-21 [facility] Comment on above: Performed By: #### 2 [id number] #### [facility] [address] [place] [address] Urea nitrogen/Creatinine [Mass ratio] 19 No Units Normal 10-20 [facility] Comment on above: Performed By: #### 2 [id number] #### [facility] [address] [place] [address] CBC w/ Auto Diffon 4 Basophils/100 WBC (Bld) 0.3 % Normal 0.0-2.0 [facility] Comment on above: Performed By: #### 2 [id number] #### [facility] [address] [place] [address] Basophils/Leukocytes Auto (Bld) [Pure # fraction] 0.0 E9/L Normal 0.0-0.2 [facility] Comment on above: Performed By: #### 2 [id number] #### [facility] [address] [place] [address] Eosinophils (Bld) [#/Vol] 0.0 E9/L Normal 0.0-0.5 [facility] Comment on above: Performed By: #### 2 [id number] #### [facility] [address] [place] [address] Eosinophils/100 WBC (Bld) 0.1 % Normal 0.0-8.0 [facility] Comment on above: Performed By: #### 2 [id number] #### [facility] [address] [place] [address] Erythrocyte distribution width (RBC) [Ratio] 13.5 % Normal 10.9-14.2 [facility] Comment on above: Performed By: #### 2 [id number] #### [facility] [address] [place] [address] Hematocrit (Bld) [Volume fraction] 42.1 % Normal 34.0-46.0 [facility] Comment on above: Performed By: #### 2 [id number] #### [facility] [address] [place] [address] Hemoglobin (Bld) [Mass/Vol] 14.2 g/dL Normal 12.0-16.0 [facility] Comment on above: Performed By: #### 2 [id number] #### [facility] [address] [place] [address] Lymphocytes (Bld) [#/Vol] 1.6 E9/L Normal 1.0-4.0 [facility] Comment on above: Performed By: #### 2 [id number] #### [facility] [address] [place] [address] Lymphocytes/100 WBC (Bld) 21.1 % Normal 14.0-50.0 [facility] Comment on above: Performed By: #### 2 [id number] #### [facility] [address] [place] [address] MCH (RBC) [Entitic mass] 30.5 pg Normal 27.0-34.0 [facility] Comment on above: Performed By: #### 2 [id number] #### [facility] [address] [place] [address] MCHC (RBC) [Mass/Vol] 33.6 g/dL Normal 31.4-36.0 [facility] Comment on above: Performed By: #### 2 [id number] #### [facility] [address] [place] [address] MCV (RBC) [Entitic vol] 90.8 fL Normal 80.0-100.0 [facility] Comment on above: Performed By: #### 2 [id number] #### [facility] [address] [place] [address] Monocytes (Bld) [#/Vol] 0.4 E9/L Normal 0.2-1.0 [facility] Comment on above: Performed By: #### 2 [id number] #### [facility] [address] [place] [address] Neutrophils (Bld) [#/Vol] 5.5 E9/L Normal 2.0-7.5 [facility] Comment on above: Performed By: #### 2 [id number] #### [facility] [address] [place] [address] Neutrophils/100 WBC (Bld) 73.2 % Normal 36.0-75.0 [facility] Comment on above: Performed By: #### 2 [id number] #### [facility] [address] [place] [address] Platelet mean volume (Bld) [Entitic vol] 8.2 fL Normal 6.4-10.8 [facility] Comment on above: Performed By: #### 2 [id number] #### [facility] [address] [place] [address] Platelets (Bld) [#/Vol] 327.0 E9/L Normal 150.0-500.0 [facility] Comment on above: Performed By: #### 2 [id number] #### [facility] [address] [place] [address] RBC (Bld) [#/Vol] 4.6 E12/L Normal 4.3-5.9 [facility] Comment on above: Performed By: #### 2 [id number] #### [facility] [address] [place] [address] WBC corrected for nucl RBC Auto (Bld) [#/Vol] 7.5 E9/L Normal 4.0-11.0 [facility] Comment on above: Performed By: #### 2 [id number] #### [facility] [address] [place] [address] CHEMISTRYOrdered By: SYSTEM SYSTEM on 01-10-2024 Anion gap [Moles/Vol] 13 mmol/L Normal 6 - 16 mEq/L [facility] Calcium [Mass/Vol] 10.1 mg/dL Normal 8.9 - 11. 1 mg/dL [facility] Chloride [Moles/Vol] 102 mmol/L Normal 101 - 1 11 mmol/L [facility] CO2 [Moles/Vol] 25 mmol/L Normal 21 - 31 mmol/L [facility] Creatinine [Mass/Vol] 0.8 mg/dL Normal 0.5 - 1.3 mg/dL [facility] eGFR 104 mL/min/1.73 m2 Normal >=59mL/mi n/ 1.73 m2 [facility] Glucose [Mass/Vol] 97 mg/dL Normal 55 - 199 mg/dL [facility] Potassium [Moles/Vol] 4.3 mmol/L Normal 3.5 - 5.3 mmol/L [facility] Sodium [Moles/Vol] 136 mmol/L Normal 135 - 145 mmol/L [facility] Troponin HS pg/mL Low 10.10 - 27.10 pg/mL [facility] Comment on above: Interpretive Data: T he 95% CI (Confidence Interval) PPV (Positive Predictive Value) for myocardial infarction in females is 38 pg/mL, in males 51 pg/mL. The results should be used in conjunction with clinical conditions of myocardial infarction. (Access High Sensitivity Troponin I Instructions For Use, Flavia Silke, February 2018) Urea nitrogen [Mass/Vol] 15 mg/dL Normal 5 - 21 mg/dL [facility] Urea nitrogen/Creatinine [Mass ratio] 19 mg/mg Normal 10 - 20 [facility] COAGULATIONOrdered By: Gregorio Hope on 01-10-2024 aPTT Coag (PPP) [Time] 33.1 s Normal 25.1 - 36.5 second(s) [facility] Comment on above: Interpretive Data: P arameter 15 days - 4 weeks 1 - [...] the same coagulation reagent and instrumentation as [facility]. Currently there are no coagulation studies available worldwide for children to 14 days, and no normal ranges. Heparin therapeutic range (represented by Anti-Factor Xa activity of 0.2 - 0.4 U/mL) corresponds to PTT of 56.6 - 109.0 sec. INR Coag (PPP) [Relative time] 1.04 {INR} Invalid Interpretation Code [facility] Comment on above: Interpretive Data: I NR results are specifically intended to assess patients stabilized on long-term Anticoagulation therapy suggested INR s Less Intensive Anticoagulation 2.0 3.0 Conventional Range 3.0 4.5 PT Coag (PPP) [Time] 11.7 s Normal 9.4 - 1 2.5 second(s) [facility] Comment on above: Interpretive Data: 1 5 days - 4 weeks 1 - 5 months 6 -11 months 1 5 years 6 10 years 11 -17 years Mean: 11.2 (9.5 12.6) Mean: 11.0 (9.7 12.8) Mean: 11.0 (9.8 13.0) Mean: 11.3 (9.9 13.4) Mean: 11.7 (10.0 14.6) Mean: 11.8 (10.0 - 14.1) Pediatric Reference ranges were obtained from a study by jadon Lee alMarbella prepared from 1437 samples obtained at 7 different centers using the same coagulation reagent and instrumentation as [facility]. Currently there are no coagulation studies available worldwide for children to 14 days, and no normal ranges. Consent for Treatment 12-17 Consent for Treatment [id number] 0TIFF Normal [facility] Discharge Instructionson Discharge Instructions [id number] Normal [facility] ED Clinical Summaryon 2023 ED Clinical Summary [place] [id number] ED Clinical Summary Person Information Name: SHAHIDA [place] Ana Rosa/[facility] Age: 28 Years : 1995 Sex: Female Language: Polish PCP: Liane IRVIN CNP Marital Status: Single Visit Id: Visit Reason: Palpitations; CHEST PAIN Speciality: Acuity: 3 Enc Type: Emergency Med Service: Emergency Arrival: 01/10/2024 14:10:29 Discharge: 01/10/2024 17:18:19 LOS: 000 03:08 Checkin: 01/10/2024 14:10:29 Checkout: 01/10/2024 17:18:19 Dispo Type: Home (Routine DC) EVENTS: Event Name Event Status Request Date/Time Start Date/Time Complete Date/Time Arrive Complete 01/10/2024 14:10:29 01/10/2024 14:10:29 01/10/2024 14:10:29 Document Home Meds Request 01/10/2024 14:10:29 Triage Complete 01/10/2024 14:10:29 01/10/2024 14:18:42 01/10/2024 14:18:42 Bed Assign Complete 01/10/2024 14:12:30 01/10/2024 14:12:30 01/10/2024 14:12:30 Dr Exam Complete 01/10/2024 14:12:30 01/10/2024 14:14:00 01/10/2024 14:14:00 RN Exam Complete 01/10/2024 14:12:30 01/10/2024 14:29:38 01/10/2024 14:29:38 Registration Complete 01/10/2024 14:14:00 01/10/2024 14:26:36 01/10/2024 14:26:36 EKG Complete 01/10/2024 14:17:24 01/10/2024 14:18:58 Dr Exam Complete 01/10/2024 14:25:44 01/10/2024 14:25:44 01/10/2024 14:25:44 Pending Labs Complete 01/10/2024 14:26:36 01/10/2024 17:11:51 Lab Complete 01/10/2024 14:26:36 01/10/2024 15:44:23 X-Ray Complete 01/10/2024 14:26:36 01/10/2024 14:55:21 01/10/2024 15:05:49 Reg Complete Request 01/10/2024 14:26:36 Reg Bed Request Complete 01/10/2024 14:26:37 01/10/2024 14:26:37 01/10/2024 14:26:37 Pending Labs Complete 01/10/2024 15:01:59 01/10/2024 15:01:59 01/10/2024 15:32:55 Lab Complete 01/10/2024 15:01:59 01/10/2024 15:01:59 01/10/2024 15:32:55 Pending Labs Complete 01/10/2024 15:02:45 01/10/2024 15:02:45 01/10/2024 15:02:45 Wet Read Complete 01/10/2024 15:05:49 01/10/2024 15:09:58 01/10/2024 15:09:58 Pending Labs Cancel 01/10/2024 16:15:34 01/10/2024 16:16:17 Lab Cancel 01/10/2024 16:15:34 01/10/2024 16:16:17 Discharge Complete 01/10/2024 17:08:18 01/10/2024 17:18:27 01/10/2024 17:18:27 Transfer Complete 01/10/2024 17:18:27 01/10/2024 17:18:27 01/10/2024 17:18:27 ADDRESS: [address] [place] [id number] PHYS DOC NOTES: MEDICAL INFORMATION: Prescriptions Given: PATIENT EDUCATION INFORMATION: Instructions: Nonspecific Chest Pain, Adult, [id number] Follow up: With: Address: When: Liane IRVIN [address] [id number] Business (1) In 3 days 01/13/2024 Comments: Follow-up with your primary care provider for further management of care. Return to the ED with any worsening symptoms. DIAGNOSIS: Chest pain, rule out acute myocardial infarction [facility] [facility] Patient Education Noteon 01-10-2024 ED Patient Education Note Gastroenterology Nonspecific Chest Pain Chest pain can be caused by many different conditions. Some causes of chest pain can be life-threatening. These will require treatment right away. Serious causes of chest pain include: ? Heart attack. ? A tear in the body's main blood vessel. ? Redness and swelling (inflammation) around your heart. ? Blood clot in your lungs. Other causes of chest pain may not be so serious. These include: ? Heartburn. ? Anxiety or stress. ? Damage to bones or muscles in your chest. ? Lung infections. Chest pain can feel like: ? Pain or discomfort in your chest. ? Crushing, pressure, aching, or squeezing pain. ? Burning or tingling. ? Dull or sharp pain that is worse when you move, cough, or take a deep breath. ? Pain or discomfort that is also felt in your back, neck, jaw, shoulder, or arm, or pain that spreads to any of these areas. It is hard to know whether your pain is caused by something that is serious or something that is not so serious. So it is important to see your doctor right away if you have chest pain. Follow these instructions at home: Medicines ? Take rhvc-kdh-ldrpirj and prescription medicines only as told by your doctor. ? If you were prescribed an antibiotic medicine, take it as told by your doctor. Do not stop taking the antibiotic even if you start to feel better. Lifestyle ? Rest as told by your doctor. ? Do not use any products that contain nicotine or tobacco, such as cigarettes, e-cigarettes, and chewing tobacco. If you need help quitting, ask your doctor. ? Do not drink alcohol. ? Make lifestyle changes as told by your doctor. These may include: ? Getting regular exercise. Ask your doctor what activities are safe for you. ? Eating a heart-healthy diet. A diet and payroll and benefits specialist (dietitian) can help you to learn healthy eating options. ? Staying at a healthy weight. ? Treating diabetes or high blood pressure, if needed. ? Lowering your stress. Activities such as yoga and relaxation techniques can help. General instructions ? Pay attention to any changes in your symptoms. Tell your doctor about them or any new symptoms. ? Avoid any activities that cause chest pain. ? Keep all follow-up visits as told by your doctor. This is important. You may need more testing if your chest pain does not go away. Contact a doctor if: ? Your chest pain does not go away. ? You feel depressed. ? You have a fever. Get help right away if: ? Your chest pain is worse. ? You have a cough that gets worse, or you cough up blood. ? You have very bad (severe) pain in your belly (abdomen). ? You pass out (faint). ? You have either of these for no clear reason: ? Sudden chest discomfort. ? Sudden discomfort in your arms, back, neck, or jaw. ? You have shortness of breath at any time. ? You suddenly start to sweat, or your skin gets clammy. ? You feel sick to your stomach (nauseous). ? You throw up (vomit). ? You suddenly feel lightheaded or dizzy. ? You feel very weak or tired. ? Your heart starts to beat fast, or it feels like it is skipping beats. These symptoms may be an emergency. Do not wait to see if the symptoms will go away. Get medical help right away. Call your local emergency services (911 in the [place] Do not drive yourself to the hospital. Summary ? Chest pain can be caused by many different conditions. The cause may be serious and need treatment right away. If you have chest pain, see your doctor right away. ? Follow your doctor's instructions for taking medicines and making lifestyle changes. ? Keep all follow-up visits as told by your doctor. This includes visits for any further testing if your chest pain does not go away. ? Be sure to know the signs that show that your condition has become worse. Get help right away if you have these symptoms. This information is not intended to replace advice given to you by your health care provider. Make sure you discuss any questions you have with your health care provider. Document Revised: 09/17/2021 Document Reviewed: 09/17/2021 Elsevier Patient Education ? 2022 [employer] Normal [facility] ED Patient Summaryon 024 ED Patient Summary [address] [id number] Patient Discharge Instructions Person Information Name: SHAHIDA OH Age: 28 Years Arrival Date: 01/10/2024 14:10:29 Discharge Diagnosis: Chest pain, rule out acute myocardial infarction Primary Care Physician: Liane IRVIN CNP Provider Information Primary Provider: Wood Smith DO Advanced Associate Team Physician:Libby Lott PA-C The exam and treatment you received in the Emergency Department were for an urgent problem and are not intended as complete care. It is important that you follow up with a doctor, nurse practitioner, or physician?s speech assistant for ongoing care. If your symptoms become worse or you do not improve as expected and you are unable to reach your usual health care provider, you should return to the Emergency Department. We are available 24 hours a day. SHAHIDA OH has been given the following list of patient education materials, prescriptions and follow-up instructions: Follow-up Instructions: With: Address: When: Liane MARESAZRA [address] [place] [id number] Business (1) In 3 days 01/13/2024 Comments: Follow-up with your primary care provider for further management of care. Return to the ED with any worsening symptoms. In the event that this physician does not participate in your insurance network, please consult with your insurance company to find a nearby participating provider. Patient Education Materials: Nonspecific Chest Pain, Adult, Ccdq-ds-Shys A MESSAGE TO ALL PATIENTS REGARDING OPIOIDS PRESCRIPTION OPIOIDS: WHAT YOU NEED TO KNOW Prescription opioids can be used to help relieve folkdghv-kr-zhfypf pain and are often prescribed following a [...] guidance from the Food and Drug Administration (www.fda.gov/Drugs/Res ourcesForYou). ? Visit www.cdc.gov/drugoverdo se to learn about the risks of opioids abuse and overdose. ? If you (more content not included)... Normal [facility] HEMATOLOGYOrdered By: SYSTEM SYSTEM on 01-10-2024 Basophils/100 WBC (Bld) 0.3 % Normal 0.0 - 2.0 % Remisol Heme Basophils/Leukocytes Auto (Bld) [Pure # fraction] 0.0 E9/L Normal 0.0 - 0.2 E9/L Remisol Heme Eosinophils (Bld) [#/Vol] 0.0 E9/L Normal 0.0 - 0.5 E9/L Remisol Heme Eosinophils/100 WBC (Bld) 0.1 % Normal 0.0 - 8.0 % Remisol Heme Erythrocyte distribution width (RBC) [Ratio] 13.5 % Normal 10.9 - 14.2 % Rem[facility]e Hematocrit (Bld) [Volume fraction] 42.1 % Normal 34.0 - 46.0 % Remisol Heme Hemoglobin (Bld) [Mass/Vol] 14.2 g/dL Normal 12.0 - 16.0 gm/dL Remisol Heme Lymphocytes (Bld) [#/Vol] 1.6 E9/L Normal 1.0 - 4.0 E9/L Remisol Heme Lymphocytes/100 WBC (Bld) 21.1 % Normal 14.0 - 50.0 % Remisol Heme MCH (RBC) [Entitic mass] 30.5 pg Normal 27.0 - 34.0 pg Remisol Heme MCHC (RBC) [Mass/Vol] 33.6 g/dL Normal 31.4 - 36.0 gm/dL Remisol Heme MCV (RBC) [Entitic vol] 90.8 fL Normal 80.0 - 100.0 fL Remisol Heme Monocytes (Bld) [#/Vol] 0.4 E9/L Normal 0.2 - 1.0 E9/L Remisol Heme Monocytes/100 WBC (Bld) 5.3 % Normal 4.0 - 14.0 % Remisol Heme Neutrophils (Bld) [#/Vol] 5.5 E9/L Normal 2.0 - 7.5 E9/L Remisol Heme Neutrophils/100 WBC (Bld) 73.2 % Normal 36.0 - 75.0 % Remisol Heme Platelet mean volume (Bld) [Entitic vol] 8.2 fL Normal 6.4 - 10.8 fL Remisol Heme Platelets (Bld) [#/Vol] 327.0 E9/L Normal 150. 0 - 500.0 E9/L Remisol Heme RBC (Bld) [#/Vol] 4.6 E12/L Normal 4.3 - 5.9 E12/L [facility]e WBC corrected for nucl RBC Auto (Bld) [#/Vol] 7.5 E9/L Normal 4.0 - 11.0 E9/L [facility] PT & PTTon 01-10-2024 aPTT Coag (PPP) [Time] 33.1 second(s) Normal 25.1-36.5 [facility] Comment on above: Result Comment: Para [...] the same coagulation reagent and instrumentation as [facility]. Currently there are no coagulation studies available worldwide for children to 14 days, and no normal ranges. Heparin therapeutic range (represented by Anti-Factor Xa activity of 0.2 - 0.4 U/mL) corresponds to PTT of 56.6 - 109.0 sec. Performed By: #### 1 [id number] #### [facility] [address] [place] [address] INR Coag (PPP) [Relative time] 1.04 {INR} Invalid Interpretation Code [facility] Comment on above: Result Comment: INR results are specifically intended to assess patients stabilized on long-term Anticoagulation therapy suggested INR?s ?Less Intensive Anticoagulation? 2.0 ? 3.0 Conventional Range 3.0 ? 4.5 Performed By: #### 1 [id number] #### [facility] [address] [place] [address] PT Coag (PPP) [Time] 11.7 second(s) Normal 9.4-12.5 [facility] Comment on above: Result Comment: 15 d ays - 4 weeks 1 - 5 months 6 -11 months 1 ? 5 years 6 ? 10 years 11 -17 years Mean: 11.2 (9.5 ? 12.6) Mean: 11.0 (9.7 ? 12.8) Mean: 11.0 (9.8 ? 13.0) Mean: 11.3 (9.9 ? 13.4) Mean: 11.7 (10.0 ? 14.6) Mean: 11.8 (10.0 - 14.1) Pediatric Reference ranges were obtained from a study by Alexis Patel et al. prepared from 1437 samples obtained at 7 different centers using the same coagulation reagent and instrumentation as [facility]. Currently there are no coagulation studies available worldwide for children to 14 days, and no normal ranges. Performed By: #### 1 [id number] #### [facility] [address] [place] [address] Troponin 0 Hr.on 01-10-2024 Troponin HS <2.30 Low 10.10-27.10 [facility] Comment on above: Result Comment: The 95% CI (Confidence Interval) PPV (Positive Predictive Value) for myocardial infarction in females is 38 pg/mL, in males 51 pg/mL. The results should be used in conjunction with clinical conditions of myocardial infarction. (Access High Sensitivity Troponin I Instructions For Use, Flavia Silke, February 2018) Performed By: #### 1 [id number] #### [facility] [address] [place] [address] XR Chest Single Viewon 01-09 XR Chest Single View Exam Date/Time: 01/10/2024 15:05 EDT Reason for Exam: Chest pain Report IMPRESSION: No acute findings by portable radiography. EXAMINATION: XR Chest Single View Clinical History: Chest pain Comparison: 12/28/2023. RESULT: No consolidation. No pleural effusion. No pneumothorax. Normal cardiomediastinal silhouette. No acute osseous findings. Ordering Provider: Libby Lott FINAL REPORT Dictated: 01/10/2024 3:58 pm Jeremiah Delcid MD Signed (Electronic Signature): 01/10/2024 3:58 pm Signed by: Jeremiah Delcid MD Transcribed by: LARRY Technologist: LUIS CARLOS Technical Comments Radiation Dose: Ka,r in mGy = na DAP = na Normal [facility] eGFRon 01-10-2024 eGFR 104 mL/min/1.73 m2 Normal >=59 [facility] Comment on above: Order Comment: Order added by Discern Expert. Performed By: #### 1 [id number] #### [facility] [address] [place] [address] Physician Referralon 024 Physician Referral [id number]. [id number] Normal [facility] Family Medicine Office/Clini c Noteon 01-05-2024 Family Medicine Office/Clinic Note Chief Complaint ER follow up HPI Staff Patient here today for ER follow up. ER followup: Hospital: [facility] Visit date: 12/28/2023 Symptoms the patient presented with: seizure like activity Current concerns: upper left chest discomfort History of Present Illness Shahida Oh is a 28-year old female here today for ER follow-up for seizure-like activity. She was seen at [facility] ER on 12/28/23. On 12/27/23, she had 3 episodes of what her friends believe was seizure-like activity. She tightened up and her jaw locked, her friends were unable to get it open. This happened 3 times, 15-20 seconds each. She was confused, lethargic and spacey after. Prior to the episodes, she was using cocaine. She had incontinence or tongue biting. She states she relapsed on cocaine recently. She had been sober for over 4 years prior to this. Recent use was related to life stressors. She was able to quit in the past because of incarceration. She also reports a history of methamphetamine use, but no recent use. She was not dehydrated at the time of the event as she drinks plenty of water. She does not have any residual muscle soreness but still feels mentally foggy. She does not believe her cocaine was laced. She denies injury from the episode. The ER did perform EKG, head CT and lab work which was unremarkable except for mild hypokalemia of 3.4 and tox screen was positive for cocaine. She is also experiencing chest tightness and cough for a couple weeks. Her cough has been ongoing for weeks. She believes it may be used from smoke from cocaine use. She has had no cold-like symptoms or reflux symptoms. The cough is worse at night, but not related to position. She only has palpitations during periods of drug use. She does admit that she has life stressors that may contribute to her anxiety. She has not yet seen neurology because no referral was placed. She has no known neurologic history, prior seizures, or new seizure-like activity after ER discharge. She has a history of untreated Hepatitis C. She did begin treatment for this but did not finish the medications. Has not seen GI or had testing recently. Review of Systems PHQ Score Initial Depression Screen Score: 0 SCORE See above. Physical Exam Vitals & Measurements HR: 92(Peripheral) BP: 128/74 SpO2: 98% HT: 62 in HT: 157 cm WT: 63.5 kg WT: 139.7 lb BMI: 25.76 General: Alert, normal affect and mood, makes eye contact, conversational. Head: Normocephalic, atraumatic. Mouth: No bite lloyd of tongue. Cardiovascular: Regular rate and rhythm. Gastrointestinal: No epigastric tenderness. MSK: Tenderness to palpation over the upper left chest wall and left mid-axillary line. Assessment/Plan Vitals are within normal limits. 1. Hospital discharge follow-up (Z09: Encounter for follow-up examination after completed treatment for conditions other than malignant neoplasm) Neurology referral placed given potential seizure-like activity. Patient can f/u in 1 month after neurology appt to discuss findings as well as investigate chronic conditions. 2. Seizure-like activity (R56.9: Unspecified convulsions) Neurology referral placed given potential seizure-like activity. 3. Costochondritis (M94.0: Chondrocostal junction syndrome [Tietze]) Apply 2 Voltaren gel over tender areas as needed for pain or may instead use Ibuprofen 400 mg q6 hours as needed. Acetaminophen should be avoided given her history of hepatitis C. 4. Light smoker (F17.210: Nicotine dependence, cigarettes, uncomplicated) Advised to not smoke for health reasons. 5. 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 She can call the office for resources if needed. advised to avoid methamphetamine use. Advised to avoid cocaine use. This may be related to her seizure-like activity. 6. Methamphetamine use (F15.10: Other stimulant abuse, uncomplicated) advised to avoid methamphetamine use. 7. Cocaine use (F14.90: Cocaine use, unspecified, uncomplicated) Advised to avoid cocaine use. This may be related to her seizure-like activity. 8. Overweight (E66.3: Overweight) Follow healthy lifestyle and fitness practices. 9. BMI 25.0-25.9,adult (Z68.25: Body mass index [BMI] 25.0-25.9, adult) The standard range for ages 18 and older is >=18.5 and < 25 kg/m2. Your BMI (25.76) today was above this range, this falls in the overweight obesity morbid obese category and there are medical benefits to weight loss. BMI monitoring is helpful with identifying a weight problem that may be related to a medical condition, or may increase the risk for medical problems. Your BMI and weight management will be followed at subsequent visits with your provider and monitored for progress. GOAL: promoting healthier lifestyle with diet changes in order to reach a healthy weight. 45 min spent today preparing the chart, spending jdnk-ne-ezvp time with the Pt and family, documenting the enco (more content not included)... Normal [facility] Comment on above: Result Comment: Elec tronically Signed By: Ayan Puckett MD\.br\Date and Time Signed: 01/05/24 17:10 EDT\.br\Electronically Co-Signed By: Charisse Varner\.br\Date and Time Co-Signed: 01/05/24 15:52 EDT B hCG Qualon 12-28-2023 Beta HCG ( test) Ql Negative Normal [facility] Comment on above: Performed By: #### 2 [id number] #### [facility] [address] [place], [place] [address]on 12-28-2023 Anion gap [Moles/Vol] 11 mmol/L Normal 6-16 [facility] Comment on above: Performed By: #### 2 [id number] #### [facility] [address] [place] [address] Calcium [Mass/Vol] 9.5 mg/dL Normal 8.9-11.1 [facility] Comment on above: Performed By: #### 2 [id number] #### [facility] [address] [place] [address] Chloride [Moles/Vol] 104 mmol/L Normal 101-111 [facility] Comment on above: Performed By: #### 2 [id number] #### [facility] [address] [place] [address] CO2 [Moles/Vol] 26 mmol/L Normal 21-31 [facility] Comment on above: Performed By: #### 2 [id number] #### [facility] [address] [place] [address] Creatinine [Mass/Vol] 0.6 mg/dL Normal 0.5-1.3 [facility] Comment on above: Performed By: #### 2 [id number] #### [facility] [address] [place] [address] Glucose [Mass/Vol] 100 mg/dL Normal 55-199 [facility] Comment on above: Performed By: #### 2 [id number] #### [facility] [address] [place] [address] Potassium [Moles/Vol] 3.4 mmol/L Low 3.5-5.3 [facility] Comment on above: Performed By: #### 2 [id number] #### [facility] [address] [place] [address] Sodium [Moles/Vol] 138 mmol/L Normal 135-145 [facility] Comment on above: Performed By: #### 2 [id number] #### [facility] [address] [place] [address] Urea nitrogen [Mass/Vol] 8 mg/dL Normal 5-21 [facility] Comment on above: Performed By: #### 2 [id number] #### [facility] [address] [place] [address] Urea nitrogen/Creatinine [Mass ratio] 13 No Units Normal 10-20 [facility] Comment on above: Performed By: #### 2 [id number] #### [facility] [address] [place] [address] CBC w/ Auto Diffon 4 Basophils/100 WBC (Bld) 0.4 % Normal 0.0-2.0 [facility] Comment on above: Performed By: #### 2 [id number] #### [facility] [address] [place] [address] Basophils/Leukocytes Auto (Bld) [Pure # fraction] 0.0 E9/L Normal 0.0-0.2 [facility] Comment on above: Performed By: #### 2 [id number] #### [facility] [address] [place] [address] Eosinophils (Bld) [#/Vol] 0.0 E9/L Normal 0.0-0.5 [facility] Comment on above: Performed By: #### 2 [id number] #### [facility] [address] [place] [address] Eosinophils/100 WBC (Bld) 0.2 % Normal 0.0-8.0 [facility] Comment on above: Performed By: #### 2 [id number] #### [facility] [address] [place] [address] Erythrocyte distribution width (RBC) [Ratio] 13.7 % Normal 10.9-14.2 [facility] Comment on above: Performed By: #### 2 [id number] #### [facility] [address] [place] [address] Hematocrit (Bld) [Volume fraction] 37.0 % Normal 34.0-46.0 [facility] Comment on above: Performed By: #### 2 [id number] #### [facility] [address] [place] [address] Hemoglobin (Bld) [Mass/Vol] 12.1 g/dL Normal 12.0-16.0 [facility] Comment on above: Performed By: #### 2 [id number] #### [facility] [address] [place] [address] Lymphocytes (Bld) [#/Vol] 1.8 E9/L Normal 1.0-4.0 [facility] Comment on above: Performed By: #### 2 [id number] #### [facility] [address] [place] [address] Lymphocytes/100 WBC (Bld) 20.6 % Normal 14.0-50.0 [facility] Comment on above: Performed By: #### 2 [id number] #### [facility] [address] [place] [address] MCH (RBC) [Entitic mass] 29.9 pg Normal 27.0-34.0 [facility] Comment on above: Performed By: #### 2 [id number] #### [facility] [address] [place] [address] MCHC (RBC) [Mass/Vol] 32.8 g/dL Normal 31.4-36.0 [facility] Comment on above: Performed By: #### 2 [id number] #### [facility] [address] [place] [address] MCV (RBC) [Entitic vol] 91.3 fL Normal 80.0-100.0 [facility] Comment on above: Performed By: #### 2 [id number] #### [facility] [address] [place] [address] Monocytes (Bld) [#/Vol] 0.6 E9/L Normal 0.2-1.0 [facility] Comment on above: Performed By: #### 2 [id number] #### [facility] [address] [place] [address] Neutrophils (Bld) [#/Vol] 6.4 E9/L Normal 2.0-7.5 [facility] Comment on above: Performed By: #### 2 [id number] #### [facility] [address] [place] [address] Neutrophils/100 WBC (Bld) 72.4 % Normal 36.0-75.0 [facility] Comment on above: Performed By: #### 2 [id number] #### [facility] [address] [place] [address] Platelet mean volume (Bld) [Entitic vol] 8.2 fL Normal 6.4-10.8 [facility] Comment on above: Performed By: #### 2 [id number] #### [facility] [address] [place] [address] Platelets (Bld) [#/Vol] 293.0 E9/L Normal 150.0-500.0 [facility] Comment on above: Performed By: #### 2 [id number] #### [facility] [address] [place] [address] RBC (Bld) [#/Vol] 4.1 E12/L Low 4.3-5.9 [facility] Comment on above: Performed By: #### 2 [id number] #### [facility] [address] [place] [address] WBC corrected for nucl RBC Auto (Bld) [#/Vol] 8.8 E9/L Normal 4.0-11.0 [facility] Comment on above: Performed By: #### 2 [id number] #### [facility] [address] [place] [address] CHEMISTRYOrdered By: SYSTEM SYSTEM on 12-28-2023 Amphetamines Screen method >1000 ng/mL Ql (U) NEGATIVE 8 (12/28/23 11:59 AM) Normal NEGATIVE [facility] Comment on above: Interpretive Data: N egative Cutoff: <1000 ng/mL Barbiturates Screen Ql (U) NEGATIVE 9 (12/28/23 11:59 AM) Normal NEGATIVE [facility] Comment on above: Interpretive Data: N egative Cutoff: <200 ng/mL Benzodiazepines Ql (U) NEGATIVE 1 (12/28/23 11:59 AM) Normal NEGATIVE [facility] Comment on above: Interpretive Data: N egative Cutoff: <200 ng/mL Cannabinoids Screen Ql (U) NEGATIVE 7 (12/28/23 11:59 AM) Normal NEGATIVE [facility] Comment on above: Interpretive Data: N egative Cutoff: <50 ng/mL Cocaine Ql (U) POSITIVE 2, 3 *ABN* (12/28/23 11:59 AM) Invalid Interpretation Code NEGATIVE [facility] Comment on above: Result Comment: Resu lt verified by repeat analysis, Unconfirmed by alternate method Called and read back by AG to Whit VILLA at 1257 No Confirmation Requested by Physician Interpretive Data: N egative Cutoff: <300 ng/mL Opiates Screen Ql (U) NEGATIVE 5 (12/28/23 11:59 AM) Normal NEGATIVE [facility] Comment on above: Interpretive Data: N egative Cutoff: <300 ng/mL Phencyclidine Screen method >25 ng/mL Ql (U) NEGATIVE 6 (12/28/23 11:59 AM) Normal NEGATIVE [facility] Comment on above: Interpretive Data: N egative Cutoff: <25 ng/mL These drug screen results are to be used for medical (i.e., treatment) purposes only. Unconfirmed drug screening results must not be used for non-medical purposes (e.g., employment testing, legal testing). U Fentanyl NEGATIVE 14 (12/28/23 11:59 AM) Normal NEGATIVE [facility] Comment on above: Interpretive Data: N egative Cutoff: <5 ng/mL These drug screen results are to be used for medical (i.e., treatment) purposes only. Unconfirmed drug screening results must not be used for non-medical purposes (e.g., employment testing, legal testing). Anion gap [Moles/Vol] 11 mmol/L Normal 6 - 16 mEq/L [facility] Calcium [Mass/Vol] 9.5 mg/dL Normal 8.9 - 11. 1 mg/dL [facility] Chloride [Moles/Vol] 104 mmol/L Normal 101 - 1 11 mmol/L [facility] CO2 [Moles/Vol] 26 mmol/L Normal 21 - 31 mmol/L [facility] Chem Creatinine [Mass/Vol] 0.6 mg/dL Normal 0.5 - 1.3 mg/dL [facility] Chem eGFR 126 mL/min/1.73 m2 Normal >=59mL/mi n/ 1.73 m2 [facility] Glucose [Mass/Vol] 100 mg/dL Normal 55 - 199 mg/dL [facility] Magnesium [Mass/Vol] 2.1 mg/dL Normal 1.3 - 2 .4 mg/dL [facility] Potassium [Moles/Vol] 3.4 mmol/L Low 3.5 - 5.3 mmol/L [facility] Sodium [Moles/Vol] 138 mmol/L Normal 135 - 145 mmol/L Rem[facility] Chem Troponin HS 2.30 pg/mL Low 10.10 - 27.10 pg/mL [facility] Comment on above: Interpretive Data: T he 95% CI (Confidence Interval) PPV (Positive Predictive Value) for myocardial infarction in females is 38 pg/mL, in males 51 pg/mL. The results should be used in conjunction with clinical conditions of myocardial infarction. (Access High Sensitivity Troponin I Instructions For Use, Flavia Greenwood, February 2018) Urea nitrogen [Mass/Vol] 8 mg/dL Normal 5 - 21 mg/dL [facility] Chem Urea nitrogen/Creatinine [Mass ratio] 13 mg/mg Normal 10 - 20 [facility] Chem COAGULATIONOrdered By: Carlos Camacho on 12-28-2023 aPTT Coag (PPP) [Time] 31.1 s Normal 25.1 - 36.5 second(s) [facility] Comment on above: Interpretive Data: P arameter 15 days - 4 weeks 1 - [...] the same coagulation reagent and instrumentation as [facility]. Currently there are no coagulation studies available worldwide for children to 14 days, and no normal ranges. Heparin therapeutic range (represented by Anti-Factor Xa activity of 0.2 - 0.4 U/mL) corresponds to PTT of 56.6 - 109.0 sec. INR Coag (PPP) [Relative time] 1.04 {INR} Invalid Interpretation Code [facility] Comment on above: Interpretive Data: I NR results are specifically intended to assess patients stabilized on long-term Anticoagulation therapy suggested INR s Less Intensive Anticoagulation 2.0 3.0 Conventional Range 3.0 4.5 PT Coag (PPP) [Time] 11.7 s Normal 9.4 - 1 2.5 second(s) [facility] Comment on above: Interpretive Data: 1 5 days - 4 weeks 1 - 5 [...] the same coagulation reagent and instrumentation as [facility]. Currently there are no coagulation studies available worldwide for children to 14 days, and no normal ranges. CT Head or Brain w/o Contras ton 12-28-2023 CT Head or Brain w/o Contrast Exam Date/Time: 12/28/2023 12:25 EDT Reason for Exam: Delirium;Other (please specify) Report IMPRESSION: NEGATIVE NONCONTRAST HEAD CT. EXAM: CT Head or Brain w/o Contrast DATE: 12/28/2023 12:11 PM CLINICAL HISTORY: Altered mental status. COMPARISON: 07/04/2022. TECHNIQUE: Routine. All CT scans at this facility use dose modulation, iterative reconstruction, and/or weight based dosing when appropriate to reduce radiation dose to as low as reasonably achievable. FINDINGS: There is no intracranial hemorrhage, mass effect, midline shift, extra-axial collection, evidence of hydrocephalus, skull fracture, or a recent ischemic infarct identified. There is no significant atrophy, or white matter changes, for age. The mastoid air cells and visualized paranasal sinuses are essentially clear. Ordering Provider: Sunil Lovett FINAL REPORT Dictated: 12/28/2023 12:33 pm Isra Bahena MD Signed (Electronic Signature): 12/28/2023 12:33 pm Signed by: Isra Bahena MD Transcribed by: LARRY Technologist: AO Normal [facility] Consent for Treatmenton 12-16 Consent for Treatment [id number] 0TIFF [facility] Discharge Instructionson Discharge Instructions [id number]. 00TIFF [facility] ED Clinical Summaryon 2023 ED Clinical Summary [place] [id number] ED Clinical Summary Person Information Name: SHAHIDA [place] [facility] Age: 28 Years : 1995 Sex: Female Language: Polish PCP: Liane IRVIN CNP Marital Status: Single Visit Id: Visit Reason: Seizure; SENT BY DR. Garcia HAD SEIZURE TUESDAY/DISCOMFORT IN CHEST Speciality: Acuity: 3 Enc Type: Emergency Med Service: Emergency Arrival: 12/28/2023 10:30:53 Discharge: 12/28/2023 13:45:35 LOS: 000 03:15 Checkin: 12/28/2023 10:30:53 Checkout: 12/28/2023 13:45:35 Dispo Type: Home (Routine DC) EVENTS: Event Name Event Status Request Date/Time Start Date/Time Complete Date/Time Arrive Complete 12/28/2023 10:30:53 12/28/2023 10:30:53 12/28/2023 10:30:53 Document Home Meds Request 12/28/2023 10:30:53 Triage Complete 12/28/2023 10:30:53 12/28/2023 10:58:21 12/28/2023 10:58:21 EKG Complete 12/28/2023 10:58:44 12/28/2023 11:03:33 Bed Assign Complete 12/28/2023 11:01:52 12/28/2023 11:01:52 12/28/2023 11:01:52 Dr Exam Complete 12/28/2023 11:01:52 12/28/2023 11:02:51 12/28/2023 11:02:51 RN Exam Complete 12/28/2023 11:01:52 12/28/2023 12:04:25 12/28/2023 12:04:25 Registration Complete 12/28/2023 11:02:51 12/28/2023 11:11:23 12/28/2023 11:11:23 Dr Exam Complete 12/28/2023 11:04:14 12/28/2023 11:04:14 12/28/2023 11:04:14 Reg Complete Request 12/28/2023 11:11:23 Reg Bed Request Complete 12/28/2023 11:11:24 12/28/2023 11:11:24 12/28/2023 11:11:24 Pending Labs Complete 12/28/2023 11:28:19 12/28/2023 12:57:48 Lab Complete 12/28/2023 11:28:19 12/28/2023 12:57:48 Urine Collect Complete 12/28/2023 11:28:19 12/28/2023 12:57:48 X-Ray Cancel 12/28/2023 11:28:19 12/28/2023 11:50:42 CT Complete 12/28/2023 11:28:19 12/28/2023 12:11:02 12/28/2023 12:25:14 Pending Labs Complete 12/28/2023 11:45:32 12/28/2023 11:45:32 12/28/2023 12:09:32 Lab Complete 12/28/2023 11:45:32 12/28/2023 11:45:32 12/28/2023 12:09:32 Pending Labs Complete 12/28/2023 11:49:27 12/28/2023 11:49:27 12/28/2023 11:49:28 X-Ray Complete 12/28/2023 11:50:40 12/28/2023 12:49:14 12/28/2023 13:04:09 Wet Read Request 12/28/2023 13:04:09 Discharge Complete 12/28/2023 13:12:23 12/28/2023 13:45:42 12/28/2023 13:45:42 Pending Labs Cancel 12/28/2023 13:15:37 12/28/2023 13:35:29 Transfer Complete 12/28/2023 13:45:42 12/28/2023 13:45:42 12/28/2023 13:45:42 ADDRESS: [address] [facility] [id number] PHYS DOC NOTES: MEDICAL INFORMATION: Prescriptions Given: New Medications [id number], [address] [place], [place] [id number], [phone] amoxicillin-clavulanat e (Augmentin 875 mg-125 mg Tab) 1 Tablets By Mouth every 12 hours for 10 Days. Refills: 0. Medications to Continue with No Changes Other Medications acetaminophen (acetaminophen 325 mg Tab) 3 Tablets By Mouth every 6 hours. acetaminophen-oxycodon e (Percocet 5 mg-325 mg oral tablet) 1 Tablets By Mouth every 6 hours. Refills: 0. PATIENT EDUCATION INFORMATION: Instructions: Seizure, Adult Follow up: With: Address: When: Jamal Bird [address], [place] [address] Business (1) In 3 days 12/31/2023 Comments: Call Dr for diagnosis based follow up. Continue to follow seizure precautions, including not operating a motor vehicle or heavy equipment until follow-up with neurology. With: Address: When: Liane IRVIN [address] [place] [address] Business (1) In 3 days DIAGNOSIS: Cocaine use; Left otitis media; New onset seizure; Nonspecific chest pain Normal [facility] ED Note-Physicianon 12-28-19 ED Note-Physician Basic Information Time Seen: Bony NEWMAN, Sunil Farias 12/28/2023 11:02 Chief Complaint patient states that on tuesday had used crack on tuesday and experiencing seizure like activity for roughly 1 minute. hasnt used since. no seizure activty since called PCP- sent here for testing. denies current symptoms, states she feels slight anxiety History of Present Illness A 28-year-old female reports to the emergency department with a chief complaint of a new seizure. Reports this happened on Tuesday after she had a relapse, and used crack cocaine. She states that she had a seizure-like activity after this. Reports that otherwise she feels okay. Reports the seizure lasted about a minute. She states that otherwise she has not used since then. She denies any history of seizures. She states that she did call her primary care, who did undergo the emergency department for further evaluation. States that she does have a little bit of chest pressure with this, but feels like is more anxiety. Denies being on any medications at this time. Review of Systems No other aggravating or relieving factors no other associated symptoms no other prior treatments or complaints. Family: Reviewed and noncontributory Social: lives at home Review of systems negative unless otherwise specified in the HPI. Physical Exam Vitals & Measurements T: 36.9 ?C(Oral) HR: 88(Peripheral) RR: 18 BP: 150/88 SpO2: 99% HT: 157 cm WT: 68.3 kg BMI: 27.71 General: The patient appears well and in no apparent distress. Patient is resting comfortably on bed. afebrile Skin: Warm, dry, no pallor noted. Head: Normocephalic, atraumatic Neck: No JVD Eye: PERRLA, EOMI ENT: Moist mucus membranes. Pharynx pink moist no erythema or exudates. Left-sided TM is erythematous with bulging noted. right side TM clear. Cardiovascular: Regular rate normal peripheral perfusion. Radial pulses +2 bilaterally Respiratory: No respiratory distress no accessory muscle use no obvious audible wheezing. Lung sounds clear Chest Wall: no deformity Musculoskeletal: normal ROM, no deformity, no swelling GI: No obvious distention soft nontender nondistended no guarding rebounding or rigidity Neurological: A&O moves all extremities equal strength and symmetry. No focal neurological deficits Psychiatric: Cooperative and appropriate Medical Decision Making MEDICAL DECISION MAKING Number and Complexity of Problems Differential Diagnosis: [] [facility] Data External documents reviewed: [] My EKG interpretation: reviewed My CT interpretation: reviewed My X-ray interpretation: reviewed My Ultrasound interpretation: [] Decision rules/scores evaluated: Heart Score for Major Cardiac Event History: Example factors for history - pattern of chest pain, onset, duration, relation with exercise, stress or cold, localization, concominant symptoms. reaction to sublingual nitrates, [] Highly suspicious +2 [] Moderately suspicious +1 [x] Slightly suspicious 0 EKG: [] Significant ST-Depression +2 [] Non specific repolarization disturbance +1 [x] Normal 0 Age: [] >= 65 +2 [] 45-65 + 1 [x] <45 0 Risk Factors: (HLD, HTN, DM, Cigarette Smoking, Pos Family Hx, Obesity) [] >3 risk factors or hx of atheroslerotic disease + 2 [x] 1-2 risk factors + 1 [] No risk factors known 0 Troponin: [] >= 3X normal + 2 [] 1-3X normal + 1 [x] <= Normal 0 [x] 0-3 Points 0.9 - 1.7% risk of major adverse cardiac event in 6 weeks [] 4-6 Points 12-16.6% risk of major adverse cardiac event in 6 weeks [] 7-10 Points 50-65% risk of major adverse cardiac event in 6 weeks [] 0-3 Points with 2 sets of negative cardiac markers <1% risk of major adverse cardiac event in 30 days. Discussed with: [] Treatment and Disposition ED Course: 28-year-old female reports to the emergency department with chief complaint of new onset seizure. Reports that she had some chest pressure with this as well. Also concern for of left ear. Reports that things has ear infection. Exam the patient reveals no focal neurological deficits. States that she had a seizure after cocaine use after she relapsed. Exam the patient is otherwise benign except left side otitis media. Due to concerns we do a full workup. Lab reviewed noted. No acute changes seen. Negative troponin. Patient had a heart score of 1. Does not appear to be cardiac cause. Chest x-ray and EKG reviewed and noted. CT of the head was negative. Due to her having cocaine, which would not cause a seizure, discussed that this is common, and is to follow-up with neurology. Discuss seizure precautions, which included no driving or operating heavy equipment followed and cleared by a neurologist. Patient understanding. Patient started on Augmentin for her left side otitis media. Discussed return precautions. Follow-up with your primary care provider in 3 to 5 days (more content not included)... Normal [facility] Comment on above: Result Comment: Elec tronically Signed By: Bony NEWMAN, Sunil Farias\.br\Date and Time Signed: 12/28/23 14:55 EDT\.br\Electronically Co-Signed By: Darlene Mccall M.D.\.br\Date and Time Co-Signed: 12/28/23 15:33 EDT ED Patient Education Noteon 12-28-2023 ED Patient Education Note Neurology Seizure, Adult A seizure is a sudden burst of abnormal electrical and chemical activity in the brain. Seizures usually last from 30 seconds to 2 minutes. The abnormal activity temporarily interrupts normal brain function. Many types of seizures can affect adults. A seizure can cause many different symptoms depending on where in the brain it starts. What are the causes? Common causes of this condition include: ? Fever or infection. ? Brain injury, head trauma, bleeding in the brain, or a brain tumor. ? Low levels of blood sugar or salt (sodium). ? Kidney problems or liver problems. ? Metabolic disorders or other conditions that are passed from parent to child (are inherited). ? Reaction to a substance, such as a drug or a medicine, or suddenly stopping the use of a substance (withdrawal). ? A stroke. ? Developmental disorders such as autism spectrum disorder or cerebral palsy. In some cases, the cause of a seizure may not be known. Some people who have a seizure never have another one. A person who has repeated seizures over time without a clear cause has a condition called epilepsy. What increases the risk? You are more likely to develop this condition if: ? You have a family history of epilepsy. ? You have had a tonic?clonic seizure before. This type of seizure causes tightening (contraction) of the muscles of the whole body and loss of consciousness. ? You have a history of head trauma, lack of oxygen at , or strokes. What are the signs or symptoms? There are many different types of seizures. The symptoms vary depending on the type of seizure you have. Symptoms occur during the seizure. They may also occur before a seizure (aura) and after a seizure (postictal). Symptoms may include the following: Symptoms during a seizure ? Uncontrollable shaking (convulsions) with fast, jerky movements of muscles. ? Stiffening of the body. ? Breathing problems. ? Confusion, staring, or unresponsiveness. ? Head nodding, eye blinking or fluttering, or rapid eye movements. ? Drooling, grunting, or making clicking sounds with your mouth. ? Loss of bladder control and bowel control. Symptoms before a seizure ? Fear or anxiety. ? Nausea. ? Vertigo. This is a feeling like: ? You are moving when you are not. ? Your surroundings are moving when they are not. ? D?j? vu. This is a feeling of having seen or heard something before. ? Odd tastes or smells. ? Changes in vision, such as seeing flashing lights or spots. Symptoms after a seizure ? Confusion. ? Sleepiness. ? Headache. ? Sore muscles. How is this diagnosed? This condition may be diagnosed based on: ? A description of your symptoms. Video of your seizures can be helpful. ? Your medical history. ? A physical exam. You may also have tests, including: ? Blood tests. ? CT scan. ? MRI. ? Electroencephalogram (EEG). This test measures electrical activity in the brain. An EEG can predict whether seizures will return. ? A spinal tap, also called a lumbar puncture. This is the removal and testing of fluid that surrounds the brain and spinal cord. How is this treated? Most seizures will stop on their own in less than 5 minutes, and no treatment is needed. Seizures that last longer than 5 minutes will usually need treatment. Seizures may be treated with: ? Medicines given through an IV. ? Avoiding known triggers, such as medicines that you take for another condition. ? Medicines to control seizures or prevent future seizures (antiepileptics), if epilepsy caused your seizures. ? Medical devices to prevent and control seizures. ? Surgery to stop seizures or to reduce how often seizures happen, if you have epilepsy that does not respond to medicines. ? A diet low in carbohydrates and high in fat (ketogenic diet). Follow these instructions at home: Medicines ? Take otna-lqp-qavgjdw and prescription medicines only as told by your health care provider. ? Avoid any substances that may prevent your medicine from working properly, such as alcohol. Activity ? Follow instructions about activities, such as driving or swimming, that would be dangerous if you had another seizure. Wait until your health care provider says it is safe to do them. ? If you live in the [place] check with your local department of motor vehicles (DMV) to find out about local driving laws. Each state has specific rules about when you can legally drive again. ? Get enough rest. Lack of sleep can make seizures more likely to occur. Educating others ? Teach friends and family what to do if you have a seizure. They should: ? Help you get down to the ground, to prevent a fall. ? Cushion your head and move items away from your body. ? Loosen any tight clothing around your neck. ? Turn you on your side. If you vomit, this helps keep your airway clear. ? Know whether or not you need emergency care. ? Stay with you until you r (more content not included)... Normal [facility] ED Patient Summaryon 024 ED Patient Summary [place] [id number] Patient Discharge Instructions Person Information Name: SHAHIDA [place] Age: 28 Years Arrival Date: 12/28/2023 10:30:53 Discharge Diagnosis: Cocaine use; Left otitis media; New onset seizure; Nonspecific chest pain Primary Care Physician: Liane IRVIN CNP Provider Information Primary Provider: Darlene Mccall M.D. Advanced Associate Team Physician:None The exam and treatment you received in the Emergency Department were for an urgent problem and are not intended as complete care. It is important that you follow up with a doctor, nurse practitioner, or physician?s speech assistant for ongoing care. If your symptoms become worse or you do not improve as expected and you are unable to reach your usual health care provider, you should return to the Emergency Department. We are available 24 hours a day. SHAHIDA [place] has been given the following list of patient education materials, prescriptions and follow-up instructions: Follow-up Instructions: With: Address: When: Jamal Bird [address], [place] [address] Business (1) In 3 days 12/31/2023 Comments: Call Dr for diagnosis based follow up. Continue to follow seizure precautions, including not operating a motor vehicle or heavy equipment until follow-up with neurology. With: Address: When: Liane BRANDEE [address] [place] [address] Business (1) In 3 days In the event that this physician does not participate in your insurance network, please consult with your insurance company to find a nearby participating provider. Patient Education Materials: Seizure, Adult A MESSAGE TO ALL PATIENTS REGARDING OPIOIDS PRESCRIPTION OPIOIDS: WHAT YOU NEED TO KNOW Prescription opioids can be used to help relieve qldwkavw-xk-ibxwup pain and are often prescribed following a [...] following guidance from the Food and Drug A (more content not included)... Normal [facility] HEMATOLOGYOrdered By: SYSTEM SYSTEM on 12-28-2023 Basophils/100 WBC (Bld) 0.4 % Normal 0.0 - 2.0 % Remisol Heme Basophils/Leukocytes Auto (Bld) [Pure # fraction] 0.0 E9/L Normal 0.0 - 0.2 E9/L Remisol Heme Eosinophils (Bld) [#/Vol] 0.0 E9/L Normal 0.0 - 0.5 E9/L Remisol Heme Eosinophils/100 WBC (Bld) 0.2 % Normal 0.0 - 8.0 % Remisol Heme Erythrocyte distribution width (RBC) [Ratio] 13.7 % Normal 10.9 - 14.2 % Rem[facility] Heme Hematocrit (Bld) [Volume fraction] 37.0 % Normal 34.0 - 46.0 % Remisol Heme Hemoglobin (Bld) [Mass/Vol] 12.1 g/dL Normal 12.0 - 16.0 gm/dL Rem[facility] Heme Lymphocytes (Bld) [#/Vol] 1.8 E9/L Normal 1.0 - 4.0 E9/L [facility] Heme Lymphocytes/100 WBC (Bld) 20.6 % Normal 14.0 - 50.0 % Remisol Heme MCH (RBC) [Entitic mass] 29.9 pg Normal 27.0 - 34.0 pg Remisol Heme MCHC (RBC) [Mass/Vol] 32.8 g/dL Normal 31.4 - 36.0 gm/dL Remisol Heme MCV (RBC) [Entitic vol] 91.3 fL Normal 80.0 - 100.0 fL Rem[facility] Heme Monocytes (Bld) [#/Vol] 0.6 E9/L Normal 0.2 - 1.0 E9/L Remisol Heme Monocytes/100 WBC (Bld) 6.4 % Normal 4.0 - 14.0 % [facility] Heme Neutrophils (Bld) [#/Vol] 6.4 E9/L Normal 2.0 - 7.5 E9/L Rem[facility] Heme Neutrophils/100 WBC (Bld) 72.4 % Normal 36.0 - 75.0 % [facility] Platelet mean volume (Bld) [Entitic vol] 8.2 fL Normal 6.4 - 10.8 fL [facility] Heme Platelets (Bld) [#/Vol] 293.0 E9/L Normal 150. 0 - 500.0 E9/L Rem[facility] Heme RBC (Bld) [#/Vol] 4.1 E12/L Low 4.3 - 5.9 E12/L [facility] Heme WBC corrected for nucl RBC Auto (Bld) [#/Vol] 8.8 E9/L Normal 4.0 - 11.0 E9/L Rem[facility] Heme Magnesiumon 12-28-2023 Magnesium [Mass/Vol] 2.1 mg/dL Normal 1.3-2.4 [facility] Comment on above: Performed By: #### 2 [id number] #### [facility] [address] [place] [address] Monitor Recordon 12-28-2023 Monitor Record [id number]. 00TIFF Normal [facility] PT & PTTon 12-28-2023 aPTT Coag (PPP) [Time] 31.1 second(s) Normal 25.1-36.5 [facility] Comment on above: Result Comment: Para [...] the same coagulation reagent and instrumentation as [facility]. Currently there are no coagulation studies available worldwide for children to 14 days, and no normal ranges. Heparin therapeutic range (represented by Anti-Factor Xa activity of 0.2 - 0.4 U/mL) corresponds to PTT of 56.6 - 109.0 sec. Performed By: #### 1 [id number] #### [facility] [address] [place] [address] INR Coag (PPP) [Relative time] 1.04 {INR} Invalid Interpretation Code [facility] Comment on above: Result Comment: INR results are specifically intended to assess patients stabilized on long-term Anticoagulation therapy suggested INR?s ?Less Intensive Anticoagulation? 2.0 ? 3.0 Conventional Range 3.0 ? 4.5 Performed By: #### 1 [id number] #### [facility] [address] [place] [address] PT Coag (PPP) [Time] 11.7 second(s) Normal 9.4-12.5 [facility] Comment on above: Result Comment: 15 [...] the same coagulation reagent and instrumentation as [facility]. Currently there are no coagulation studies available worldwide for children to 14 days, and no normal ranges. Performed By: #### 1 [id number] #### [facility] [address] [place] [address] SEROLOGYOrdered By: Bee Richardson on 12-28-2023 Beta HCG ( test) Ql Negative (12/28/23 11:38 AM) Normal [facility] Man Sero Troponin 0 Hr.on 12-28-2023 Troponin HS 2.30 pg/mL Low 10.10-27.10 [facility] Comment on above: Result Comment: The 95% CI (Confidence Interval) PPV (Positive Predictive Value) for myocardial infarction in females is 38 pg/mL, in males 51 pg/mL. The results should be used in conjunction with clinical conditions of myocardial infarction. (Access High Sensitivity Troponin I Instructions For Use, Flavia Greenwood, February 2018) Performed By: #### 1 [id number] #### [facility] [address] [place] [address] U Drug Screenon 12-28-2023 Amphetamines Screen method >1000 ng/mL Ql (U) Negative Normal NEGATIVE [facility] Comment on above: Result Comment: Nega tive Cutoff: <1000 ng/mL Performed By: #### 2 [id number] #### [facility] [address] [place] [address] Barbiturates Screen Ql (U) Negative Normal NEGATIVE [facility] Comment on above: Result Comment: Nega tive Cutoff: <200 ng/mL Performed By: #### 2 [id number] #### [facility] [address] [place] [address] Benzodiazepines Ql (U) Negative Normal NEGATIVE [facility] Comment on above: Result Comment: Nega tive Cutoff: <200 ng/mL Performed By: #### 2 [id number] #### [facility] [address] [place] [address] Cannabinoids Screen Ql (U) Negative Normal NEGATIVE [facility] Comment on above: Result Comment: Nega tive Cutoff: <50 ng/mL Performed By: #### 2 [id number] #### [facility] [facility] [address] [place] [address] Cocaine Ql (U) Positive Abnormal NEGATIVE [facility] Comment on above: Result Comment: Resu lt verified by repeat analysis, Unconfirmed by alternate method Called and read back by AG to Whit VILLA at 1257 No Confirmation Requested by Physician Negative Cutoff: <300 ng/mL Performed By: #### 2 [id number] #### [facility] [address] [place] [address] Opiates Screen Ql (U) Negative Normal NEGATIVE [facility] Comment on above: Result Comment: Nega tive Cutoff: <300 ng/mL Performed By: #### 2 [id number] #### [facility] [address] [place] [address] Phencyclidine Screen method >25 ng/mL Ql (U) Negative Normal NEGATIVE [facility] Comment on above: Result Comment: Nega tive Cutoff: <25 ng/mL These drug screen results are to be used for medical (i.e., treatment) purposes only. Unconfirmed drug screening results must not be used for non-medical purposes (e.g., employment testing, legal testing). Performed By: #### 2 [id number] #### [facility] [address] [place] [address] U Fentanyl Negative Normal NEGATIVE [facility] Comment on above: Result Comment: Nega tive Cutoff: <5 ng/mL These drug screen results are to be used for medical (i.e., treatment) purposes only. Unconfirmed drug screening results must not be used for non-medical purposes (e.g., employment testing, legal testing). Performed By: #### 2 [id number] #### [facility] [address] [place] [address] UA with Cult Rflxon 12-28-19 24 Bilirubin Ql (U) Negative Normal Negative [facility] Comment on above: Performed By: #### 4 [id number] #### [facility] [address] [place] [address] Clarity (U) Clear Normal Clear [facility] Comment on above: Performed By: #### 4 [id number] #### [facility] [address] [place] [address] Color (U) Colorless Abnormal Yellow [facility] Comment on above: Result Comment: Micr oscopic readings are only performed on those samples that meet specific criteria set forth by [facility]. Performed By: #### 4 [id number] #### [facility] [address] [place] [address] Glucose Ql (U) Negative Normal Negative [facility] Comment on above: Performed By: #### 4 [id number] #### [facility] [address] [place] [address] Hemoglobin Auto test strip (U) [Mass/Vol] Negative Normal Negative [facility] Comment on above: Performed By: #### 4 [id number] #### [facility] [address] [place] [address] Ketones Auto test strip Ql (U) Negative Normal Negative [facility] Comment on above: Performed By: #### 4 [id number] #### [facility] [address] [place] [address] Leukocyte esterase Auto test strip Ql (U) Negative Normal Negative [facility] Comment on above: Performed By: #### 4 [id number] #### [facility] [address] [place] [address] Nitrite Auto test strip Ql (U) Negative Normal Negative [facility] Comment on above: Performed By: #### 4 [id number] #### [facility] [address] [place] [address] pH (U) 7.5 [pH] Invalid Interpretation Code 5.0-9.0 [facility] Comment on above: Performed By: #### 4 [id number] #### [facility] [address] [place] [id number] Protein Ql (U) Negative Normal Negative [facility] Comment on above: Performed By: #### 4 [id number] #### [facility] [address] [place] [id number] Specific gravity (U) [Rel density] 1.012 Invalid Interpretation Code 1.005-1.030 [facility] Comment on above: Performed By: #### 4 [id number] #### [facility] [address] [place] [id number] Urobilinogen (U) [Mass/Vol] Negative Normal Negative [facility] Comment on above: Performed By: #### 4 [id number] #### [facility] [address] [place] [address] Type of Urine collection method Clean Catch Normal [facility] Comment on above: Performed By: #### 4 [id number] #### [facility] [address] [place] [id number] URINALYSISOrdered By: SYSTEM SYSTEM on 12-28-2023 Bilirubin Ql (U) Negative Normal Negativemg/ dL [facility] UA Auto SS Clarity (U) Clear (12/28/23 11:59 AM) Normal Clear [facility] UA Auto SS Color (U) Colorless 4 *ABN* (12/28/23 11:59 AM) Invalid Interpretation Code Yellow [facility] UA Auto SS Comment on above: Interpretive Data: M icroscopic readings are only performed on those samples that meet specific criteria set forth by [facility]. Glucose Ql (U) Negative Normal Negativemg/ dL [facility]A Auto SS Hemoglobin Auto test strip (U) [Mass/Vol] Negative Normal Negativemg/ dL [facility] Auto SS Ketones Auto test strip Ql (U) Negative Normal Negativemg/ dL [facility]A Auto SS Leukocyte esterase Auto test strip Ql (U) Negative Normal NegativeLeu /uL [facility] UA Auto SS Nitrite Auto test strip Ql (U) Negative Normal Negativemg/ dL [facility] UA Auto SS pH (U) 7.5 *NA* (12/28/23 11:59 AM) Invalid Interpretation Code 5.0 - 9.0 [facility] UA Auto SS Protein Ql (U) Negative Normal Negativemg/ dL [facility] UA Auto SS Specific gravity (U) [Rel density] 1.012 *NA* (12/28/23 11:59 AM) Invalid Interpretation Code 1.005 - 1.030 [facility] UA Auto SS Urobilinogen (U) [Mass/Vol] Negative Normal Negativemg/ dL [facility] UA Auto SS URINALYSISOrdered By: Sunil ramsey on 12-28-2023 UA Spec Desc Clean Catch (12/28/23 11:59 AM) Normal [facility] UA Auto SS XR Chest Single Viewon 12-27 XR Chest Single View Exam Date/Time: 12/28/2023 13:04 EDT Reason for Exam: Shortness of breath (SOB) Report IMPRESSION: No acute findings by portable radiography. EXAMINATION: XR Chest Single View Clinical History: Shortness of breath (SOB) Comparison: 11/15/2022. RESULT: No consolidation. No pleural effusion. No pneumothorax. Normal cardiomediastinal silhouette. No acute osseous findings. Ordering Provider: Sunil Lovett FINAL REPORT Dictated: 12/28/2023 1:16 pm Jeremiah Delcid MD Signed (Electronic Signature): 12/28/2023 1:16 pm Signed by: Jeremiah Delcid MD Transcribed by: LARRY Technologist: CHIDI, Technical Comments Radiation Dose: Ka,r in mGy = na DAP = na Normal [facility] eGFRon 12-28-2023 eGFR 126 mL/min/1.73 m2 Normal >=59 [facility] Comment on above: Order Comment: Order added by Discern Expert. Performed By: #### 1 [id number] #### [facility] [address] [place] [address] Tutu 09-28-2023 L Specimen: [id number] Received: 09/29/23-2 Status: SOUTaqueria Repaulino Num: [id number] Spec Type: Surgical Subm Dr: Oliverio Austin Tissues: A Products of Conception - Spontaneous or Missed (POC) Procedures: HE/3, Gross/Micro L4 Age/ Patient Sex Location Account Attending Physician Shahida Oh 28/F LABELL [id number] Oliverio Austin SPEC NUM: [id number] RECD: 09/29/23 STATUS: DIANA NARAYANAN NUM: [id number] SHERYL: 09/28/23- SUBM DR: Oliverio Austin ENTERED: 09/29/23-[address]: Taina,Lab SPEC TYPE: Surgical DEPT: BRENNAN LARA ORDERED: HE/3, Gross/Micro L4 ORDERED: HE/3, Gross/Micro L4 Pathological Diagnosis Uterine contents, suction D C: -Gestational endometrium and some inflamed and focally degenerated decidual tissue, and at least 1 large nodular aggregates of the slightly degenerated chorionic villi in at least 1 slide, demonstrating patchy mild edema and occasional karyorrhexis debris in the villous stroma, consistent with missed , otherwise without obvious nuclear RBC i dentifiable, but also without any other specific features of atypical trophoblastic proliferation or molar degeneration identified as well Clinical Information Missed AB Gross Description Received in formalin labeled with the patient's name, date of and products of conception is a 4.0 x 3.8 x 2.8 cm aggregate of elena-red spongy tissue. No discrete embryo or chorionic villi are identified.. Entirely submitted in three cassettes labeled A1-A3. CPT Codes 08511 ---- ---- Specimen: [id number] Received: 09/29/23 Status: DIANA Narayanan Num: [id number] Spec Type: Surgical Subm Dr: Oliverio Austin Tissues: A Products of Conception - Spontaneous or Missed (POC) Procedures: /3, Gross/Micro L4 ---- Patient: Shahida Oh [id number] (Continued) ---- Signed (signature on file) Rufino Mario MD 09/30/23 1626 [facility] Discharge Instructionson Discharge Instructions [id number]. 00TIFF [facility] ED Clinical Summaryon 2023 ED Clinical Summary [address] [address] ED Clinical Summary Person Information Name: SHAHIDA [place] Ana Rosa/[facility] Age: 28 Years : 1995 Sex: Female Language: Polish PCP: Linae IRVIN CNP Marital Status: Single Visit Id: [...] 09/18/2023 01:13:40 09/18/2023 01:13:40 09/18/2023 01:13:40 ADDRESS: [address] [place] [id number] PHYS DOC NOTES: MEDICAL INFORMATION: Prescriptions Given: Medications to Continue with No Changes Other Medications acetaminophen (acetaminophen 325 mg Tab) 3 Tablets By Mouth every 6 hours. acetaminophen-oxycodon e (Percocet 5 mg-325 mg oral tablet) 1 Tablets By Mouth every 6 hours. Refills: 0. PATIENT EDUCATION INFORMATION: Instructions: Threatened Miscarriage Follow up: With: Address: When: Oliverio AUSTIN [facility], [address] [place] [address] , [place], [place] [id number] Business (1) In 3 days 09/21/2023 With: Address: When: Liane IRVIN [address] [place] [address] GuiaBolso (1) In 3 days DIAGNOSIS: Threatened miscarriage Normal [facility] ED Note-Physicianon 09-18-19 ED Note-Physician Basic [...] eventually discharged. 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 Austin's office and was told that [...] and Complexity of Problems Differential Diagnosis: [] [facility] Data External documents reviewed: N/A My EKG [...] of 2046. Ultrasound was obtained and the water treatment technician reports a gestational sac in the uterus commensurate with 5 weeks of gestation. I discussed this with the patient at bedside. We discussed the diagnosis of threatened miscarriage. Discussed the need for close follow-up with her BRAKE REPAIR SUPERVISOR on an outpatient basis. Patient states understanding [...] Information Oliverio AUSTIN In 3 days 09/21/[address] , [place] [address]- Business (1) Additional Instructions: Liane IRVIN In [address] [place] [address]- Business (1) Additional Instructions: Patient Education Threatened [...] Risk, 04 (more content not included)... Normal [facility] Comment on above: Result Comment: Elec [...] Reviewed: 01/02/2021 Elsevier Patient Education ? 2022 Vidtel. Normal [facility] ED Patient Summaryon 024 ED Patient Summary [address] [address] Patient Discharge Instructions Person Information Name: SHAHIDA [place] Age: 28 Years Arrival Date: 09/17/2023 22:35:01 Discharge Diagnosis: Threatened miscarriage Primary Care Physician: Liane IRVIN CNP Provider Information Primary Provider: Donte Parker DO Advanced Associate Team Physician:None The exam and treatment you received in the Emergency Department were for an urgent problem and are not intended as complete care. It is important that you follow up with a doctor, nurse practitioner, or physician?s speech assistant for ongoing care. If your symptoms [...] Follow-up Instructions: With: Address: When: Oliverio AUSTIN [facility], [address] [place] [address] [place] [address] Business (1) In 3 days 09/21/2023 With: Address: When: Liane IRVIN [address] [place] [address] Business (1) In 3 days In the event that this physician does not participate in your insurance network, please consult with your insurance company to find a nearby participating provider. Patient Education Materials: Threatened Miscarriage A MESSAGE TO ALL PATIENTS REGARDING OPIOIDS PRESCRIPTION OPIOIDS: WHAT YOU NEED TO KNOW Prescription opioids can be used to help relieve kobbzsfq-kr-crhgqz pain and are often prescribed following a [...] guidance from the Food and Drug Administration (www.fda.gov/Drugs/Res ourcesForYou). ? Visit www.cdc.gov/drugoverdo se to learn about the risks of opioids abuse and overdose. ? If you believe you may be struggling with addiction, (more content not included)... Normal [facility] UA With Cult Reflexon 2023 Bilirubin Ql (U) Negative Normal Negative [facility] Comment on above: Order Comment: Urina ry Catheter Insertion triggered Urinalysis With Culture Reflex order by discern. Performed By: #### 1 [id number] ####[place] [address] [place] [id number] Clarity (U) CLEAR Normal Clear [facility] Comment on above: Order Comment: Urina ry Catheter Insertion triggered Urinalysis With Culture Reflex order by discern. Performed By: #### 1 [id number] ####[place] [address] [place] [address] Color (U) YELLOW Normal Yellow [facility] Comment on above: Order Comment: Urina ry Catheter Insertion triggered Urinalysis With Culture Reflex order by discern. Performed By: #### 1 [id number] ####[place] [address] [place] [address] Epithelial cells.squamous LM.HPF (Urine sed) [#/Area] 0-2 Normal 0-2 [facility] Comment on above: Order Comment: Urina ry Catheter Insertion triggered Urinalysis With Culture Reflex order by discern. Performed By: #### 1 [id number] ####[facility] [address] [place] [address] Glucose Test strip (U) [Mass/Vol] Negative Normal Negative [facility] Comment on above: Order Comment: Urina ry Catheter Insertion triggered Urinalysis With Culture Reflex order by discern. Performed By: #### 1 [id number] ####[facility] [address] [place] [address] Hemoglobin Ql (U) Negative Normal Negative [facility] Comment on above: Order Comment: Urina ry Catheter Insertion triggered Urinalysis With Culture Reflex order by discern. Performed By: #### 1 [id number] ####[facility] [address] [place] [address] Ketones (U) [Mass/Vol] Negative Normal Negative [facility] Comment on above: Order Comment: Urina ry Catheter Insertion triggered Urinalysis With Culture Reflex order by discern. Performed By: #### 1 [id number] ####[address] [address] Otway.plasma/Otway. RBC (Bld) [Mass ratio] 0-3 Normal 0-3 [facility] Comment on above: Order Comment: Urina ry Catheter Insertion triggered Urinalysis With Culture Reflex order by discern. Performed By: #### 1 [id number] ####[facility] [address] [place] [address] Nitrite Ql (U) Negative Normal Negative [facility] Comment on above: Order Comment: Urina ry Catheter Insertion triggered Urinalysis With Culture Reflex order by discern. Performed By: #### 1 [id number] ####[address] [address] pH (U) 6.0 [pH] Invalid Interpretation Code 5.0-9.0 [facility] Comment on above: Order Comment: Urina ry Catheter Insertion triggered Urinalysis With Culture Reflex order by discern. Performed By: #### 1 [id number] ####[facility] [address] [place] [address] Protein (U) [Mass/Vol] Negative Normal Negative [facility] Comment on above: Order Comment: Urina ry Catheter Insertion triggered Urinalysis With Culture Reflex order by discern. Performed By: #### 1 [id number] ####[address] [address] Specific gravity (U) [Rel density] 1.015 Invalid Interpretation Code 1.005-1.030 [facility] Comment on above: Order Comment: Urina ry Catheter Insertion triggered Urinalysis With Culture Reflex order by discern. Performed By: #### 1 [id number] ####[place] [address] Type of Urine collection method Catheter Normal [facility] Comment on above: Order Comment: Urina ry Catheter Insertion triggered Urinalysis With Culture Reflex order by discern. Performed By: #### 1 [id number] ####[place] [address] Urobilinogen Qn (U) 0.2 {Maria Luz'U}/dL Normal 0.0-1.0 [facility] Comment on above: Order Comment: Urina ry Catheter Insertion triggered Urinalysis With Culture Reflex order by discern. Performed By: #### 1 [id number] ####[place] [address] WBC Auto Ql (U) Negative Normal Negative [facility] Comment on above: Order Comment: Urina ry Catheter Insertion triggered Urinalysis With Culture Reflex order by discern. Performed By: #### 1 [id number] ####[place] [id number] WBC LM.HPF (Urine sed) [#/Area] 0-5 Normal 0-5 [facility] Comment on above: Order Comment: Urina ry Catheter Insertion triggered Urinalysis With Culture Reflex order by discern. Performed By: #### 1 [id number] ####[place] [id number] URINALYSISOrdered By: Sander Newby on 09-18-2023 Bilirubin Ql (U) Negative (09/18/23 12:08 AM) Normal Negative [facility] UA Auto SS Clarity (U) Clear (09/18/23 12:08 AM) Normal Clear [facility] UA Auto SS Color (U) Yellow (09/18/23 12:08 AM) Normal Yellow [facility] UA Auto SS Epithelial cells.squamous LM.HPF (Urine sed) [#/Area] 0-2 /HPF Normal 0-2/HPF [facility] UA Aut o SS Glucose Test strip (U) [Mass/Vol] Negative (09/18/23 12:08 AM) Normal Negative [facility] UA Auto SS Hemoglobin Ql (U) Negative (09/18/23 12:08 AM) Normal Negative [facility] UA Auto SS Ketones (U) [Mass/Vol] Negative (09/18/23 12:08 AM) Normal Negative [facility] UA Auto SS [place].plasma/[place]way. RBC (Bld) [Mass ratio] 0-3 /HPF Normal 0-3/HPF [facility] UA A uto SS Nitrite Ql (U) Negative (09/18/23 12:08 AM) Normal Negative [facility] UA Auto SS pH (U) 6.0 *NA* (09/18/23 12:08 AM) Invalid Interpretation Code 5.0 - 9.0 [facility] UA Auto SS Protein (U) [Mass/Vol] Negative (09/18/23 12:08 AM) Normal Negative [facility] UA Auto SS Specific gravity (U) [Rel density] 1.015 *NA* (09/18/23 12:08 AM) Invalid Interpretation Code 1.005 - 1.030 [facility] UA Auto SS UA Spec Desc Catheter (09/18/23 12:08 AM) Normal [facility] UA Auto SS Urobilinogen Qn (U) 0.7106778 {Maria Luz'U}/dL Normal 0.0 - 1.0 EU/dL [facility] UA Auto SS WBC Auto Ql (U) Negative (09/18/23 12:08 AM) Normal Negative [facility] UA Auto SS WBC LM.HPF (Urine sed) [#/Area] 0-5 /HPF Normal 0-5/HPF [facility] UA Auto SS US 1st Trimesteron 09-18-2023 US 1st Trimester Exam Date/Time: 09/18/2023 01:02 EST Reason for Exam: Vaginal bleeding Report [facility] [phone] IMPRESSION: Gestational sac identified with mean sac [...] weeks Unknown History 2 Para 1 Normal [facility] US Transvaginalon 09-18-2023 US Transvaginal Exam Date/Time: 09/18/2023 01:00 EST Reason for Exam: vaginal bleeding Report [facility] [phone] Please review ultrasound pelvis, first trimester for report of transvaginal. Ordering Provider: Donte Parker FINAL REPORT Dictated: 09/18/2023 11:46 am Lester Jeff MD Signed (Electronic Signature): 09/18/2023 11:46 am Signed by: Lester Jeff MD Transcribed by: LARRY Technologist: ANA Normal [facility] BMPon 09-17-2023 Anion gap [Moles/Vol] 10 mmol/L Normal 6-16 [facility] Comment on above: Performed By: #### 2 [id number], [id number], 7133184, 9857470, 4398084 ####[facility] [address] [place] [address] Calcium [Mass/Vol] 9.3 mg/dL Normal 8.9-11.1 [facility] Comment on above: Performed By: #### 2 302186, 72339688, 5081232, 1674713, 6794244 ####[facility] [address] [place] [address] Chloride [Moles/Vol] 105 mmol/L Normal 101-111 [facility] Comment on above: Performed By: #### 2 187178, 36020559, 7634839, 9875020, 9305635 ####[facility] [address] [place] [address] CO2 [Moles/Vol] 26 mmol/L Normal 21-31 [facility] Comment on above: Performed By: #### 2 294041, 44833899, 1380334, 4466614, 5969596 ####[facility] [address] [place] [address] Creatinine [Mass/Vol] 0.6 mg/dL Normal 0.5-1.3 [facility] Comment on above: Performed By: #### 2 506570, 25015731, 2784980, 5234727, 3575974 ####[facility] [address] [place] [address] Glucose [Mass/Vol] 77 mg/dL Normal 55-199 [facility] Comment on above: Performed By: #### 2 268281, 71198616, 6969096, 8777635, 7545086 ####[facility] [address] [place] [address] Potassium [Moles/Vol] 3.7 mmol/L Normal 3.5-5.3 [facility] Comment on above: Performed By: #### 2 754048, 89292379, 6844534, 7233693, 4667264 ####[facility] [address] [place] [address] Sodium [Moles/Vol] 137 mmol/L Normal 135-145 [facility] Comment on above: Performed By: #### 2 763112, 11544511, 8334922, 8935041, 5610249 ####[facility] [address] [place] [address] Urea nitrogen [Mass/Vol] 15 mg/dL Normal 5-21 [facility] Comment on above: Performed By: #### 2 901935, 22791365, 9209961, 6001633, 5340272 ####[facility] [address] [place] [address] Urea nitrogen/Creatinine [Mass ratio] 25 No Units High 10-20 [facility] Comment on above: Performed By: #### 2 163241, 20256758, 8866303, 7221446, 1608953 ####[facility] [address] [place] [address] BhCG Quanton 09-17-2023 HCG.beta subunit Qn 2047 m[IU]/mL High 1-3 [facility] Comment on above: Result Comment: 'F N ON < 1 - 3' ' 0.2 - 1 WEEK = 5 TO 50' ' 1 - 2 WEEKS = 50 - 500' ' 2 - 3 WEEKS = 100 - 5000' ' 3 - 4 WEEKS = 500 - 60990' ' 4 - 5 WEEKS = 1000 - 93593' ' 5 - 6 WEEKS = 82085 - 873524' ' 6 - 8 WEEKS = 84977 - 518853' ' 8 - 12 WEEKS = 53821 - 677568' Performed By: #### 2 346540 ####[facility] [address] [place] [address] CBC w/ Auto Diffon 4 Basophils/100 WBC (Bld) 0.7 % Normal 0.0-2.0 [facility] Comment on above: Performed By: #### 2 899423, 31253798, 0748861, 2800256, 3132989 ####[facility] [address] [place] [address] Basophils/Leukocytes Auto (Bld) [Pure # fraction] 0.1 E9/L Normal 0.0-0.2 [facility] Comment on above: Performed By: #### 2 255930, 75659725, 5333104, 9973227, 9132170 ####[facility] [address] [place] [address] Eosinophils (Bld) [#/Vol] 0.1 E9/L Normal 0.0-0.5 [facility] Comment on above: Performed By: #### 2 680559, 36272639, 7201053, 2950320, 5346057 ####[address] [address] Eosinophils/100 WBC (Bld) 0.8 % Normal 0.0-8.0 [facility] Comment on above: Performed By: #### 2 777990, 50650122, 1414335, 9222961, 6837225 ####[address] [address] Erythrocyte distribution width (RBC) [Ratio] 12.7 % Normal 10.9-14.2 [facility] Comment on above: Performed By: #### 2 438566, 89651192, 2049541, 4741954, 9052855 ####[address] [address] Hematocrit (Bld) [Volume fraction] 35.8 % Normal 34.0-46.0 [facility] Comment on above: Performed By: #### 2 473467, 91014327, 3061851, 9647111, 1142268 ####[address] [address] Hemoglobin (Bld) [Mass/Vol] 11.9 g/dL Low 12.0-16.0 [facility] Comment on above: Performed By: #### 2 664344, 41374663, 8214084, 5414134, 3493366 ####[address] [address] Lymphocytes (Bld) [#/Vol] 2.7 E9/L Normal 1.0-4.0 [facility] Comment on above: Performed By: #### 2 395625, 79245761, 6319197, 3248445, 1637843 ####[address] [address] Lymphocytes/100 WBC (Bld) 35.3 % Normal 14.0-50.0 [facility] Comment on above: Performed By: #### 2 103883, 90748632, 8216966, 7064714, 0494486 ####[address] [address] MCH (RBC) [Entitic mass] 29.9 pg Normal 27.0-34.0 [facility] Comment on above: Performed By: #### 2 542340, 16632510, 4940627, 6076723, 1456201 ####[address] [address] MCHC (RBC) [Mass/Vol] 33.2 g/dL Normal 31.4-36.0 [facility] Comment on above: Performed By: #### 2 505995, 38151236, 5292020, 5986432, 9562779 ####[address] [address] MCV (RBC) [Entitic vol] 90.3 fL Normal 80.0-100.0 [facility] Comment on above: Performed By: #### 2 873930, 74030584, 5539296, 6192744, 4586046 ####[place] [address] Monocytes (Bld) [#/Vol] 0.4 E9/L Normal 0.2-1.0 [facility] Comment on above: Performed By: #### 2 613376, 75301245, 2709352, 0424576, 7879025 ####[address] [address] Neutrophils (Bld) [#/Vol] 4.4 E9/L Normal 2.0-7.5 [facility] Comment on above: Performed By: #### 2 323385, 88339361, 5808457, 5716378, 0949204 ####[facility] [address] [place] [address] Neutrophils/100 WBC (Bld) 57.5 % Normal 36.0-75.0 [facility] Comment on above: Performed By: #### 2 118330, 75721535, 6531518, 9139575, 7478042 ####[place] [address] [place] [address] Platelet 303.0 E9/L Normal 150.0-500.0 [facility] Comment on above: Performed By: #### 2 157120, 64429439, 5320222, 6866672, 5130257 ####[address] [address] Platelet mean volume (Bld) [Entitic vol] 7.4 fL Normal 6.4-10.8 [facility] Comment on above: Performed By: #### 2 928649, 45624124, 7479843, 2915288, 0215112 ####[address] [address] RBC (Bld) [#/Vol] 4.0 E12/L Low 4.3-5.9 [facility] Comment on above: Performed By: #### 2 951970, 69115524, 6675251, 1953588, 6917036 ####[address] [address] WBC corrected for nucl RBC Auto (Bld) [#/Vol] 7.6 E9/L Normal 4.0-11.0 [facility] Comment on above: Performed By: #### 2 164084, 79270836, 4731981, 3799644, 3874614 ####[address] [address] CHEMISTRYOrdered By: SYSTEM SYSTEM on 09-17-2023 Albumin [...] 10 mmol/L Normal 6 - 16 mEq/L Remisol Chem AST [Catalytic activity/Vol] 12 [iU]/d Normal [...] Chem eGFR 126 mL/min/1.73 m2 Normal >=59mL/mi n/ 1.73 m2 Remisol Chem Globulin (S) [Mass/Vol] 2.4 g/dL Normal 1.4 - 4.0 gm/dL Remisol Chem Glucose [Mass/Vol] 77 mg/dL Normal 55 - 199 mg/dL Remisol Chem HCG.beta subunit Qn 2047 m[IU]/mL High 1 - 3 mIU/mL [facility] Comment on above: Result Comment: 'F N ON < 1 - 3' ' 0.2 - 1 WEEK = 5 TO 50' ' 1 - 2 WEEKS = 50 - 500' ' 2 - 3 WEEKS = 100 - 5000' ' 3 - 4 WEEKS = 500 - 40518' ' 4 - 5 WEEKS = 1000 - 34128' ' 5 - 6 WEEKS = 88219 - 811883' ' 6 - 8 WEEKS = 49010 - ' ' 8 - 12 WEEKS = 77328 - 981293' Lipase [Catalytic activity/Vol] 13 U/L Normal 13 [...] mg/mg High 10 - 20 Remisol Chem Consent for Treatmenton Consent for Treatment [id number] 0TIFF Normal [facility] HEMATOLOGYOrdered By: SYSTEM SYSTEM on 09-17-2023 Basophils/100 [...] Normal 4.0 - 11.0 E9/L Remisol Heme Hep Func Panelon 09-17-2023 Albumin [Mass/Vol] 4.8 g/dL Normal 3.3-5.0 [facility] Comment on above: Performed By: #### 2 807522, 61252130, 0640300, 2758648, 2585521 ####[facility] [address] [place] [address] Albumin/Globulin (S) [Mass conc ratio] 2.0 Normal 1.1-2.2 [facility] Comment on above: Performed By: #### 2 033877, 59142533, 8181123, 2239360, 9049151 ####[facility] [address] [place] [address] ALP [Catalytic activity/Vol] 71 Int._Unit/L Normal 21-98 [facility] Comment on above: Performed By: #### 2 029847, 03592629, 5686930, 5508406, 7290741 ####[facility] [address] [place] [address] ALT No additional P-5'-P [Catalytic activity/Vol] 9 Int._Unit/L Normal 6-46 [facility] Comment on above: Performed By: #### 2 725316, 45467068, 5973215, 4011747, 3159783 ####[place] 3881357 AST [Catalytic activity/Vol] 12 Int._Unit/L Normal 5-43 [facility] Comment on above: Performed By: #### 2 634098, 58396898, 9369205, 7651451, 2480674 ####[place] 3881357 Bilirubin [Mass/Vol] 0.3 mg/dL Normal 0.0-1.1 [facility] Comment on above: Performed By: #### 2 171768, 52079575, 2197645, 5622202, 1910254 ####[place] 3881357 Bilirubin.direct [Mass/Vol] 0.1 mg/dL Normal 0.0-0.4 [facility] Comment on above: Performed By: #### 2 182344, 23570588, 8930182, 9156007, 0706172 ####[place] [address]1357 Bilirubin.indirect [Mass or moles/Vol] 0.2 mg/dL Normal 0.1-0.9 [facility] Comment on above: Performed By: #### 2 137071, 62182511, 8257375, 9336313, 3302892 ####[facility] [address] [place] [address] Globulin (S) [Mass/Vol] 2.4 g/dL Normal 1.4-4.0 [facility] Comment on above: Performed By: #### 2 369737, 63365649, 1396473, 5838475, 7152144 ####[facility] [address] [place] [address] Protein [Mass/Vol] 7.2 g/dL Normal 6.0-7.8 [facility] Comment on above: Performed By: #### 2 556959, 74638841, 8375642, 7279876, 8934346 ####[facility] [address] [place] [address] Lipase Levelon 09-17-2023 Lipase [Catalytic activity/Vol] 13 U/L Normal 13-58 [facility] Comment on above: Performed By: #### 2 807559, 64889577, 6427450, 8875815, 4199213 ####[address] [address] UA With Cult Reflexon 2023 Bilirubin Ql (U) Negative Normal Negative [facility] Comment on above: Performed By: #### 1 0901298 ####[address] [address] Clarity (U) CLEAR Normal Clear [facility] Comment on above: Performed By: #### 1 1786991 ####[address] [address] Color (U) YELLOW Normal Yellow [facility] Comment on above: Performed By: #### 1 3192632 ####[address] [address] Epithelial cells.squamous LM.HPF (Urine sed) [#/Area] 0-2 Normal 0-2 [facility] Comment on above: Performed By: #### 1 8057024 ####[address] [address] Glucose Test strip (U) [Mass/Vol] Negative Normal Negative [facility] Comment on above: Performed By: #### 1 1024092 ####[address] [address] Hemoglobin Ql (U) 3+ Abnormal Negative [facility] Comment on above: Performed By: #### 1 7170716 ####[facility] [address] [place] [address] Ketones (U) [Mass/Vol] Negative Normal Negative [facility] Comment on above: Performed By: #### 1 6713475 ####[address] [address] Otway.plasma/Otway. RBC (Bld) [Mass ratio] >30 Abnormal 0-3 [facility] Comment on above: Performed By: #### 1 8636323 ####[address] [address] Nitrite Ql (U) Negative Normal Negative [facility] Comment on above: Performed By: #### 1 9895875 ####[address] [address] pH (U) 6.0 [pH] Invalid Interpretation Code 5.0-9.0 [facility] Comment on above: Performed By: #### 1 3928359 ####[address] [address] Protein (U) [Mass/Vol] Negative Normal Negative [facility] Comment on above: Performed By: #### 1 3613008 ####[address] [address] Specific gravity (U) [Rel density] 1.020 Invalid Interpretation Code 1.005-1.030 [facility] Comment on above: Performed By: #### 1 7305949 ####[address] [address] Type of Urine collection method Clean Catch Normal [facility] Comment on above: Performed By: #### 1 8356232 ####[address] [address] Urobilinogen Qn (U) 0.2 {Maria Luz'U}/dL Normal 0.0-1.0 [facility] Comment on above: Performed By: #### 1 6566155 ####[facility] [address] [place] [address] WBC Auto Ql (U) Negative Normal Negative [facility] Comment on above: Performed By: #### 1 0212316 ####[facility] [address] [place] [address] WBC LM.HPF (Urine sed) [#/Area] 0-5 Normal 0-5 [facility] Comment on above: Performed By: #### 1 4704459 ####[facility] [address] [place] [address] URINALYSISOrdered By: Sander Newby on 09-17-2023 Bilirubin [...] PM) Normal Negative [facility] UA Auto SS Otway.plasma/[place]way. RBC (Bld) [Mass ratio] >30 /HPF Invalid [...] PM) Invalid Interpretation Code 1.005 - 1.030 [facility] UA Auto SS UA Spec Desc Clean Catch (09/17/23 10:55 PM) Normal [facility] UA Auto SS Urobilinogen Qn (U) 0.1923654 {Maria Luz'U}/dL Normal 0.0 - 1.0 EU/dL [facility] UA Auto SS WBC Auto Ql (U) Negative (09/17/23 10:55 PM) Normal Negative [facility] UA Auto SS WBC LM.HPF (Urine sed) [#/Area] 0-5 /HPF Normal 0-5/HPF [facility] UA Auto SS eGFRon 09-17-2023 eGFR 126 mL/min/1.73 m2 Normal >=59 [facility] Comment on above: Order Comment: Order added by Discern Expert. Performed By: #### 2 774531, 00156449, 2736203, 9194636, 2159439 ####[address] [address] C Urineon 09-09-2023 Bacteria identified Cx Nom [...] Locations R1: This test was performed at: [facility], [address] [place] [address], [address]- , , Normal [facility] Comment on above: Performed By: #### 1 2785342, 1472028 ####[address] [address] ABO/Rhon 09-07-2023 ABO/Rh Positive Invalid Interpretation Code [facility] Comment on above: Performed By: #### 2 964985 ####[place] [address] [place] [address] BLOOD BANKOrdered By: Scott Casper on 09-07-2023 ABO/Rh Interp Positive Invalid Interpretation Code [facility] BB Subsection BMPon 09-07-2023 Anion gap [Moles/Vol] 9 mmol/L Normal 6-16 [facility] Comment on above: Performed By: #### 2 594238, 8669744, 38412270 ####[facility] [address] [place] [address] BUN/Creat Ratio 13 No Units Normal 10-20 [facility] Comment on above: Performed By: #### 2 562973, 8504734, 49276662 ####[facility] [address] [place] [address] Calcium [Mass/Vol] 9.5 mg/dL Normal 8.9-11.1 [facility] Comment on above: Performed By: #### 2 271293, 2747172, 69178825 ####[facility] [address] [place] [address] Chloride [Moles/Vol] 104 mmol/L Normal 101-111 [facility] Comment on above: Performed By: #### 2 376788, 3716897, 36828694 ####[facility] [address] [place] [address] CO2 [Moles/Vol] 27 mmol/L Normal 21-31 [facility] Comment on above: Performed By: #### 2 728997, 5857699, 06444032 ####[facility] [address] [place] [address] Creatinine [Mass/Vol] 0.6 mg/dL Normal 0.5-1.3 [facility] Comment on above: Performed By: #### 2 008689, 6881146, 76785488 ####[facility] [address] [place] [address] Glucose [Mass/Vol] 73 mg/dL Normal 55-199 [facility] Comment on above: Performed By: #### 2 248034, 7564666, 36577091 ####[facility] [address] [place] [address] Potassium [Moles/Vol] 3.7 mmol/L Normal 3.5-5.3 [facility] Comment on above: Performed By: #### 2 267576, 4520061, 42528900 ####[facility] [address] [place] [address] Sodium [Moles/Vol] 136 mmol/L Normal 135-145 [facility] Comment on above: Performed By: #### 2 991001, 2894299, 50822959 ####[facility] [address] [place] [address] Urea nitrogen [Mass/Vol] 8 mg/dL Normal 5-21 [facility] Comment on above: Performed By: #### 2 231836, 7498349, 15756225 ####[facility] [address] [place] [address] BhCG Quanton 09-07-2023 Beta hCG Qnt 311 mIU/mL High 1-3 [facility] Comment on above: Result Comment: 'F N ON < 1 - 3' ' 0.2 - 1 WEEK = 5 TO 50' ' 1 - 2 WEEKS = 50 - 500' ' 2 - 3 WEEKS = 100 - 5000' ' 3 - 4 WEEKS = 500 - 86438' ' 4 - 5 WEEKS = 1000 - 01083' ' 5 - 6 WEEKS = 95462 - 700681' ' 6 - 8 WEEKS = 70[address] - 121832' ' 8 - 12 WEEKS = 428[address] - 225091' Performed By: #### 2 220235 ####[facility] [address] [place] [address] CBC w/ Auto Diffon Basophil Absolute 0.0 E9/L Normal 0.0-0.2 [facility] Comment on above: Performed By: #### 2 497165, 5053097, 88431584 ####[facility] [address] [place] [address] Basophils/100 WBC (Bld) 0.5 % Normal 0.0-2.0 [facility] Comment on above: Performed By: #### 2 174396, 5594727, 27458723 ####[address] [address] Eos Absolute 0.0 E9/L Normal 0.0-0.5 [facility] Comment on above: Performed By: #### 2 540500, 2604521, 01639897 ####[address] [address] Eosinophils/100 WBC (Bld) 0.5 % Normal 0.0-8.0 [facility] Comment on above: Performed By: #### 2 073140, 8542914, 74479483 ####[address] [address] Erythrocyte distribution width (RBC) [Ratio] 13.0 % Normal 10.9-14.2 [facility] Comment on above: Performed By: #### 2 668419, 1408951, 92750166 ####[address] [address] Hematocrit (Bld) [Volume fraction] 37.0 % Normal 34.0-46.0 [facility] Comment on above: Performed By: #### 2 837054, 4553870, 16554123 ####[address] [address] Hemoglobin (Bld) [Mass/Vol] 12.1 g/dL Normal 12.0-16.0 [facility] Comment on above: Performed By: #### 2 772763, 7481014, 61940905 ####[address] [address] Lymph Absolute 2.1 E9/L Normal 1.0-4.0 [facility] Comment on above: Performed By: #### 2 630588, 8163406, 33041726 ####[address] [address] Lymphocytes/100 WBC (Bld) 24.8 % Normal 14.0-50.0 [facility] Comment on above: Performed By: #### 2 144400, 0647284, 75697416 ####[address] [address] MCH (RBC) [Entitic mass] 29.7 pg Normal 27.0-34.0 [facility] Comment on above: Performed By: #### 2 349370, 2323102, 80902088 ####[address] [address] MCHC (RBC) [Mass/Vol] 32.7 g/dL Normal 31.4-36.0 [facility] Comment on above: Performed By: #### 2 314294, 9550675, 72795645 ####[address] [address] MCV (RBC) [Entitic vol] 90.8 fL Normal 80.0-100.0 [facility] Comment on above: Performed By: #### 2 096464, 3303584, 73524860 ####[address] [address] Dade Absolute 0.5 E9/L Normal 0.2-1.0 [facility] Comment on above: Performed By: #### 2 672582, 8954054, 20102586 ####[address] [address] Monocytes/100 WBC (Bld) 6.0 % Normal 4.0-14.0 [facility] Comment on above: Performed By: #### 2 749844, 9265136, 49913721 ####[address] [address] Neutro Absolute 5.9 E9/L Normal 2.0-7.5 [facility] Comment on above: Performed By: #### 2 663309, 0316406, 01902445 ####[address] [address] Neutro Auto 68.2 % Normal 36.0-75.0 [facility] Comment on above: Performed By: #### 2 156493, 1692556, 93449914 ####[facility] [address] [place] [address] Platelet 313.0 E9/L Normal 150.0-500.0 [facility] Comment on above: Performed By: #### 2 824342, 2648579, 75657535 ####[facility] [address] [place] [address] Platelet mean volume (Bld) [Entitic vol] 8.1 fL Normal 6.4-10.8 [facility] Comment on above: Performed By: #### 2 107771, 1672472, 55424983 ####[facility] [address] [place] [address] RBC 4.1 E12/L Low 4.3-5.9 [facility] Comment on above: Performed By: #### 2 058645, 1023629, 18321718 ####[facility] [address] [place] [address] WBC 8.7 E9/L Normal 4.0-11.0 [facility] Comment on above: Performed By: #### 2 387337, 4975787, 15806767 ####[facility] [address] [place] [address] CHEMISTRYOrdered By: SYSTEM SYSTEM on 09-07-2023 Anion gap [Moles/Vol] 9 mmol/L Normal 6 - 16 mEq/L Remisol Chem Calcium [Mass/Vol] 9.5 mg/dL Normal 8.9 - 11. 1 mg/dL Remisol Chem Chloride [Moles/Vol] 104 mmol/L Normal 101 - 1 11 mmol/L Remisol Chem CO2 [Moles/Vol] 27 mmol/L Normal 21 - 31 mmol/L Remisol Chem Creatinine [Mass/Vol] 0.6 mg/dL Normal 0.5 - 1.3 mg/dL Remisol Chem eGFR 126 mL/min/1.73 m2 Normal >=59mL/mi n/ 1.73 m2 Remisol Chem Glucose [Mass/Vol] 73 mg/dL Normal 55 - 199 mg/dL Remisol Chem HCG.beta subunit Qn 311 m[IU]/mL High 1 - 3 mIU/mL [facility] Comment on above: Result Comment: 'F N ON < 1 - 3' ' 0.2 - 1 WEEK = 5 TO 50' ' 1 - 2 WEEKS = 50 - 500' ' 2 - 3 WEEKS = 100 - 5000' ' 3 - 4 WEEKS = 500 - 85155' ' 4 - 5 WEEKS = 1000 - 50639' ' 5 - 6 WEEKS = [address] - 855247' ' 6 - 8 WEEKS = 94774 - 653849' ' 8 - 12 WEEKS = 11267 - 572837' Potassium [Moles/Vol] 3.7 mmol/L Normal 3.5 - 5.3 mmol/L Remisol Chem Sodium [Moles/Vol] 136 mmol/L Normal 135 - 145 mmol/L Remisol Chem Urea nitrogen [Mass/Vol] 8 mg/dL Normal 5 - 21 mg/dL Remisol Chem Urea nitrogen/Creatinine [Mass ratio] 13 mg/mg Normal 10 - 20 Remisol Chem Consent for Treatmenton 08-19 Consent for Treatment [id number] 0TIFF Normal [facility] Discharge Instructionson Discharge Instructions [id number] Normal [facility] ED Clinical Summaryon 2023 ED Clinical Summary [place] [address] ED Clinical Summary Person Information Name: SH[place] [facility] Age[facility] 28 Years : 1995 Sex: Female Language: Polish PCP: Liane IRVIN CNP Marital Status: Single [...] 09/07/2023 15:56:56 09/07/2023 15:56:56 09/07/2023 15:56:56 ADDRESS: [address] [place] [address] [id number] [facility] DOC NOTES: MEDICAL INFORMATION: Prescriptions Given: Medications to Continue with No Changes Other Medications acetaminophen (acetaminophen 325 mg Tab) 3 Tablets By Mouth every 6 hours. acetaminophen-oxycodon e (Percocet 5 mg-325 mg oral tablet) 1 Tablets By Mouth every 6 hours. Refills: 0. PATIENT EDUCATION INFORMATION: Instructions: Abdominal Pain, Adult Follow up: With: Address: When: Liane IRVIN [address] [place] [phone] Business (1) In 3 days 09/10/2023 DIAGNOSIS: Abdominal pain Normal [facility] ED Note-Physicianon 09-07-19 ED Note-Physician Basic [...] In 3 days 09/10/2023 EST [address] [id number] [facility] (1) Additional Instructions: Patient Education [...] made to ensure accuracy, however, inadvertently computerized group exercise class instructor mistakes may be present. Appropriate healthcare PPE [...] with work/ho (more content not included)... Normal [facility] Comment on above: Result Comment: Elec [...] these instructions at home: Medicines ? Take cljk-ttu-gtudsza and prescription medicines only as told by [...] your condition for any changes. ? Take zpmh-mhq-tuligtb and prescription medicines only as told by [...] provider. Document Revised: 08/22/2020 Document Reviewed: 11/12/2019 Elsevier Patient Education ? 2022 [employer] Normal [facility] ED Patient Summaryon 024 ED Patient Summary [address] [address] Patient Discharge Instructions Person Information Name: SHAHIDA [place] Age: 28 Years Arrival Date: 09/07/2023 12:48:07 Discharge Diagnosis: Abdominal pain Primary Care Physician: Liane IRVIN CNP Provider Information Primary Provider: Ba Duque DO Advanced Associate Team Physician:Wallace Doll PA-C The exam and treatment you received in the Emergency Department were for an urgent problem and are not intended as complete care. It is important that you follow up with a doctor, nurse practitioner, or physician?s speech assistant for ongoing care. If your symptoms [...] With: Address: When: Liane IRVIN [address] [place] [address] Business (1) In 3 days 09/10/2023 In the event that this physician does not participate in your insurance network, please consult with your insurance company to find a nearby participating provider. Patient Education Materials: Abdominal Pain, Adult A MESSAGE TO ALL PATIENTS REGARDING OPIOIDS PRESCRIPTION OPIOIDS: WHAT YOU NEED TO KNOW Prescription opioids can be used to help relieve lluyxhnk-ar-fohzyt pain and are often prescribed following a [...] guidance from the Food and Drug Administration (www.fda.gov/Drugs/Res ourcesForYou). ? Visit www.cdc.gov/drugoverdo se to learn about the risks of opioids abuse and overdose. ? If you believe you may be struggling with addiction, tell your health children's zoo caretaker and ask for guidance or call [facility] National Helpline at 6-840-938-UDXV. k Source: [place] Department o (more content not included)... Normal [facility] HEMATOLOGYOrdered By: SYSTEM SYSTEM on 09-07-2023 [...] Normal 80.0 - 100.0 fL Remisol Heme Dade Absolute 0.5 E9/L Normal 0.2 - 1.0 [...] Remisol Heme Outside Recordson 09-07-2023 Outside Records [id number]. 00TIFF Normal [facility] Pre-Arrival Noteon Pre-Arrival Note Pre-Arrival Summary Name: Adriano, Current Date: 09/07/2023 12:55:08 EST Gender: Female Date of : 1995 Age: 28 years Pre-Arrival Type: EMS ETA: 09/07/2023 12:58:00 EST Primary Care Physician: Presenting Problem: abd pain Pre-Arrival User: Wallace Doll PA-C Referring Source: Location: [place] Completion Date/Time: 09/07/2023 12:29:00 [facility] Emergency Department Pre-Hospital Report Form Vital Signs: Pre-Hospital Report: Treatment in Route: Response to Treatment: Misc. Issues: Abd pain with positive preg test Normal [facility] UA With Cult Reflexon 2023 Bacteria LM Ql (Urine sed) TRACE Normal Trace [facility] Comment on above: Performed By: #### 1 1252293, 1266735 ####[facility] [address] [place] [address] Bilirubin Ql (U) Negative Normal Negative [facility] Comment on above: Performed By: #### 1 0855953, 2790324 ####[address] [address] Clarity (U) CLEAR Normal Clear [facility] Comment on above: Performed By: #### 1 9107392, 2012081 ####[address] [address] Color (U) STRAW Abnormal Yellow [facility] Comment on above: Performed By: #### 1 9192042, 2093939 ####[address] [address] Epithelial cells.squamous LM.HPF (Urine sed) [#/Area] 0-2 Normal 0-2 [facility] Comment on above: Performed By: #### 1 5680427, 6349396 ####[address] [address] Glucose Test strip (U) [Mass/Vol] Negative Normal Negative [facility] Comment on above: Performed By: #### 1 1888810, 7835405 ####[address] [address] Hemoglobin Ql (U) Negative Normal Negative [facility] Comment on above: Performed By: #### 1 6998270, 3095852 ####[facility] [address] [place] [address] Ketones (U) [Mass/Vol] Negative Normal Negative [facility] Comment on above: Performed By: #### 1 0772962, 0997208 ####[address] [address] [place]way.plasma/[place]way. RBC (Bld) [Mass ratio] 0-3 Normal 0-3 [facility] Comment on above: Performed By: #### 1 7656160, 7848202 ####[facility] [address] [place] [address] [place] [address] Nitrite Ql (U) Negative Normal Negative [facility] Comment on above: Performed By: #### 1 4057854, 4733323 ####[address] [address] pH (U) 7.0 [pH] Invalid Interpretation Code 5.0-9.0 [facility] Comment on above: Performed By: #### 1 6013013, 9384514 ####[place] [address] Protein (U) [Mass/Vol] Negative Normal Negative [facility] Comment on above: Performed By: #### 1 0028097, 7780280 ####[place] [address]57 Specific gravity (U) [Rel density] 1.015 Invalid Interpretation Code 1.005-1.030 [facility] Comment on above: Performed By: #### 1 6510622, 9523118 ####[place] [address] Type of Urine collection method Clean Catch Normal [facility] Comment on above: Performed By: #### 1 5543655, 0502517 ####[place] [address] Urobilinogen Qn (U) 0.2 {Maria Luz'U}/dL Normal 0.0-1.0 [facility] Comment on above: Performed By: #### 1 7541971, 1126778 ####[address] [address] WBC Auto Ql (U) 1+ Abnormal Negative [facility] Comment on above: Performed By: #### 1 1407195, 3078375 ####[address] [address] WBC LM.HPF (Urine sed) [#/Area] 0-5 Normal 0-5 [facility] Comment on above: Performed By: #### 1 [id number], [id number] ####[address] [place] [address] URINALYSISOrdered By: Rian Arroyo on 09-07-2023 Bacteria LM Ql (Urine sed) Trace /HPF Normal Trace/HPF [facility] UA Auto SS Bilirubin Ql (U) Negative [...] PM) Normal Negative [facility] UA Auto SS Otway.plasma/Otway. RBC (Bld) [Mass ratio] 0-3 /HPF Normal [...] [facility] UA Auto SS Urobilinogen Qn (U) [id number] {Maria Luz'U}/dL Normal 0.0 - 1.0 EU/dL [facility] UA Auto SS WBC Auto Ql (U) 1+ *ABN* (09/07/23 1:19 PM) Invalid Interpretation Code Negative [facility] UA Auto SS WBC LM.HPF (Urine sed) [#/Area] 0-5 /HPF Normal 0-5/HPF [facility] UA Auto SS eGFRon 09-07-2023 eGFR 126 mL/min/1.73 m2 Normal >=59 [facility] Comment on above: Order Comment: Order added by Discern Expert. Performed By: #### 2 [id number], [id number], [id number] ####[facility] [address] [place] [id number] ED Note-Physicianon 09-06-19 ED Note-Physician [id number] 0TIFF Normal [facility] HCG ( test) IA.rapi d Ql (U)Ordered By: Brigido Robles on 09-03-2023 HCG ( test) Ql (U) Positive [facility] HCG,Urineon 09-03-2023 Beta HCG ( test) Ql (U) Positive High [facility] Comment on above: Result Comment: PERF ORMED BY: [facility] [address] [place] [address] PATHOLOGIST LABORER TANBARK GERI SHELTON M.D. Performed By: #### U HCG #### [place] [id number] [facility] Shelter Documentson 03-29-2023 Shelter Documents [id number]. [id number]:127 Normal [facility] Shelter Documentson 03-10-2023 Shelter Documents [id number]. 00CD:127 Normal [facility] Shelter Documentson 02-23-2023 Shelter Documents [id number]. 00CD:127 Normal [facility] Telephone Encounteron 2022 Television Script Writer Authentication Interface Message Text Central Correspondence Department received a Medical Information Report from Gerard Licea [place] Merchandise Planning Manager addressed to [facility] Attn: Aye Vicente MD. Central Correspondence is not completing forms for Surgery Providers at this time. Form was scanned into patient's chart and Dr. Vicente notified via Media on 02/03/2023. Normal [facility] Telephone Encounteron 2022 Television Script Writer Authentication Interface Message Text z Normal [facility] Telephone Encounteron 2022 Television Script Writer Authentication Interface Message Text Lakeisha calling from [facility] in regards to an order for occupational therapy. Advised order on file but pending. States they haven't received any order and patient is scheduled tomorrow for therapy. Lakeisha can be reached at [phone] and fax [phone]. Thanks Normal [facility] Telephone Encounteron 2022 Television Script Writer Authentication Interface Message Text Pt called requesting pain medicine to be sent to [facility] in [place]. Please call pt. [phone] Cari Normal [facility] Progress Noteson 01-05-2023 Television Script Writer Authentication Interface Message Text Post Operative Visit [...] Laughlin PA-C 01/05/23 3:17 PM Normal [facility] Progress Noteson 12-15-2022 Television Script Writer Authentication Interface Message Text Post Operative Visit [...] Laughlin PA-C 12/15/22 2:42 PM Normal [facility] Progress Noteson 12-08-2022 Television Script Writer Authentication Interface Message Text Post Operative Visit [...] Laughlin PA-C 12/09/22 9:42 AM Normal [facility] Addendum Noteon 11-30-2022 Television Script Writer Authentication Interface Message Text Addended by: DULCE LAUGHLIN on: 11/30/2022 02:37 PM Modules accepted: Orders Normal [facility] Telephone Encounteron 2022 Television Script Writer Authentication Interface Message Text Situation: Patient calling regarding request for Neurontin Background: States out of medication and would like refills sent to preferred pharmacy Assessment: see above Recommendation: Please send to pharmacy if agree Patient can be reached at [phone] Preferred pharmacies: [id number]; phone number [phone]; fax number [phone] Normal [facility] Television Script Writer Authentication Interface Message Text This patient is requesting a refill on a medication that was prescribed in an ED, Urgent Care or during a Hospital Discharge. Please approve if appropriate or contact patient if not appropriate. Pharmacy was unable to determine appropriateness or if continued therapy necessary. Normal [facility] Progress Noteson 11-25-2022 Television Script Writer Authentication Interface Message Text Patient called nurse [...] Jam Caal DDS, MD Plastic Surgery Rotator [phone] Normal [facility] Telephone Encounteron 2022 Television Script Writer Authentication Interface Message Text Reason for Disposition [...] other symptoms Protocols used: Post-Op Symptoms and Nyabwbziy-L-YU Normal [facility] Television Script Writer Authentication Interface Message Text Situation: Pt calling [...] to call us so we could page habilitation training specialist providers. Unsure if surgeon in the OR at this time or not. Read care advice to patient and/or guardian/representativ e. Patient and/or guardian/representativ e verbalized understanding and agreed with plan of care. To callback with any additional questions or concerns. Discussed option of being evaluated in the ED as well if she would like to be seen sooner, but she does not want to go to [facility] ED as they will not have her records. To prevent a delay in patient care, please forward your response to your responsible PSR/MTA/spool carrier. Normal [facility] Telephone Encounteron 2022 Television Script Writer Authentication Interface Message Text Pt called back to advise she has had no improvement in post operative arm pain since adding gabapentin 100mg TID. Also still taking PO tylenol, robaxin and oxycodone. She is inquiring about other options? Next f/u 12/08/22. Preferred pharmacy is: [id number] - [address] [phone] Pt can be reached at: Phone numbers Thank you Normal [facility] OP Noteon 11-23-2022 Television Script Writer Authentication Interface Message Text Name: SHAHIDA [place] MR#: [id number] [facility]#: [id number] Date of Procedure: 11/22/2022 ATTENDING SURGEON: Aye [...] upper extremity. She was subsequently discharged from [facility] after repair of her abdomen. She now [...] at 250 mmHg on the upper arm. Abebe removed from her complex laceration to the [...] Dict: 11/22/2022 15:29:57 TRANS: 11/22/2022 23:33:41 JOB: [id number] DictJob#: [id number] Normal [facility] Telephone Encounteron 2022 Television Script Writer Authentication Interface Message Text Situation: Pt is [...] working at all. Recommendation: Paged plastic surgery habilitation training specialist at 12:52 pm. The resident called back at 12:54 pm. Notified him of the pt's message about pain medications. He states he will call the patient and talk to her. Vi Gomes RN Normal [facility] Anesthesia Postprocedure Iveth ludivina 11-22-2022 Television Script Writer Authentication Interface Message Text Anesthesia Postoperative Assessment: [...] EVENTS: No notable events documented. 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 The risks, benefits and alternatives were reviewed. Questions regarding anesthesia were answered. Patient and/or legal surgical sales representative knows such anesthetics and procedures may be performed by Resident physicians, Certified Anesthesiologist Assistants, or Certified Nurse Anesthetists under the supervision of a physician. The patient /or the patient's legal surgical sales representative agree with the plan for anesthesia. [...] * naproxen (NAPROSYN) 500 mg, Oral * oxyCODONE-acetaminophe n (PERCOCET) 5-325 mg per tablet 1 Tablet, Oral, EVERY 6 HOURS PRN Normal [facility] Anesthesia [facility] 11-22-2022 Television Script Writer Authentication Interface Message Text Patient taken to PACU. Patient was awake, comfortable and stable on arrival. 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 Raheem Johnson MD Normal [facility] Blood Attestationon 11-23-19 Television Script Writer Authentication Interface Message Text Blood Attestation ATTESTATION OF INFORMED CONSENT FOR BLOOD The transfusion of blood and/or blood components were discussed with the patient and/or legal surgical sales representative. The risks, benefits and alternatives were reviewed. Questions regarding blood transfusions were answered. The patient /or the patient's legal surgical sales representative agree with the plan for transfusion of blood and/or blood components. Normal [facility] Brief Operative Noteon 11-22 Television Script Writer Authentication Interface Message Text Brief Operative Note MAIN OR 04 Shahida Oh 27 year old female Surgical Contact Serial Number: [id number] Preoperative Diagnosis: Laceration of left upper extremity [...] Scrub: Elaine Arana; Loan Flores; Graciela Fortune, RN, BSN; Alma Boo Talent Management Manager Nurse: Graciela Fortune, ZULY, BSN; Ashley Pearl RN; Sarah Blackwell RN Motor Grader Operator: Ari Rojas MD; Louis Meredith MD Anesthesia: General Anesthesiologist: Radha Bryant MD; Beka Montgomery MD; Damion Posada MD CAA: Nell Sam CAA; Kush Merritt CAA Pelt Salter: Raheem Johnson MD Specimen(s): * No specimens [...] [facility] Call [facility] AND [employer] Television Script Writer Authentication Interface Message Text Telephone History Shahida [place], [id number] 11/19/2022 Patient was identified by name and [...] will be entering the hospital at the [facility], which is on [facility]. [facility] Parking Instructions ??? Please plan extra time for parking and shuttle service. We recommend arriving at least 15 minutes prior to the time your care team advises you need to be here. ??? Parking is available in the [facility] accessible from [address]. ??? 07/02 shuttle service from the garage to The [facility] is available. ??? Go to the ground floor of the parking garage to reach the shuttle pick-up station located near the elevator and stairs. ??? Shuttle service will drop you off at The [facility] Main Entrance. ??? Cork Molder service will be available at The [facility] Main Entrance if you would prefer audio engineer over parking ([facility] Cork Molder Service Hours: Tuesday-Tuesday, 5:30 a.m. - 8:00 p.m.). ??? Enter The [facility] Main Entrance and go to the Admitting/Registration Desk to check in for your procedure. [...] 11/17/2022 Added automatically from request for surgery [id number] Nicotine addiction 11/19/2022 Seizures (HCC) PROBLEM LIST: [...] yea (more content not included)... Normal [facility] CBC W Auto Differential pane l (Bld)on 11-18-2022 Basophils (Bld) [#/Vol] 0.0 10*3/uL 0.0 - 0.2 K/uL [facility] Basophils/100 WBC (Bld) 0.5 % B ON [facility] Eosinophils (Bld) [#/Vol] 0.1 10*3/uL 0.0 - 0.7 K/uL [facility] [employer] Eosinophils/100 WBC (Bld) 1 % BON [facility] Erythrocyte distribution width (RBC) [Ratio] 13.9 % [...] Monocytes/100 WBC (Bld) 5.2 % B ON [facility] Neutrophils (Bld) [#/Vol] 5.6 10*3/uL 1.4 - 6.5 K/uL [facility] Platelets (Bld) [#/Vol] 246 10*3/uL 130 - 400 K/uL [facility] RBC (Bld) [#/Vol] 3.42 10*6/uL Low [facility] Segmented neutrophils/100 WBC (Bld) 73.0 % [facility] WBC (Bld) [#/Vol] 7.6 10*3/uL 4.8 - 10.8 K/uL [facility] CBC With Platelet and Differ entialon 11-18-2022 Basophils (Bld) [#/Vol] 0.0 10*3/uL Normal 0.0-0.2 Comment on above: Performed By: #### C BCWD #### [address] [place] [address] Basophils/100 WBC (Bld) 0.5 % Normal [facility] Comment on above: Performed By: #### C BCWD #### [address] [place] [address] Eosinophils (Bld) [#/Vol] 0.1 10*3/uL Normal 0.0-0.7 Comment on above: Performed By: #### C BCWD #### [address] [place] [address] Eosinophils/100 WBC (Bld) 1.0 % Normal Comment on above: Performed By: #### C BCWD #### [address] [place] [address] Erythrocyte distribution width (RBC) [Ratio] 13.9 % Normal 11.5-14.5 Comment on above: Performed By: #### C BCWD #### [address] [place] [address] Hematocrit (Bld) [Volume fraction] 31.8 % Low 37.0-47.0 Comment on above: Performed By: #### C BCWD #### [address] [place] [address] Hemoglobin (Bld) [Mass/Vol] 10.5 g/dL Low 12.0-16.0 Comment on above: Performed By: #### C BCWD #### [address] [place] [address] Lymphocytes (Bld) [#/Vol] 1.6 10*3/uL Normal 1.0-4.8 Comment on above: Performed By: #### C BCWD #### [address] [place] [address] Lymphocytes/100 WBC (Bld) 20.3 % Normal Comment on above: Performed By: #### C BCWD #### [address] [place] [address] MCH (RBC) [Entitic mass] 30.6 pg Normal 27.0-31.3 Comment on above: Performed By: #### C BCWD #### [address] [place] [address] MCHC 32.9 % Low 33.0-37.0 Comment on above: Performed By: #### C BCWD #### [address] [place] [address] MCV (RBC) [Entitic vol] 93.1 fL Normal 79.4-94.8 [facility] Comment on above: Performed By: #### C BCWD #### [address] [place] [address] Monocytes (Bld) [#/Vol] 0.4 10*3/uL Normal 0.2-0.8 Comment on above: Performed By: #### C BCWD #### [address] [place] [address] Monocytes/100 WBC (Bld) 5.2 % Normal [facility] Comment on above: Performed By: #### C BCWD #### [address] [place] [address] Neutrophils (Bld) [#/Vol] 5.6 10*3/uL Normal 1.4-6.5 Comment on above: Performed By: #### C BCWD #### [address] [place] [address] Neutrophils/100 WBC (Bld) 73.0 % Normal Comment on above: Performed By: #### C BCWD #### [address] [place] [address] Platelets (Bld) [#/Vol] 246 10*3/uL Normal 130-400 Comment on above: Performed By: #### C BCWD #### [address] [place] [address] RBC (Bld) [#/Vol] 3.42 10*6/uL Low 4.20-5.40 Comment on above: Performed By: #### C BCWD #### [address] [place] [address] WBC (Bld) [#/Vol] 7.6 10*3/uL Normal 4.8-10.8 Comment on above: Performed By: #### C BCWD #### [address] [place] [address] CTA CHEST ABDOMEN PELVIS W W O [...] amount of stool present in the colon Peritoneum/Retroperito neum: Small to moderate amount of free intraperitoneal [...] Cristel Corrales MD 11/18/22 Final result Normal 1. Free intraperitoneal air, likely secondary to given history of recent surgery. 2. Supraumbilical midline incision, with minimal fluid/blood products in the underlying subdermal tissues. 3. Suggestion of a 3.7 cm luminal ocular cystic structure likely associated with the left ovary. [facility] RADIOLOGY EXAMINATION: CTA DISSECTION CHEST ABDOMEN [...] amount of stool present in the colon Peritoneum/Retroperito neum: Small to moderate amount of free intraperitoneal [...] the left ovary Bones/Soft Tissues: No fracture [facility] RADIOLOG[facility] Cristel Corrales MD - 11/18/2022 EXAMINATION: [...] amount of stool present in the colon Peritoneum/Retroperito neum: Small to moderate amount of free intraperitoneal [...] structure likely associated with the left ovary. [employer] Phone: Radiology Study observation (narrative) [employer] Phone: CTA CHEST ABDOMEN PELVIS W W O CONTRASTOrdered By: Cristel Corrales on 11-18-2022 [employer] Phone: Comprehensive Metabolic Pane tutu 11-18-2022 Albumin [Mass/Vol] 4.1 g/dL Normal 3.5-4.6 Comment on above: Performed By: #### C MP #### [address] [place] [address] ALP [Catalytic activity/Vol] 57 U/L Normal 40-130 Comment on above: Performed By: #### C MP #### [address] [place] [address] ALT [Catalytic activity/Vol] 19 U/L Normal 0-33 Comment on above: Performed By: #### C MP #### [address] [place] [address] Anion gap [Moles/Vol] 12 mmol/L Normal 9-15 [facility] Comment on above: Performed By: #### C MP #### [address] [place] [address] AST [Catalytic activity/Vol] 26 U/L Normal 0-35 Comment on above: Performed By: #### C MP #### [address] [place] [address] Bilirubin [Mass/Vol] mg/dL Normal 0.2-0.7 [facility] Comment on above: Performed By: #### C MP #### [address] [place] [address] Calcium [Mass/Vol] 9.2 mg/dL Normal 8.5-9.9 Comment on above: Performed By: #### C MP #### [address] [place] [address] Chloride [Moles/Vol] 105 mmol/L Normal 95-107 [facility] Comment on above: Performed By: #### C MP #### [address] [place] [address] CO2 [Moles/Vol] 28 mmol/L Normal 20-31 Comment on above: Performed By: #### C MP #### [address] [place] [address] Creatinine [Mass/Vol] 0.54 mg/dL Normal 0.50-0.90 [facility] Comment on above: Performed By: #### C MP #### [address] [place] [address] GFR >60.0 Normal >60 Comment on above: Result Comment: Ari ewingc calculator link https://www.kidney.org/professionals/kdoqi/gfr_calculatorped Effective Apr 19, 2022 [...] secretion. Performed By: #### C MP #### [address] [place] [address] Globulin (S) [Mass/Vol] 2.7 g/dL Normal 2.3-3.5 [facility] Comment on above: Performed By: #### C MP #### [address] [place] [address] Glucose [Mass/Vol] 127 mg/dL Critically high 70-99 M [facility] Comment on above: Performed By: #### C MP #### [address] [place] [address] Potassium [Moles/Vol] 3.5 mmol/L Normal 3.4-4.9 [facility] Comment on above: Performed By: #### C MP #### [address] [place] [address] Protein [Mass/Vol] 6.8 g/dL Normal 6.3-8.0 Comment on above: Performed By: #### C MP #### [address] [place] [address] Sodium [Moles/Vol] 145 mmol/L Critically high 135-144 M [facility] Comment on above: Performed By: #### C MP #### [address] [place] [address] Urea nitrogen [Mass/Vol] 9 mg/dL Normal 6-20 Comment on above: Performed By: #### C MP #### [address] [place] [address] Comprehensive metabolic 2000 panelon 11-18-2022 Albumin [Mass/Vol] [...] mmol/L [facility] CO2 [Moles/Vol] 28 mmol/L [facility] Creatinine [Mass/Vol] 0.54 mg/dL 0.50 - [...] [facility] Sodium [Moles/Vol] 145 mmol/L High [facility] Urea nitrogen [Mass/Vol] 9 mg/dL 6 - 20 mg/dL [facility] No Panel InformationOrdered By: Judi Rosas on 11-18-2022 [facility] [employer] POC Urine QualOrde red By: Judi Rosas on 11-18-2022 Beta HCG ( test) Ql (U) Negative Negative [facility] Last Size [employer] Lot Number [id number] [facility] Negative QC Pass/Fail Acceptable [facility] Positive QC Pass/Fail Acceptable [facility] Last [facility] Progress Noteson 11-18-2022 Television Script Writer Authentication Interface Message Text Documentation: Mode: Telephone Patient Patient Work Phone: Patient Cell Preferred phone: [phone] Consent: I confirmed patient understanding of the [...] placing orders. This note was transcribed using [email or web address] voice-recognition software. This may result in typographical or malapropism errors. Normal [facility] [facility] XR CHEST (2 VW)on 11-18-2022 XR [...] Vamsi Sneed MD 11/18/22 Final result Normal No acute cardiopulmonary disease. Pneumoperitoneum, presumably postsurgical. Correlation is recommended. [facility] RADIOLOGY EXAMINATION: TWO XRAY VIEWS OF THE [...] finding is most likely postoperative in nature. [facility] Vamsi Sneed MD - 11/18/2022 EXAMINATION: [...] disease. Pneumoperitoneum, presumably postsurgical. Correlation is recommended. [employer] Phone: Radiology Study observation (narrative) [employer] Phone: XR CHEST (2 VW)Ordered By: Analy Sneed on 11-18-2022 [employer] Phone: CHEMISTRYOrdered By: SYSTEM SYSTEM on 11-17-2022 Anion gap [Moles/Vol] 8 mmol/L Normal 6 - 16 mEq/L [facility] Calcium [Mass/Vol] 8.5 mg/dL Low 8.9 - 11. 1 mg/dL [facility] Chloride [Moles/Vol] 107 mmol/L Normal 101 - 1 11 mmol/L [facility] CO2 [Moles/Vol] 25 mmol/L Normal 21 - 31 mmol/L [facility] Creatinine [Mass/Vol] 0.5 mg/dL Normal 0.5 - 1.3 mg/dL [facility] GFR/1.73 sq M.predicted among non-blacks MDRD (S/P/Bld) [Vol rate/Area] 133 mL/min/1.73 m2 Normal >=59mL/min/ 1.73 m2 [facility] Chem S Glucose [Mass/Vol] 89 mg/dL Normal 55 - 199 mg/dL [facility] Magnesium [Mass/Vol] 1.8 mg/dL Normal 1.3 - 2 .4 mg/dL [facility] Remisol Phosphate [Mass/Vol] 3.4 mg/dL Normal 1.9 - 4 .6 mg/dL [facility] Potassium [Moles/Vol] 3.4 mmol/L Low 3.5 - 5.3 mmol/L [facility] Sodium [Moles/Vol] 137 mmol/L Normal 135 - 145 mmol/L [facility] Urea nitrogen [Mass/Vol] 9 mg/dL Normal 5 - 21 mg/dL [facility] Remisol Urea nitrogen/Creatinine [Mass ratio] 18 mg/mg Normal 10 - 20 [facility] Remisol HEMATOLOGYOrdered By: SYSTEM SYSTEM on 11-17-2022 Basophils/100 [...] 32.9 g/dL Normal 31.4 - 36.0 gm/dL [facility] HemeAutoSS MCV (RBC) [Entitic vol] 91.5 fL Normal 80.0 - 100.0 fL [facility] HemeAutoSS Platelet mean volume (Bld) [Entitic vol] 8.8 fL Normal 6.4 - 10.8 fL [facility] HemeAutoSS Platelets (Bld) [#/Vol] 163.0 E9/L Normal 150. 0 - 500.0 E9/L [facility]e[employer]SS RBC (Bld) [#/Vol] 3.0 E12/L Low 4.3 - 5.9 E12/L [facility] HemeAutoSS WBC corrected for nucl RBC Auto (Bld) [#/Vol] 6.6 E9/L Normal 4.0 - 11.0 E9/L [facility] HemeAutoSS CHEMISTRYOrdered By: SYSTEM SYSTEM on 11-16-2022 Anion gap [Moles/Vol] 5 mmol/L Low 6 - 16 mEq/L [facility] Remisol Chloride [Moles/Vol] 110 mmol/L Normal 101 - 1 11 mmol/L [facility] Remisol CO2 [Moles/Vol] 25 mmol/L Normal 21 - 31 mmol/L [facility] Creatinine [Mass/Vol] 0.5 mg/dL Normal 0.5 - 1.3 mg/dL [facility] Remisol GFR/1.73 sq M.predicted among non-blacks MDRD (S/P/Bld) [Vol rate/Area] 133 mL/min/1.73 m2 Normal >=59mL/min/ 1.73 m2 [facility] Chem S Glucose [Mass/Vol] 90 mg/dL Normal [...] 10 - 20 [facility] HEMATOLOGYOrdered By: Zoondy SYSTEM on 11-16-2022 Basophils/100 WBC (Bld) 0.4 [...] 500.0 E9/L [facility] HemeAutoSS RBC (Bld) [#/Vol] 3.2 E12/L Low 4.3 - 5.9 E12/L [facility]eAutoSS WBC corrected for nucl RBC Auto (Bld) [#/Vol] 10.3 E9/L Normal 4.0 - 11.0 E9/L [facility] HemeAutoSS Laboratory - Chemistry and C hemistry - challengeOrdered By: SYSTEM SYSTEM on 11-16-2022 Calcium [Mass/Vol] 8.1 mg/dL Low 8.9 - 11. 1 mg/dL [facility] CHEMISTRYOrdered By: SYSTEM SYSTEM on 11-15-2022 Amphetamines [...] 12 mmol/L Normal 6 - 16 mEq/L [facility] Chloride [Moles/Vol] 105 mmol/L Normal 101 - 1 11 mmol/L [facility] CO2 [Moles/Vol] 21 mmol/L Normal 21 - 31 mmol/L [facility] Creatinine [Mass/Vol] 0.6 mg/dL Normal 0.5 - 1.3 mg/dL [facility] GFR/1.73 sq M.predicted among non-blacks MDRD (S/P/Bld) [Vol rate/Area] 128 mL/min/1.73 m2 Normal >=59mL/min/ 1.73 m2 [facility] Chem S Glucose [Mass/Vol] 87 mg/dL Normal 55 - 199 mg/dL [facility] Potassium [Moles/Vol] 3.7 mmol/L Normal 3.5 - 5.3 mmol/L [facility] Sodium [Moles/Vol] 134 mmol/L Low 135 - 145 mmol/L [facility] Urea nitrogen [Mass/Vol] 13 mg/dL Normal 5 - 21 mg/dL [facility] Urea nitrogen/Creatinine [Mass ratio] 22 mg/mg High 10 - 20 [facility] HEMATOLOGYOrdered By: SYSTEM SYSTEM on 11-15-2022 Basophils/100 [...] - 7.5 E9/L [facility] HEMATOLOGYOrdered By: Dave Brewer on 11-15-2022 Erythrocyte distribution width (RBC) [...] High 4.0 - 11.0 E9/L [facility] URINALYSISOrdered By: Dave Brewer on 11-15-2022 Bilirubin Ql (U) Negative [...] AM) Normal Negative [facility] UA Auto SS Otway.plasma/[place]way. RBC (Bld) [Mass ratio] 0-3 /HPF Normal [...] [facility] UA Auto SS Urobilinogen Qn (U) [id number] {Maria Luz'U}/dL Normal 0.0 - 1.0 EU/dL [facility] UA Auto SS WBC Auto Ql (U) Negative (11/15/22 1:30 AM) Normal Negative [facility] UA Auto SS WBC LM.HPF (Urine sed) [#/Area] 0-5 /HPF Normal 0-5/HPF [facility] UA Auto SS BLOOD BANKOrdered By: Dave Brewer on 11-14-2022 ABO/Rh Interp Positive Invalid Interpretation Code [facility] BB Subsection ABSC Gel Interp Negative (11/14/22 11:48 PM) Normal [facility] BB Subsection CHEMISTRYOrdered By: SYSTEM SYSTEM on [...] - 27.10 pg/mL [facility] COAGULATIONOrdered By: Dave Brewer on 11-14-2022 aPTT Coag (PPP) [Time] 28.2 s Normal 25.1 - 36.5 second(s) [facility] Auto Coag INR Coag (PPP) [Relative time] 1.6 {INR} Invalid Interpretation Code [facility] Auto Coag PT Coag (PPP) [Time] 18.1 s High 9.4 - 1 2.5 second(s) [facility] Auto Coag SEROLOGYOrdered By: Dave brown on 11-14-2022 Beta hCG Ql Negative (11/14/22 11:39 PM) Normal [facility]ero CHEMISTRYOrdered By: SYSTEM SYSTEM on 07-06-2022 Anion gap [Moles/Vol] 13 mmol/L Normal 6 - 16 mEq/L [facility] Calcium [Mass/Vol] 9.9 mg/dL Normal 8.9 - 11. 1 mg/dL [facility] Chloride [Moles/Vol] 100 mmol/L Low 101 - 1 11 mmol/L [facility] CO2 [Moles/Vol] 24 mmol/L Normal 21 - 31 mmol/L [facility] Creatinine [Mass/Vol] 0.7 mg/dL Normal 0.5 - 1.3 mg/dL [facility] GFR/1.73 sq M.predicted among blacks MDRD (S/P/Bld) [Vol rate/Area] mL/min/1.73 m2 Normal >=59mL/min/ 1.73 m2 [facility] Chem S GFR/1.73 sq M.predicted among non-blacks MDRD (S/P/Bld) [Vol rate/Area] mL/min/1.73 m2 Normal >=59mL/min/ 1.73 m2 [facility] Chem S Glucose [Mass/Vol] 104 mg/dL Normal 55 - 199 mg/dL [facility] Potassium [Moles/Vol] 3.3 mmol/L Low 3.5 - 5.3 mmol/L [facility] Sodium [Moles/Vol] 134 mmol/L Low 135 - 145 mmol/L [facility] Troponin I.cardiac [Mass/Vol] pg/mL Low 10.10 - 27.10 pg/mL [facility] Urea nitrogen [Mass/Vol] 10 mg/dL Normal 5 - 21 mg/dL [facility] Urea nitrogen/Creatinine [Mass ratio] 14 mg/mg [...] 16 mmol/L Normal 6 - 16 mEq/L [facility] AST [Catalytic activity/Vol] 26 [iU]/d Normal [...] MDRD (S/P/Bld) [Vol rate/Area] mL/min/1.73 m2 Normal >=59mL/min/ 1.73 m2 [facility] Chem S GFR/1.73 sq M.predicted among non-blacks MDRD (S/P/Bld) [Vol rate/Area] mL/min/1.73 m2 Normal >=59mL/min/ 1.73 m2 [facility] Chem S Globulin (S) [Mass/Vol] 3.9 g/dL Normal 1.4 - 4.0 gm/dL [facility] Glucose [Mass/Vol] 96 mg/dL Normal 55 - 199 mg/dL [facility] Potassium [Moles/Vol] 3.3 mmol/L Low 3.5 - 5.3 mmol/L [facility] Protein [Mass/Vol] 9.3 g/dL High 6.0 - 7.8 gm/dL [facility] Sodium [Moles/Vol] 133 mmol/L Low 135 - 145 mmol/L [facility] Triglyceride [Mass/Vol] 40 mg/dL Normal <=149mg/dL [facility] [place] [facility] Remisol Urea nitrogen [Mass/Vol] 7 mg/dL Normal 5 - 21 mg/dL [facility] Urea nitrogen/Creatinine [Mass ratio] 10 mg/mg Normal 10 - 20 [facility] CHEMISTRYOrdered By: Kael Harris on 07-05-2022 HbA1c (Bld) [Mass fraction] 5.2 % Normal <=5.9% [facility] ChemAutoSS URINALYSISOrdered By: Rian Arroyo on 07-05-2022 [...] PM) Normal Negative [facility] UA Auto SS Otway.plasma/[place]way. RBC (Bld) [Mass ratio] 0-3 /HPF Normal [...] [facility] UA Auto SS Urobilinogen Qn (U) [id number] {Maria Luz'U}/dL Normal 0.0 - 1.0 EU/dL [...] 21 mmol/L High 6 - 16 mEq/L [facility] AST [Catalytic activity/Vol] 27 [iU]/d Normal [...] MDRD (S/P/Bld) [Vol rate/Area] mL/min/1.73 m2 Normal >=59mL/min/ 1.73 m2 [facility] Chem S GFR/1.73 sq M.predicted among non-blacks MDRD (S/P/Bld) [Vol rate/Area] mL/min/1.73 m2 Normal >=59mL/min/ 1.73 m2 [facility] Chem S Globulin (S) [Mass/Vol] [...] Back For Confirmation On 07/04/2022 15:15:00 EST_. soc analyst+ Art 138.0 mmol/L Normal 135.0 - 145.0 [...] 26.6 mmol/L High 22.0 - 26.0 mmol/L [facility] Auto SS Hemoglobin (Bld) [Mass/Vol] 13.2 g/dL Normal 12.0 - 16.0 gm/dL [facility] Resp Auto SS P CO2 Arterial 17.2 mm[Hg] Invalid Interpretation Code 35.0 - 45.0 mmHg [facility] Resp Auto SS Comment on above: Result Comment: Resu lts Called To [facility] By MARGARITA SOLIS_ And Read Back For [...] Site R Radial (07/04/22 2:57 PM) Normal [facility] Resp Auto SS Sample Type Arterial Draw (07/04/22 2:57 PM) Normal [facility] Resp Auto SS HEMATOLOGYOrdered By: SYSTEM SYSTEM [...] 13 mmol/L Normal 6 - 16 mEq/L [facility] AST [Catalytic activity/Vol] 40 [iU]/d Normal [...] MDRD (S/P/Bld) [Vol rate/Area] mL/min/1.73 m2 Normal >=59mL/min/ 1.73 m2 [facility] Chem S GFR/1.73 sq M.predicted among non-blacks MDRD (S/P/Bld) [Vol rate/Area] mL/min/1.73 m2 Normal >=59mL/min/ 1.73 m2 [facility] Chem S Globulin (S) [Mass/Vol] 2.7 g/dL [...] 28 mg/dL High 5 - 21 mg/dL [facility] Urea nitrogen/Creatinine [Mass ratio] 40 mg/mg High 10 - 20 [facility] CORONAVIRUS 2019 BY PCRon SARS-CoV-2 (COVID-19) RNA ESTELA+probe Ql (Unsp spec) Not detected Normal Not Detected [facility] Comment on above: Result Comment: . This [...] patient management decisions. Fact sheet for providers: https://www.fda.gov/media/782451/download Fact sheet for patients: https://www.fda.gov/media/562942/download This test has received FDA Emergency Use Authorization (EUA) and has been verified by [facility] ([facility]). This test is only authorized for the duration of time that circumstances exist to justify the authorization of the emergency use of in vitro diagnostic tests for the detection of SARS-CoV-2 virus and/or diagnosis of COVID-19 infection under section 564(b)(1) of the Act, 21 U.S.C. 360bbb-3(b)(1), unless the authorization is terminated or revoked sooner. [facility] is certified under CLIA-88 as qualified to perform high complexity testing. Testing is performed in the [facility] laboratories located at [address] [place] [address]. Performed By: #### C OV19 #### [address] [place] [address] Covid 19 Resultson 1 SARS-CoV-2 (COVID-19) RNA [...] You may also be contacted by the [facility] to see if any of your [...] or Naproxen (Aleve) can also be used. Rfmd-fkw-jykmxuy cough and cold medicines can be used according to the instructions on the package. Some cran-nid-qqpcgea medicines also contain acetaminophen. Make sure you [...] water are not available, use alcohol-based hand director of financial aid. Avoid touching your eyes, nose, and mouth [...] for 24 vianca (more content not included)... [facility] CORONAVIRUS 2019 BY PCRon DATE OF SYMPTOM ONSET [YYYYMMDD]? [id number] [facility] Comment on above: Performed By: #### C OV19 #### [facility] [address] [place] [address] Lab Specimen Source Nasal, Nasopharyngeal Normal [facility] Comment on above: Performed By: #### C OV19 #### [facility] [address] [place] [address] Provider Note - ED v3on 08-2 Provider [...] Vital Sign Value Date PAST MEDICAL HISTORY ALLERGIES/INTOLERANCES : No Known Allergies HEALTH HISTORY: No documented data. 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 DISPOSITION Diagnosis/Annotation: ED Dx Name:Acute bronchitis Code:J20.9 Disposition: discharged Type: home CONSULT CRITICAL CARE TIME Is this a critically ill patient: no Electronic Signatures for Addendum Section: Lakeisha Pedroza (JOSE C II) (Signed Addendum 13-Mar-2021 09:08) patient contacted with negative results. Electronic Signatures: Ari Isabel (TEXTILE CONVERTER-CHIEF INTERNAL AUDITOR) (Signed 12-Mar-2021 14:45) Authored: ED Notes, HPI, PMH, ROS, PE, Results/Vital Signs, MDM/ED Course, Clinical Impression, Attestation, Chart Review, Scores Last Updated: 13-Mar-2021 09:08 by Lakeisha Pedroza (MA II) [facility] CBC AUTO DIFFon 02-16-2021 BASO # 0.0 103/ul Normal 0.0-0.1 [facility] Comment on above: Performed By: #### C BC #### [facility] [address] [id number] Robbie Vi Basophils/100 WBC (Bld) 0.2 % Normal 0.2-2.0 [facility] Comment on above: Performed By: #### C BC #### [facility] [address] [phone] Robbie Vi EO # 0.0 103/ul Normal 0.0-0.7 [facility] Comment on above: Performed By: #### C BC #### [facility] [address] [address] Robbie Vi Eosinophils/100 WBC (Bld) 0.2 % Critically low 0.9-7.0 [facility] Comment on above: Performed By: #### C BC #### [facility] [address] [place] [address] Robbie Vi Erythrocyte distribution width (RBC) [Ratio] 12.7 % Normal 11.0-15.0 [facility] Comment on above: Performed By: #### C BC #### [facility] [address] [place], [place] [id number] Robbie Vi Hematocrit (Bld) [Volume fraction] 31.5 % Critically low 36.0-48.0 [facility] Comment on above: Performed By: #### C BC #### [facility] [address] [place] [address] Robbie Vi Hemoglobin (Bld) [Mass/Vol] 10.2 g/dL Critically low 12.0-16.0 [facility] Comment on above: Performed By: #### C BC #### [facility] [address] [place], [place] [id number] Robbie Vi IG # 0.05 10e3/ul Critically high 0.00-0.03 [facility] Comment on above: Performed By: #### C BC #### [facility] [address] [place] [address] Robbienicky Gonzalezen IG % 0.4 % Normal 0.0-0.5 [facility] Comment on above: Performed By: #### C BC #### [facility] [address] [place], [place] [id number] Robbie Vi LYMPH # 2.2 103/ul Normal 1.2-3.8 [facility] Comment on above: Performed By: #### C BC #### [facility] [address] [place], [place] [id number] Robbie Vi Lymphocytes/100 WBC (Bld) 18.3 % Critically low 20.5-60.0 [facility] Comment on above: Performed By: #### C BC #### [facility] [address] [place] [address] Robbie Lebron MANUAL DIFF REQ NO Normal [facility] Comment on above: Performed By: #### C BC #### [facility] [address] [place] [address] Robbienicky Gonzalezen MCH (RBC) [Entitic mass] 31.4 pg Normal 26.7-34.0 [facility] Comment on above: Performed By: #### C BC #### [facility] [address] [place] [address] Robbie Lebron MCHC (RBC) [Mass/Vol] 32.4 g/dL Normal 29.9-35.2 [facility] Comment on above: Performed By: #### C BC #### [facility] [address] [place] [address] Robbienicky Gonzalezen MCV (RBC) [Entitic vol] 96.9 fL Normal 81.0-99.0 [facility] Comment on above: Performed By: #### C BC #### [facility] [address] [place], [place] [id number] Robbie Vi MONO # 1.1 103/ul Critically high 0.3-0.8 [facility] Comment on above: Performed By: #### C BC #### [facility] [address] [place], [place] [phone] Robbie Vi Monocytes/100 WBC (Bld) 9.4 % Normal 1.7-12.[address] [facility] Comment on above: Performed By: #### C BC #### [facility] [address] [place] [address] Robbie Lebron NEUT # 8.6 103/ul Critically high 1.4-6.5 [facility] Comment on above: Performed By: #### C BC #### [facility] [address] [place], [place] [phone] Robbie Lebron Neutrophils/100 WBC (Bld) 71.5 % Normal 43.0-75.0 [facility] Comment on above: Performed By: #### C BC #### [facility] [address] [place], [place] [phone] Robbie Lberon Platelet mean volume (Bld) [Entitic vol] 10.6 fL Normal 9.5-13.5 [facility] Comment on above: Performed By: #### C BC #### [facility] [address] [place] [address] Robbie Lebron PLT 201 103/ul Normal 150-450 [facility] Comment on above: Performed By: #### C BC #### [facility] [address] [place], [place] [phone] Robbei Lebron RBC 3.25 106/ul Critically low 4.20-5.40 [facility] Comment on above: Performed By: #### C BC #### [facility] [address] [place], [place] [phone] Robbie Lebron WBC 12.1 103/ul Critically high 4.0-11.0 [facility] Comment on above: Performed By: #### C BC #### [facility] [address] [place], [place] [phone] Robbie Lebron ASYMPTOMATIC COVID-19 ANTIGE Non 02-15-2021 EUA Statement SEE BELOW Normal [facility] Comment on above: Result Comment: This test [...] sooner. Performed By: #### C VDAGA #### [facility] [address] [place] [address] Robbie Lebron SARS-CoV-2 (COVID-19) RNA ESTELA+probe Ql (Unsp spec) Negative Normal NEGATIVE [facility] Comment on above: Result Comment: Nega tive results are presumptive. They do not preclude infection and should not be used as the sole basis for treatment decisions. Additional confirmatory testing by a molecular method should be considered. Performed By: #### C VDAGA #### [facility] [address] [place] [address] Robbie Vi CBC AUTO DIFFon 02-15-2021 BASO # 0.0 103/ul Normal 0.0-0.1 [facility] Comment on above: Performed By: #### C BC #### [facility] [address] [place] [address] Robbie Vi Basophils/100 WBC (Bld) 0.2 % Normal 0.2-2.0 [facility] Comment on above: Performed By: #### C BC #### [facility] [address] [place] [address] Robbie Vi EO # 0.0 103/ul Normal 0.0-0.7 [facility] Comment on above: Performed By: #### C BC #### [facility] [address] [place] [address] Robbie Vi Eosinophils/100 WBC (Bld) 0.0 % Critically low 0.9-7.0 [facility] Comment on above: Performed By: #### C BC #### [facility] [address] [place] [address] Robbie Lebron Erythrocyte distribution width (RBC) [Ratio] 12.5 % Normal 11.0-15.0 [facility] Comment on above: Performed By: #### C BC #### [facility] [address] [place] [address] Robbie Lebron Hematocrit (Bld) [Volume fraction] 35.0 % Critically low 36.0-48.0 [facility] Comment on above: Performed By: #### C BC #### [facility] [address] [place] [address] Robbie Lebron Hemoglobin (Bld) [Mass/Vol] 11.5 g/dL Critically low 12.0-16.0 [facility] Comment on above: Performed By: #### C BC #### [facility] [address] [place] [address] Robbienicky Lebron IG # 0.04 10e3/ul Critically high 0.00-0.03 [facility] Comment on above: Performed By: #### C BC #### [facility] [address] [place] [address] Robbienicky Lebron IG % 0.4 % Normal 0.0-0.5 [facility] Comment on above: Performed By: #### C BC #### [facility] [address] [place] [address] Robbie Lebron LYMPH # 2.0 103/ul Normal 1.2-3.8 [facility] Comment on above: Performed By: #### C BC #### [facility] [address] [place] [address] Robbie Lebron Lymphocytes/100 WBC (Bld) 18.6 % Critically low 20.5-60.0 [facility] Comment on above: Performed By: #### C BC #### [facility] [address] [place] [address] Robbie Lebron MANUAL DIFF REQ NO Normal [facility] Comment on above: Performed By: #### C BC #### [facility] [address] [place] [address] Robbie Lebron MCH (RBC) [Entitic mass] 31.0 pg Normal 26.7-34.0 [facility] Comment on above: Performed By: #### C BC #### [facility] [address] [phone] Robbie Lebron MCHC (RBC) [Mass/Vol] 32.9 g/dL Normal 29.9-35.2 [facility] Comment on above: Performed By: #### C BC #### [facility] [address] [phone] Robbie Lebron MCV (RBC) [Entitic vol] 94.3 fL Normal 81.0-99.0 [facility] Comment on above: Performed By: #### C BC #### [facility] [address] [phone] Robbie Lebron MONO # 0.8 103/ul Normal 0.3-0.8 [facility] Comment on above: Performed By: #### C BC #### [facility] [address] [phone] Robbie Lebron Monocytes/100 WBC (Bld) 7.0 % Normal 1.7-12.0 [facility] Comment on above: Performed By: #### C BC #### [facility] [address] [phone] Robbie Gonzalezen NEUT # 8.0 103/ul Critically high 1.4-6.5 [facility] Comment on above: Performed By: #### C BC #### [facility] [address] [phone] Robbienicky Lebron Neutrophils/100 WBC (Bld) 73.8 % Normal 43.0-75.0 [facility] Comment on above: Performed By: #### C BC #### [facility] [address] [phone] Robbie Lebron Platelet mean volume (Bld) [Entitic vol] 10.2 fL Normal 9.5-13.5 [facility] Comment on above: Performed By: #### C BC #### [facility] [address] [phone] Robbie Vi PLT 232 103/ul Normal 150-450 [facility] Comment on above: Performed By: #### C BC #### [facility] [address] [place] [address] Robbie Lebron RBC 3.71 106/ul Critically low 4.20-5.40 [facility] Comment on above: Performed By: #### C BC #### [facility] [address] [place] [address] Robbie Lebron WBC 10.8 103/ul Normal 4.0-11.0 [facility] Comment on above: Performed By: #### C BC #### [facility] [address] [place] [address] Robbie Lebron DRUG SCREEN RAPID (URINE)on 02-15-2021 AMP Negative Normal NEGATIVE [facility] Comment on above: Performed By: #### D RUGRPD #### [facility] [address] [place] [address] Robbie Vi BAR Negative Normal NEGATIVE [facility] Comment on above: Performed By: #### D RUGRPD #### [facility] [address] [place] [address] Robbie Vi BUP Negative Normal NEGATIVE [facility] Comment on above: Performed By: #### D RUGRPD #### [facility] [address] [place] [address] Robbie Vi BZO Negative Normal NEGATIVE [facility] Comment on above: Performed By: #### D RUGRPD #### [facility] [address] [place] [address] Robbie Vi SAMANTHA Negative Normal NEGATIVE [facility] Comment on above: Performed By: #### D RUGRPD #### [facility] [address] [place] [address] Robbie Vi CUT-OFFS SEE BELOW Normal [facility] Comment on above: Result Comment: AMP [...] ng/mL Performed By: #### D RUGRPD #### [facility] [address] [place] [address] Robbie Vi DRUG CUT HEADER DRUG CLASS TEST SYST EM CUT-OFF CONCENTRATIONS ARE FOLLOWS: Normal [facility] Comment on above: Performed By: #### D RUGRPD #### [facility] [address] [place] [address] Robbie Vi mAMP Negative Normal NEGATIVE [facility] Comment on above: Performed By: #### D RUGRPD #### [facility] [address] [place] [address] Robbie Vi MTD Negative Normal NEGATIVE [facility] Comment on above: Performed By: #### Keeley RUGRPD #### [facility] [address] [place] [address] Robbie Vi OPI Negative Normal NEGATIVE [facility] Comment on above: Performed By: #### Keeley RUGRPD #### [facility] [address] [place] [address] Robbie Vi OXY Negative Normal NEGATIVE [facility] Comment on above: Performed By: #### Keeley RUGRPD #### [facility] [address] [place] [address] Robbie Vi PCP Negative Normal NEGATIVE [facility] Comment on above: Performed By: #### Keeley RUGRPD #### [facility] [address] [place] [address] Robbie Vi PPX Negative Normal NEGATIVE [facility] Comment on above: Performed By: #### D RUGRPD #### [facility] [address] [place] [address] Robbie Vi TCA Negative Normal NEGATIVE [facility] Comment on above: Performed By: #### Keeley RUGRPD #### [facility] [address] [place] [address] Robbie Vi THC Negative Normal NEGATIVE [facility] Comment on above: Performed By: #### D RUGRPD #### [facility] [address] [place] [address] Robbie Vi TYPE AND SCREENon 02-15-2021 TYPE AND SCREEN Antibody Screen NEGATIVE ABO Rh Typing O Rh Positive Blood Bank Notes PERFORMED BY JUAN ANTONIO Normal [facility] Comment on above: Performed By: #### T NS #### [facility] [address] [place] [address] Robbie Vi CULTURE URINEon 01-31-2021 CULTURE URINE Culture Observations : LIGHT GROWTH OF MIXED GENITAL RONNY. NO POTENTIAL PATHOGENS SEEN. Normal [facility] Comment on above: Performed By: #### G BSCX #### [facility] [address] [place] [address] Robbie Vi UA (CLEAN/CATCH) METAL SPRAYER MACHINED PARTS/MICRO I F IND.on 01-31-2021 Bilirubin Ql (U) Negative Normal NEGATIVE [facility] [place] [facility] Comment on above: Performed By: #### U MICRO, UACSIND #### [facility] [address] [place] [address] Robbie Vi Clarity (U) CLEAR Normal CLEAR [facility] Comment on above: Performed By: #### U MICRO, UACSIND #### [facility] [address] [place] [address] Robbie Vi Color (U) LT. YELLOW Normal YELLOW [facility] Comment on above: Performed By: #### U MICRO, UACSIND #### [facility] [address] [place] [address] Robbie Vi Glucose Ql (U) Negative Normal NEGATIVE [facility] Comment on above: Performed By: #### U MICRO, UACSIND #### [facility] [address] [place] [address] Robbie Vi Hemoglobin Ql (U) Negative Normal NEGATIVE [facility] Comment on above: Performed By: #### U MICRO, UACSIND #### [facility] [address] [place] [address] Robbie Vi Ketones Ql (U) Negative Normal NEGATIVE [facility] Comment on above: Performed By: #### U MICRO, UACSIND #### [facility] [address] [place] [address] Robbie Vi LEUKOCYTES TRACE Abnormal NEGATIVE [facility] Comment on above: Performed By: #### U MICRO, UACSIND #### [facility] [address] [place] [address] Robbie Vi Nitrite Ql (U) Negative Normal NEGATIVE [facility] Comment on above: Performed By: #### U MICRO, UACSIND #### [facility] [address] [place] [address] Robbie Vi pH (U) 6.0 [pH] Normal 5-9 [facility] Comment on above: Performed By: #### U MICRO, UACSIND #### [facility] [address] [place] [address] Robbienicky Gonzalezen SPEC GRAVITY <=1.005 Abnormal 1.005-<=1.0 25 [facility] Comment on above: Performed By: #### U MICRO, UACSIND #### [facility] [address] [place] [address] Robbie Vi UA PROTEIN Negative Normal NEGATIVE/ TRACE [facility] Comment on above: Performed By: #### U MICRO, UACSIND #### [facility] [address] [place] [address] Robbienicky Gonzalezen UR MICRO IND INDICATED Normal [facility] Comment on above: Performed By: #### U MICRO, UACSIND #### [facility] [address] [place] [address] Robbienicky Lebron Urobilinogen Qn (U) 0.2 {Maria Luz'U}/dL Normal 0.2 - 1. 0 [facility] Comment on above: Performed By: #### U MICRO, UACSIND #### [facility] [address] [place] [address] Robbienicky Lebron URINE MICROSCOPIC ONLYon BACTERIA SMALL Abnormal NONE SEEN [facility] Comment on above: Performed By: #### U MICRO, UACSIND #### [facility] [address] [place], [place] [id number] Robbie Lebron Bacteria identified Cx Nom (U) INDICATED Normal [facility] Comment on above: Performed By: #### U MICRO, UACSIND #### [facility] [address] [place] [address] Robbienicky Lebron CAST NONE SEEN Normal NONE SEEN [facility] Comment on above: Performed By: #### U MICRO, UACSIND #### [facility] [address] [place] [address] Robbie Vi Crystals LM Nom (Urine sed) NONE SEEN Normal NONE SEEN [facility] Comment on above: Performed By: #### U MICRO, UACSIND #### [facility] [address] [place] [address] Robbienicky Lebron Epithelial cells LM Ql (Urine sed) FEW Abnormal NONE SEEN /RARE [facility] Comment on above: Performed By: #### U MICRO, UACSIND #### [facility] [address] [place] [address] Robbie Vi MUCOUS NONE SEEN Normal NONE SEEN [facility] Comment on above: Performed By: #### U MICRO, UACSIND #### [facility] [address] [place] [address] Robbie Vi RBC 0-2 Normal 0-2 [facility] Comment on above: Performed By: #### U MICRO, UACSIND #### [facility] [address] [place] [address] Robbie Vi WBC 2-5 Abnormal NONE SEEN [facility] Comment on above: Performed By: #### U MICRO, UACSIND #### [facility] [address] [place] [address] Robbienicky Lebron GROUP B STREP CULTUREon 01-15 S. agalactiae Ag Ql (Unsp spec) Culture Observations: NEGATIVE FOR GROUP B STREPTOCOCCUS. Normal [facility] Comment on above: Performed By: #### G BSCX #### [facility] [address] [place] [address] Robbie Vi US PREG BIOPHY W NON STRESSo n [...] by: AYE SELLERS Date: 2021-01-23 15:23 Normal [facility] GLUCOSE - 1HRon 11-27-2020 Glucose [Mass/Vol] 94 mg/dL Normal 74-106 [facility] Comment on above: Performed By: #### G LU1HR #### [facility] [address] [place] [address] Robbie Vi HEMOGRAM AND PLATELon 2020 Hematocrit (Bld) [Volume fraction] 34.8 % Critically low 36.0-48.0 [facility] Comment on above: Performed By: #### H H #### [facility] [address] [place] [address] Orbbie Vi Hemoglobin (Bld) [Mass/Vol] 10.9 g/dL Critically low 12.0-16.0 [facility] Comment on above: Performed By: #### H H #### [facility] [address] [place] [address] Robbie Vi MCH (RBC) [Entitic mass] 31.3 pg Normal 26.7-34.0 [facility] Comment on above: Performed By: #### H H #### [facility] [address] [place] [address] Robbie Vi MCHC (RBC) [Mass/Vol] 31.3 g/dL Normal 29.9-35.2 [facility] Comment on above: Performed By: #### H H #### [facility] [address] [place] [address] Robbie Vi MCV (RBC) [Entitic vol] 100.0 fL Critically high 81.0-99 .0 [facility] Comment on above: Performed By: #### H H #### [facility] [address] [place], [place] [address] Robbie Lebron PLT 215 103/ul Normal 150-450 [facility] Comment on above: Performed By: #### H H #### [facility] [address] [place], [place] [address] Robbie Gonzalezen RBC 3.48 106/ul Critically low 4.20-5.40 [facility] Comment on above: Performed By: #### H H #### [facility] [address] [place], [place] [address] Robbie Lebron WBC 10.7 103/ul Normal 4.0-11.0 [facility] Comment on above: Performed By: #### H H #### [facility] [address] [place], [place] [address] Robbie Lebron CORONAVIRUS 2019 BY PCRon SARS-CoV-2 (COVID-19) RNA ESTELA+probe Ql (Unsp spec) Not detected Normal Not Detected [facility] Comment on above: Result Comment: . This [...] this test method. Fact sheet for providers: https://www.fda.gov/media/600371/download Fact sheet for patients: https://www.fda.gov/media/134635/download This test has received FDA Emergency Use Authorization [EUA] and has been verified by [facility] ([facility]). This test is only authorized for the duration of time that circumstances exist to justify the authorization of the emergency use of in vitro diagnostic tests for the detection of SARS-CoV-2 virus and/or diagnosis of COVID-19 infection under section 564(b)(1) of the Act, 21 U.S.C. 360bbb-3(b)(1), unless the authorization is terminated or revoked sooner. [facility] is certified under CLIA-88 as qualified to perform high complexity testing. Testing is performed in the [facility] laboratories located at [id number] [place] [address]. Performed By: #### C OV19 #### [facility] [address] [facility] [place] [address] Covid 19 Resultson 1 SARS-CoV-2 (COVID-19) RNA [...] or Naproxen (Aleve) can also be used. Grwx-zgu-ypfqfpc cough and cold medicines can be used according to the instructions on the package. Some klzw-mmm-mtpnefm medicines also contain acetaminophen. Make sure you [...] water are not available, use alcohol-based hand director of financial aid. Avoid touching your eyes, nose, and mouth [...] for 24 vianca (more content not included)... [facility] CORONAVIRUS 2019 BY PCRon DATE OF SYMPTOM ONSET [YYYYMMDD]? [id number] [facility] Comment on above: Performed By: #### C OV19 #### [facility] [address] [place] [id number] Lab Specimen Source Nasal, Nasopharyngeal [facility] Comment on above: Performed By: #### C OV19 #### [facility] [address] [place] [address] Provider Note - ED v2on 10-16 Provider [...] and medical, surgical, family and social history ALLERGIES/INTOLERANCES : No Known Allergies HEALTH HISTORY: No documented data. 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 CLINICAL IMPRESSION Diagnosis/Annotation: ED Dx Name:Acute upper respiratory infection Code:J06.9 Name:Exposure to COVID-19 virus Code:Z20.822 Disposition: discharged Type: home ATTESTATION CRITICAL CARE TIME Is this a critically ill patient: no Electronic Signatures: Ari Isabel (TEXTILE CONVERTER-CHIEF INTERNAL AUDITOR) (Signed 29-Oct-2020 14:53) Authored: HPI, PMH, ROS, PE, Results/Vital Signs, MDM/ED Course, Clinical Impression, Attestation, Chart Review, Scores Last Updated: 29-Oct-2020 14:53 by Ari Isabel (TEXTILE CONVERTER-CHIEF INTERNAL AUDITOR) Normal [facility] ED Noteon 01-24-2018 HIM IP Note OR Television Script Writer Normal [facility] HIM IP Note OR Television Script Writer Normal [facility] ED Provider Noteon 8 HIM IP Note OR Television Script Writer Normal [facility] Vital Signs Date Time Vital Sign Value Performing Clinician Facility 01-10-2024 17:14-0400 Diastolic blood pressure 64 mm[Hg] [facility] 01-10-2024 17:14-0400 Heart rate 82 /min [facility] 01-10-2024 17:14-0400 Mean blood pressure 87 mm[Hg] [facility] 01-10-2024 17:14-0400 Respiratory rate 18 /min [facility] 01-10-2024 17:14-0400 SaO2% (BldA) [Mass fraction] 99 % [facility] 01-10-2024 17:14-0400 Systolic blood pressure 132 mm[Hg] [facility] 01-10-2024 15:22-0400 Diastolic blood pressure 76 mm[Hg] [facility] 01-10-2024 15:22-0400 Heart rate 96 /min [facility] 01-10-2024 15:22-0400 Mean blood pressure 91 mm[Hg] [facility] 01-10-2024 15:22-0400 Respiratory rate 20 /min [facility] 01-10-2024 15:22-0400 SaO2% (BldA) [Mass fraction] 99 % [facility] 01-10-2024 15:22-0400 Systolic blood pressure 122 mm[Hg] [facility] 01-10-2024 14:28-0400 Heart rate 115 /min [facility] 01-10-2024 14:14-0400 Body temperature 98.24 [degF] [facility] 01-10-2024 14:14-0400 Diastolic blood pressure 102 mm[Hg] [facility] 01-10-2024 14:14-0400 Mean blood pressure 125 mm[Hg] [facility] 01-10-2024 14:14-0400 Respiratory rate 18 /min [facility] 01-10-2024 14:14-0400 SaO2% (BldA) [Mass fraction] 99 % [facility] 01-10-2024 14:14-0400 Systolic blood pressure 171 mm[Hg] [facility] 01-05-2024 14:25-0400 Blood Pressure Location Ayan Gudimella [facility] 01-05-2024 14:25-0400 Diastolic blood pressure 74 mm[Hg] Ayan Gudimella [facility] 01-05-2024 14:25-0400 Heart rate 92 /min Ayan Gudimella [facility] 01-05-2024 14:25-0400 SaO2% (BldA) [Mass fraction] 98 % Ayan Gudimella [facility] 01-05-2024 14:25-0400 Systolic blood pressure 128 mm[Hg] Ayan Gudimella [facility] 12-28-2023 13:15-0400 Diastolic blood pressure 91 mm[Hg] [facility] 12-28-2023 13:15-0400 Heart rate 99 /min [facility] 12-28-2023 13:15-0400 Mean blood pressure 110 mm[Hg] [facility] 12-28-2023 13:15-0400 Respiratory rate 20 /min [facility] 12-28-2023 13:15-0400 SaO2% (BldA) [Mass fraction] 100 % [facility] 12-28-2023 13:15-0400 Systolic blood pressure 148 mm[Hg] [facility] 12-28-2023 13:00-0400 Hourly Rounding [facility] 12-28-2023 13:00-0400 Promise to Return [facility] 12-28-2023 12:45-0400 Diastolic blood pressure 45 mm[Hg] [facility] 12-28-2023 12:45-0400 Heart rate 108 /min [facility] 12-28-2023 12:45-0400 Mean blood pressure 82 mm[Hg] [facility] 12-28-2023 12:45-0400 Respiratory rate 18 /min [facility] 12-28-2023 12:45-0400 SaO2% (BldA) [Mass fraction] 100 % [facility] 12-28-2023 12:45-0400 Systolic blood pressure 157 mm[Hg] [facility] 12-28-2023 12:00-0400 Hourly Rounding [facility] 12-28-2023 12:00-0400 Promise to Return [facility] 12-28-2023 11:53-0400 Diastolic blood pressure 88 mm[Hg] [facility] 12-28-2023 11:53-0400 Heart rate 88 /min [facility] 12-28-2023 11:53-0400 Mean blood pressure 109 mm[Hg] [facility] 12-28-2023 11:53-0400 Respiratory rate 18 /min [facility] 12-28-2023 11:53-0400 SaO2% (BldA) [Mass fraction] 99 % [facility] 12-28-2023 11:53-0400 Systolic blood pressure 150 mm[Hg] [facility] 12-28-2023 10:54-0400 Body temperature 98.42 [degF] [facility] 12-28-2023 10:54-0400 Heart rate 99 /min [facility] 12-28-2023 10:54-0400 Respiratory rate 18 /min [facility] 09-18-2023 01:00-0500 Body temperature 98.6 [degF] [facility] 09-18-2023 01:00-0500 Diastolic blood pressure 71 mm[Hg] Donte [facility] 09-18-2023 01:00-0500 Heart rate 80 /min Donte [facility] 09-18-2023 01:00-0500 Mean blood pressure 88 mm[Hg] Donte [facility] 09-18-2023 01:00-0500 Respiratory rate 18 /min Donte Elena [facility] 09-18-2023 01:00-0500 SaO2% (BldA) [Mass fraction] 100 % Donte [facility] 09-18-2023 01:00-0500 Systolic blood pressure 121 mm[Hg] Donte [facility] 09-18-2023 00:00-0500 Diastolic blood pressure 77 mm[Hg] Donte [facility] 09-18-2023 00:00-0500 Heart rate 88 /min Donte [facility] 09-18-2023 00:00-0500 Mean blood pressure 94 mm[Hg] [facility]te [facility] 09-18-2023 00:00-0500 Respiratory rate 17 /min Donte [facility] 09-18-2023 00:00-0500 Systolic blood pressure 128 mm[Hg] [facility] 09-17-2023 23:00-0500 Diastolic blood pressure 66 mm[Hg] [facility] 09-17-2023 23:00-0500 Heart rate 90 /min Donte [facility] 09-17-2023 23:00-0500 Mean blood pressure 86 mm[Hg] Donte [facility] 09-17-2023 23:00-0500 Systolic blood pressure 126 mm[Hg] [facility] 09-07-2023 15:30-0500 Diastolic blood pressure 51 mm[Hg] [facility] 09-07-2023 15:30-0500 Heart rate 79 /min [facility] 09-07-2023 15:30-0500 Mean blood pressure 73 mm[Hg] [facility] 09-07-2023 15:30-0500 Respiratory rate 18 /min [facility] 09-07-2023 15:30-0500 SaO2% (BldA) [Mass fraction] 97 % [facility] 09-07-2023 15:30-0500 Systolic blood pressure 116 mm[Hg] [facility] 09-07-2023 12:58-0500 Body temperature 98.06 [degF] [facility] 09-07-2023 12:58-0500 Diastolic blood pressure 70 mm[Hg] [facility] 09-07-2023 12:58-0500 Heart rate 94 /min [facility] 09-07-2023 12:58-0500 Respiratory rate 18 /min [facility] 09-07-2023 12:58-0500 SaO2% (BldA) [Mass fraction] 97 % [facility] 09-07-2023 12:58-0500 Systolic blood pressure 116 mm[Hg] [facility] 09-03-2023 15:37-0500 Body height 157.48 cm TEXTILE CONVERTER Liane Robuck Work Phone: [facility] 09-03-2023 15:37-0500 Body temperature 98.3 [degF] TEXTILE CONVERTER Liane Robuck Work Phone: [facility] 09-03-2023 15:37-0500 Body weight 68.1 kg TEXTILE CONVERTER Liane Robuck Work Phone: [facility] 09-03-2023 15:37-0500 Diastolic blood pressure 69 mm[Hg] TEXTILE CONVERTER Liane Robuck Work Phone: [facility] 09-03-2023 15:37-0500 Heart rate 115 /min TEXTILE CONVERTER Liane Robuck Work Phone: [facility] 09-03-2023 15:37-0500 Respiratory rate 16 /min TEXTILE CONVERTER Liane Robuck Work Phone: [facility] 09-03-2023 15:37-0500 SaO2% (BldA) [Mass fraction] 99 % TEXTILE CONVERTER Liane Robuck Work Phone: [facility] 09-03-2023 15:37-0500 Systolic blood pressure 137 mm[Hg] EMILY Irvin Work Phone: [facility] 11-26-2022 10:10-0400 Blood Pressure Location [facility] 11-26-2022 10:10-0400 Body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 [employer] Medicaid [employer] 1 [id number] Unknown [id number] 2.16.840.1.448630.3.579.2.531 Unknown [id number] 2.16.840.1.862621.3.579.2.531 Social History Date Type Detail Facility [facility] Tobacco smoking consumption unknown [facility] Start: 10-01-2021 End: 11-15-2022 Tobacco smoking status Heavy tobacco smoker (finding) [facility] Sex Assigned At Female [facility] Tobacco smoking status Never [facility] Start: 1995 Sex Assigned At Not on file [facility] Start: 02-25-2020 End: 11-19-2022 Tobacco smoking status NHIS Smokes tobacco daily BON [employer] Phone: History of tobacco use Cigarette Smoker B ON [employer] Phone: Start: 02-25-2020 End: 11-19-2022 Tobacco use and exposure Smokeless tobacco non-user [employer] Phone: Start: 11-18-2022 Alcohol intake Current drinke r of alcohol (finding) [employer] Phone: Start: 02-25-2020 History SDOH Alcohol Frequency 4 [employer] Phone: Start: 09-03-2023 End: 09-03-2023 History of tobacco use Smoker (finding) [facility] Start: 11-19-2022 End: 11-23-2022 Alcohol intake Ex-drinker (finding) [facility] Start: 11-26-2022 End: 01-05-2024 Tobacco smoking status Light tobacco smoker (finding) [facility] Start: 1995 Sex Assigned At Female F [facility] Medical Equipment Procedure Code Equipment Code Equipment Origin al Text Equipment Identifier Dates Protector 5 X 40 mm Nerve [id number] - [id number] Start: 11-22-2022 Functional Status Date Assessment Result Facility 01-10-2024 Functional Status N/A [facility] 01-05-2024 Functional Status N/A [facility] 12-28-2023 Functional Status N/A [facility] 09-17-2023 Functional Status N/A [facility] 09-07-2023 Functional Status N/A [facility] 11-15-2022 Functional Status No [facility] 11-14-2022 Functional Status [facility] 08-26-2022 Functional Status N/A [facility] 07-06-2022 Functional Status N/A [facility] 07-04-2022 Functional Status N/A [facility] 05-10-2022 Functional Status N/A [facility] Clinical Notes 02-11-2022 to 01-10-2024 Laboratory Note Date & Type Note Facility 01-10-2024 Hospital Discharg e instructions Patient Education 01/10/2024 17:08:24 Nonspecific Chest Pain, Adult, Oyli-yq-Hlsj Nonspecific Chest Pain Chest pain can be caused by many different conditions. Some causes of chest pain can be life-threatening. These will require treatment right away. Serious causes of chest pain include: Heart attack. A tear in the body's main blood vessel. Redness and swelling (inflammation) around your heart. Blood clot in your lungs. Other causes of chest pain may not be so serious. These include: Heartburn. Anxiety or stress. Damage to bones or muscles in your chest. Lung infections. Chest pain can feel like: Pain or discomfort in your chest. Crushing, pressure, aching, or squeezing pain. Burning or tingling. Dull or sharp pain that is worse when you move, cough, or take a deep breath. Pain or discomfort that is also felt in your back, neck, jaw, shoulder, or arm, or pain that spreads to any of these areas. It is hard to know whether your pain is caused by something that is serious or something that is not so serious. So it is important to see your doctor right away if you have chest pain. Follow these instructions at home: Medicines Take kacs-byl-rinqxpk and prescription medicines only as told by your doctor. If you were prescribed an antibiotic medicine, take it as told by your doctor. Do not stop taking the antibiotic even if you start to feel better. Lifestyle Rest as told by your doctor. Do not use any products that contain nicotine or tobacco, such as cigarettes, e-cigarettes, and chewing tobacco. If you need help quitting, ask your doctor. Do not drink alcohol. Make lifestyle changes as told by your doctor. These may include: ?Getting regular exercise. Ask your doctor what activities are safe for you. ?Eating a heart-healthy diet. A diet and payroll and benefits specialist (dietitian) can help you to learn healthy eating options. ?Staying at a healthy weight. ?Treating diabetes or high blood pressure, if needed. ?Lowering your stress. Activities such as yoga and relaxation techniques can help. General instructions Pay attention to any changes in your symptoms. Tell your doctor about them or any new symptoms. Avoid any activities that cause chest pain. Keep all follow-up visits as told by your doctor. This is important. You may need more testing if your chest pain does not go away. Contact a doctor if: Your chest pain does not go away. You feel depressed. You have a fever. Get help right away if: Your chest pain is worse. You have a cough that gets worse, or you cough up blood. You have very bad (severe) pain in your belly (abdomen). You pass out (faint). You have either of these for no clear reason: ?Sudden chest discomfort. ?Sudden discomfort in your arms, back, neck, or jaw. You have shortness of breath at any time. You suddenly start to sweat, or your skin gets clammy. You feel sick to your stomach (nauseous). You throw up (vomit). You suddenly feel lightheaded or dizzy. You feel very weak or tired. Your heart starts to beat fast, or it feels like it is skipping beats. These symptoms may be an emergency. Do not wait to see if the symptoms will go away. Get medical help right away. Call your local emergency services (911 in the [place] Do not drive yourself to the hospital. Summary Chest pain can be caused by many different conditions. The cause may be serious and need treatment right away. If you have chest pain, see your doctor right away. Follow your doctor's instructions for taking medicines and making lifestyle changes. Keep all follow-up visits as told by your doctor. This includes visits for any further testing if your chest pain does not go away. Be sure to know the signs that show that your condition has become worse. Get help right away if you have these symptoms. This information is not intended to replace advice given to you by your health care provider. Make sure you discuss any questions you have with your health care provider. Document Revised: 09/17/2021 Document Reviewed: 09/17/2021 [employer] Patient Education 2022 [employer]. Follow Up Care 01/10/2024 14:11:23 With:Liane MARESAZRA Address: [address] [place], [place] [address] Business (1) When:01/13/2024 17:08:04 Comments:Follow-up with your primary care provider for further management of care. Return to the ED with any worsening symptoms. [facility] 01-05-2024 Evaluation + Plan note Future Scheduled TestsHCV RNA by PCR, Qn Rfx Luz 01/05/24IV Screen 4th Generation wRfx 01/05/24Comprehensive Metabolic Panel 01/05/24 [facility] [place] 12-28-2023 Hospital Discharg e instructions Patient Education 12/28/2023 13:45:42 Seizure, Adult Seizure, Adult A seizure is a sudden burst of abnormal electrical and chemical activity in the brain. Seizures usually last from 30 seconds to 2 minutes. The abnormal activity temporarily interrupts normal brain function. Many types of seizures can affect adults. A seizure can cause many different symptoms depending on where in the brain it starts. What are the causes? Common causes of this condition include: Fever or infection. Brain injury, head trauma, bleeding in the brain, or a brain tumor. Low levels of blood sugar or salt (sodium). Kidney problems or liver problems. Metabolic disorders or other conditions that are passed from parent to child (are inherited). Reaction to a substance, such as a drug or a medicine, or suddenly stopping the use of a substance (withdrawal). A stroke. Developmental disorders such as autism spectrum disorder or cerebral palsy. In some cases, the cause of a seizure may not be known. Some people who have a seizure never have another one. A person who has repeated seizures over time without a clear cause has a condition called epilepsy. What increases the risk? You are more likely to develop this condition if: You have a family history of epilepsy. You have had a tonic clonic seizure before. This type of seizure causes tightening (contraction) of the muscles of the whole body and loss of consciousness. You have a history of head trauma, lack of oxygen at , or strokes. What are the signs or symptoms? There are many different types of seizures. The symptoms vary depending on the type of seizure you have. Symptoms occur during the seizure. They may also occur before a seizure (aura) and after a seizure (postictal). Symptoms may include the following: Symptoms during a seizure Uncontrollable shaking (convulsions) with fast, jerky movements of muscles. Stiffening of the body. Breathing problems. Confusion, staring, or unresponsiveness. Head nodding, eye blinking or fluttering, or rapid eye movements. Drooling, grunting, or making clicking sounds with your mouth. Loss of bladder control and bowel control. Symptoms before a seizure Fear or anxiety. Nausea. Vertigo. This is a feeling like: ?You are moving when you are not. ?Your surroundings are moving when they are not. D christophe vu. This is a feeling of having seen or heard something before. Odd tastes or smells. Changes in vision, such as seeing flashing lights or spots. Symptoms after a seizure Confusion. Sleepiness. Headache. Sore muscles. How is this diagnosed? This condition may be diagnosed based on: A description of your symptoms. Video of your seizures can be helpful. Your medical history. A physical exam. You may also have tests, including: Blood tests. CT scan. MRI. Electroencephalogram (EEG). This test measures electrical activity in the brain. An EEG can predict whether seizures will return. A spinal tap, also called a lumbar puncture. This is the removal and testing of fluid that surrounds the brain and spinal cord. How is this treated? Most seizures will stop on their own in less than 5 minutes, and no treatment is needed. Seizures that last longer than 5 minutes will usually need treatment. Seizures may be treated with: Medicines given through an IV. Avoiding known triggers, such as medicines that you take for another condition. Medicines to control seizures or prevent future seizures (antiepileptics), if epilepsy caused your seizures. Medical devices to prevent and control seizures. Surgery to stop seizures or to reduce how often seizures happen, if you have epilepsy that does not respond to medicines. A diet low in carbohydrates and high in fat (ketogenic diet). Follow these instructions at home: Medicines Take lvjr-jjz-dthrbxz and prescription medicines only as told by your health care provider. Avoid any substances that may prevent your medicine from working properly, such as alcohol. Activity Follow instructions about activities, such as driving or swimming, that would be dangerous if you had another seizure. Wait until your health care provider says it is safe to do them. If you live in the [place] check with your local department of motor vehicles (DMV) to find out about local driving laws. Each state has specific rules about when you can legally drive again. Get enough rest. Lack of sleep can make seizures more likely to occur. Educating others Teach friends and family what to do if you have a seizure. They should: ?Help you get down to the ground, to prevent a fall. ?Cushion your head and move items away from your body. ?Loosen any tight clothing around your neck. ?Turn you on your side. If you vomit, this helps keep your airway clear. ?Know whether or not you need emergency care. ?Stay with you until you recover. Also, tell them what not to do if you have a seizure. Tell them: ?They should not hold you down. Holding you down will not stop the seizure. ?They should not put anything in your mouth. General instructions Avoid anything that has ever triggered a seizure for you. Keep a seizure diary. Record what you remember about each seizure, especially anything that might have triggered it. Keep all follow-up visits. This is important. Contact a health care provider if: You have another seizure or seizures. Call each time you have a seizure. Your seizure pattern changes. You continue to have seizures with treatment. You have symptoms of an infection or illness. Either of these might increase your risk of having a seizure. You are unable to take your medicine. Get help right away if: You have: ?A seizure that does not stop after 5 minutes. ?Several seizures in a row without a complete recovery between seizures. ?A seizure that makes it harder to breathe. ?A seizure that leaves you unable to speak or use a part of your body. You do not wake up right away after a seizure. You injure yourself during a seizure. You have confusion or pain right after a seizure. These symptoms may represent a serious problem that is an emergency. Do not wait to see if the symptoms will go away. Get medical help right away. Call your local emergency services (911 in the [place] Do not drive yourself to the hospital. Summary Seizures are caused by abnormal electrical and chemical activity in the brain. The activity disrupts normal brain function and can cause various symptoms. Seizures have many causes, including illness, head injuries, low levels of blood sugar or salt, and certain conditions. Most seizures will stop on their own in less than 5 minutes. Seizures that last longer than 5 minutes are a medical emergency and need treatment right away. Many medicines are used to treat seizures. Take cmbj-hdr-jdqwamq and prescription medicines only as told by your health care provider. This information is not intended to replace advice given to you by your health care provider. Make sure you discuss any questions you have with your health care provider. Document Revised: 01/09/2021 Document Reviewed: 01/09/2021 [employer] Patient Education 2022 [employer]. Follow Up Care 12/28/2023 10:32:27 With:Jamal Bird Address: [address], [place] [address] Business (1) When:12/31/2023 13:12:02 Comments:Call Dr for diagnosis based follow up. Continue to follow seizure precautions, including not operating a motor vehicle or heavy equipment until follow-up with neurology. With:Liane IRVIN Address: [address] [place] [phone] Business (1) When:Within 3 Day(s) [facility] 12-28-2023 Evaluation + Plan note Extrac james from: Title:ED Note Author:Bony NEWMAN, Sunil Steward te:12/28/23 Cocaine use (F14.90: Cocaine use, unspecified, uncomplicated) Left otitis media (H66.92: Otitis media, unspecified, left ear) New onset seizure (R56.9: Unspecified convulsions) Nonspecific chest pain (R07.9: Chest pain, unspecified) Orders: amoxicillin-clavulanate, 1 tab(s), Oral, q12hr for 10 day(s), 20 tab(s), Refill(s) 0, [id number], 157, cm, 12/28/23 10:58:00 EDT, Height/Length Dosing, 68.3, kg, 12/28/23 10:58:00 EDT, Weight Dosing Basic Metabolic Panel Beta hCG Qual CBC w/ Auto Diff CT Head or Brain w/o Contrast Drug Screen Urine ED Cardiac Monitoring eGFR Extra Mccauley Tube Extra Red Tube Magnesium Level PT & PTT Troponin 0 Hr. UA with Cult Rflx XR Chest Single View [facility]03-03-2024 Hospital Discharge instructions Patient Education 09/18/2023 01:13:41 Threatened Miscarriage [...] body, such as thyroid disease or polycystic ovarysyndrome. Diabetes. Autoimmune disorders. Infections. Bleeding disorders. Obesity. [...] This may include radiation or heavy metals, suchas lead. Using certain medicines. What are the [...] provider. Document Revised: 01/02/2021 Document Reviewed: 01/02/2021 [employer] Patient Education 2022 [employer]. Follow Up Care 09/17/2023 22:36:46 With:Oliverio AUSTIN Address: [address] , [place] [address] Business (1) When:09/21/2023 With:Liane IRVIN Address: [address] [place] [address] Business (1) When:Within 3 Day(s) [facility]03-02-2024 Evaluation + Plan noteExtracted from: Title:ED Note Author:Donte Parker DO Date :09/17/23 Threatened miscarriage (O20. 0: Threatened ) Orders: Basic Metabolic Panel Beta hCG Quantitative CBC w/ Auto Diff eGFR Hepatic Function Panel Lipase Level Saline Lock Insert UA With Cult Reflex Urinary Catheter Insertion US 1st Trimester US Transvaginal [facility]02-21-2024 Hospital Discharge instructions Patient Education 09/07/2023 15:56:56 [...] Follow these instructions at home: Medicines Take eism-god-kcccqyg and prescription medicines only as told by [...] Watch your condition for any changes. Take gpuu-mnc-tqayeaw and prescription medicines only as told by [...] provider. Document Revised: 08/22/2020 Document Reviewed: 11/12/2019 [employer] Patient Education 2022 [employer]. Follow Up Care 09/07/2023 12:49:51 With:Liane BRANDEE Address: [address] [place] [phone] Business (1) When:09/10/2023 15:33:50 [facility]02-21-2024 Evaluation + Plan noteExtracted from: Title:ED Note Author:Wallace Doll PA-C te:09/07/23 Abdominal pain (R10.9: Unspe cified abdominal pain) Diagnostic Tests Pending * Urine Culture 09/07/23 [facility]08-02-2023 History of Present illness Narrative* Dulce Laughlin [...] 3:32 PM EDT ar documented in this [id number] Telephone encounter Note* Telephone Encounter - [employer] - 02/03/2023 1:11 PM EDT Central Correspondence Department received a Medical Information Report from [facility] addressed to [facility] Attn: Aye Vicente MD. Central Correspondence is not completing forms for Surgery Providers at this time. Form was scanned into patient's chart and Dr. Vicente notified via Media on 02/03/2023. [id number] Miscellaneous Notes* Telephone Encounter - Wood Sneed - 02/03/2023 1:11 PM EDT Central Correspondence Department received a Medical Information Report from [facility] addressed to [facility] Attn: Aye Vicente MD. Central Correspondence is not completing forms for Surgery Providers at this time. Form was scanned into patient's chart and Dr. Vicente notified via Media on 02/03/2023. documented in this [id number] Telephone encounter Note* Telephone Encounter - Loan Gomez RN - 02/02/2023 12:05 PM EDT z [id number] Miscellaneous Notes* Telephone Encounter - Loan Gomez RN - 02/02/2023 12:05 PM EDT z documented in this [id number] Telephone encounter Note* Telephone Encounter - Kaylene Montague - 01/25/2023 9:42 AM EDT Lakeisha calling from [facility] in regards to an order for occupational therapy. Advised order on file but pending. States they haven't received any order and patient is scheduled tomorrow for therapy. Lakeisha can be reached at [phone] and fax [phone]. Thanks [id number] Miscellaneous Notes* Telephone Encounter - Kaylene Montague - 01/25/2023 9:42 AM EDT Lakeisha calling from [facility] in regards to an order for occupational therapy. Advised order on file but pending. States they haven't received any order and patient is scheduled tomorrow for therapy. Lakeisha can be reached at [phone] and fax [phone]. Thanks documented in this [id number] Telephone encounter Note* Telephone Encounter - Cari Patel - 01/12/2023 8:51 AM EDT Pt called requesting pain medicine to be sent to [facility] in [place]. Please call ptMarbella [phone] Cari [id number] Miscellaneous Notes* Telephone Encounter - Cari Patel - 01/12/2023 8:51 AM EDT Pt called requesting pain medicine to be sent to [facility] in [place]. Please call ptMarbella [phone] Cari documented in this [id number] History of Present illness Narrative* Dulce Laughlin [...] PA-C 01/05/23 3:17 PM documented in this [id number] NoteOCCUPATIONAL THERAPY HAND CLINIC EVALUATION Visit #: [...] prevent ulnar clawing per Dr Vicente Payor: [facility] / Plan: [employer]ICA[employer] HMO / Product Type: Medicaid HMO Shahida Oh is a 27 year old R hand dominant female. 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 Follow up closer to home in [place], [place]. Interventions: AROM, AAROM, Tendon gliding exercises, Strengthening, Edema Control, Scar Management, Modalities, Pain management, Splinting, and Home program Plan of care discussed with patient and agreed upon. Risks and benefits of Occupational Therapy discussed with patient. Plan for next visit: check splint fits, ask about OT at [facility], progress based on MD recommendations Start Time: 134 Stop Time: 211 Total Treatment Minutes: 37 minutes Timed Code Treatments by Procedure: Orthotic/prosthetic/prefab Orthotic Management/Training (15 min) [53569]: 12 Total Timed Code Treatment Minutes: 12 minutes Un-Timed Code Treatments by Procedure: 1 HFO Total Un-Timed Code Treatment Minutes: 25 minutes IZABEL Bernstein documented in this [id number] NoteOCCUPATIONAL THERAPY HAND CLINIC EVALUATION Visit #: [...] or wrist ROM for 2-3 weeks Payor: [facility] / Plan: [employer] MEDICA[employer] HMO / Product Type: Medicaid HMO Shahida Oh is a 27 year old R hand dominant female. 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 Pt would benefit from skilled OT to address problem list (more content not included)...[employer] [id number] Note* Addendum Note - Dulce Laughlin PA-C - 11/30/2022 2:37 PM EDTAddended by: DULCE LAUGHLIN on: 11/30/2022 02:37 PM Modules accepted: Orders [id number] Miscellaneous Notes* Addendum Note - Dulce Laughlin [...] if agree Patient can be reached at [phone] Preferred pharmacies: [facility] #[id number]; phone number [phone]; fax number [phone] * Telephone Encounter - Catina Browne RN [...] other symptoms Protocols used: Post-Op Symptoms and Dnchbabqt-L-VO * Telephone Encounter - Catina Browne RN [...] to call us so we could page habilitation training specialist providers. Unsure if surgeon in the ORat this time or not. Read care advice to patient and/or guardian/surgical sales representative. Patient and/or guardian/surgical sales representative verbalized understanding and agreed with plan of care. To callback with any additional questions or concerns. Discussed option of being evaluated in the ED as well if she would like to be seen sooner, but she does not want to go to [facility] ED as they will not have her records. To prevent a delay in patient care, please forward your response to your responsible PSR/MTA/spool carrier. * Telephone Encounter - Blaire Yoder RN - 11/24/2022 5:24 PM EDT Pt called back to advise she has had no improvement in post operative arm pain since adding gabapentin 100mg TID. Also still taking PO tylenol, robaxin and oxycodone. She is inquiring about other options? Next f/u5/. Preferred pharmacy is: [id number] [address] Pt can be reached at: Phone numbers [...] working at all. Recommendation: Paged plastic surgery habilitation training specialist at 12:52 pm. The resident called back at 12:54 pm. Notified him of the pt's message about pain medications. He states he will call the patient and talk to her. Vi Gomes RN documented in this [id number] Telephone encounter Note* Telephone Encounter - Chacha Cassidy RN - 11/30/2022 9:22 AM EDT Situation: Patient calling regarding request for Neurontin Background: States out of medication and would like refills sent to preferred pharmacy Assessment: see above Recommendation: Please send to pharmacy if agree Patient can be reached at [phone] Preferred pharmacies: [id number] - [address]; phone number [phone]; fax number [phone] [id number] Miscellaneous Notes* Telephone Encounter - Chacha Cassidy RN - 11/30/2022 9:22 AM EDT Situation: Patient calling regarding request for Neurontin Background: States out of medication and would like refills sent to preferred pharmacy Assessment: see above Recommendation: Please send to pharmacy if agree Patient can be reached at [phone] Preferred pharmacies: [facility] #[id number]; phone number [phone]; fax number [phone] * Telephone Encounter - Catina Browne RN [...] other symptoms Protocols used: Post-Op Symptoms and Wlvdtfntn-S-XN * Telephone Encounter - Catina Browne RN [...] to call us so we could page habilitation training specialist providers. Unsure if surgeon in the ORat this time or not. Read care advice to patient and/or guardian/surgical sales representative. Patient and/or guardian/surgical sales representative verbalized understanding and agreed with plan of care. To callback with any additional questions or concerns. Discussed option of being evaluated in the ED as well if she would like to be seen sooner, but she does not want to go to [facility] ED as they will not have her records. To prevent a delay in patient care, please forward your response to your responsible PSR/MTA/spool carrier. * Telephone Encounter - Blaire Yoder RN - 11/24/2022 5:24 PM EDT Pt called back to advise she has had no improvement in post operative arm pain since adding gabapentin 100mg TID. Also still taking PO tylenol, robaxin and oxycodone. She is inquiring about other options? Next f/u/. Preferred pharmacy is: [facility] #[id number] - [address] [address] Pt can be reached at: Phone numbers [...] working at all. Recommendation: Paged plastic surgery habilitation training specialist at 12:52 pm. The resident called back at 12:54 pm. Notified him of the pt's message about pain medications. He states he will call the patient and talk to her. Vi Gomes RN documented in this [id number] History of Present illness Narrative* Jam Caal [...] Jam Caal DDS, MD Plastic Surgery Rotator [phone] documented in this [id number] Telephone encounter Note* Telephone Encounter - Catina [...] other symptoms Protocols used: Post-Op Symptoms and Izamrniuj-S-JE [id number] Telephone encounter Note* Telephone Encounter - Catina [...] to call us so we could page habilitation training specialist providers. Unsure if surgeon in the ORat this time or not. Read care advice to patient and/or guardian/surgical sales representative. Patient and/or guardian/surgical sales representative verbalized understanding and agreed with plan of care. To callback with any additional questions or concerns. Discussed option of being evaluated in the ED as well if she would like to be seen sooner, but she does not want to go to [facility] ED as they will not have her records. To prevent a delay in patient care, please forward your response to your responsible PSR/MTA/spool carrier. [id number] Telephone encounter Note* Telephone Encounter - Blaire Yoder RN - 11/24/2022 5:24 PM EDT Pt called back to advise she has had no improvement in post operative arm pain since adding gabapentin 100mg TID. Also still taking PO tylenol, robaxin and oxycodone. She is inquiring about other options? Next f/u12/08/22. [id number] [address] Pt can be reached at: Phone numbers Thank you [id number] Miscellaneous Notes* Telephone Encounter - Blaire Yoder RN - 11/24/2022 5:24 PM EDT Pt called back to advise she has had no improvement in post operative arm pain since adding gabapentin 100mg TID. Also still taking PO tylenol, robaxin and oxycodone. She is inquiring about other options? Next f/u12/08/22. Preferred pharmacy is: [id number] - [facility] [address] [address] Pt can be reached at: Phone numbers [...] working at all. Recommendation: Paged plastic surgery habilitation training specialist at 12:52 pm. The resident called back at 12:54 pm. Notified him of the pt's message about pain medications. He states he will call the patient and talk to her. Vi Gomes RN documented in this [id number] Telephone encounter Note* Telephone Encounter - Vi [...] working at all. Recommendation: Paged plastic surgery habilitation training specialist at 12:52 pm. The resident called back at 12:54 pm. Notified him of the pt's message about pain medications. He states he will call the patient and talk to her. Vi Gomes RN [facility] Work Phone: 1(881) 232-736705-09-2023 Miscellaneous Notes* Telephone Encounter - Vi Gomes [...] working at all. Recommendation: Paged plastic surgery habilitation training specialist at 12:52 pm. The resident called back at 12:54 pm. Notified him of the pt's message about pain medications. He states he will call the patient and talk to her. Vi Gomes RN documented in this [id number] NoteI have reviewed the patient's History and Physical Examination. I have personally seen and evaluated the patient, repeating garcía portions. There is no significant interval change. Surgery is still indicated. Yes Consent reviewed and signed by patient/family: Yes Operative site verified and marked: Yes Louis Meredith MD Orthopaedic Surgery PGY-1[facility]05-08-2023 Note* Brief Operative Note - Ari Rojas MD - 11/22/2022 12:31 PM EDT Brief Operative Note MAIN OR 04 Shahida Oh 27 year old female Surgical Contact Serial Number: [id number] Preoperative Diagnosis: Laceration of left upper extremity [...] Scrub: Elaine Arana; Loan Flores; Graciela Fortune, ZULY, BSN; Alma Boo Talent Management Manager Nurse: Graciela Fortune RN, BSN; Ashley Pearl RN; Sarah Blackwell RN Motor Grader Operator: Ari Rojas MD; Louis Meredith MD Anesthesia: General Anesthesiologist: Radha Bryant MD; Beka Montgomery MD; Damion Posada MD CAA: Nell Sam CAA; Kush Merritt CAA Pelt Salter: Raheem Johnson MD Specimen(s): * No specimens [...] by Ari Rojas MD 11/22/2022 3:39 PM [id number] Miscellaneous Notes* Brief Operative Note - Ari Rojas MD - 11/22/2022 12:31 PM EDT Brief Operative Note MAIN OR 04 Shahida Oh 27 year old female Surgical Contact Serial Number: [id number] Preoperative Diagnosis: Laceration of left upper extremity [...] Scrub: Elaine Arana; Loan Flores; Graciela Fortune, ZULY, BSN; Alma Boo Talent Management Manager Nurse: Graciela Fortune, RN, BSN; Ashley Pearl, ZULY; Sarah Blackwell RN Motor Grader Operator: Ari Rojas MD; Louis Meredith MD Anesthesia: General Anesthesiologist: Radha Bryant MD; Beka Montgomery MD; Damion Posada MD CAA: Nell Sam CAA; Kush Merritt CAA Pelt Salter: Raheem Johnson MD Specimen(s): * No specimens [...] were discussed with the patient and/or legal surgical sales representative. The risks, benefits and alternatives were reviewed. Questions regarding blood transfusions were answered. The patient /or the patient s legal surgical sales representative agree with the plan for transfusion of blood and/or blood components. documented in this [id number] Hospital Discharge instructions* Discharge Instructions* Pratima Kelly RN - 11/22/2022 12:18 PM EDT Images from the original note were not included. PERIOPERATIVE DISCHARGE/HOME-GOING INSTRUCTIONS ANESTHESIA - GENERAL (ADULT) If a problem arises, you may contact your physician by calling [phone] and asking for the resident habilitation training specialist for Plastics service. Special Care Needs: Activity: [...] less likely. For more informati on visit: [email or web address]-[email or web address]/ Some medications or combinations of medications can [...] (Arrive by 10:50 AM) Dulce Laughlin PA-C [facility] Plastic [facility] [place] During business hours, if you need to reach your provider, please call Plastic Surgery Office [phone]. After hours, if you have an urgent question or issue, you can also call this number and request to be connected to one of the residents on-call. documented in this [id number] Note* Blood Attestation - Tomi Johns MD - 11/22/2022 11:42 AM EDT Blood Attestation ATTESTATION OF INFORMED CONSENT FOR BLOOD The transfusion of blood and/or blood components were discussed with the patient and/or legal surgical sales representative. The risks, benefits and alternatives were reviewed. Questions regarding blood transfusions were answered. The patient /or the patient s legal surgical sales representative agree with the plan for transfusion of blood and/or blood components. [facility] Work Phone: 1(576) 591-111005-05-2023 Note* PSE Call H&P - Chanel Gonzalez RN - 11/19/2022 9:01 AM EDT Telephone History Shahida Oh, [id number] 11/19/2022 Patient was identified by name and [...] [facility]. [facility] Parking Instructions Please plan extra time for parking and shuttle service. We recommend arriving at least 15 minutes prior to the time your care team advises you need to be here. Parking is available in the [facility] [facility] accessible from [address]. 07/02 shuttle service from the garage to The [facility] is available. Go to the ground floor of the parking garage to reach the shuttle pick-up station located near the elevator and stairs. Shuttle service will drop you off at [facility] Main Entrance. [employer] M[employer] service will be available at The [facility] Main Entrance if you would prefer audio engineer over parking ([facility] Cork Molder Service Hours: Tuesday-Tuesday, 5:30 a.m. - 8:00 p.m.). Enter The [facility] Main Entrance and go to the [...] 11/17/2022 Added automatically from request for surgery [id number] Nicotine addiction 11/19/2022 Seizures (HCC) PROBLEM LIST: [...] to 5 values) None Lab Results - [facility] - 11/17/22 Auto Diff on 11-17-2022 Basophils/100 WBC (Bld) 0.5 % Normal 0.0-2.0 [facility] Comment on above: Order Comment: Order Added by Discern Expert. Performed By: #### 3986729, 7118710, 1155438, 0375171, 92349379, 9750506 ####[facility] [address] [place] [address] Basophils/Leukocytes Auto (Bld) [Pure # fraction] 0.0 E9/L Normal 0.0-0.2 [facility] Comment on above: Order Comment: Order Added by Discern Expert. Performed By: #### 9691483, 6073351, 2364484, 0907274, 75135172, 7346502 ####[address] [address] Eosinophils/100 WBC (Bld) 1.2 % Normal 0.0-8.0 [facility] Comment on above: Order Comment: Order Added by Esme Expert. Performed By: #### 3542146, 6408301, 8682401, 0613312, 64891022, 6844313 ####[address] [address] Eosinophils/Leukocytes Auto (Bld) [Pure # fraction] 0.1 E9/L Normal 0.0-0.5 [facility] Comment on above: Order Comment: Order Added by Esme Expert. Performed By: #### 4984367, 6668605, 8003206, 9439058, 22693119, 5954359 ####[address] [address] Lymphocytes/100 WBC (Bld) 41.8 % Normal 14.0-50.0 [facility] Comment on above: Order Comment: Order Added by Esme Expert. Performed By: #### 3393431, 2689692, 1377771, 0266355, 39594589, 7995669 ####[address] [address] Lymphocytes/Leukocytes Auto (Bld) [Pure # fraction] 2.8 E9/L Normal 1.0-4.0 [facility] Comment on above: Order Comment: Order Added by Esme Expert. Performed By: #### 8324835, 2656688, 6294682, 4285775, 48338338, 6263538 ####[address] [address] Monocytes/100 WBC (Bld) 7.2 % Normal 4.0-14.0 [facility] Comment on above: Order Comment: Order Added by Esme Expert. Performed By: #### 4517037, 3239110, 3970109, 6439112, 45103882, 4974875 ####[facility] [address] [place] [address] Monocytes/Leukocytes Auto (Bld) [Pure # fraction] 0.5 E9/L Normal 0.2-1.0 [facility] Comment on above: Order Comment: Order Added by Discern Expert. Performed By: #### 7613341, 4307409, 4372393, 1927672, 24448150, 4988069 ####[address] [place] [address] Neutrophils/100 WBC (Bld) 49.3 % Normal 36.0-75.0 [facility] Comment on above: Order Comment: Order Added by Discern Expert. Performed By: #### 2422560, 2546308, 6124126, 8118266, 08117657, 7449238 ####[address] [place] [address] Neutrophils/Leukocytes Auto (Bld) [Pure # fraction] 3.2 E9/L Normal 2.0-7.5 [facility] Comment on above: Order Comment: Order Added by Discern Expert. Performed By: #### 5356878, 7817700, 8587596, 8129781, 93700073, 5904871 ####[facility] [address] [place] [address] BMP on 11-17-2022 Anion gap [Moles/Vol] 8 mmol/L Normal 6-16 [facility] Comment on above: Performed By: #### 4515062, 7834536, 2165507, 7813846, 55353996, 1143139 ####[facility] [address] [place] [address] Calcium [Mass/Vol] 8.5 mg/dL Low 8.9-11.1 [facility] Comment on above: Performed By: #### 8226980, 5612383, 0501113, 7728226, 91251345, 8867684 ####[facility] [address] [place] [address] Chloride [Moles/Vol] 107 mmol/L Normal 101-111 [facility] Comment on above: Performed By: #### 7539348, 9547424, 1200226, 3267271, 43358314, 3755024 ####[facility] [address] [place] [address] CO2 [Moles/Vol] 25 mmol/L Normal 21-31 [facility] Comment on above: Performed By: #### 4767784, 4013406, 6985624, 5058595, 21144926, 3134897 ####[facility] [address] [place] [address] Creatinine [Mass/Vol] 0.5 mg/dL Normal 0.5-1.3 [facility] Comment on above: Performed By: #### 5676626, 7174860, 7904750, 0831662, 28344929, 0719502 ####[facility] [address] [place] [address] Glucose [Mass/Vol] 89 mg/dL Normal 55-199 [facility] Comment on above: Result Comment: If this glucose result represents a fasting glucose, interpretation should refer to the following reference range: 55-99 mg/dL Performed By: #### 5479851, 9389434, 0976082, 0191039, 07228023, 8152394 ####[facility] [address] [place] [address] Potassium [Moles/Vol] 3.4 mmol/L Low 3.5-5.3 [facility] Comment on above: Performed By: #### 3681730, 0822919, 3440779, 0541437, 23903143, 0509068 ####[facility] [address] [place] [address] Sodium [Moles/Vol] 137 mmol/L Normal 135-145 [facility] Comment on above: Performed By: #### 9447255, 3160837, 7997351, 8878448, 12252684, 3261120 ####[facility] [address] [place] [address] Urea nitrogen [Mass/Vol] 9 mg/dL Normal 5-21 [facility] Comment on above: Performed By: #### 6122395, 0162227, 6038237, 4935543, 37605369, 2921801 ####[facility] [address] [place] [address] Urea nitrogen/Creatinine [Mass ratio] 18 No Units Normal 10-20 [facility] Comment on above: Performed By: #### 0171187, 6338658, 5191363, 2595675, 71651755, 3036625 ####[facility] [address] [place] [address] CBC w/ Auto Diff on 11-17-2022 Erythrocyte distribution width (RBC) [Ratio] 13.9 % Normal 10.9-14.2 [facility] Comment on above: Performed By: #### 6937558, 7922378, 3247662, 9944345, 69817517, 4862624 ####[facility] [address] [place] [address] Hematocrit (Bld) [Volume fraction] 27.5 % Low 34.0-46.0 [facility] Comment on above: Performed By: #### 8792358, 8109366, 2603382, 5628137, 01205975, 2710443 ####[facility] [address] [place] [address] Hemoglobin (Bld) [Mass/Vol] 9.1 g/dL Low 12.0-16.0 [facility] Comment on above: Performed By: #### 8543648, 3426692, 1995999, 7015430, 20952015, 8707914 ####[facility] [address] [place] [address] MCH (RBC) [Entitic mass] 30.1 pg Normal 27.0-34.0 [facility] Comment on above: Performed By: #### 1913898, 4939579, 2016667, 2740158, 24102110, 7139765 ####[facility] [address] [place] [address] MCHC (RBC) [Mass/Vol] 32.9 g/dL Normal 31.4-36.0 [facility] Comment on above: Performed By: #### 9629410, 3109789, 2031987, 5246483, 70548812, 2560401 ####[facility] [address] [place] [address] MCV (RBC) [Entitic vol] 91.5 fL Normal 80.0-100.0 [facility] Comment on above: Performed By: #### 3367239, 9340970, 8955528, 0710811, 05792218, 1588834 ####[address] [place] [address] Platelet mean volume (Bld) [Entitic vol] 8.8 fL Normal 6.4-10.8 [facility] Comment on above: Performed By: #### 2193994, 8238111, 4707130, 6055249, 03716634, 9718390 ####[facility] [address] [place] [address] Platelets (Bld) [#/Vol] 163.0 E9/L Normal 150.0-500.0 [facility] Comment on above: Performed By: #### 6812850, 5024147, 6109223, 9183027, 78307815, 7962076 ####[address] [place] [address] RBC (Bld) [#/Vol] 3.0 E12/L Low 4.3-5.9 [facility] Comment on above: Performed By: #### 6553657, 2681623, 6975753, 4294768, 09608536, 5027075 ####[facility] [address] [place] [address] WBC corrected for nucl RBC Auto (Bld) [#/Vol] 6.6 E9/L Normal 4.0-11.0 [facility] Comment on above: Performed By: #### 5786738, 9686969, 0658989, 4312598, 60222834, 7021256 ####[facility] [address] [place] [address] CHEMISTRY Ordered By: SYSTEM SYSTEM on 11-17-2022 [...] rate/Area] 133 mL/min/1.73 m2 Normal >=59mL/min/1.73 m2 [facility] Chem S Glucose [Mass/Vol] 89 mg/dL Normal 55 - 199 mg/dL FT Remisol Magnesium [Mass/Vol] 1.8 mg/dL Normal 1.3 - 2.4 mg/dL FT [facility]isol Phosphate [Mass/Vol] 3.4 mg/dL Normal 1.9 - 4.6 mg/dL [facility] Potassium [Moles/Vol] 3.4 mmol/L Low 3.5 - 5.3 mmol/L [facility] Sodium [Moles/Vol] 137 mmol/L Normal 135 - 145 mmol/L [facility] Urea nitrogen [Mass/Vol] 9 mg/dL Normal 5 - 21 mg/dL [facility] Urea nitrogen/Creatinine [Mass ratio] 18 mg/mg Normal 10 - 20 FT Remisol TESTS REVIEWED: CXRay: 11/14/22 - [facility] IMPRESSION: NEGATIVE EK11/15/22 - [facility] SINUS TACHYCARDIA ECHO: Last Echocardiogram: none found going back to 11/17/2022 No results found for this basename: LVEF Stress test date: Last StressTest: none found going back to 11/17/[address] - [facility] 11/14/22 CT C/A/P: no acute traumatic [...] Time Spent Performing this Telephone History: 35 [id number] Miscellaneous Notes* PSE Call H&P - Chanel Gonzalez RN - 11/19/2022 9:01 AM EDT Telephone History Shahida Oh, [id number] 11/19/2022 Patient was identified by name and date of . Needs: Physical, Neck Circumference, Tox Screen, Seizure Precautions, Hep C, Received Blood Transfusion (11/14/22) and [facility] on DOS. If the patient becomes ill prior to surgery, they are to call their surgeon's office directly. 27 year old 143 lbs 5' 2 Date of Surgery: 5/8 Surgeon: Jules Type of Surgery: REPAIR, NERVE, MAJOR PERIPHERAL LEFT and REPAIR, TENDON, FLEXOR LEFT HISTORY OF PRESENT ILLNESS: telephone history prior to surgery You will be entering the hospital at the new entrance- [facility], which is on [address] [facility] [facility] Parking Instructions Please plan extra time for parking and shuttle service. We recommend arriving at least 15 minutes prior to the time your care team advises you need to be here. Parking is available in the [facility] accessible from [address]. 07/02 shuttle service from the garage to [facility] is available. Go to the ground floor of the parking garage to reach the shuttle pick-up station located near the elevator and stairs. Shuttle service will drop you off at [facility] Main Entrance. [employer] Molder service will be available at [facility] Main Entrance if you would prefer audio engineer over parking ([facility] Cork Molder Service Hours: Tuesday-Tuesday, 5:30 a.m. - 8:00 p.m.). Enter [facility] Main Entrance and go to the [...] 11/17/2022 Added automatically from request for surgery [id number] Nicotine addiction 11/19/2022 Seizures (HCC) PROBLEM LIST: [...] to 5 values) None Lab Results - [facility] - 11/17/22 Auto Diff on 11-17-2022 Basophils/100 WBC (Bld) 0.5 % Normal 0.0-2.0 [facility] Comment on above: Order Comment: Order Added by Discern Expert. Performed By: #### [id number], 1988509, 7165824, 2163494, 48622610, 7063963 ####[facility] [address] [place] [address] Basophils/Leukocytes Auto (Bld) [Pure # fraction] 0.0 E9/L Normal 0.0-0.2 [facility] Comment on above: Order Comment: Order Added by Discern Expert. Performed By: #### 1271538, 1562325, 6079253, 3637127, 44137275, 8271363 ####[address] [address] Eosinophils/100 WBC (Bld) 1.2 % Normal 0.0-8.0 [facility] Comment on above: Order Comment: Order Added by Discern Expert. Performed By: #### 4094232, 1667777, 9266233, 6569701, 45363078, 3640461 ####[address] [place] [address] Eosinophils/Leukocytes Auto (Bld) [Pure # fraction] 0.1 E9/L Normal 0.0-0.5 [facility] Comment on above: Order Comment: Order Added by Discern Expert. Performed By: #### 2384747, 9235931, 0715707, 3175748, 69671540, 4264911 ####[address] [address] Lymphocytes/100 WBC (Bld) 41.8 % Normal 14.0-50.0 [facility] Comment on above: Order Comment: Order Added by Discern Expert. Performed By: #### 1790453, 5683226, 6088285, 5127164, 06511590, 1322883 ####[address] [place] [address] Lymphocytes/Leukocytes Auto (Bld) [Pure # fraction] 2.8 E9/L Normal 1.0-4.0 [facility] Comment on above: Order Comment: Order Added by Discern Expert. Performed By: #### 0523900, 3028294, 3114827, 9462067, 12328913, 7907835 ####[address] [place] [address] Monocytes/100 WBC (Bld) 7.2 % Normal 4.0-14.0 [facility] Comment on above: Order Comment: Order Added by Discern Expert. Performed By: #### 9425134, 0569480, 2771855, 7770003, 36063480, 8635675 ####[address] [address] Monocytes/Leukocytes Auto (Bld) [Pure # fraction] 0.5 E9/L Normal 0.2-1.0 [facility] Comment on above: Order Comment: Order Added by Discern Expert. Performed By: #### 2230102, 8703691, 5421730, 0665501, 96720930, 3671458 ####[address] [address] Neutrophils/100 WBC (Bld) 49.3 % Normal 36.0-75.0 [facility] Comment on above: Order Comment: Order Added by Discern Expert. Performed By: #### 8138074, 3437445, 1180742, 3842739, 98411673, 7003218 ####[address] [place] [address] Neutrophils/Leukocytes Auto (Bld) [Pure # fraction] 3.2 E9/L Normal 2.0-7.5 [facility] Comment on above: Order Comment: Order Added by Discern Expert. Performed By: #### 5304339, 5909498, 6280802, 7438730, 35612853, 8713793 ####[facility] [address] [place] [address] BMP on 11-17-2022 Anion gap [Moles/Vol] 8 mmol/L Normal 6-16 [facility] Comment on above: Performed By: #### 0638908, 5881207, 5981055, 1020511, 60068539, 5418446 ####[facility] [address] [place] [address] Calcium [Mass/Vol] 8.5 mg/dL Low 8.9-11.1 [facility] Comment on above: Performed By: #### 6042410, 9745055, 9514452, 2944301, 05747091, 1603389 ####[facility] [address] [place] [address] Chloride [Moles/Vol] 107 mmol/L Normal 101-111 [facility] Comment on above: Performed By: #### 8463396, 3429666, 4266735, 9331004, 53822504, 0669276 ####[facility] [address] [place] [address] CO2 [Moles/Vol] 25 mmol/L Normal 21-31 [facility] Comment on above: Performed By: #### 5004939, 0729631, 5525251, 9661480, 46160238, 4385732 ####[facility] [address] [place] [address] Creatinine [Mass/Vol] 0.5 mg/dL Normal 0.5-1.3 [facility] Comment on above: Performed By: #### 2579241, 3691857, 1933087, 7302755, 50554100, 2646276 ####[facility] [address] [place] [address] Glucose [Mass/Vol] 89 mg/dL Normal 55-199 [facility] Comment on above: Result Comment: If this glucose result represents a fasting glucose, interpretation should refer to the following reference range: 55-99 mg/dL Performed By: #### 6717847, 3009436, 1321506, 9356791, 10781710, 6659723 ####[facility] [address] [place] [address] Potassium [Moles/Vol] 3.4 mmol/L Low 3.5-5.3 [facility] Comment on above: Performed By: #### 7650851, 4590366, 5153240, 3418465, 47353042, 9901295 ####[facility] [address] [place] [address] Sodium [Moles/Vol] 137 mmol/L Normal 135-145 [facility] Comment on above: Performed By: #### 9003532, 3961623, 1303239, 9146180, 98231937, 7175791 ####[facility] [address] [place] [address] Urea nitrogen [Mass/Vol] 9 mg/dL Normal 5-21 [facility] Comment on above: Performed By: #### 3303527, 5261466, 7415069, 7857102,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
[2024-02-04 20:31] VITALS: BP 148/80; PULSE 76; TEMP 36.9; O2SAT 97; BMI 25.6
--- NOTE | 2024-02-04 22:23 | ED.EXTPRO1 ---
HPI - Extremity Problem General Chief complaint: Extremity Problem, Nontraumatic Stated complaint: UPPER EXTREMITY PAIN, SWELLED, LANCED AT [facility] [place] Time Seen by Provider: 02/04/24 21:57 Source: patient Mode of arrival: walk-in Limitations: no limitations History of Present Illness HPI Narrative: 29-year-old female presents to the emergency department for redness and swelling to her right ring finger. She was seen at another hospital earlier today where incision and drainage was carried out. They wanted to admit her but she left AMA. She came here tonight and wants to be admitted at that other hospital, [facility]. She complains of pain and redness and swelling and believes she was bit by a spider. She has had this for several days. Related Data Home Medications ?Medication ?Instructions ?Recorded ?Confirmed diphenhydramine HCl 25 mg tablet mg 09/16/23 (Banophen) Previous Rx's ?Medication ?Instructions ?Recorded doxycycline hyclate 100 mg capsule 100 mg PO BID 7 days #14 caps 09/28/23 ibuprofen 800 mg tablet 800 mg PO Q8H PRN pain 14 days #40 09/28/23 tabs Allergies Allergy/AdvReac Type Severity Reaction Status Date / Time No Known Drug Allergies Allergy Verified 02/04/24 20:38 Review of Systems ROS Narrative A ten point review of systems is negative except as noted above. [facility] Medical History (Updated 02/04/24 @ 22:23 by Ifeanyi Rose MD) Vaginal bleeding ?N93.9 - Abnormal uterine and vaginal bleeding, unspecified (ICD-10) Missed ab ?O02.1 - Missed (ICD-10) Tonsillar cyst ?J35.8 - Other chronic diseases of tonsils and adenoids (ICD-10) Seizures ?R56.9 - Unspecified convulsions (ICD-10) Depression ?F32.A - Depression, unspecified (ICD-10) Chronic hepatitis ?K73.9 - Chronic hepatitis, unspecified (ICD-10) Surgical History (Updated 09/28/23 @ 11:34 by Graciela Moreland) H/O abdominal surgery ?Z98.890 - Other specified postprocedural states (ICD-10) H/O foot surgery ?Z98.890 - Other specified postprocedural states (ICD-10) Family History (Updated 09/28/23 @ 10:36 by Brisa Benedict RN) Other Cancer FHx: mental illness Hypertension Kidney failure Social History (Updated 09/28/23 @ 11:44 by Graciela Moreland) Within the past year, how often did you have a drink containing alcohol: never Score interpretation: A score less than 3 is consistent with normal alcohol consumption. Do you use any of these nicotine containing products: vaping products Non-prescribed substance use: cannabis (any form) Exam Narrative Exam Narrative: Nurses note and vital signs reviewed and patient is not hypoxic. General: The patient appears well and in no apparent distress. Patient is resting comfortably on cart. Skin: Warm, dry, no pallor noted. There is no rash noted. Head: Normocephalic, atraumatic Eye: Normal conjunctiva, no drainage Ears, Nose, Mouth, and Throat: oral mucosa is moist. Nares patent. Cardiovascular: Regular Rate and Rhythm Respiratory: Patient is in no distress, no accessory muscle use, lungs are clear to auscultation, no wheezing, rales or rhonchi Back: non-tender GI: Soft and nontender Musculoskeletal: The right ring finger is erythematous and the entire length is swollen. There is no active drainage. Neurological: A&O, normal speech Psychiatric: Cooperative Constitutional Vital Signs, click to edit/add: Last Vital Signs Temp 98.5 F 02/04/24 20:31 Pulse 76 02/04/24 20:31 Resp 16 02/04/24 20:31 BP 148/80 H 02/04/24 20:31 Pulse Ox 97 02/04/24 20:31 O2 Del Method Room Air 02/04/24 20:31 Course Vital Signs Vital signs: Vital Signs Temperature 98.5 F 02/04/24 20:31 Pulse Rate 76 02/04/24 20:31 Respiratory Rate 16 02/04/24 20:31 Blood Pressure 148/80 H 02/04/24 20:31 Pulse Oximetry 97 02/04/24 20:31 Oxygen Delivery Method Room Air 02/04/24 20:31 Temperature 98.5 F 02/04/24 20:31 Pulse Rate 76 02/04/24 20:31 Respiratory Rate 16 02/04/24 20:31 Blood Pressure 148/80 H 02/04/24 20:31 Pulse Oximetry 97 07/20/24 20:31 Oxygen Delivery Method Room Air 02/04/24 20:31 MDM - Extremity (Nontraumatic) MDM Narrative Medical decision making narrative: The patient has cellulitis of her finger and needs to be admitted for IV antibiotics. She was offered admission here or transfer to [facility] after starting her treatment here but she does not want to stay here in the emergency department and she states that she is going to drive over to [facility] to be admitted there. She is fully able to make medical decisions for herself. Differential Diagnosis Differential diagnosis: Likely other (Cellulitis, abscess) Discharge Plan Discharge Stand Alone Forms: Portal Instructions Chief Complaint: Extremity Problem, Nontraumatic Clinical Impression: Cellulitis Patient Disposition: Left Against Medical Advice Time of Disposition Decision: 22:23 Condition: Fair Mode of Transportation: Private Vehicle Prescriptions / Home Meds: No Action diphenhydramine HCl [Banophen] 25 mg tablet doxycycline hyclate 100 mg capsule 100 mg PO BID 7 Days Qty: 14 0RF ibuprofen 800 mg tablet 800 mg PO Q8H PRN (Reason: pain) 14 Days Qty: 40 0RF Print Language: Kinyarwanda Instructions: Cellulitis (ED) Referrals: Physician,Non-Staff, MD [Primary Care Provider] - 1 week Discharge Date/Time: 02/04/24 22:07
== END 2024-02-04 22:07 | disposition left against medical advice (07) ==
LOC: ER 19:47
PROVIDERS: Emergency Provider Emergency Medicine
DX: Z53.21 Procedure and treatment not carried out due to patient leaving prior to being seen by health care provider (principal)